=== PATIENT | female | born 1930 | race Hispanic/Latino ===

== ENCOUNTER 2017-10-26 10:12 | Outpatient (CLI) | payer MEDICARE ==
--- NOTE | 2017-10-26 16:27 | Mammography Report ---
BILATERAL DIGITAL SCREENING MAMMOGRAM with CAD: 10/26/17 10:12:00 CLINICAL: Routine screening. COMPARISON:04/19/13 FINDINGS: There are scattered areas of fibroglandular density.Bilateral benign calcifications. No mass, architectural distortion or suspicious calcifications. IMPRESSION: No mammographic evidence of malignancy. BI-RADS CATEGORY: 2 -- Benign RECOMMENDATION: Routine mammographic screening in one year. COMMENT: Patient follow-up letters are generated by our [employer] application.
== END 2017-10-26 10:13 | disposition home or self-care (01) ==
LOC: SPVWC 10:12
PROVIDERS: ATTEND Obstetrics & Gynecology
DX: Z12.31 Encounter for screening mammogram for malignant neoplasm of breast (principal)
CPT/HCPCS: 77067

== ENCOUNTER 2018-08-20 09:40 | Inpatient (IN) | payer MEDICARE ==
[2018-08-20 11:02] LABS: Basophils # (Auto) 0.1 K/mm3 (0.0-0.1); Basophils % (Auto) 0.9 % (0.0-1.8); Eosinophils # (Auto) 0.2 K/mm3 (0.0-0.4); Eosinophils % (Auto) 1.6 % (0.0-4.3); Hematocrit 28.6 % (30.3-42.9); Hemoglobin 9.4 gm/dl (10.1-14.3); Lymphocytes # (Auto) 1.1 K/mm3 (1.2-5.4); Lymphocytes % (Auto) 8.8 % (13.4-35.0); Mean Corpuscular HGB Conc 33 % (30-34); Mean Corpuscular Volume 93 fl (79-97); Monocytes # (Auto) 1.2 K/mm3 (0.0-0.8); Platelet Count 249 K/mm3 (140-440); Red Blood Count 3.07 M/mm3 (3.65-5.03); Red Cell Distribution Width 17.6 % (13.2-15.2)
[2018-08-20 11:13] LABS: INR 0.99 (0.87-1.13); Partial Thromboplastin Time 24.7 Sec. (24.2-36.6)
[2018-08-20 11:25] LABS: Albumin 3.5 g/dL (3.9-5); Calcium 8.1 mg/dL (8.4-10.2)
--- NOTE | 2018-08-20 11:52 | Emergency Department Report ---
ED GI Bleed HPI - General Chief complaint: GI Bleed Stated complaint: GI BLEED Time Seen by Provider: 08/20/18 10:37 Source: patient, family, old records reviewed Mode of arrival: Stretcher Limitations: No Limitations - History of Present Illness Initial comments: 87-year-old female with a past medical history of arthritis, CHF, diabetes, hypertension and previous hysterectomy and bladder surgery presents to the hospital with complaints of rectal bleeding. Patient states she had 2 episodes of bloody stool this a.m. She denies pain, shortness of breath, nausea vomiting, or lightheadedness. Denies history of previous GI bleed. Had a colonoscopy greater than 4 years ago that was normal. 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 Sung with [facility] Severity scale (0 -10): 0 - Related Data Home Medications Medication Instructions Recorded Confirmed Last Taken Aspirin [Aspirin BABY CHEW TAB] 81 mg PO QDAY 08/20/18 08/20/18 Unknown Atorvastatin Calcium [Lipitor] 20 mg PO DAILY 08/20/18 08/20/18 Unknown Calcium Carbonate/Vitamin D3 1 each PO BID 08/20/18 08/20/18 Unknown [Calcium 600-Vit D3 400 Tablet] Carvedilol 12.5 mg PO BID 08/20/18 08/20/18 Unknown Estradiol 0.25 mg PO DAILY 08/20/18 08/20/18 Unknown Folic Acid [Folvite] 2 mg PO QDAY 08/20/18 08/20/18 Unknown Furosemide [Lasix TAB] 40 mg PO QDAY 08/20/18 08/20/18 Unknown Hydralazine HCl 50 mg PO TID 08/20/18 08/20/18 Unknown Losartan Potassium 100 mg PO DAILY 08/20/18 08/20/18 Unknown NIFEdipine [Nifedipine ER] 60 mg PO DAILY 08/20/18 08/20/18 Unknown Potassium Chloride 8 meq PO DAILY 08/20/18 08/20/18 Unknown Sitagliptin Phos/Metformin HCl 1 each PO DAILY 08/20/18 08/20/18 Unknown [Janumet 50-1,000 mg Tablet] metHOTREXate(DOSE WEEKLY ONLY) 2.5 mg PO QWEEK 08/20/18 08/20/18 Unknown [metHOTREXate (DOSE WEEKLY ONLY)] predniSONE [Deltasone] 5 mg PO QAM 08/20/18 08/20/18 Unknown Allergies Allergy/AdvReac Type Severity Reaction Status Date / Time codeine Allergy Vomiting Verified 03/23/18 11:39 ED Review of Systems ROS: Stated complaint: GI BLEED Other details as noted in HPI Comment: Unobtainable due to pts medical conditions ED Past Medical Hx - Past Medical History Previous Medical History?: Yes Hx Hypertension: Yes Hx Congestive Heart Failure: Yes Hx Diabetes: Yes Hx Arthritis: Yes (RA) Additional medical history: Right Shoulder dislocation 50 years ago. - Surgical History Past Surgical History?: Yes Additional Surgical History: Hysterectomy, Bladder Surgery - Social History Smoking Status: Former Smoker Substance Use Type: None - Medications Home Medications: Home Medications Medication Instructions Recorded Confirmed Last Taken Type Aspirin [Aspirin BABY CHEW TAB] 81 mg PO QDAY 08/20/18 08/20/18 Unknown History Atorvastatin Calcium [Lipitor] 20 mg PO DAILY 08/20/18 08/20/18 Unknown History Calcium Carbonate/Vitamin D3 1 each PO BID 08/20/18 08/20/18 Unknown History [Calcium 600-Vit D3 400 Tablet] Carvedilol 12.5 mg PO BID 08/20/18 08/20/18 Unknown History Estradiol 0.25 mg PO DAILY 08/20/18 08/20/18 Unknown History Folic Acid [Folvite] 2 mg PO QDAY 08/20/18 08/20/18 Unknown History Furosemide [Lasix TAB] 40 mg PO QDAY 08/20/18 08/20/18 Unknown History Hydralazine HCl 50 mg PO TID 08/20/18 08/20/18 Unknown History Losartan Potassium 100 mg PO DAILY 08/20/18 08/20/18 Unknown History NIFEdipine [Nifedipine ER] 60 mg PO DAILY 08/20/18 08/20/18 Unknown History Potassium Chloride 8 meq PO DAILY 08/20/18 08/20/18 Unknown History Sitagliptin Phos/Metformin HCl 1 each PO DAILY 08/20/18 08/20/18 Unknown History [Janumet 50-1,000 mg Tablet] metHOTREXate(DOSE WEEKLY ONLY) 2.5 mg PO QWEEK 08/20/18 08/20/18 Unknown History [metHOTREXate (DOSE WEEKLY ONLY)] predniSONE [Deltasone] 5 mg PO QAM 08/20/18 08/20/18 Unknown History ED Physical Exam - General Limitations: No Limitations - Other Other exam information: General: No limitations, patient is alert in no acute distress Head exam: Atraumatic, normocephalic Eyes exam: Normal appearance ENT: Moist mucous membrane Neck exam: Normal inspection, full range of motion, no meningismus nontender Respiratory exam: Clear to auscultation bilateral, no wheezes, rales, crackles Cardiovascular: Normal rate and rhythm, positive heart murmur Abdomen: Soft, nondistended, and nontender, with normal bowel sounds, no rebound, or guarding Rectal: Guaiac positive bright red blood, guaiac-positive, no external hemorrhoids Extremity: Full range of motion normal inspection no deformity Back: Normal Inspection, full range of motion, no tenderness Neurologic: Alert, oriented x3, cranial nerves intact, no motor or sensory deficit Psychiatric: normal affect, normal mood Skin: Warm, dry, intact ED Course Vital Signs 08/20/18 08/20/18 08/20/18 10:05 10:11 10:16 Temperature 97.5 F L Pulse Rate 97 H Respiratory 16 Rate Blood Pressure 182/70 152/69 O2 Sat by Pulse 96 97 99 Oximetry 08/20/18 08/20/18 08/20/18 10:30 10:46 11:01 Temperature Pulse Rate Respiratory Rate Blood Pressure 173/61 192/88 183/66 O2 Sat by Pulse 97 97 97 Oximetry 08/20/18 08/20/18 08/20/18 11:15 11:30 11:46 Temperature Pulse Rate Respiratory Rate Blood Pressure 181/66 181/67 144/66 O2 Sat by Pulse 97 97 97 Oximetry - Consultations Consultation #1: 08/20/18 12:06 case d/w Dr. Andres hilliard, GI, will consult. soft diet then npo after midnight. he will eval pt today ED Medical Decision Making - Lab Data Result diagrams: 08/20/18 10:32 08/20/18 10:32 Lab Results 08/20/18 08/20/18 08/20/18 Range/Units 10:32 10:32 10:32 WBC 12.2 H (4.5-11.0) K/mm3 RBC 3.07 L (3.65-5.03) M/mm3 Hgb 9.4 L (10.1-14.3) gm/dl Hct 28.6 L (30.3-42.9) % MCV 93 (79-97) fl MCH 31 (28-32) pg MCHC 33 (30-34) % RDW 17.6 H (13.2-15.2) % Plt Count 249 (140-440) K/mm3 Lymph % (Auto) 8.8 L (13.4-35.0) % [place] % (Auto) 10.0 H (0.0-7.3) % Eos % (Auto) 1.6 (0.0-4.3) % Baso % (Auto) 0.9 (0.0-1.8) % Lymph # 1.1 L (1.2-5.4) K/mm3 [place] # 1.2 H (0.0-0.8) K/mm3 Eos # 0.2 (0.0-0.4) K/mm3 Baso # 0.1 (0.0-0.1) K/mm3 Seg Neutrophils % 78.7 H (40.0-70.0) % Seg Neutrophils # 9.6 H (1.8-7.7) K/mm3 PT 13.7 (12.2-14.9) Sec. INR 0.99 (0.87-1.13) APTT 24.7 (24.2-36.6) Sec. Sodium (137-145) mmol/L Potassium (3.6-5.0) mmol/L Chloride (98-107) mmol/L Carbon Dioxide (22-30) mmol/L Anion Gap mmol/L BUN (7-17) mg/dL Creatinine (0.7-1.2) mg/dL Estimated GFR ml/min BUN/Creatinine Ratio % Glucose (65-100) mg/dL Calcium (8.4-10.2) mg/dL Total Bilirubin (0.1-1.2) mg/dL AST (5-40) units/L ALT (7-56) units/L Alkaline Phosphatase (35-129) units/L Total Protein (6.3-8.2) g/dL Albumin (3.9-5) g/dL Albumin/Globulin Ratio % Blood Type A POSITIVE Antibody Screen Negative 08/20/18 Range/Units 10:32 WBC (4.5-11.0) K/mm3 RBC (3.65-5.03) M/mm3 Hgb (10.1-14.3) gm/dl Hct (30.3-42.9) % MCV (79-97) fl MCH (28-32) pg MCHC (30-34) % RDW (13.2-15.2) % Plt Count (140-440) K/mm3 Lymph % (Auto) (13.4-35.0) % [place] % (Auto) (0.0-7.3) % Eos % (Auto) (0.0-4.3) % Baso % (Auto) (0.0-1.8) % Lymph # (1.2-5.4) K/mm3 [place] # (0.0-0.8) K/mm3 Eos # (0.0-0.4) K/mm3 Baso # (0.0-0.1) K/mm3 Seg Neutrophils % (40.0-70.0) % Seg Neutrophils # (1.8-7.7) K/mm3 PT (12.2-14.9) Sec. INR (0.87-1.13) APTT (24.2-36.6) Sec. Sodium 142 (137-145) mmol/L Potassium 4.0 (3.6-5.0) mmol/L Chloride 107.2 H (98-107) mmol/L Carbon Dioxide 24 (22-30) mmol/L Anion Gap 15 mmol/L BUN 18 H (7-17) mg/dL Creatinine 1.0 (0.7-1.2) mg/dL Estimated GFR 53 ml/min BUN/Creatinine Ratio 18 % Glucose 99 (65-100) mg/dL Calcium 8.1 L (8.4-10.2) mg/dL Total Bilirubin 0.50 (0.1-1.2) mg/dL AST 13 (5-40) units/L ALT 12 (7-56) units/L Alkaline Phosphatase 40 (35-129) units/L Total Protein 5.7 L (6.3-8.2) g/dL Albumin 3.5 L (3.9-5) g/dL Albumin/Globulin Ratio 1.6 % Blood Type Antibody Screen - EKG Data -: EKG Interpreted by Ct EKG shows normal: sinus rhythm, axis (qrs -25), QRS complexes (qrsd 86), ST-T waves (no stemi/t inv) Rate: normal (61) - EKG Data When compared to previous EKG there are: previous EKG unavailable - Medical Decision Making Patient presents for rectal bleeding with bowel movements. Mild anemia noted. GI consultation. Will admit for further treatment and workup. - Differential Diagnosis cancer, diverticulosis, AVM, hemorrhoids Critical Care Time: No Critical care attestation.: If time is entered above; I have spent that time in minutes in the direct care of this critically ill patient, excluding procedure time. ED Disposition Clinical Impression: Rectal bleeding, Anemia Disposition: DC-09 OP ADMIT IP TO THIS HOSP Is pt being admited?: Yes Condition: Stable Referrals: BRAYDON MEYER MD [Primary Care Provider] - 3-5 Days Forms: Accompanied Note Time of Disposition: 12:06 (Dr Finley/hosp)
[2018-08-20] MEDS ORDERED: DULCOLAX PO ONE ×2 (16:00→19:00)
--- NOTE | 2018-08-20 16:03 | Gastroenterology Consultation ---
History of Present Illness - Reason for Consult Consult date: 08/20/18 GI bleed Requesting physician: NGOC ARGUELLO - History of Present Illness Ms Ram is a 87 yo wf who presents for hematochezia. pt was in her usual state of health until this morning when she had multiple episodes of brbpr with clots. She presented to the ED by ambulance, and has had 2 more episodes of bleeding with clots since admission. She reports abd discomfort prior to onset of bleeding, but otherwise denies abd pain. No prior h/o bleeding. On baby aspirin, but otherwise no plavix or anticoagulation. Vitals stable on admission. Believes she had a colonoscopy ~5 years ago but does not recall details of findings. Past History Past Medical History: arthritis, diabetes, hypertension Past Surgical History: hysterectomy, Other (bladder surgery) Social history: no significant social history Family history: no significant family history Medications and Allergies Allergies Allergy/AdvReac Type Severity Reaction Status Date / Time codeine Allergy Vomiting Verified 03/23/18 11:39 Home Medications Medication Instructions Recorded Confirmed Last Taken Type Aspirin [Aspirin BABY CHEW TAB] 81 mg PO QDAY 08/20/18 08/20/18 Unknown History Atorvastatin Calcium [Lipitor] 20 mg PO DAILY 08/20/18 08/20/18 Unknown History Calcium Carbonate/Vitamin D3 1 each PO BID 08/20/18 08/20/18 Unknown History [Calcium 600-Vit D3 400 Tablet] Carvedilol 12.5 mg PO BID 08/20/18 08/20/18 Unknown History Estradiol 0.25 mg PO DAILY 08/20/18 08/20/18 Unknown History Folic Acid [Folvite] 2 mg PO QDAY 08/20/18 08/20/18 Unknown History Furosemide [Lasix TAB] 40 mg PO QDAY 08/20/18 08/20/18 Unknown History Hydralazine HCl 50 mg PO TID 08/20/18 08/20/18 Unknown History Losartan Potassium 100 mg PO DAILY 08/20/18 08/20/18 Unknown History NIFEdipine [Nifedipine ER] 60 mg PO DAILY 08/20/18 08/20/18 Unknown History Potassium Chloride 8 meq PO DAILY 08/20/18 08/20/18 Unknown History Sitagliptin Phos/Metformin HCl 1 each PO DAILY 08/20/18 08/20/18 Unknown History [Janumet 50-1,000 mg Tablet] metHOTREXate(DOSE WEEKLY ONLY) 2.5 mg PO QWEEK 08/20/18 08/20/18 Unknown History [metHOTREXate (DOSE WEEKLY ONLY)] predniSONE [Deltasone] 5 mg PO QAM 08/20/18 08/20/18 Unknown History Active Meds: Active Medications Bisacodyl (Dulcolax) 15 mg PO ONCE ONE Stop: 08/20/18 15:59 Reviewed/Updated patient's current and home medications. Exam - Constitutional Vital Signs: Temp Pulse Resp BP Pulse Ox 97.9 F 71 17 108/52 97 08/20/18 15:06 08/20/18 15:19 08/20/18 15:06 08/20/18 15:06 08/20/18 15:19 General appearance: no acute distress - EENT Eyes: PERRL, EOM intact - Neck Neck: supple - Respiratory Respiratory effort: normal Respiratory: bilateral: CTA - Cardiovascular Rhythm: regular Heart Sounds: Present: S1 & S2 Extremities: No edema - Gastrointestinal General gastrointestinal: Present: soft, non-tender, non-distended - Integumentary Integumentary: Present: clear, warm - Neurologic Neurological: alert and oriented x3 - Psychiatric Psychiatric: appropriate mood/affect - Labs CBC & Chem 7: 08/20/18 10:32 08/20/18 10:32 Lab Results: Laboratory Results - last 24 hr 08/20/18 08/20/18 08/20/18 10:32 10:32 10:32 WBC 12.2 H RBC 3.07 L Hgb 9.4 L Hct 28.6 L MCV 93 MCH 31 MCHC 33 RDW 17.6 H Plt Count 249 Lymph % (Auto) 8.8 L [place] % (Auto) 10.0 H Eos % (Auto) 1.6 Baso % (Auto) 0.9 Lymph # 1.1 L [place] # 1.2 H Eos # 0.2 Baso # 0.1 Seg Neutrophils % 78.7 H Seg Neutrophils # 9.6 H PT 13.7 INR 0.99 APTT 24.7 Sodium Potassium Chloride Carbon Dioxide Anion Gap BUN Creatinine Estimated GFR BUN/Creatinine Ratio Glucose Calcium Total Bilirubin AST ALT Alkaline Phosphatase Total Protein Albumin Albumin/Globulin Ratio Blood Type A POSITIVE Antibody Screen Negative 08/20/18 10:32 WBC RBC Hgb Hct MCV MCH MCHC RDW Plt Count Lymph % (Auto) [place] % (Auto) Eos % (Auto) Baso % (Auto) Lymph # [place] # Eos # Baso # Seg Neutrophils % Seg Neutrophils # PT INR APTT Sodium 142 Potassium 4.0 Chloride 107.2 H Carbon Dioxide 24 Anion Gap 15 BUN 18 H Creatinine 1.0 Estimated GFR 53 BUN/Creatinine Ratio 18 Glucose 99 Calcium 8.1 L Total Bilirubin 0.50 AST 13 ALT 12 Alkaline Phosphatase 40 Total Protein 5.7 L Albumin 3.5 L Albumin/Globulin Ratio 1.6 Blood Type Antibody Screen Assessment and Plan 1. Hematochezia - anemic on on admission (unknown baseline); no prior h/o gi bleeding. vitals stable. will plan for colonoscopy tomorrow; prep orders placed. trend labs and transfuse as needed to keep hgb > 7.
[2018-08-20] MEDS ORDERED: GOLYTELY PO ONE (17:00)
--- NOTE | 2018-08-20 18:09 | History and Physical Report ---
History of Present Illness Date of examination: 08/20/18 Date of admission: 08/20/18 12:07 Chief complaint: Lower GI bleed since AM History of present illness: 87-year-old female with a past medical history of arthritis, CHF, diabetes, hypertension and previous hysterectomy and bladder surgery presents to the hospital with complaints of rectal bleeding. Patient states she had 2 episodes of bloody stool this a.m. She denies pain, shortness of breath, nausea vom iting, or lightheadedness. Denies history of previous GI bleed. Had a colonoscopy greater than 4 years ago that was normal. Past Medical History Previous Medical History?: Yes Hypertension: Yes Congestive Heart Failure: Yes Diabetes: Yes Arthritis: Yes (RA) Additional medical history: Right Shoulder dislocation 50 years ago. Surgical History Past Surgical History?: Yes Additional Surgical History: Hysterectomy, Bladder Surgery Social History Smoking Status: Former Smoker Substance Use Type: None Medications Home Medications: Home Medications Medication Instructions Recorded Confirmed Last Taken Type Aspirin [Aspirin BABY CHEW TAB] 81 mg PO QDAY 08/20/18 08/20/18 Unknown History Atorvastatin Calcium [Lipitor] 20 mg PO DAILY 08/20/18 08/20/18 Unknown History Calcium Carbonate/Vitamin D3 1 each PO BID 08/20/18 08/20/18 Unknown History [Calcium 600-Vit D3 400 Tablet] Carvedilol 12.5 mg PO BID 08/20/18 08/20/18 Unknown History Estradiol 0.25 mg PO DAILY 08/20/18 08/20/18 Unknown History Folic Acid [Folvite] 2 mg PO QDAY 08/20/18 08/20/18 Unknown History Furosemide [Lasix TAB] 40 mg PO QDAY 08/20/18 08/20/18 Unknown History Hydralazine HCl 50 mg PO TID 08/20/18 08/20/18 Unknown History Losartan Potassium 100 mg PO DAILY 08/20/18 08/20/18 Unknown History NIFEdipine [Nifedipine ER] 60 mg PO DAILY 08/20/18 08/20/18 Unknown History Potassium Chloride 8 meq PO DAILY 08/20/18 08/20/18 Unknown History Sitagliptin Phos/Metformin HCl 1 each PO DAILY 08/20/18 08/20/18 Unknown History [Janumet 50-1,000 mg Tablet] metHOTREXate(DOSE WEEKLY ONLY) 2.5 mg PO QWEEK 08/20/18 08/20/18 Unknown History [metHOTREXate (DOSE WEEKLY ONLY)] predniSONE [Deltasone] 5 mg PO QAM 08/20/18 08/20/18 Unknown History Review of systems Stated complaint: GI BLEED Other details as noted in HPI Unobtainable due to pts medical conditions Past History Past Medical History: arthritis, diabetes, hypertension Past Surgical History: hysterectomy, Other (bladder surgery) Social history: no significant social history Family history: no significant family history Medications and Allergies Allergies Allergy/AdvReac Type Severity Reaction Status Date / Time codeine Allergy Vomiting Verified 03/23/18 11:39 Home Medications Medication Instructions Recorded Confirmed Last Taken Type Aspirin [Aspirin BABY CHEW TAB] 81 mg PO QDAY 08/20/18 08/20/18 Unknown History Atorvastatin Calcium [Lipitor] 20 mg PO DAILY 08/20/18 08/20/18 Unknown History Calcium Carbonate/Vitamin D3 1 each PO BID 08/20/18 08/20/18 Unknown History [Calcium 600-Vit D3 400 Tablet] Carvedilol 12.5 mg PO BID 08/20/18 08/20/18 Unknown History Estradiol 0.25 mg PO DAILY 08/20/18 08/20/18 Unknown History Folic Acid [Folvite] 2 mg PO QDAY 08/20/18 08/20/18 Unknown History Furosemide [Lasix TAB] 40 mg PO QDAY 08/20/18 08/20/18 Unknown History Hydralazine HCl 50 mg PO TID 08/20/18 08/20/18 Unknown History Losartan Potassium 100 mg PO DAILY 08/20/18 08/20/18 Unknown History NIFEdipine [Nifedipine ER] 60 mg PO DAILY 08/20/18 08/20/18 Unknown History Potassium Chloride 8 meq PO DAILY 08/20/18 08/20/18 Unknown History Sitagliptin Phos/Metformin HCl 1 each PO DAILY 08/20/18 08/20/18 Unknown History [Janumet 50-1,000 mg Tablet] metHOTREXate(DOSE WEEKLY ONLY) 2.5 mg PO QWEEK 08/20/18 08/20/18 Unknown History [metHOTREXate (DOSE WEEKLY ONLY)] predniSONE [Deltasone] 5 mg PO QAM 08/20/18 08/20/18 Unknown History Exam - Constitutional Vitals: Temp Pulse Resp BP Pulse Ox 97.9 F 71 17 108/52 97 08/20/18 15:06 04/13/19 15:19 08/20/18 15:06 08/20/18 15:06 08/20/18 15:19 General appearance: Present: no acute distress, well-nourished - EENT Eyes: Present: PERRL ENT: hearing intact, clear oral mucosa - Neck Neck: Present: supple, normal ROM - Respiratory Respiratory effort: normal Respiratory: bilateral: CTA - Cardiovascular Heart rate: 88 Rhythm: regular Heart Sounds: Present: S1 & S2. Absent: rub, click - Extremities Extremities: no ischemia, pulses intact, pulses symmetrical, No edema Peripheral Pulses: within normal limits - Abdominal General gastrointestinal: Present: soft, non-tender, non-distended, normal bowel sounds Female genitourinary: Present: normal - Rectal Rectal Exam: stool bloody - Integumentary Integumentary: Present: clear, warm, dry - Musculoskeletal Musculoskeletal: gait normal, strength equal bilaterally - Psychiatric Psychiatric: appropriate mood/affect, intact judgment & insight - Neurologic Neurologic: CNII-XII intact, moves all extremities - Allied Health Allied health notes reviewed: nursing, case management Results - Labs CBC & Chem 7: 08/20/18 19:24 08/20/18 10:32 Labs: Laboratory Last Values WBC 12.2 K/mm3 (4.5-11.0) H 08/20/18 10:32 RBC 3.07 M/mm3 (3.65-5.03) L 08/20/18 10:32 Hgb 9.4 gm/dl (10.1-14.3) L 08/20/18 10:32 Hct 28.6 % (30.3-42.9) L 08/20/18 10:32 MCV 93 fl (79-97) 08/20/18 10:32 MCH 31 pg (28-32) 08/20/18 10:32 MCHC 33 % (30-34) 08/20/18 10:32 RDW 17.6 % (13.2-15.2) H 08/20/18 10:32 Plt Count 249 K/mm3 (140-440) 08/20/18 10:32 Lymph % (Auto) 8.8 % (13.4-35.0) L 08/20/18 10:32 [place] % (Auto) 10.0 % (0.0-7.3) H 08/20/18 10:32 Eos % (Auto) 1.6 % (0.0-4.3) 08/20/18 10:32 Baso % (Auto) 0.9 % (0.0-1.8) 08/20/18 10:32 Lymph # 1.1 K/mm3 (1.2-5.4) L 08/20/18 10:32 [place] # 1.2 K/mm3 (0.0-0.8) H 08/20/18 10:32 Eos # 0.2 K/mm3 (0.0-0.4) 08/20/18 10:32 Baso # 0.1 K/mm3 (0.0-0.1) 08/20/18 10:32 Seg Neutrophils % 78.7 % (40.0-70.0) H 08/20/18 10:32 Seg Neutrophils # 9.6 K/mm3 (1.8-7.7) H 08/20/18 10:32 PT 13.7 Sec. (12.2-14.9) 08/20/18 10:32 INR 0.99 (0.87-1.13) 08/20/18 10:32 APTT 24.7 Sec. (24.2-36.6) 08/20/18 10:32 Sodium 142 mmol/L (137-145) 08/20/18 10:32 Potassium 4.0 mmol/L (3.6-5.0) 08/20/18 10:32 Chloride 107.2 mmol/L (98-107) H 08/20/18 10:32 Carbon Dioxide 24 mmol/L (22-30) 08/20/18 10:32 Anion Gap 15 mmol/L 08/20/18 10:32 BUN 18 mg/dL (7-17) H 08/20/18 10:32 Creatinine 1.0 mg/dL (0.7-1.2) 08/20/18 10:32 Estimated GFR 53 ml/min 08/20/18 10:32 BUN/Creatinine Ratio 18 % 08/20/18 10:32 Glucose 99 mg/dL (65-100) 08/20/18 10:32 Calcium 8.1 mg/dL (8.4-10.2) L 08/20/18 10:32 Total Bilirubin 0.50 mg/dL (0.1-1.2) 08/20/18 10:32 AST 13 units/L (5-40) 08/20/18 10:32 ALT 12 units/L (7-56) 08/20/18 10:32 Alkaline Phosphatase 40 units/L (35-129) 08/20/18 10:32 Total Protein 5.7 g/dL (6.3-8.2) L 08/20/18 10:32 Albumin 3.5 g/dL (3.9-5) L 08/20/18 10:32 Albumin/Globulin Ratio 1.6 % 08/20/18 10:32 Blood Type A POSITIVE 08/20/18 10:32 Antibody Screen Negative 08/20/18 10:32 - Imaging and Cardiology EKG: report reviewed (60/min) Assessment and Plan Advance Directives: Yes (Full code) VTE prophylaxis?: Chemical Plan of care discussed with patient/family: Yes - Patient Problems (1) Lower GI bleed Current Visit: Yes Status: Acute Plan to address problem: Check H/h q8 Transfuse if necessary GI consult for colonoscopy Possible Diverticular bleed (2) HTN (hypertension) Current Visit: Yes Status: Chronic Qualifiers: Hypertension type: essential hypertension Qualified Code(s): I10 - Essential (primary) hypertension Plan to address problem: Catapress patch Resume oral antihypertensives after colonoscopy (3) T2DM (type 2 diabetes mellitus) Current Visit: Yes Status: Chronic Qualifiers: Diabetes mellitus residential insulin use: without residential use Plan to address problem: Hold oral hypoglycemics for now till colonoscopy Coverage for now Check A1c (4) HLD (hyperlipidemia) Current Visit: Yes Status: Chronic Qualifiers: Hyperlipidemia type: mixed hyperlipidemia Qualified Code(s): E78.2 - Mixed hyperlipidemia Plan to address problem: Hold statins for now (5) DVT prophylaxis Current Visit: Yes Status: Acute Plan to address problem: On SCD's and GI prophylaxis
[2018-08-20 19:40] LABS: Hematocrit 23.6 % (30.3-42.9); Hemoglobin 7.7 gm/dl (10.1-14.3)
[2018-08-20] MEDS: PROTONIX IV SCH (21:38)
[2018-08-20] MEDS ORDERED: ZOFRAN IV PRN (23:32)
[2018-08-21 07:01] LABS: Hematocrit 20.4 % (30.3-42.9); Hemoglobin 6.6 gm/dl (10.1-14.3)
[2018-08-21] MEDS: HumaLOG SUB-Q SCH ×3 (10:26→17:07)
[2018-08-21] MEDS: PROTONIX IV SCH ×2 (10:27→21:49)
--- NOTE | 2018-08-21 10:31 | Progress Note ---
Assessment and Plan Assessment and plan: --Lower GI bleeding; Nothing by mouth, Protonix, GI evaluated the patient Possible endoscopy today --Type 2 diabetes mellitus; Accu-Chek sliding scale coverage and ADA diet Insulin/as needed --Dyslipidemia; stable on statin, low-cholesterol diet --DVT prophylaxis; SCDs The pharmacologic anticoagulation in view of GI bleeding --Full CODE STATUS Consultation and recommendations noted and appreciated Following endoscopy, possible discharge today tomorrow if stable Musculoskeletal the patient and the daughter at the bedside He also discussed with patient's nurse History Interval history: At 7-year-old female patient admitted with GI bleeding Evaluated by GI scheduled for endoscopy this morning Patient is nothing by mouth status, no new episodes of bleeding No new complaints Alert awake oriented 3 not in acute distress A vital signs reviewed Hospitalist Physical - Constitutional Vitals: Temp Pulse Resp BP Pulse Ox 99.0 F 71 18 144/48 96 08/21/18 08:00 08/21/18 10:00 08/21/18 09:20 08/21/18 08:00 08/21/18 09:20 General appearance: Present: no acute distress, well-nourished - EENT Eyes: Present: PERRL, EOM intact - Neck Neck: Present: supple - Respiratory Respiratory effort: normal Respiratory: bilateral: diminished, negative: rales, rhonchi, wheezing - Cardiovascular Rhythm: regular Heart Sounds: Present: S1 & S2 - Extremities Extremities: no ischemia, No edema - Abdominal General gastrointestinal: soft, non-tender, non-distended, normal bowel sounds - Integumentary Integumentary: Present: clear, warm - Psychiatric Psychiatric: appropriate mood/affect, cooperative - Neurologic Neurologic: CNII-XII intact, moves all extremities Results - Labs CBC & Chem 7: 08/21/18 05:00 08/20/18 10:32 Labs: Laboratory Last Values WBC 12.2 K/mm3 (4.5-11.0) H 08/20/18 10:32 RBC 3.07 M/mm3 (3.65-5.03) L 08/20/18 10:32 Hgb 6.6 gm/dl (10.1-14.3) L 08/21/18 05:00 Hct 20.4 % (30.3-42.9) L 08/21/18 05:00 MCV 93 fl (79-97) 08/20/18 10:32 MCH 31 pg (28-32) 08/20/18 10:32 MCHC 33 % (30-34) 08/20/18 10:32 RDW 17.6 % (13.2-15.2) H 08/20/18 10:32 Plt Count 249 K/mm3 (140-440) 08/20/18 10:32 Lymph % (Auto) 8.8 % (13.4-35.0) L 08/20/18 10:32 [place] % (Auto) 10.0 % (0.0-7.3) H 08/20/18 10:32 Eos % (Auto) 1.6 % (0.0-4.3) 08/20/18 10:32 Baso % (Auto) 0.9 % (0.0-1.8) 08/20/18 10:32 Lymph # 1.1 K/mm3 (1.2-5.4) L 08/20/18 10:32 [place] # 1.2 K/mm3 (0.0-0.8) H 08/20/18 10:32 Eos # 0.2 K/mm3 (0.0-0.4) 08/20/18 10:32 Baso # 0.1 K/mm3 (0.0-0.1) 08/20/18 10:32 Seg Neutrophils % 78.7 % (40.0-70.0) H 08/20/18 10:32 Seg Neutrophils # 9.6 K/mm3 (1.8-7.7) H 08/20/18 10:32 PT 13.7 Sec. (12.2-14.9) 08/20/18 10:32 INR 0.99 (0.87-1.13) 08/20/18 10:32 APTT 24.7 Sec. (24.2-36.6) 08/20/18 10:32 Sodium 142 mmol/L (137-145) 08/20/18 10:32 Potassium 4.0 mmol/L (3.6-5.0) 08/20/18 10:32 Chloride 107.2 mmol/L (98-107) H 08/20/18 10:32 Carbon Dioxide 24 mmol/L (22-30) 08/20/18 10:32 Anion Gap 15 mmol/L 08/20/18 10:32 BUN 18 mg/dL (7-17) H 08/20/18 10:32 Creatinine 1.0 mg/dL (0.7-1.2) 08/20/18 10:32 Estimated GFR 53 ml/min 08/20/18 10:32 BUN/Creatinine Ratio 18 % 08/20/18 10:32 Glucose 99 mg/dL (65-100) 08/20/18 10:32 Calcium 8.1 mg/dL (8.4-10.2) L 08/20/18 10:32 Total Bilirubin 0.50 mg/dL (0.1-1.2) 08/20/18 10:32 AST 13 units/L (5-40) 08/20/18 10:32 ALT 12 units/L (7-56) 08/20/18 10:32 Alkaline Phosphatase 40 units/L (35-129) 08/20/18 10:32 Total Protein 5.7 g/dL (6.3-8.2) L 08/20/18 10:32 Albumin 3.5 g/dL (3.9-5) L 08/20/18 10:32 Albumin/Globulin Ratio 1.6 % 08/20/18 10:32 Blood Type A POSITIVE 08/20/18 10:32 Antibody Screen Negative 08/20/18 10:32 Active Medications - Current Medications Current Medications: Generic Name Dose Route Start Last Admin Trade Name Freq PRN Reason Stop Dose Admin Insulin Human Lispro 0 unit 08/21/18 07:00 08/21/18 10:26 Humalog SUB-Q Not Given Q6HR [facility] Protocol Ondansetron HCl 4 mg 08/20/18 23:32 Zofran IV Q6H PRN N/V unrelieved by Marilu Pantoprazole Sodium 40 mg 08/20/18 22:00 08/21/18 10:27 Protonix IV 40 mg BID HAKAN Administration
[2018-08-21] MEDS ORDERED: NACL 0.9% 500 ML 500 ML IV ONE ×2 (11:00→11:41)
[2018-08-21 11:09] LABS: Hemoglobin 6.6 gm/dl (10.1-14.3)
[2018-08-21] MEDS ORDERED: NACL 0.9% 1000 ML 1,000 ML ONE (11:35)
[2018-08-21] MEDS ORDERED: WATER FOR IRRIG STERILE ONE (11:49)
[2018-08-21] MEDS ORDERED: WATER FOR IRRIG STERILE IR ONE ×2 (11:49→12:11)
[2018-08-21] MEDS ORDERED: NACL 0.9% 1000 ML 1,000 ML IV SCH (12:00)
[2018-08-21] MEDS ORDERED: NEO SYNEPHRINE/NS Syringe(OR USE) IV ONE (12:02)
--- NOTE | 2018-08-21 12:02 | Anesthesia Day of Surgery ---
Anesthesia Day of Surgery - Day of Surgery Patient Examined: Yes Patient H&P Reviewed: Yes Patient is NPO: Yes Beta Blockers: No Brennen's Test: N/A
--- NOTE | 2018-08-21 12:03 | Anesthesia Consultation ---
Anesthesia Consult and Med Hx Date of service: 08/21/18 - Airway Anesthetic Teeth Evaluation: Poor, Chipped ROM Head & Neck: Adequate Mental/Hyoid Distance: Adequate Mallampati Class: Class II Intubation Access Assessment: Good - Pulmonary Exam CTA: Yes - Cardiac Exam Cardiac Exam: RRR - Pre-Operative Health Status ASA Pre-Surgery Classification: ASA3 Proposed Anesthetic Plan: Sedation, Conscious, MAC - Pulmonary Hx Smoking: No Hx Asthma: No Hx Respiratory Symptoms: No SOB: No COPD: No Hx Sleep Apnea: No - Cardiovascular System Hx Hypertension: Yes Hx Coronary Artery Disease: No Hx Heart Attack/AMI: No - Central Nervous System Hx Psychiatric Problems: No - Gastrointestinal Hx Ulcer: No Hx Gastroesophageal Reflux Disease: No - Hematic Hx Anemia: No
[2018-08-21] MEDS ORDERED: DIPRIVAN 10 MG/ML IV ONE (12:05)
[2018-08-21] MEDS ORDERED: XYLOCAINE 2% INFILTRATI ONE (12:05)
[2018-08-21] MEDS ORDERED: AMIDATE IV ONE (12:13)
--- NOTE | 2018-08-21 12:33 | Operative Report ---
Operative Report Operative Report: Colonoscopy Procedure Note Date of procedure: 08/21/2018 Endoscopist: Tushar Mcgrath Pre-op diagnosis: Hematochezia, GI bleed Post-op diagnosis: Diverticulosis, internal hemorrhoids Anesthesia: MAC Complications: No immediate complications Estimated blood loss: None Procedure: After consent was obtained, the patient was placed in the left lateral decubitus position. The fujinon colonoscope was inserted into the patient's rectum under direct vision, and advanced to the cecum without difficulty. The patient tolerated the procedure well. The views of the mucosa were good. The quality of prep was good. The patient's vital signs were monitored continuously throughout the procedure. Findings: There were a few small and medium sized diverticula scattered in the left and right side of the colon. Internal hemorrhoids were visualized on retro-flexion view. Otherwise, the colon appeared normal without any blood seen during the procedure. Impression: 1. Diverticulosis - likely source of GI bleeding. No blood seen during the procedure and no other obvious source of patient's bleeding identified during colonoscopy. 2. Internal hemorrhoids Recommendations: -transfuse 1 unit of RBC and monitor labs -if patient re-bleeds, obtain CTA/bleeding scan -if no further bleeding and labs stable tomorrow, can likely be discharged. will follow-up tomorrow -will start patient on full liquid diet
[2018-08-21 23:40] LABS: Hematocrit 22.1 % (30.3-42.9); Hemoglobin 7.4 gm/dl (10.1-14.3)
[2018-08-22] MEDS: HumaLOG SUB-Q SCH ×4 (00:10→12:28)
[2018-08-22 06:06] LABS: Basophils # (Auto) 0.1 K/mm3 (0.0-0.1); Basophils % (Auto) 1.1 % (0.0-1.8); Eosinophils # (Auto) 0.2 K/mm3 (0.0-0.4); Eosinophils % (Auto) 2.1 % (0.0-4.3); Hematocrit 22.4 % (30.3-42.9); Hemoglobin 7.4 gm/dl (10.1-14.3); Lymphocytes # (Auto) 1.8 K/mm3 (1.2-5.4); Lymphocytes % (Auto) 21.3 % (13.4-35.0); Mean Corpuscular HGB Conc 33 % (30-34); Mean Corpuscular Volume 89 fl (79-97); Monocytes # (Auto) 1.1 K/mm3 (0.0-0.8); Platelet Count 148 K/mm3 (140-440); Red Blood Count 2.52 M/mm3 (3.65-5.03); Red Cell Distribution Width 17.8 % (13.2-15.2)
[2018-08-22 06:23] LABS: Calcium 7.9 mg/dL (8.4-10.2)
[2018-08-22] MEDS ORDERED: APRESOLINE IV ONE (09:00)
[2018-08-22] MEDS ORDERED: APRESOLINE IV PRN (09:00)
[2018-08-22] MEDS: PROTONIX IV SCH (09:01)
[2018-08-22] MEDS ORDERED: LASIX PO SCH (10:00)
[2018-08-22] MEDS ORDERED: COREG PO SCH (10:00)
--- NOTE | 2018-08-22 10:42 | Gastroenterology Progress Note ---
<DELIA GORMAN - Last Filed: 08/22/18 10:42> Assessment and Plan 1.Hematochezia -H/H 7.4/22.4-stable -continue to monitor H/H and transfuse as needed -s/p colonoscopy that showed internal hemorrhoids and diverticulosis (likely dean rce of bleeding) -clinically, patient is stable with no active signs of bleeding overnight or this am. Denies abd pain or N/V. Tolerating diet. -continue PPI and supportive care -okay to be d/c per GI standpoint with f/u in clinic ~2 weeks -if re-bleeds, recommend stat CTA/bleeding scan -no further recommendations at this time -will sign off, please call back if needed Subjective Date of service: 08/22/18 Principal diagnosis: rectal bleeding Interval history: No acute signs of bleeding overnight or this am. Denies abd pain or N/V. Tolerating diet. Objective - Constitutional Vitals: Temp Pulse Resp BP Pulse Ox 97.9 F 65 20 188/55 96 08/22/18 07:37 08/22/18 09:01 08/22/18 09:00 08/22/18 09:01 08/22/18 09:00 General appearance: no acute distress - Respiratory Respiratory: bilateral: CTA - Cardiovascular Rhythm: regular - Gastrointestinal General gastrointestinal: Present: soft, non-tender, non-distended, normal bowel sounds - Neurologic Neurological: alert and oriented x3 - Labs CBC & Chem 7: 08/22/18 04:54 08/22/18 04:54 Labs: Laboratory Results - last 24 hr 08/20/18 08/21/18 08/21/18 10:32 10:29 10:50 WBC RBC Hgb 6.6 L Hct 20.0 L MCV MCH MCHC RDW Plt Count Lymph % (Auto) [place] % (Auto) Eos % (Auto) Baso % (Auto) Lymph # [place] # Eos # Baso # Seg Neutrophils % Seg Neutrophils # Sodium Potassium Chloride Carbon Dioxide Anion Gap BUN Creatinine Estimated GFR BUN/Creatinine Ratio Glucose POC Glucose 128 H Calcium Blood Type A POSITIVE Antibody Screen Negative Crossmatch See Detail 08/21/18 08/21/18 08/21/18 10:58 11:20 16:22 WBC RBC Hgb Hct MCV MCH MCHC RDW Plt Count Lymph % (Auto) [place] % (Auto) Eos % (Auto) Baso % (Auto) Lymph # [place] # Eos # Baso # Seg Neutrophils % Seg Neutrophils # Sodium Potassium Chloride Carbon Dioxide Anion Gap BUN Creatinine Estimated GFR BUN/Creatinine Ratio Glucose POC Glucose 106 H 199 H Calcium Blood Type A POSITIVE Antibody Screen Negative Crossmatch See Detail 08/21/18 08/21/18 08/22/18 21:45 22:32 00:08 WBC RBC Hgb 7.4 L Hct 22.1 L MCV MCH MCHC RDW Plt Count Lymph % (Auto) [place] % (Auto) Eos % (Auto) Baso % (Auto) Lymph # [place] # Eos # Baso # Seg Neutrophils % Seg Neutrophils # Sodium Potassium Chloride Carbon Dioxide Anion Gap BUN Creatinine Estimated GFR BUN/Creatinine Ratio Glucose POC Glucose 124 H 156 H Calcium Blood Type Antibody Screen Crossmatch 08/22/18 08/22/18 08/22/18 04:54 04:54 07:37 WBC 8.3 RBC 2.52 L Hgb 7.4 L Hct 22.4 L MCV 89 MCH 29 MCHC 33 RDW 17.8 H Plt Count 148 Lymph % (Auto) 21.3 [place] % (Auto) 13.0 H Eos % (Auto) 2.1 Baso % (Auto) 1.1 Lymph # 1.8 [place] # 1.1 H Eos # 0.2 Baso # 0.1 Seg Neutrophils % 62.5 Seg Neutrophils # 5.2 Sodium 142 Potassium 3.6 Chloride 108.9 H Carbon Dioxide 22 Anion Gap 15 BUN 25 H Creatinine 1.4 H Estimated GFR 36 BUN/Creatinine Ratio 18 Glucose 109 H POC Glucose 127 H Calcium 7.9 L Blood Type Antibody Screen Crossmatch <HELADIO CONCEPCION - Last Filed: 08/22/18 16:37> Assessment and Plan Pt see and examined. Agree with note as outlined above. Objective - Constitutional Vitals: Temp Pulse Resp BP Pulse Ox 99.0 F 68 18 136/48 96 08/22/18 13:21 08/22/18 14:16 08/22/18 13:21 08/22/18 14:16 08/22/18 13:21 - Labs CBC & Chem 7: 08/22/18 04:54 08/22/18 04:54 Labs: Laboratory Results - last 24 hr 08/21/18 08/21/18 08/21/18 10:29 10:58 21:45 WBC RBC Hgb Hct MCV MCH MCHC RDW Plt Count Lymph % (Auto) [place] % (Auto) Eos % (Auto) Baso % (Auto) Lymph # [place] # Eos # Baso # Seg Neutrophils % Seg Neutrophils # Sodium Potassium Chloride Carbon Dioxide Anion Gap BUN Creatinine Estimated GFR BUN/Creatinine Ratio Glucose POC Glucose 128 H 124 H Calcium Blood Type A POSITIVE Antibody Screen Negative Crossmatch See Detail 08/21/18 08/22/18 08/22/18 22:32 00:08 04:54 WBC 8.3 RBC 2.52 L Hgb 7.4 L 7.4 L Hct 22.1 L 22.4 L MCV 89 MCH 29 MCHC 33 RDW 17.8 H Plt Count 148 Lymph % (Auto) 21.3 [place] % (Auto) 13.0 H Eos % (Auto) 2.1 Baso % (Auto) 1.1 Lymph # 1.8 [place] # 1.1 H Eos # 0.2 Baso # 0.1 Seg Neutrophils % 62.5 Seg Neutrophils # 5.2 Sodium Potassium Chloride Carbon Dioxide Anion Gap BUN Creatinine Estimated GFR BUN/Creatinine Ratio Glucose POC Glucose 156 H Calcium Blood Type Antibody Screen Crossmatch 08/22/18 08/22/18 08/22/18 04:54 07:37 11:14 WBC RBC Hgb Hct MCV MCH MCHC RDW Plt Count Lymph % (Auto) [place] % (Auto) Eos % (Auto) Baso % (Auto) Lymph # [place] # Eos # Baso # Seg Neutrophils % Seg Neutrophils # Sodium 142 Potassium 3.6 Chloride 108.9 H Carbon Dioxide 22 Anion Gap 15 BUN 25 H Creatinine 1.4 H Estimated GFR 36 BUN/Creatinine Ratio 18 Glucose 109 H POC Glucose 127 H 183 H Calcium 7.9 L Blood Type Antibody Screen Crossmatch
--- NOTE | 2018-08-22 13:47 | Discharge Summary ---
Providers - Providers Date of Admission: 08/20/18 12:07 Date of discharge: 08/22/18 Attending physician: DARA RICHARD 08/20/18 12:05 Consult to Physician [CONS] Urgent Comment: Consulting Provider: HELADIO CONCEPCION Physician Instructions: Reason For Exam: rectal bleeding Primary care physician: BRAYDON MEYER Hospitalization Reason for admission: Rectal bleeding Condition: Stable Pertinent studies: Colonoscopy: Diverticulosis - likely source of GI bleeding. No blood seen during the procedure and no other obvious source of patient's bleeding identified during colonoscopy. Internal hemorrhoids Recommendations: -transfuse 1 unit of RBC and monitor labs Hospital course: 87-year-old female with a past medical history of arthritis, CHF, diabetes, hypertension and previous hysterectomy and bladder surgery presents to the hospital with complaints of rectal bleeding. Patient states she had 2 episodes of bloody stool this a.m. She denies pain, shortness of breath, nausea vomiting, or lightheadedness. Denies history of previous GI bleed. Had a colonoscopy greater than 4 years ago that was normal.Patient symptomatically managed,received 1 unit PRBC,evaluated by GI,had colonoscopy. Today pt is comfortable,no new complaints,vital signs stable No new complaints,vital signs stable, Stable at discharge. Discharge Diagnosis: --Acute kidney injury; secondary to vasomotor nephropathy. Gentle hydration, parenteral fluids, monitor renal function, avoid nephrotoxins --Lower GI bleeding; Nothing by mouth, Protonix, GI evaluated the patient Possible endoscopy today --Type 2 diabetes mellitus; Accu-Chek sliding scale coverage and ADA diet Insulin/as needed --Dyslipidemia; stable on statin, low-cholesterol diet --DVT prophylaxis; SCDs The pharmacologic anticoagulation in view of GI bleeding Disposition: DC-01 TO HOME OR SELFCARE Time spent for discharge: 32 min Core Measure Documentation - Palliative Care Palliative Care/ Comfort Measures: Not Applicable - Core Measures Any of the following diagnoses?: none Exam - Constitutional Vitals: Temp Pulse Resp BP Pulse Ox 99.0 F 68 18 136/48 96 08/22/18 13:21 08/22/18 13:21 08/22/18 13:21 08/22/18 13:21 08/22/18 13:21 General appearance: Present: no acute distress, well-nourished - EENT Eyes: Present: PERRL, EOM intact - Neck Neck: Present: supple, normal ROM - Respiratory Respiratory effort: normal Respiratory: bilateral: diminished, negative: rales, rhonchi, wheezing - Cardiovascular Rhythm: regular Heart Sounds: Present: S1 & S2 - Extremities Extremities: no ischemia, No edema - Abdominal General gastrointestinal: Present: soft, non-tender, non-distended, normal bowel sounds - Integumentary Integumentary: Present: clear, warm - Musculoskeletal Musculoskeletal: strength equal bilaterally - Psychiatric Psychiatric: appropriate mood/affect, cooperative - Neurologic Neurologic: CNII-XII intact, moves all extremities Plan Activity: advance as tolerated, fall precautions Diet: other Special Instructions: physical therapy Additional Instructions: Fall precautions. If you have any new episodes of bleeding, contact M.D. or go to emergency room Follow up with: BRAYDON MEYER MD [Primary Care Provider] - 3-5 Days HELADIO CONCEPCION MD [Staff Physician] - 7 Days Forms: Accompanied Note
[2018-08-22] MEDS ORDERED: APRESOLINE PO SCH (14:00)
[2018-08-22] MEDS ORDERED: NON-FORMULARY (Hydralazine Hcl [Hydralazine Hcl] 50 MG) PO SCH (14:00)
[2018-08-23 17:51] VITALS: BP 136/48
[2018-08-27] MEDS ORDERED: CATAPRES-TTS PATCH TD SCH (10:00)
== END 2018-08-22 15:30 | disposition home or self-care (01) | DRG 377 ==
LOC: ED 09:40 → 2B-ACE 12:07
PROVIDERS: ADMIT Internal Medicine; ATTEND Internal Medicine
PROC: 0DJD8ZZ Inspection of Lower Intestinal Tract, Via Natural or Artificial Opening Endoscopic (ICD-10-PCS; principal; 2018-08-21)
PROC: 30233N1 Transfusion of Nonautologous Red Blood Cells into Peripheral Vein, Percutaneous Approach (ICD-10-PCS; 2018-08-21)
DX: K57.31 Diverticulosis of large intestine without perforation or abscess with bleeding (principal); N17.0 Acute kidney failure with tubular necrosis; D64.9 Anemia, unspecified; K64.8 Other hemorrhoids; M19.90 Unspecified osteoarthritis, unspecified site; I11.0 Hypertensive heart disease with heart failure; I50.9 Heart failure, unspecified; E11.9 Type 2 diabetes mellitus without complications; E78.2 Mixed hyperlipidemia; Z90.710 Acquired absence of both cervix and uterus; Z79.82 Long term (current) use of aspirin; Z79.899 Other long term (current) drug therapy; Z88.5 Allergy status to narcotic agent
CPT/HCPCS: 36415; 36430; 80048; 80053; 82271; 82962; 85014; 85018; 85025; 85610; 85730; 86850; 86900; 86901; 86920; 93005; 93010; G0378; C9113; J0360; J1815; J2370; J2704; J7030; P9016

== ENCOUNTER 2018-08-26 09:34 | Inpatient (IN) | payer MEDICARE ==
[2018-08-26 10:24] LABS: Basophils # (Auto) 0.1 K/mm3 (0.0-0.1); Basophils % (Auto) 0.9 % (0.0-1.8); Eosinophils # (Auto) 0.2 K/mm3 (0.0-0.4); Eosinophils % (Auto) 2.2 % (0.0-4.3); Hemoglobin 6.4 gm/dl (10.1-14.3); Lymphocytes # (Auto) 0.9 K/mm3 (1.2-5.4); Lymphocytes % (Auto) 9.3 % (13.4-35.0); Mean Corpuscular HGB Conc 33 % (30-34); Mean Corpuscular Volume 90 fl (79-97); Monocytes % (Auto) 9.8 % (0.0-7.3); Platelet Count 231 K/mm3 (140-440); Red Blood Count 2.16 M/mm3 (3.65-5.03); Red Cell Distribution Width 17.4 % (13.2-15.2)
[2018-08-26 10:34] LABS: Hematocrit 19.5 % (30.3-42.9)
[2018-08-26] MEDS ORDERED: NACL 0.9% 500 ML 500 ML IV ONE ×2 (10:37→12:06)
--- NOTE | 2018-08-26 10:37 | Emergency Department Report ---
HPI - General Chief Complaint: GI Bleed Time Seen by Provider: 08/26/18 10:25 - HPI HPI: Room 7 The patient is an 87-year-old female presenting with a chief complaint of rectal bleeding and weakness. Patient was recently admitted for rectal bleeding pre sumably from diverticulosis. Patient had a negative colonoscopy performed earlier this week. Patient states she's felt continuously weak since her discharge and this morning she had 4 episodes of bright red blood per rectum. Patient denies rectal pain or abdominal pain. Patient is to not but denies vomiting. Admits to shortness of breath for one week. Patient denies rectal pain. Location: GI system Duration: [See above] Quality: Weakness Severity: Moderate Modifying factors: [see above] Context: [see above] Mode of transportation: [not driving] ED Past Medical Hx - Past Medical History Hx Hypertension: Yes Hx Congestive Heart Failure: Yes Hx Diabetes: Yes Hx Arthritis: Yes (RA) Additional medical history: Right Shoulder dislocation 50 years ago. - Surgical History Additional Surgical History: Hysterectomy, Bladder Surgery - Family History Family history: no significant - Social History Smoking Status: Never Smoker Substance Use Type: None - Medications Home Medications: Home Medications Medication Instructions Recorded Confirmed Last Taken Type Aspirin [Aspirin BABY CHEW TAB] 81 mg PO QDAY 08/20/18 08/20/18 Unknown History Atorvastatin Calcium [Lipitor] 20 mg PO DAILY 08/20/18 08/20/18 Unknown History Calcium Carbonate/Vitamin D3 1 each PO BID 08/20/18 08/20/18 Unknown History [Calcium 600-Vit D3 400 Tablet] Carvedilol 12.5 mg PO BID 08/20/18 08/20/18 Unknown History Estradiol 0.25 mg PO DAILY 08/20/18 08/20/18 Unknown History Folic Acid [Folvite] 2 mg PO QDAY 08/20/18 08/20/18 Unknown History Furosemide [Lasix TAB] 40 mg PO QDAY 08/20/18 08/20/18 Unknown History Hydralazine HCl 50 mg PO TID 08/20/18 08/20/18 Unknown History Losartan Potassium 100 mg PO DAILY 08/20/18 08/20/18 Unknown History NIFEdipine [Nifedipine ER] 60 mg PO DAILY 08/20/18 08/20/18 Unknown History Potassium Chloride 8 meq PO DAILY 08/20/18 08/20/18 Unknown History Sitagliptin Phos/Metformin HCl 1 each PO DAILY 08/20/18 08/20/18 Unknown History [Janumet 50-1,000 mg] metHOTREXate(DOSE WEEKLY ONLY) 2.5 mg PO QWEEK 08/20/18 08/20/18 Unknown History [metHOTREXate (DOSE WEEKLY ONLY)] predniSONE [Deltasone] 5 mg PO QAM 08/20/18 08/20/18 Unknown History Pantoprazole [Protonix] 40 mg PO QDAY #30 tablet 08/22/18 Unknown Rx ED Review of Systems ROS: Stated complaint: RECTAL BLEED Other details as noted in HPI Constitutional: weakness Eyes: denies: eye pain ENT: denies: throat pain Respiratory: shortness of breath Cardiovascular: denies: chest pain Endocrine: no symptoms reported Gastrointestinal: nausea, hematochezia. denies: abdominal pain, vomiting Genitourinary: denies: dysuria Musculoskeletal: denies: back pain Neurological: denies: headache Physical Exam - Physical Exam Vital Signs: Vital Signs 08/26/18 08/26/18 08/26/18 09:44 10:28 10:29 Temperature 97.8 F Pulse Rate 66 68 Respiratory 18 18 18 Rate Blood Pressure 145/46 120/47 [Left] O2 Sat by Pulse 91 100 100 Oximetry Physical Exam: GENERAL: The patient is well-developed well-nourished female lying on a stretcher appearing pale but in no acute distress. [] HEENT: Normocephalic. Atraumatic. Extraocular motions are intact. Patient has moist mucous membranes. NECK: Supple. Trachea midline CHEST/LUNGS: Clear to auscultation. There is no respiratory distress noted. HEART/CARDIOVASCULAR: Regular. There is no tachycardia. There is a 2/6 systolic murmur. ABDOMEN: Abdomen is soft, nontender. Patient has normal bowel sounds. There is no abdominal distention. SKIN: There is no rash. There is no edema. There is no diaphoresis. NEURO: The patient is awake, alert, and oriented. The patient is cooperative. The patient has normal speech MUSCULOSKELETAL: There is no evidence of acute injury. RECTAL: Diaper clean. Paucity stool. Guaiac positive ED Course Vital Signs 08/26/18 08/26/18 08/26/18 09:44 10:28 10:29 Temperature 97.8 F Pulse Rate 66 68 Respiratory 18 18 18 Rate Blood Pressure 145/46 120/47 [Left] O2 Sat by Pulse 91 100 100 Oximetry - Consultations Consultation #1: 08/26/18 10:56 GI paged 08/26/18 11:[address] Mcgrath-requests CT angiogram abdomen be performed ED Medical Decision Making - Lab Data Result diagrams: 08/26/18 10:14 08/26/18 10:14 Laboratory Tests 08/26/18 08/26/18 08/26/18 10:14 10:14 10:30 WBC 9.8 RBC 2.16 L Hgb 6.4 L Hct 19.5 L* MCV 90 MCH 29 MCHC 33 RDW 17.4 H Plt Count 231 Lymph % (Auto) 9.3 L [place] % (Auto) 9.8 H Eos % (Auto) 2.2 Baso % (Auto) 0.9 Lymph # 0.9 L [place] # 1.0 H Eos # 0.2 Baso # 0.1 Seg Neutrophils % 77.8 H Seg Neutrophils # 7.6 PT 13.4 INR 0.96 APTT 22.4 L Sodium 141 Potassium 4.4 D Chloride 108.5 H Carbon Dioxide 22 Anion Gap 15 BUN 23 H Creatinine 1.3 H Estimated GFR 39 BUN/Creatinine Ratio 18 Glucose 147 H Calcium 8.3 L - Differential Diagnosis diverticulosis Critical care attestation.: If time is entered above; I have spent that time in minutes in the direct care of this critically ill patient, excluding procedure time. ED Disposition Clinical Impression: Diverticulosis, Lower GI bleed, Symptomatic anemia Disposition: OP ADMIT IP TO THIS HOSP Is pt being admited?: Yes Does the pt Need Aspirin: No Condition: Fair Referrals: BRAYDON MEYER MD [Primary Care Provider] - 3-5 Days Forms: Accompanied Note Time of Disposition: 11:04 (hospitalist paged (Dr Moyer))
[2018-08-26 10:40] LABS: Calcium 8.3 mg/dL (8.4-10.2)
[2018-08-26 10:46] LABS: INR 0.96 (0.87-1.13)
[2018-08-26 10:47] LABS: Partial Thromboplastin Time 22.4 Sec. (24.2-36.6)
[2018-08-26] MEDS ORDERED: NACL 0.9% 1000 ML 1,000 ML ONE (11:11)
[2018-08-26] MEDS ORDERED: NACL 0.9% 1000 ML 1,000 ML IV ONE (11:13)
--- NOTE | 2018-08-26 11:18 | Gastroenterology Consultation ---
History of Present Illness - Reason for Consult Consult date: 08/26/18 GI bleed Requesting physician: NIKKI EDMOND - History of Present Illness Ms Ram is a 87 yo wf who was recently in the hospital for suspected lower gi bleeding who presents with recurrent hematochezia. Pt reports bleeding episodes started again this morning. She has had 4 episodes of maroon blood per rectum with clots which last episode occurring upon arrival to the ED. She denies abdominal pain. She had a similar presentation 1 week ago for which she was admitted and had colonoscopy done 5 days ago which showed a few scattered tics but otherwise no blood in the colon or other possible source of bleeding. Pt's hct lower on admission compared to recent discharge level. Hypotensive at the time of exam, hr normal. Past History Past Medical History: arthritis, diabetes, hypertension Past Surgical History: hysterectomy, Other (bladder surgery) Social history: no significant social history Family history: no significant family history Medications and Allergies Allergies Allergy/AdvReac Type Severity Reaction Status Date / Time codeine Allergy Vomiting Verified 03/23/18 11:39 Home Medications Medication Instructions Recorded Confirmed Last Taken Type Aspirin [Aspirin BABY CHEW TAB] 81 mg PO QDAY 08/20/18 08/26/18 Unknown History Atorvastatin Calcium [Lipitor] 20 mg PO DAILY 08/20/18 08/26/18 Unknown History Calcium Carbonate/Vitamin D3 1 each PO BID 08/20/18 08/26/18 Unknown History [Calcium 600-Vit D3 400 Tablet] Carvedilol 12.5 mg PO BID 08/20/18 08/26/18 Unknown History Estradiol 0.25 mg PO DAILY 08/20/18 08/26/18 Unknown History Folic Acid [Folvite] 2 mg PO QDAY 08/20/18 08/26/18 Unknown History Furosemide [Lasix TAB] 40 mg PO QDAY 08/20/18 08/26/18 Unknown History Hydralazine HCl 50 mg PO TID 08/20/18 08/26/18 Unknown History Losartan Potassium 100 mg PO DAILY 08/20/18 08/26/18 Unknown History NIFEdipine [Nifedipine ER] 60 mg PO DAILY 08/20/18 08/26/18 Unknown History Potassium Chloride 8 meq PO DAILY 08/20/18 08/26/18 Unknown History Sitagliptin Phos/Metformin HCl 1 each PO DAILY 08/20/18 08/26/18 Unknown History [Janumet 50-1,000 mg] metHOTREXate(DOSE WEEKLY ONLY) 2.5 mg PO QWEEK 08/20/18 08/26/18 Unknown History [metHOTREXate (DOSE WEEKLY ONLY)] predniSONE [Deltasone] 5 mg PO QAM 08/20/18 08/26/18 Unknown History Pantoprazole [Protonix] 40 mg PO QDAY #30 tablet 08/22/18 08/26/18 Unknown Rx Active Meds: Active Medications Sodium Chloride (Nacl 0.9% 1000 Ml) 1,000 mls @ 999 mls/hr IV ONCE ONE Stop: 08/26/18 12:13 Review of Systems - Review of Systems All systems: negative (per HPI) Exam - Constitutional Vital Signs: Temp Pulse Resp BP Pulse Ox 97.8 F 68 18 120/47 100 08/26/18 10:29 08/26/18 10:29 08/26/18 10:29 08/26/18 10:29 08/26/18 10:29 General appearance: no acute distress - EENT Eyes: PERRL, EOM intact, other (pale conjunctiva) - Neck Neck: supple, normal ROM - Respiratory Respiratory effort: normal Respiratory: bilateral: CTA - Cardiovascular Rhythm: regular Heart Sounds: Present: S1 & S2 Extremities: No edema, Full ROM - Gastrointestinal General gastrointestinal: Present: soft, non-tender, non-distended - Neurologic Neurological: alert and oriented x3 - Labs CBC & Chem 7: 08/26/18 10:14 08/26/18 10:14 Lab Results: Laboratory Results - last 24 hr 08/26/18 08/26/18 08/26/18 10:14 10:14 10:30 WBC 9.8 RBC 2.16 L Hgb 6.4 L Hct 19.5 L* MCV 90 MCH 29 MCHC 33 RDW 17.4 H Plt Count 231 Lymph % (Auto) 9.3 L [place] % (Auto) 9.8 H Eos % (Auto) 2.2 Baso % (Auto) 0.9 Lymph # 0.9 L [place] # 1.0 H Eos # 0.2 Baso # 0.1 Seg Neutrophils % 77.8 H Seg Neutrophils # 7.6 PT 13.4 INR 0.96 APTT 22.4 L Sodium 141 Potassium 4.4 D Chloride 108.5 H Carbon Dioxide 22 Anion Gap 15 BUN 23 H Creatinine 1.3 H Estimated GFR 39 BUN/Creatinine Ratio 18 Glucose 147 H Calcium 8.3 L Blood Type Crossmatch 08/26/18 10:32 WBC RBC Hgb Hct MCV MCH MCHC RDW Plt Count Lymph % (Auto) [place] % (Auto) Eos % (Auto) Baso % (Auto) Lymph # [place] # Eos # Baso # Seg Neutrophils % Seg Neutrophils # PT INR APTT Sodium Potassium Chloride Carbon Dioxide Anion Gap BUN Creatinine Estimated GFR BUN/Creatinine Ratio Glucose Calcium Blood Type A POSITIVE Crossmatch See Detail Assessment and Plan 1. GI bleed 2. Diverticulosis 3. Anemia -pt with recurrent bleeding, recent colonoscopy with a few tics but otherwise no obvious source of bleeding. suspect diverticular bleeding; will obtain CTA of abdomen and recommend IR consult if CTA positive for active bleeding -transfuse RBC's to keep hgb > 7
--- NOTE | 2018-08-26 11:59 | History and Physical Report ---
History of Present Illness Chief complaint: Im bleeding History of present illness: 87 YO Female with HTN, CHF, DM, RA presents to ED for evaluation. Pt reports that she has experienced bleeding from her rectum today. Pt acknowledges 2 episodes of painless bleeding as well as generalized weakness. EMS notified and upon arrival the patient was found to be in distress and transported to [facility] ED. Pt seen and evaluated in ED and found to have lower GI bleeding, ARF, as well as Symptomatic Anemia. Pt denies fever, chills, CP, Palpitations, NVD, Syncope, Dizziness, Trauma, Skin rash, hematemesis. GI consulted in ED. Pt admitted to [facility]. No prior admissions for review. All listed medication reconciled at time of admission. Past History Past Medical History: arthritis, diabetes, hypertension Past Surgical History: hysterectomy, Other (bladder surgery) Social history: no significant social history Family history: no significant family history Medications and Allergies Allergies Allergy/AdvReac Type Severity Reaction Status Date / Time codeine Allergy Vomiting Verified 03/23/18 11:39 Home Medications Medication Instructions Recorded Confirmed Last Taken Type Aspirin [Aspirin BABY CHEW TAB] 81 mg PO QDAY 08/20/18 08/26/18 Unknown History Atorvastatin Calcium [Lipitor] 20 mg PO DAILY 08/20/18 08/26/18 Unknown History Calcium Carbonate/Vitamin D3 1 each PO BID 08/20/18 08/26/18 Unknown History [Calcium 600-Vit D3 400 Tablet] Carvedilol 12.5 mg PO BID 08/20/18 08/26/18 Unknown History Estradiol 0.25 mg PO DAILY 08/20/18 08/26/18 Unknown History Folic Acid [Folvite] 2 mg PO QDAY 08/20/18 08/26/18 Unknown History Furosemide [Lasix TAB] 40 mg PO QDAY 08/20/18 08/26/18 Unknown History Hydralazine HCl 50 mg PO TID 08/20/18 08/26/18 Unknown History Losartan Potassium 100 mg PO DAILY 08/20/18 08/26/18 Unknown History NIFEdipine [Nifedipine ER] 60 mg PO DAILY 08/20/18 08/26/18 Unknown History Potassium Chloride 8 meq PO DAILY 08/20/18 08/26/18 Unknown History Sitagliptin Phos/Metformin HCl 1 each PO DAILY 08/20/18 08/26/18 Unknown History [Janumet 50-1,000 mg] predniSONE [Deltasone] 5 mg PO QAM 08/20/18 08/26/18 Unknown History Pantoprazole [Protonix] 40 mg PO QDAY #30 tablet 08/22/18 08/26/18 Unknown Rx Methotrexate Sodium [Trexall] 5 mg PO QWEEK 08/26/18 08/26/18 Unknown History Active Meds: Active Medications Sodium Chloride (Nacl 0.9% 1000 Ml) 1,000 mls @ 999 mls/hr IV ONCE ONE Stop: 08/26/18 12:13 Last Admin: 08/26/18 11:21 Dose: 999 mls/hr Documented by: Review of Systems Constitutional: weakness, no weight loss, no weight gain, no fever, no chills Ears, nose, mouth and throat: no ear pain, no ear discharge, no tinnitis, no decreased hearing Breasts: no change in shape, no swelling, no mass Cardiovascular: no chest pain, no orthopnea, no palpitations, no rapid/irregular heart beat, no edema Respiratory: no cough, no cough with sputum, no excessive sputum, no hemoptysis Gastrointestinal: no nausea, no vomiting, no diarrhea, no constipation Genitourinary Female: no pelvic pain, no flank pain, no menorrhagia, no dysuria, no urinary frequency Rectal: no pain, no incontinence, no bleeding Musculoskeletal: no neck stiffness, no neck pain, no shooting arm pain, no arm numbness/tingling, no shooting leg pain Integumentary: no rash, no pruritis, no redness, no sores, no wounds Neurological: no head injury, no transient paralysis, no paralysis, no weakness, no parathesias, no numbness, no tingling Psychiatric: no anxiety, no memory loss, no change in sleep habits, no insomnia, no hypersomnia, no change in appetite Endocrine: no cold intolerance, no heat intolerance, no polyphagia, no excessive thirst Hematologic/Lymphatic: no easy bruising, no easy bleeding, no lymphadenopathy, no lymphedema Allergic/Immunologic: no urticaria, no allergic rhinitis, no wheezing Exam - Constitutional Vitals: Temp Pulse Resp BP Pulse Ox 97.8 F 70 18 98/39 100 08/26/18 10:29 08/26/18 11:43 08/26/18 11:43 08/26/18 11:43 08/26/18 11:43 General appearance: Present: mild distress - EENT Eyes: Present: PERRL, EOM intact (conjunctival pallor) ENT: hearing intact, clear oral mucosa - Neck Neck: Present: supple, normal ROM - Respiratory Respiratory effort: normal Respiratory: bilateral: CTA - Cardiovascular Heart Sounds: Present: S1 & S2. Absent: rub, click - Extremities Extremities: pulses symmetrical, No edema Peripheral Pulses: within normal limits - Abdominal General gastrointestinal: Present: soft, non-tender, non-distended, normal bowel sounds Female genitourinary: Present: normal - Integumentary Integumentary: Present: clear, warm, dry - Musculoskeletal Musculoskeletal: gait normal, strength equal bilaterally - Psychiatric Psychiatric: appropriate mood/affect, intact judgment & insight - Neurologic Neurologic: CNII-XII intact, moves all extremities Results - Labs CBC & Chem 7: 08/26/18 10:14 08/26/18 10:14 Labs: Abnormal lab results 08/26/18 08/26/18 08/26/18 Range/Units 10:14 10:14 10:30 RBC 2.16 L (3.65-5.03) M/mm3 Hgb 6.4 L (10.1-14.3) gm/dl Hct 19.5 L* (30.3-42.9) % RDW 17.4 H (13.2-15.2) % Lymph % (Auto) 9.3 L (13.4-35.0) % [place] % (Auto) 9.8 H (0.0-7.3) % Lymph # 0.9 L (1.2-5.4) K/mm3 [place] # 1.0 H (0.0-0.8) K/mm3 Seg Neutrophils % 77.8 H (40.0-70.0) % APTT 22.4 L (24.2-36.6) Sec. Chloride 108.5 H (98-107) mmol/L BUN 23 H (7-17) mg/dL Creatinine 1.3 H (0.7-1.2) mg/dL Glucose 147 H (65-100) mg/dL Calcium 8.3 L (8.4-10.2) mg/dL Crossmatch 08/26/18 Range/Units 10:32 RBC (3.65-5.03) M/mm3 Hgb (10.1-14.3) gm/dl Hct (30.3-42.9) % RDW (13.2-15.2) % Lymph % (Auto) (13.4-35.0) % [place] % (Auto) (0.0-7.3) % Lymph # (1.2-5.4) K/mm3 [place] # (0.0-0.8) K/mm3 Seg Neutrophils % (40.0-70.0) % APTT (24.2-36.6) Sec. Chloride (98-107) mmol/L BUN (7-17) mg/dL Creatinine (0.7-1.2) mg/dL Glucose (65-100) mg/dL Calcium (8.4-10.2) mg/dL Crossmatch See Detail Assessment and Plan - Patient Problems (1) Lower GI bleed Current Visit: Yes Status: Acute Plan to address problem: Gi consulted in ED, IV ppi therapy, bowel rest, supportive care. (2) Diabetes Current Visit: Yes Status: Acute Plan to address problem: ADA diet, insulin, accu check (3) Symptomatic anemia Current Visit: Yes Status: Acute Plan to address problem: PRBC transfusion, serial CBC, (4) HLD (hyperlipidemia) Current Visit: No Status: Chronic Qualifiers: Hyperlipidemia type: mixed hyperlipidemia Qualified Code(s): E78.2 - Mixed hyperlipidemia Plan to address problem: statin therapy, supportive care. (5) HTN (hypertension) Current Visit: No Status: Chronic Qualifiers: Hypertension type: essential hypertension Qualified Code(s): I10 - Essential (primary) hypertension Plan to address problem: monitor bp q shift, continue medical management. (6) ARF (acute renal failure) with tubular necrosis Current Visit: Yes Status: Acute Plan to address problem: IVF resuscitation therapy, monitor uop q shift, (7) DVT prophylaxis Current Visit: No Status: Acute Plan to address problem: SCD to BLE while in bed.
[2018-08-26] MEDS ORDERED: SODIUM CHLORIDE FLUSH SYRINGE 10 ML IV PRN (12:01)
[2018-08-26] MEDS ORDERED: PROVENTIL IH PRN (12:01)
[2018-08-26] MEDS ORDERED: D50W (25GM) Syringe IV PRN (12:07)
[2018-08-26] MEDS ORDERED: LASIX IV NR (12:08)
[2018-08-26] MEDS ORDERED: NACL 0.9% 500 ML 500 ML ONE (12:34)
[2018-08-26] MEDS: APRESOLINE PO SCH ×2 (13:31→20:11)
[2018-08-26] MEDS ORDERED: NON-FORMULARY (Hydralazine Hcl [Hydralazine Hcl] 50 MG) PO SCH (14:00)
--- NOTE | 2018-08-26 14:58 | Cat Scan Report ---
PROCEDURE: CT ANGIO ABDOMEN PELVIS TECHNIQUE: CT angiography of the abdomen and pelvis performed. IV contrast was administered. Axial i mages and coronal and sagittal reformatted images were obtained. HISTORY: GI bleed COMPARISON: None FINDINGS: The visualized lung bases are clear. There is a large mass in region of pancreatic body/tail. This is a complex multiloculated partially c ystic mass measuring 8.7 x 8.2 x 8.1 cm. This is partially enhancing and worrisome for malignancy. There is an additional multiloculated complex mass in the pancreatic head measuring 3.3 x 3.1 x 3.7 c m.. There is fluid throughout nondilated colon. There is some mild wall thickening involving the right co maria de jesus. There is scattered diverticulosis but no acute diverticulitis seen. The appendix is normal. There is no free intraperitoneal air. Device in the lower pelvis could be a pessary. Correlate with history. Bladder is unremarkable. IMPRESSION: There are two complex multiloculated appearing masses in the pancreas which demonstrates enhancement and are worrisome for neoplasm/malignancy. The larger involves the body/tail measuring 8.7 x 8.2 x 8. 1 cm. Smaller lesion in the pancreatic head measures 3.3 x 3.1 x 3.7 cm. Fluid containing nondilated colon with mild wall thickening involving the right colon. This could rep resent mild colitis. Diverticulosis. No acute diverticulitis seen. This document is electronically signed by Saadia Hopper MD., August 26 2018 02:55:51 PM ET
[2018-08-26] MEDS ORDERED: ZOFRAN IV PRN (15:10)
[2018-08-26] MEDS ORDERED: ZOFRAN ONE (15:11)
[2018-08-26] MEDS ORDERED: METHOTREXATE PO SCH ×3 (16:00→22:00)
[2018-08-26] MEDS: HumaLOG SUB-Q SCH ×2 (16:24→22:07)
[2018-08-26] MEDS: COREG PO SCH (21:50)
[2018-08-26] MEDS: PROTONIX IV SCH (21:51)
[2018-08-26] MEDS: SODIUM CHLORIDE FLUSH SYRINGE 10 ML IV SCH (21:52)
[2018-08-26] MEDS ORDERED: NON-FORMULARY (Calcium Carbonate/Vitamin D3 [Calcium 600-Vit D3 400 Tablet] 1 EACH) PO SCH (22:00)
[2018-08-26] MEDS ORDERED: METHOTREXATE PO NR (23:59)
[2018-08-27 04:44] LABS: Basophils # (Auto) 0.1 K/mm3 (0.0-0.1); Basophils % (Auto) 0.7 % (0.0-1.8); Eosinophils % (Auto) 0.5 % (0.0-4.3); Hematocrit 30.7 % (30.3-42.9); Hemoglobin 10.1 gm/dl (10.1-14.3); Lymphocytes # (Auto) 1.5 K/mm3 (1.2-5.4); Lymphocytes % (Auto) 15.6 % (13.4-35.0); Mean Corpuscular HGB Conc 33 % (30-34); Mean Corpuscular Volume 88 fl (79-97); Monocytes % (Auto) 10.1 % (0.0-7.3); Platelet Count 142 K/mm3 (140-440); Red Blood Count 3.49 M/mm3 (3.65-5.03); Red Cell Distribution Width 17.5 % (13.2-15.2)
[2018-08-27 05:02] LABS: Calcium 7.6 mg/dL (8.4-10.2)
[2018-08-27] MEDS: HumaLOG SUB-Q SCH ×2 (09:22→21:01)
[2018-08-27] MEDS ORDERED: NON-FORMULARY (Losartan Potassium [Losartan Potassium] 100 MG) PO SCH (10:00)
[2018-08-27] MEDS ORDERED: LASIX IV SCH (10:00)
[2018-08-27] MEDS ORDERED: COZAAR PO SCH (10:00)
--- NOTE | 2018-08-27 10:19 | Gastroenterology Progress Note ---
Assessment and Plan GI bleed: pt probable diverticular bleeding - h/h stable w/o further signs bleeding overnight - follow h/h, transfuse as needed - no plans to scope at this time - start po after MRI Pancreas: noted pancreatic lesion x 2 on CTA - MRI today - [id number] - based on results above may need EUS as outpt - will follow Subjective Date of service: 08/27/18 Interval history: - pt denies signs bleeding overnight. Denies weight loss or abdominal pain. Denies GI complaints Objective - Constitutional Vitals: Temp Pulse Resp BP Pulse Ox 98.8 F 65 19 150/55 97 08/27/18 03:49 08/27/18 08:20 08/27/18 08:20 08/26/18 21:50 08/27/18 08:20 General appearance: no acute distress - EENT Eyes: PERRL - Respiratory Respiratory: bilateral: CTA - Cardiovascular Rhythm: regular Heart Sounds: Present: S1 & S2 - Gastrointestinal General gastrointestinal: Present: soft, non-tender, non-distended - Labs CBC & Chem 7: 08/27/18 04:21 08/27/18 04:21 Labs: Laboratory Results - last 24 hr 08/26/18 08/26/18 08/26/18 10:14 10:14 10:30 WBC 9.8 RBC 2.16 L Hgb 6.4 L Hct 19.5 L* MCV 90 MCH 29 MCHC 33 RDW 17.4 H Plt Count 231 Lymph % (Auto) 9.3 L [place] % (Auto) 9.8 H Eos % (Auto) 2.2 Baso % (Auto) 0.9 Lymph # 0.9 L [place] # 1.0 H Eos # 0.2 Baso # 0.1 Seg Neutrophils % 77.8 H Seg Neutrophils # 7.6 PT 13.4 INR 0.96 APTT 22.4 L Sodium 141 Potassium 4.4 D Chloride 108.5 H Carbon Dioxide 22 Anion Gap 15 BUN 23 H Creatinine 1.3 H Estimated GFR 39 BUN/Creatinine Ratio 18 Glucose 147 H POC Glucose Calcium 8.3 L Blood Type Antibody Screen Crossmatch 08/26/18 08/26/18 08/27/18 10:32 22:04 04:21 WBC 9.7 RBC 3.49 L Hgb 10.1 D Hct 30.7 D MCV 88 MCH 29 MCHC 33 RDW 17.5 H Plt Count 142 Lymph % (Auto) 15.6 [place] % (Auto) 10.1 H Eos % (Auto) 0.5 Baso % (Auto) 0.7 Lymph # 1.5 [place] # 1.0 H Eos # 0.0 Baso # 0.1 Seg Neutrophils % 73.1 H Seg Neutrophils # 7.1 PT INR APTT Sodium Potassium Chloride Carbon Dioxide Anion Gap BUN Creatinine Estimated GFR BUN/Creatinine Ratio Glucose POC Glucose 108 H Calcium Blood Type A POSITIVE Antibody Screen Negative Crossmatch See Detail 08/27/18 08/27/18 04:21 09:14 WBC RBC Hgb Hct MCV MCH MCHC RDW Plt Count Lymph % (Auto) [place] % (Auto) Eos % (Auto) Baso % (Auto) Lymph # [place] # Eos # Baso # Seg Neutrophils % Seg Neutrophils # PT INR APTT Sodium 141 Potassium 4.6 Chloride 110.4 H Carbon Dioxide 19 L Anion Gap 16 BUN 31 H Creatinine 1.5 H Estimated GFR 33 BUN/Creatinine Ratio 21 Glucose 101 H POC Glucose 94 Calcium 7.6 L Blood Type Antibody Screen Crossmatch
[2018-08-27] MEDS: ANCEF/NS 1 GM/50 ML 1 GM/50 ML BAG IV SCH ×2 (10:24→21:00)
[2018-08-27] MEDS: APRESOLINE PO SCH ×2 (10:25→20:57)
[2018-08-27] MEDS: PROCARDIA XL PO SCH (10:25)
[2018-08-27] MEDS: PROTONIX IV SCH ×2 (10:25→21:00)
[2018-08-27] MEDS: DELTASONE PO SCH (10:25)
[2018-08-27] MEDS: COREG PO SCH ×2 (10:25→21:00)
[2018-08-27] MEDS: FOLVITE PO SCH (10:26)
[2018-08-27] MEDS: D5NS 1,000 ML IV SCH (10:27)
[2018-08-27] MEDS: SODIUM CHLORIDE FLUSH SYRINGE 10 ML IV SCH ×2 (10:28→21:00)
[2018-08-27] MEDS: OYSCO D 500 MG-200 UNIT PO SCH (10:29)
[2018-08-27] MEDS: KLOR-CON 8 PO SCH (10:29)
--- NOTE | 2018-08-27 14:03 | Progress Note ---
Subjective Date of service: 08/27/18 Interval history: Assessment and plan: Lower GI bleed: Rule out diverticular bleed History of colonoscopy 1 week ago GI note by Dr. Mcgrath reviewed No plans for repeat colonoscopy Acute blood loss anemia requiring transfusion Posttransfusion hemoglobin is 10.1 CTA of the abdomen/pelvis results reviewed Pancreatic mass: GI note reviewed and appreciated MRI of the abdomen and CA199 ordered Type 2 diabetes: Continue insulin sliding scale coverage Hypertension: Fair History of rheumatoid arthritis; continue home medication Acute kidney injury: Gentle IV hydration Stop losartan and Lasix Avoid nephrotoxins Monitor renal function Cellulitis left thigh: Patient has moderate erythema and tenderness Empirically start the patient on IV antibiotics as the patient is nothing by mouth Patient is a awake and alert He offers no specific complaints except weakness She denies any nausea vomiting or abdominal pain but states that he had 6 episodes of rectal bleeding yesterday He denies any fever or chills chest pain or shortness of breath Physical examination Alert and oriented 3 HEENT: Normocephalic pupils round reacting to light throat is clear Neck: Supple Lungs: Clear to auscultation Heart: S1-S2 regular rate and rhythm Abdomen: Benign Extremities: No leg edema, there is a bump surrounded with the erythema and tender to palpation on the medial aspect of the left knee [employer]: Alert and oriented , there is no focal deficit Objective - Constitutional Vitals: Vital Signs - 12hr 08/27/18 08/27/18 08/27/18 02:30 02:40 02:50 Temperature Pulse Rate 65 65 66 Respiratory 18 18 17 Rate Blood Pressure O2 Sat by Pulse 95 95 96 Oximetry 08/27/18 08/27/18 08/27/18 03:00 03:10 03:20 Temperature Pulse Rate 63 61 63 Respiratory 17 17 18 Rate Blood Pressure O2 Sat by Pulse 95 93 95 Oximetry 08/27/18 08/27/18 08/27/18 03:30 03:40 03:49 Temperature 98.8 F Pulse Rate 63 65 Respiratory 15 20 Rate Blood Pressure O2 Sat by Pulse 95 95 Oximetry 08/27/18 08/27/18 08/27/18 03:50 04:00 04:10 Temperature Pulse Rate 63 63 64 Respiratory 18 18 18 Rate Blood Pressure O2 Sat by Pulse 95 95 95 Oximetry 08/27/18 08/27/18 08/27/18 04:20 04:30 04:40 Temperature Pulse Rate 75 64 63 Respiratory 18 17 17 Rate Blood Pressure O2 Sat by Pulse 94 97 95 Oximetry 08/27/18 08/27/18 08/27/18 04:50 05:00 05:10 Temperature Pulse Rate 66 63 67 Respiratory 18 17 19 Rate Blood Pressure O2 Sat by Pulse 94 93 97 Oximetry 08/27/18 08/27/18 08/27/18 05:20 05:30 05:40 Temperature Pulse Rate 61 67 71 Respiratory 16 15 16 Rate Blood Pressure O2 Sat by Pulse 97 94 96 Oximetry 08/27/18 08/27/18 08/27/18 05:50 06:00 06:10 Temperature Pulse Rate 62 62 61 Respiratory 16 19 16 Rate Blood Pressure O2 Sat by Pulse 96 95 94 Oximetry 08/27/18 08/27/18 08/27/18 06:20 06:30 06:40 Temperature Pulse Rate 61 62 62 Respiratory 17 18 17 Rate Blood Pressure O2 Sat by Pulse 96 94 96 Oximetry 08/27/18 08/27/18 08/27/18 06:50 07:00 07:10 Temperature Pulse Rate 63 65 65 Respiratory 18 21 16 Rate Blood Pressure O2 Sat by Pulse 94 95 96 Oximetry 08/27/18 08/27/18 08/27/18 07:20 07:30 07:40 Temperature Pulse Rate 62 65 65 Respiratory 17 19 16 Rate Blood Pressure O2 Sat by Pulse 96 96 95 Oximetry 08/27/18 08/27/18 08/27/18 07:50 08:00 08:10 Temperature Pulse Rate 72 63 75 Respiratory 16 16 16 Rate Blood Pressure O2 Sat by Pulse 95 95 96 Oximetry 08/27/18 08/27/18 08/27/18 08:20 10:25 10:52 Temperature Pulse Rate 65 67 Respiratory 19 Rate Blood Pressure 163/56 O2 Sat by Pulse 97 97 Oximetry - Labs CBC & Chem 7: 08/27/18 04:21 08/27/18 04:21 Labs: Abnormal lab results 08/26/18 08/26/18 08/27/18 Range/Units 10:32 22:04 04:21 RBC 3.49 L (3.65-5.03) M/mm3 RDW 17.5 H (13.2-15.2) % [place] % (Auto) 10.1 H (0.0-7.3) % [place] # 1.0 H (0.0-0.8) K/mm3 Seg Neutrophils % 73.1 H (40.0-70.0) % Chloride (98-107) mmol/L Carbon Dioxide (22-30) mmol/L BUN (7-17) mg/dL Creatinine (0.7-1.2) mg/dL Glucose (65-100) mg/dL POC Glucose 108 H (70-105) Calcium (8.4-10.2) mg/dL Crossmatch See Detail 08/27/18 Range/Units 04:21 RBC (3.65-5.03) M/mm3 RDW (13.2-15.2) % [place] % (Auto) (0.0-7.3) % [place] # (0.0-0.8) K/mm3 Seg Neutrophils % (40.0-70.0) % Chloride 110.4 H (98-107) mmol/L Carbon Dioxide 19 L (22-30) mmol/L BUN 31 H (7-17) mg/dL Creatinine 1.5 H (0.7-1.2) mg/dL Glucose 101 H (65-100) mg/dL POC Glucose (70-105) Calcium 7.6 L (8.4-10.2) mg/dL Crossmatch
--- NOTE | 2018-08-28 09:05 | Progress Note ---
Assessment and Plan Assessment and plan: 87 YO Female with HTN, CHF, DM, RA presents to ED for evaluation. Pt reports that she has experienced bleeding from her rectum today. Pt acknowledges 2 episodes of painless bleeding as well as generalized weakness. EMS notified and upon arrival the patient was found to be in distress and transported to [facility] ED. Pt seen and evaluated in ED and found to have lower GI bleeding, ARF, as well as Symptomatic Anemia. Pt denies fever, chills, CP, Palpitations, NVD, Syncope, Dizziness, Trauma, Skin rash, hematemesis. GI consulted in ED. Pt admitted to [facility]. All listed medication reconciled at time of admission. Patient recently discharged following management for GI bleed and felt likely diverticular bleed, Colonoscopy showed internal hemorrhoids and diverticulosis with follow up arranged with GI but unfortunately continued re-bleeding prompting this admission. CT AP: Complex lesions on the pancrease, thickened right colon GI bleed suspected Diverticular Bleed: Monitor H/H, Transfused as needed. Surgery consult. Possible Repeat Colonoscopy per GI, Acute Blood Loss Anemia with Symptoms: As noted above CASSANDRA secondary vasomotor nephritis: Resolved. continue gentle hydration DM with Hyperglycemia: Continue insulin sliding scale coverage. Continue to hold Losartan and Lasix Pancreatic Mass: MRI, Ca 19-9. EUS as outpt Hypertension: Stable Rheumatoid Arthritis Cellulitis left thigh: Patient has moderate erythema and tenderness. Restart diet today and NPO DVT/GI: SCD due to anemia. History Interval history: Patient seen and examined upset about news of possible surgery for recurrent colon bleeding. Hospitalist Physical - Physical exam Narrative exam: General appearance: Present: resting comfortable - EENT Eyes: Present: PERRL, EOM intact (conjunctival pallor) ENT: hearing intact, clear oral mucosa - Neck Neck: Present: supple, normal ROM - Respiratory Respiratory effort: normal Respiratory: bilateral: CTA - Cardiovascular Heart Sounds: Present: S1 & S2. Absent: rub, click - Extremities Extremities: pulses symmetrical, No edema Peripheral Pulses: within normal limits - Abdominal General gastrointestinal: Present: soft, non-tender, non-distended, normal bowel sounds Female genitourinary: Present: normal - Integumentary Integumentary: Present: clear, warm, dry - Musculoskeletal Musculoskeletal: gait normal, strength equal bilaterally - Psychiatric Psychiatric: appropriate mood/affect, intact judgment & insight - Neurologic Neurologic: CNII-XII intact, moves all extremities - Constitutional Vitals: Temp Pulse Resp BP Pulse Ox 98.2 F 72 20 118/56 98 08/28/18 08:00 08/28/18 08:11 08/28/18 08:11 08/28/18 08:11 08/28/18 08:11 General appearance: Present: mild distress Results - Labs CBC & Chem 7: 08/27/18 04:21 08/28/18 13:42 Labs: Laboratory Last Values WBC 9.7 K/mm3 (4.5-11.0) 08/27/18 04:21 RBC 3.49 M/mm3 (3.65-5.03) L 08/27/18 04:21 Hgb 10.1 gm/dl (10.1-14.3) D 08/27/18 04:21 Hct 30.7 % (30.3-42.9) D 08/27/18 04:21 MCV 88 fl (79-97) 08/27/18 04:21 MCH 29 pg (28-32) 08/27/18 04:21 MCHC 33 % (30-34) 08/27/18 04:21 RDW 17.5 % (13.2-15.2) H 08/27/18 04:21 Plt Count 142 K/mm3 (140-440) 08/27/18 04:21 Lymph % (Auto) 15.6 % (13.4-35.0) 08/27/18 04:21 [place] % (Auto) 10.1 % (0.0-7.3) H 08/27/18 04:21 Eos % (Auto) 0.5 % (0.0-4.3) 08/27/18 04:21 Baso % (Auto) 0.7 % (0.0-1.8) 08/27/18 04:21 Lymph # 1.5 K/mm3 (1.2-5.4) 08/27/18 04:21 [place] # 1.0 K/mm3 (0.0-0.8) H 08/27/18 04:21 Eos # 0.0 K/mm3 (0.0-0.4) 08/27/18 04:21 Baso # 0.1 K/mm3 (0.0-0.1) 08/27/18 04:21 Seg Neutrophils % 73.1 % (40.0-70.0) H 08/27/18 04:21 Seg Neutrophils # 7.1 K/mm3 (1.8-7.7) 08/27/18 04:21 PT 13.4 Sec. (12.2-14.9) 08/26/18 10:30 INR 0.96 (0.87-1.13) 08/26/18 10:30 APTT 22.4 Sec. (24.2-36.6) L 08/26/18 10:30 Sodium 141 mmol/L (137-145) 08/27/18 04:21 Potassium 4.6 mmol/L (3.6-5.0) 08/27/18 04:21 Chloride 110.4 mmol/L (98-107) H 08/27/18 04:21 Carbon Dioxide 19 mmol/L (22-30) L 08/27/18 04:21 Anion Gap 16 mmol/L 08/27/18 04:21 BUN 31 mg/dL (7-17) H 08/27/18 04:21 Creatinine 1.5 mg/dL (0.7-1.2) H 08/27/18 04:21 Estimated GFR 33 ml/min 08/27/18 04:21 BUN/Creatinine Ratio 21 % 08/27/18 04:21 Glucose 101 mg/dL (65-100) H 08/27/18 04:21 POC Glucose 228 (70-105) H 08/27/18 20:40 Calcium 7.6 mg/dL (8.4-10.2) L 08/27/18 04:21 Blood Type A POSITIVE 08/26/18 10:32 Antibody Screen Negative 08/26/18 10:32 Crossmatch See Detail 08/26/18 10:32 Active Medications - Current Medications Current Medications: Generic Name Dose Route Start Last Admin Trade Name Freq PRN Reason Stop Dose Admin Albuterol 2.5 mg 08/26/18 12:01 Proventil IH Q3HRT PRN Shortness Of Breath Atorvastatin Calcium 20 mg 08/27/18 10:00 08/27/18 10:25 Lipitor PO 20 mg DAILY HAKAN Administration Calcium/Vitamin D 1 each 08/27/18 10:00 08/27/18 10:29 Oysco D 500 Mg-200 Unit PO Not Given DAILY HAKAN Carvedilol 12.5 mg 08/26/18 22:00 08/27/18 21:00 Coreg PO 12.5 mg BID HAKAN Administration Dextrose 50 ml 08/26/18 12:07 D50w (25gm) Syringe IV PRN PRN Hypoglycemia Folic Acid 2 mg 08/27/18 10:00 08/27/18 10:26 Folvite PO 2 mg QDAY HAKAN Administration Hydralazine HCl 50 mg 08/26/18 14:00 08/27/18 20:57 Apresoline PO 50 mg TID HAKAN Administration Dextrose/Sodium Chloride 1,000 mls @ 75 mls/hr 08/27/18 10:00 08/27/18 10:27 D5ns IV 75 mls/hr DIRECT HAKAN Administration Cefazolin Sodium 1 gm in 50 mls @ 100 mls/hr 08/27/18 10:00 08/27/18 21:00 Ancef/Ns 1 Gm/50 Ml IV 100 mls/hr Q12HR HAKAN Administration Protocol Insulin Human Lispro 0 unit 08/26/18 16:30 08/27/18 21:01 Humalog SUB-Q 2 unit ACHS [facility] Administration Protocol Methotrexate 5 mg 09/02/18 10:00 Methotrexate (Dose Weekly Only) PO Fr@1000 HAKAN Methotrexate 5 mg 09/02/18 22:00 Methotrexate (Dose Weekly Only) PO Fr@2200 [facility] Miscellaneous Medication 0.25 mg 08/27/18 10:00 Estradiol [Estradiol] PO DAILY [facility] Nifedipine 60 mg 08/27/18 10:00 08/27/18 10:25 Procardia Xl PO 60 mg DAILY HAKAN Administration Ondansetron HCl 4 mg 08/26/18 15:10 08/26/18 15:12 Zofran IV 4 mg Q3H PRN Administration Nausea Pantoprazole Sodium 40 mg 08/26/18 22:00 08/27/18 21:00 Protonix IV 08/28/18 20:00 40 mg BID HAKAN Administration Pantoprazole Sodium 40 mg 08/28/18 22:00 Protonix PO BID [facility] Potassium Chloride 8 meq 08/27/18 10:00 08/27/18 10:29 Klor-Con 8 PO 8 meq DAILY HAKAN Administration Prednisone 5 mg 08/27/18 10:00 08/27/18 10:25 Deltasone PO 5 mg QAM HAKAN Administration Sodium Chloride 10 ml 08/26/18 22:00 08/27/18 21:00 Sodium Chloride Flush Syringe 10 Ml IV 10 ml BID HAKAN Administration Sodium Chloride 10 ml 08/26/18 12:01 Sodium Chloride Flush Syringe 10 Ml IV PRN PRN LINE FLUSH
[2018-08-28] MEDS: ANCEF/NS 1 GM/50 ML 1 GM/50 ML BAG IV SCH ×2 (10:23→22:00)
[2018-08-28] MEDS: OYSCO D 500 MG-200 UNIT PO SCH (10:25)
[2018-08-28] MEDS: PROCARDIA XL PO SCH (10:25)
[2018-08-28] MEDS: FOLVITE PO SCH (10:25)
[2018-08-28] MEDS: DELTASONE PO SCH (10:26)
[2018-08-28] MEDS: COREG PO SCH ×2 (10:26→22:00)
[2018-08-28] MEDS: KLOR-CON 8 PO SCH (10:26)
[2018-08-28] MEDS: PROTONIX IV SCH (10:27)
[2018-08-28] MEDS: HumaLOG SUB-Q SCH ×5 (10:27→22:02)
[2018-08-28] MEDS: APRESOLINE PO SCH ×4 (10:31→22:00)
[2018-08-28] MEDS: SODIUM CHLORIDE FLUSH SYRINGE 10 ML IV SCH ×2 (10:34→22:01)
--- NOTE | 2018-08-28 11:09 | Consultation ---
History of Present Illness Consult date: 08/28/18 Requesting physician: JH BURT Consult reason: other (cardiac clearance) History of present illness: The patient is an 87-year-old was currently admitted for rectal bleed. This is her second admission for similar complaints. Work up is that of diverticular bleed and surgery is being contemplated. Patient reports no chest pain or shortness of breath. Fairly active for her age. Follows up routinely in the inic. Currently stable with no active anginal symptoms or shortness of breath. Past History Past Medical History: arthritis, diabetes, hypertension Past Surgical History: hysterectomy, Other (bladder surgery) Social history: no significant social history Family history: no significant family history Medications and Allergies Allergies Allergy/AdvReac Type Severity Reaction Status Date / Time codeine Allergy Vomiting Verified 03/23/18 11:39 Home Medications Medication Instructions Recorded Confirmed Last Taken Type Aspirin [Aspirin BABY CHEW TAB] 81 mg PO QDAY 08/20/18 08/26/18 Unknown History Atorvastatin Calcium [Lipitor] 20 mg PO DAILY 08/20/18 08/26/18 Unknown History Calcium Carbonate/Vitamin D3 1 each PO BID 08/20/18 08/26/18 Unknown History [Calcium 600-Vit D3 400 Tablet] Carvedilol 12.5 mg PO BID 08/20/18 08/26/18 Unknown History Estradiol 0.25 mg PO DAILY 08/20/18 08/26/18 Unknown History Folic Acid [Folvite] 2 mg PO QDAY 08/20/18 08/26/18 Unknown History Furosemide [Lasix TAB] 40 mg PO QDAY 08/20/18 08/26/18 Unknown History Hydralazine HCl 50 mg PO TID 08/20/18 08/26/18 Unknown History Losartan Potassium 100 mg PO DAILY 08/20/18 08/26/18 Unknown History NIFEdipine [Nifedipine ER] 60 mg PO DAILY 08/20/18 08/26/18 Unknown History Potassium Chloride 8 meq PO DAILY 08/20/18 08/26/18 Unknown History Sitagliptin Phos/Metformin HCl 1 each PO DAILY 08/20/18 08/26/18 Unknown History [Janumet 50-1,000 mg] predniSONE [Deltasone] 5 mg PO QAM 08/20/18 08/26/18 Unknown History Pantoprazole [Protonix] 40 mg PO QDAY #30 tablet 08/22/18 08/26/18 Unknown Rx Methotrexate Sodium [Trexall] 5 mg PO QWEEK 08/26/18 08/26/18 Unknown History Active Meds: Active Medications Albuterol (Proventil) 2.5 mg IH Q3HRT PRN PRN Reason: Shortness Of Breath Atorvastatin Calcium (Lipitor) 20 mg PO DAILY [facility] Last Admin: 08/27/18 10:25 Dose: 20 mg Documented by: Calcium/Vitamin D (Oysco D 500 Mg-200 Unit) 1 each PO DAILY [facility] Last Admin: 08/28/18 10:25 Dose: 1 each Documented by: Carvedilol (Coreg) 12.5 mg PO BID [facility] Last Admin: 08/28/18 10:26 Dose: 12.5 mg Documented by: Dextrose (D50w (25gm) Syringe) 50 ml IV PRN PRN PRN Reason: Hypoglycemia Folic Acid (Folvite) 2 mg PO QDAY [facility] Last Admin: 08/28/18 10:25 Dose: 2 mg Documented by: Hydralazine HCl (Apresoline) 50 mg PO TID [facility] Last Admin: 08/28/18 10:35 Dose: 50 mg Documented by: Dextrose/Sodium Chloride (D5ns) 1,000 mls @ 75 mls/hr IV DIRECT [facility] Last Admin: 08/27/18 10:27 Dose: 75 mls/hr Documented by: Cefazolin Sodium (Ancef/Ns 1 Gm/50 Ml) 1 gm in 50 mls @ 100 mls/hr IV Q12HR [facility]; Protocol Last Admin: 08/28/18 10:23 Dose: 100 mls/hr Documented by: Insulin Human Lispro (Humalog) 0 unit SUB-Q ACHS [facility]; Protocol Last Admin: 08/28/18 10:27 Dose: Not Given Documented by: Methotrexate (Methotrexate (Dose Weekly Only)) 5 mg PO Fr@1000 [facility] Methotrexate (Methotrexate (Dose Weekly Only)) 5 mg PO Fr@2200 [facility] Miscellaneous Medication (Estradiol [Estradiol]) 0.25 mg PO DAILY [facility] Nifedipine (Procardia Xl) 60 mg PO DAILY [facility] Last Admin: 08/28/18 10:25 Dose: 60 mg Documented by: Ondansetron HCl (Zofran) 4 mg IV Q3H PRN PRN Reason: Nausea Last Admin: 08/26/18 15:12 Dose: 4 mg Documented by: Pantoprazole Sodium (Protonix) 40 mg IV BID [facility] Stop: 08/28/18 20:00 Last Admin: 08/28/18 10:27 Dose: 40 mg Documented by: Pantoprazole Sodium (Protonix) 40 mg PO BID [facility] Potassium Chloride (Klor-Con 8) 8 meq PO DAILY [facility] Last Admin: 08/28/18 10:26 Dose: 8 meq Documented by: Prednisone (Deltasone) 5 mg PO QAM [facility] Last Admin: 08/28/18 10:26 Dose: 5 mg Documented by: Sodium Chloride (Sodium Chloride Flush Syringe 10 Ml) 10 ml IV BID [facility] Last Admin: 08/28/18 10:34 Dose: 10 ml Documented by: Sodium Chloride (Sodium Chloride Flush Syringe 10 Ml) 10 ml IV PRN PRN PRN Reason: LINE FLUSH Review of Systems All systems: negative (as mentioned in the H&P) Physical Examination Vital Signs Pulse Resp BP Pulse Ox 66 18 145/46 91 08/26/18 09:44 08/26/18 09:44 08/26/18 09:44 08/26/18 09:44 Narrative exam: Vitals reviewed GEN: No acute distress noted HEENT: Carotids 2+ NECK: Supple CVS: S1 and S2 heard no significant murmur or gallop noted LUNGS/CHEST: Normal auscultation ABD: Soft nontender Extremities: No edema noted normal color NEURO: Alert moves all all 4 extremities PSY: Stable Results 08/27/18 04:21 08/27/18 04:21 Assessment and Plan Impression * Lower GI bleed * Possible surgery for diverticular bleed * Hypertension * Diabetes mellitus * Thigh cellulitis Plan * Will review recent office workup. * Patient should be stable for surgery. * If no echocardiogram has been done recently will repeat echo to assess aortic valve and renal function.
[2018-08-28 14:28] LABS: Calcium 7.5 mg/dL (8.4-10.2)
--- NOTE | 2018-08-28 14:32 | Gastroenterology Progress Note ---
Assessment and Plan 1. GI: presented w/ lower GI bleeding most likely diverticular - follow h/h, transfuse as needed - consider scope based on progress - will follow 2. Pancreas: pancreatic lesions noted - for MRI, Ca 19-9 pending - may needed EUS as outpt - will follow Subjective Date of service: 08/28/18 Interval history: - reports 1 bout some blood in single stool overnight. Denies other GI complaints Objective - Constitutional Vitals: Temp Pulse Resp BP Pulse Ox 98 F 73 24 138/48 97 08/28/18 12:00 08/28/18 12:41 08/28/18 12:41 08/28/18 12:41 08/28/18 12:41 General appearance: no acute distress - EENT Eyes: PERRL - Respiratory Respiratory: bilateral: CTA - Cardiovascular Rhythm: regular Heart Sounds: Present: S1 & S2 - Gastrointestinal General gastrointestinal: Present: soft, non-tender, non-distended - Labs CBC & Chem 7: 08/27/18 04:21 08/27/18 04:21 Labs: Laboratory Results - last 24 hr 08/27/18 08/27/18 13:00 20:40 POC Glucose 145 H 228 H
[2018-08-28] MEDS: PROTONIX PO SCH (21:59)
[2018-08-28] MEDS: D5NS 1,000 ML IV SCH (22:01)
[2018-08-29 07:31] LABS: Hemoglobin 6.6 gm/dl (10.1-14.3); Mean Corpuscular HGB Conc 33 % (30-34); Mean Corpuscular Volume 87 fl (79-97); Platelet Count 126 K/mm3 (140-440); Red Blood Count 2.29 M/mm3 (3.65-5.03); Red Cell Distribution Width 16.6 % (13.2-15.2)
[2018-08-29 08:02] LABS: Calcium 7.6 mg/dL (8.4-10.2)
[2018-08-29 09:54] LABS: Hematocrit 20.7 % (30.3-42.9); Hemoglobin 6.9 gm/dl (10.1-14.3)
[2018-08-29] MEDS ORDERED: NACL 0.9% 500 ML 500 ML IV NR ×2 (10:00→10:53)
[2018-08-29] MEDS: HumaLOG SUB-Q SCH ×4 (10:08→21:40)
[2018-08-29] MEDS: PROCARDIA XL PO SCH (10:09)
[2018-08-29] MEDS: DELTASONE PO SCH (10:09)
[2018-08-29] MEDS: OYSCO D 500 MG-200 UNIT PO SCH (10:09)
[2018-08-29] MEDS: APRESOLINE PO SCH ×3 (10:09→21:38)
[2018-08-29] MEDS: KLOR-CON 8 PO SCH (10:09)
[2018-08-29] MEDS: FOLVITE PO SCH (10:09)
[2018-08-29] MEDS: COREG PO SCH ×2 (10:09→21:38)
[2018-08-29] MEDS: PROTONIX PO SCH ×2 (10:09→21:37)
--- NOTE | 2018-08-29 10:38 | Gastroenterology Progress Note ---
Assessment and Plan 1.recurrent GI bleeding -H/H 6.9/20.7-trended down (transfusion PRBCs pending) -continue to monitor H/H and transfuse as needed -last episode of bleeding with yesterday morning. No acute signs of bleeding overnight or this am. -currently HD stable -s/p colonoscopy 08/21 that showed internal hemorrhoids and few small and medium sized diverticula scattered in the left and right side of the colon (likely source of bleeding) -CTA 08/26 negative for bleeding (showed pancreatic lesions and diverticulosis) -etiology-likely diverticular -surgery consult pending -no plan for repeat scope at this time (will consider based on clinical course) -continue PPI and supportive care -if patient re-bleeds, obtain stat repeat CTA 2.pancreastic lesions -MRI pending for today for further evaluation -CA 19-9 pending -further recommendations to follow MR results (may need EUS as outpatient) Subjective Date of service: 08/29/18 Principal diagnosis: GI bleed Interval history: Patient resting in bed this am w/o acute distress and family at bedside. Reports a bloody BM yesterday morning but no active signs of bleeding overnight or this am. Denies abd pain or N/V. Objective - Constitutional Vitals: Temp Pulse Resp BP Pulse Ox 98.1 F 58 L 20 157/54 97 08/29/18 07:25 08/29/18 07:25 08/29/18 07:25 08/29/18 07:25 08/29/18 07:25 General appearance: no acute distress - Respiratory Respiratory: bilateral: CTA - Cardiovascular Rhythm: regular - Gastrointestinal General gastrointestinal: Present: soft, non-tender, non-distended, normal bowel sounds - Neurologic Neurological: alert and oriented x3 - Labs CBC & Chem 7: 08/29/18 09:36 08/29/18 07:03 Labs: Laboratory Results - last 24 hr 08/26/18 08/28/18 08/28/18 10:32 08:22 11:16 WBC RBC Hgb Hct MCV MCH MCHC RDW Plt Count Sodium Potassium Chloride Carbon Dioxide Anion Gap BUN Creatinine Estimated GFR BUN/Creatinine Ratio Glucose POC Glucose 166 H 202 H Calcium Crossmatch See Detail 08/28/18 08/28/18 08/28/18 13:42 16:11 21:50 WBC RBC Hgb Hct MCV MCH MCHC RDW Plt Count Sodium 137 Potassium 4.7 Chloride 105.1 Carbon Dioxide 22 Anion Gap 15 BUN 29 H Creatinine 1.1 Estimated GFR 47 BUN/Creatinine Ratio 26 Glucose 160 H POC Glucose 184 H 179 H Calcium 7.5 L Crossmatch 08/29/18 08/29/18 08/29/18 07:03 07:03 07:54 WBC 7.6 RBC 2.29 L Hgb 6.6 L D Hct 20.0 L D MCV 87 MCH 29 MCHC 33 RDW 16.6 H Plt Count 126 L Sodium 142 Potassium 4.7 Chloride 112.0 H Carbon Dioxide 24 Anion Gap 11 BUN 19 H Creatinine 0.9 Estimated GFR 60 BUN/Creatinine Ratio 21 Glucose 118 H POC Glucose 131 H Calcium 7.6 L Crossmatch 08/29/18 09:36 WBC RBC Hgb 6.9 L Hct 20.7 L MCV MCH MCHC RDW Plt Count Sodium Potassium Chloride Carbon Dioxide Anion Gap BUN Creatinine Estimated GFR BUN/Creatinine Ratio Glucose POC Glucose Calcium Crossmatch
--- NOTE | 2018-08-29 11:07 | Progress Note ---
Assessment and Plan Full consult dictated: imp: 87 y/o female - active lower GI bleed. secondary to diverticulosis? colitis? also suspicious pancreatic lesions. MRI ordered Abd soft, non tender. low h/h rec transfuse 2 units prbc's now. bleeding scan now IR eval for possible embolization. will follow Ms Ram is a 87 yo wf who was recently in the hospital for suspected lower gi bleeding who presents with recurrent hematochezia. Pt reports bleeding episodes started again this morning. She has had 4 episodes of maroon blood per rectum w ith clots which last episode occurring upon arrival to the ED. She denies abdominal pain. She had a similar presentation 1 week ago for which she was admitted and had colonoscopy done 5 days ago which showed a few scattered tics but otherwise no blood in the colon or other possible source of bleeding. Pt's hct lower on admission compared to recent discharge level. Hypotensive at the time of exam, hr normal. Past History Past Medical History: arthritis, diabetes, hypertension Past Surgical History: hysterectomy, Other (bladder surgery) Social history: no significant social history Family history: no significant family history Selected Entries 08/29/18 07:25 Temperature 98.1 F Pulse Rate 58 L Respiratory 20 Rate Blood Pressure 157/54 [Left] Laboratory Tests 08/27/18 08/29/18 08/29/18 04:21 07:03 09:36 WBC 7.6 Hgb 10.1 D 6.9 L Hct 30.7 D 20.7 L Objective Vital Signs - 12hr 08/28/18 08/29/18 08/29/18 23:27 04:05 07:25 Temperature 98.2 F 98.2 F 98.1 F Pulse Rate 74 68 58 L Respiratory 18 18 20 Rate Blood Pressure 124/42 140/50 Blood Pressure 157/54 [Left] O2 Sat by Pulse 96 97 97 Oximetry - Labs 08/29/18 09:36 08/29/18 07:03 Diabetes panel 08/28/18 08/29/18 Range/Units 13:42 07:03 Sodium 137 142 (137-145) mmol/L Potassium 4.7 4.7 (3.6-5.0) mmol/L Chloride 105.1 112.0 H (98-107) mmol/L Carbon Dioxide 22 24 (22-30) mmol/L BUN 29 H 19 H (7-17) mg/dL Creatinine 1.1 0.9 (0.7-1.2) mg/dL Glucose 160 H 118 H (65-100) mg/dL Calcium 7.5 L 7.6 L (8.4-10.2) mg/dL Calcium panel 08/28/18 08/29/18 Range/Units 13:42 07:03 Calcium 7.5 L 7.6 L (8.4-10.2) mg/dL Pituitary panel 08/28/18 08/29/18 Range/Units 13:42 07:03 Sodium 137 142 (137-145) mmol/L Potassium 4.7 4.7 (3.6-5.0) mmol/L Chloride 105.1 112.0 H (98-107) mmol/L Carbon Dioxide 22 24 (22-30) mmol/L BUN 29 H 19 H (7-17) mg/dL Creatinine 1.1 0.9 (0.7-1.2) mg/dL Glucose 160 H 118 H (65-100) mg/dL Calcium 7.5 L 7.6 L (8.4-10.2) mg/dL Adrenal panel 08/28/18 08/29/18 Range/Units 13:42 07:03 Sodium 137 142 (137-145) mmol/L Potassium 4.7 4.7 (3.6-5.0) mmol/L Chloride 105.1 112.0 H (98-107) mmol/L Carbon Dioxide 22 24 (22-30) mmol/L BUN 29 H 19 H (7-17) mg/dL Creatinine 1.1 0.9 (0.7-1.2) mg/dL Glucose 160 H 118 H (65-100) mg/dL Calcium 7.5 L 7.6 L (8.4-10.2) mg/dL
[2018-08-29] MEDS ORDERED: FLUSH HEPARIN IV ONE (11:26)
[2018-08-29] MEDS: SODIUM CHLORIDE FLUSH SYRINGE 10 ML IV SCH ×2 (11:37→21:39)
--- NOTE | 2018-08-29 11:50 | Event Note ---
Date: 08/29/18 87 year old female with GI bleeding with prior CTA demonstrating hepatic flexure bleeding 08/27/18. No tachycardia or hypotension currently. No obvious bleeding actively per nurse. Getting GI bleeding study. Contacted 08/29/18 at 11:30 am. If positive, will likely bring down for embolization.
[2018-08-29] MEDS: ANCEF/NS 1 GM/50 ML 1 GM/50 ML BAG IV SCH ×2 (12:45→23:45)
[2018-08-29] MEDS ORDERED: NACL 0.9% 500 ML 500 ML IV SCH (12:49)
--- NOTE | 2018-08-29 15:03 | Consultation ---
REASON FOR CONSULTATION: Rule out lower gastrointestinal bleeding. HISTORY OF PRESENT ILLNESS: The patient is a pleasant 87-year-old female, who was originally seen back on 08/20/2018 secondary to lower gastrointestinal bleeding. At that time, she had a colonoscopy, which revealed some diverticula and some internal hemorrhoids, but no active source of bleeding. The patient was transfused, H and H stabilized and the patient was subsequently discharged. It is presumed that the bleeding was most likely from diverticulosis source. The patient was doing fine until this last Wednesday when she again began experiencing episodes of hematochezia. She thus arrived to the ER where she was transfused 3 units and admitted. PAST MEDICAL HISTORY: Pertinent for diabetes, hypertension, rheumatoid arthritis and heart murmur. ALLERGIES: Allergic to CODEINE, which causes her nausea. MEDICATIONS: On chart. FAMILY HISTORY: " SOCIAL HISTORY: Denies any smoking or drinking. PHYSICAL EXAMINATION: GENERAL: At this time reveals the patient to be awake, alert, cooperative, in no acute distress. Denies any abdominal pain. VITAL SIGNS: Show her to be afebrile with a temperature of 98.1, blood pressure is 157/54, pulse of 58, respirations of 20. ABDOMEN: Examination of the abdomen reveals it to be obese and soft. Nontender throughout. Bowel sounds are present. LABORATORY DATA: Lab work at present includes CBC, which shows a white count of 7.6, H and H is 6.9 and 20.7, down from 10.1 and 30.7; post three unit transfusion. H and H on admission on 08/26/2018 is noted to be 6.4 and 19.5. Electrolytes were all within normal limits. The patient had a CT scan done on 08/26/2018, which reveals suspicious multiloculated pancreatic masses. There is some fluid containing nondilated colon with mild wall thickening involving the right colon, which could represent a mild colitis. Diverticulosis is also noted, but no acute diverticulitis. IMPRESSION: At this time is that of a pleasant 87-year-old female with recurrent bout of lower GI bleeding. Rule out source from diverticulosis. Also, rule out source and possible right colitis. RECOMMENDATIONS: At this time, we will go ahead and transfuse the patient 2 additional units of packed RBCs as soon as possible. Also, we will order stat bleeding scan. We will obtain IR evaluation for possible embolization of bleeding source able to be localized on bleeding scan. I will repeat CBC one hour post-transfusion and follow closely with you. Thank you very much for consultation. JOB# [id number] CHRIS/BAM
--- NOTE | 2018-08-29 15:24 | Nuclear Medicine Report ---
NUCLEAR MEDICINE GASTROINTESTINAL BLEEDING SCAN: 08/29/18 CLINICAL: GI bleed. TECHNIQUE: 20.0 mCi technetium 99 UltraTag was injected intravenously. Serial images were obtained up to one hour. FINDINGS: Normal blood pool activity.Normal background activity and normal activity in the spleen. No abnormal activity identified. IMPRESSION: Normal study.No evidence of active GI bleed.
--- NOTE | 2018-08-29 16:10 | Magnetic Resonance Report ---
MRI ABDOMEN WITH MRCP: 08/29/18 07:17:00 CLINICAL: Abnormal liver function tests and pancreatic masses by CT. COMPARISON:08/26/18 CT abdomen and pelvis with contrast TECHNIQUE: Axial T1 in phase and opposed phase, coronal and axial T2 and axial T2 fat sat sequences without contrast plus thin and thick slab MRCP sequences on a 1.5 Kaela magnet. FINDINGS: The liver is borderline small with normal overall signal. No liver mass or nodularity. The right lobe measures 15.0 cm in length. Normal hepatic veins and portal veins. Normal gallbladder and bile ducts. No evidence of cholelithiasis. Normal stomach. The spleen is small and measures 8 cm in length. A multicystic pancreatic head mass measures 3.0 x 2.5 x 3.2 cm and a multicystic mass in the pancreatic body and tail measures 9.7 x 6.0 x 7.7 cm. Both masses have similar morphology with too numerous to count thin-walled cysts of varying sizes. The largest cyst in the pancreatic tail mass measures 2.0 cm and the largest in the pancreatic head mass measures 1.9 cm. The rest of the pancreas is atrophic with normal signal. The pancreatic duct is normal size. The distal splenic vein and the splenic vein confluence are patent. The adrenal glands are normal. The kidneys are small with nondilated renal collecting systems and ureters. A few tiny renal cysts. The largest is in the lower pole of the left kidney and measures less than 1 cm. No renal mass identified. The aorta and inferior vena cava are normal. No ascites. The imaged portions of small bowel and colon are normal. IMPRESSION: 1. A borderline small but otherwise normal liver. 2. Normal biliary tract. 3. 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 The larger mass in the pancreatic body and tail may be amenable to percutaneous CT-guided biopsy. 4. 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
--- NOTE | 2018-08-29 17:05 | XRay Report ---
PROCEDURE: XR CHEST 1V AP TECHNIQUE: Chest radiograph single view. HISTORY: PICC LINE PLACEMENT COMPARISONS: None . FINDINGS: Heart: Normal. Mediastinum/Vessels: Normal. Lungs/Pleural space: Normal. Bony thorax: No acute osseous abnormality. Life support devices: Right PICC line tip is in the superior vena cava.. IMPRESSION: Right PICC line tip is in the superior vena cava. This document is electronically signed by Priyanka Frazier MD., August 29 2018 05:03:14 PM ET
--- NOTE | 2018-08-29 17:25 | Progress Note ---
Assessment and Plan Assessment and plan: 87 YO Female with HTN, CHF, DM, RA presents to ED for evaluation. Pt reports that she has experienced bleeding from her rectum today. Pt acknowledges 2 episodes of painless bleeding as well as generalized weakness. EMS notified and upon arrival the patient was found to be in distress and transported to [facility] ED. Pt seen and evaluated in ED and found to have lower GI bleeding, ARF, as well as Symptomatic Anemia. Pt denies fever, chills, CP, Palpitations, NVD, Syncope, Dizziness, Trauma, Skin rash, hematemesis. GI consulted in ED. Pt admitted to [facility]. All listed medication reconciled at time of admission. Patient recently discharged following management for GI bleed and felt likely diverticular bleed, Colonoscopy showed internal hemorrhoids and diverticulosis with follow up arranged with GI but unfortunately continued re-bleeding prompting this admission. CT AP: Complex lesions on the pancrease, thickened right colon GI bleed suspected Diverticular Bleed: Monitor H/H, Transfused as needed. Surgery consultED. Possible Repeat Colonoscopy per GI, IR consulted for possible embolization Acute Blood Loss Anemia with Symptoms: As noted above CASSANDRA secondary vasomotor nephritis: Resolved. continue gentle hydration DM with Hyperglycemia: Continue insulin sliding scale coverage. Continue to hold Losartan and Lasix Pancreatic Mass: MRI, Ca 19-9 PENDING. EUS as outpt Hypertension: Stable Rheumatoid Arthritis Cellulitis left thigh: Patient has moderate erythema and tenderness. Restart diet after procedure DVT/GI: SCD due to anemia. The high probability of a clinically significant, sudden or life threatening deterioration of the [GI] system(s) required my full and direct attention, intervention and personal management. The aggregate critical care time was [35] minutes. This time is in addition to time spent performing reported procedures but includes the following: [x] Data Review and interpretation [x] Patient assessment and monitoring of vital signs [x] Documentation [x] Medication orders and management History Interval history: Patient seen and examined no new complaints today Hospitalist Physical - Physical exam Narrative exam: General appearance: Present: resting comfortable - EENT Eyes: Present: PERRL, EOM intact ) ENT: hearing intact, clear oral mucosa - Neck Neck: Present: supple, normal ROM - Respiratory Respiratory effort: normal Respiratory: bilateral: CTA - Cardiovascular Heart Sounds: Present: S1 & S2. Absent: rub, click - Extremities Extremities: pulses symmetrical, No edema Peripheral Pulses: within normal limits - Abdominal General gastrointestinal: Present: soft, non-tender, non-distended, normal bowel sounds Female genitourinary: Present: normal - Integumentary Integumentary: Present: clear, warm, dry - Musculoskeletal Musculoskeletal: gait normal, strength equal bilaterally - Psychiatric Psychiatric: appropriate mood/affect, intact judgment & insight - Neurologic Neurologic: CNII-XII intact, moves all extremities - Constitutional Vitals: Temp Pulse Resp BP Pulse Ox 99.1 F 76 19 169/57 97 08/29/18 16:45 08/29/18 16:45 08/29/18 16:45 08/29/18 16:45 08/29/18 16:45 General appearance: Present: mild distress Results - Labs CBC & Chem 7: 08/29/18 09:36 08/29/18 07:03 Labs: Laboratory Last Values WBC 7.6 K/mm3 (4.5-11.0) 08/29/18 07:03 RBC 2.29 M/mm3 (3.65-5.03) L 08/29/18 07:03 Hgb 6.9 gm/dl (10.1-14.3) L 08/29/18 09:36 Hct 20.7 % (30.3-42.9) L 08/29/18 09:36 MCV 87 fl (79-97) 08/29/18 07:03 MCH 29 pg (28-32) 08/29/18 07:03 MCHC 33 % (30-34) 08/29/18 07:03 RDW 16.6 % (13.2-15.2) H 08/29/18 07:03 Plt Count 126 K/mm3 (140-440) L 08/29/18 07:03 Lymph % (Auto) 15.6 % (13.4-35.0) 08/27/18 04:21 [place] % (Auto) 10.1 % (0.0-7.3) H 08/27/18 04:21 Eos % (Auto) 0.5 % (0.0-4.3) 08/27/18 04:21 Baso % (Auto) 0.7 % (0.0-1.8) 08/27/18 04:21 Lymph # 1.5 K/mm3 (1.2-5.4) 08/27/18 04:21 [place] # 1.0 K/mm3 (0.0-0.8) H 08/27/18 04:21 Eos # 0.0 K/mm3 (0.0-0.4) 08/27/18 04:21 Baso # 0.1 K/mm3 (0.0-0.1) 08/27/18 04:21 Seg Neutrophils % 73.1 % (40.0-70.0) H 08/27/18 04:21 Seg Neutrophils # 7.1 K/mm3 (1.8-7.7) 08/27/18 04:21 PT 13.4 Sec. (12.2-14.9) 08/26/18 10:30 INR 0.96 (0.87-1.13) 08/26/18 10:30 APTT 22.4 Sec. (24.2-36.6) L 08/26/18 10:30 Sodium 142 mmol/L (137-145) 08/29/18 07:03 Potassium 4.7 mmol/L (3.6-5.0) 08/29/18 07:03 Chloride 112.0 mmol/L (98-107) H 08/29/18 07:03 Carbon Dioxide 24 mmol/L (22-30) 08/29/18 07:03 Anion Gap 11 mmol/L 08/29/18 07:03 BUN 19 mg/dL (7-17) H 08/29/18 07:03 Creatinine 0.9 mg/dL (0.7-1.2) 08/29/18 07:03 Estimated GFR 60 ml/min 08/29/18 07:03 BUN/Creatinine Ratio 21 % 08/29/18 07:03 Glucose 118 mg/dL (65-100) H 08/29/18 07:03 POC Glucose 116 (70-105) H 08/29/18 16:52 Calcium 7.6 mg/dL (8.4-10.2) L 08/29/18 07:03 Blood Type A POSITIVE 08/29/18 11:25 Antibody Screen Negative 08/29/18 11:25 Crossmatch See Detail 08/29/18 11:25 Active Medications - Current Medications Current Medications: Generic Name Dose Route Start Last Admin Trade Name Freq PRN Reason Stop Dose Admin Albuterol 2.5 mg 08/26/18 12:01 Proventil IH Q3HRT PRN Shortness Of Breath Atorvastatin Calcium 20 mg 08/28/18 22:00 08/28/18 21:59 Lipitor PO 20 mg QHS HAKAN Administration Calcium/Vitamin D 1 each 08/27/18 10:00 08/29/18 10:09 Oysco D 500 Mg-200 Unit PO Not Given DAILY HAKAN Carvedilol 12.5 mg 08/26/18 22:00 08/29/18 10:09 Coreg PO Not Given BID HAKAN Dextrose 50 ml 08/26/18 12:07 D50w (25gm) Syringe IV PRN PRN Hypoglycemia Folic Acid 2 mg 08/27/18 10:00 08/29/18 10:09 Folvite PO Not Given QDAY [facility] Hydralazine HCl 50 mg 08/26/18 14:00 08/29/18 10:09 Apresoline PO Not Given TID HAKAN Dextrose/Sodium Chloride 1,000 mls @ 75 mls/hr 08/27/18 10:00 08/28/18 22:01 D5ns IV 75 mls/hr DIRECT HAKAN Administration Sodium Chloride 500 mls @ 0 mls/hr 08/29/18 10:53 Nacl 0.9% 500 Ml IV 08/29/18 22:00 ONCE NR As Directed Cefazolin Sodium 1 gm in 50 mls @ 100 mls/hr 08/29/18 22:00 Ancef/Ns 1 Gm/50 Ml IV Q8HR [facility] Protocol Sodium Chloride 500 mls @ 0 mls/hr 08/29/18 12:49 Nacl 0.9% 500 Ml IV 08/29/18 23:00 ONCE HAKAN As Directed Insulin Human Lispro 0 unit 08/26/18 16:30 08/29/18 12:45 Humalog SUB-Q Not Given ACHS [facility] Protocol Methotrexate 5 mg 09/02/18 10:00 Methotrexate (Dose Weekly Only) PO Fr@1000 [facility] Methotrexate 5 mg 09/02/18 22:00 Methotrexate (Dose Weekly Only) PO Fr@2200 [facility] Miscellaneous Medication 0.25 mg 08/27/18 10:00 Estradiol [Estradiol] PO DAILY [facility] Nifedipine 60 mg 08/27/18 10:00 08/29/18 10:09 Procardia Xl PO Not Given DAILY [facility] Ondansetron HCl 4 mg 08/26/18 15:10 08/26/18 15:12 Zofran IV 4 mg Q3H PRN Administration Nausea Pantoprazole Sodium 40 mg 08/28/18 22:00 08/29/18 10:09 Protonix PO Not Given BID HAKAN Potassium Chloride 8 meq 08/27/18 10:00 08/29/18 10:09 Klor-Con 8 PO Not Given DAILY HAKAN Prednisone 5 mg 08/27/18 10:00 08/29/18 10:09 Deltasone PO Not Given QAM HAKAN Sodium Chloride 10 ml 08/26/18 22:00 08/29/18 11:37 Sodium Chloride Flush Syringe 10 Ml IV Not Given BID HAKAN Sodium Chloride 10 ml 08/26/18 12:01 Sodium Chloride Flush Syringe 10 Ml IV PRN PRN LINE FLUSH
--- NOTE | 2018-08-29 18:56 | Event Note ---
Date: 08/29/18 87-year-old woman with a history of hypertension, hyperlipidemia and diabetes, who presented with rectal bleeding and profound anemia, hematocrit of 19. Cardiovascular consultation was requested for preoperative assessment, but at this point there are no plans for either GI endoscopy or GI surgery. No active cardiac issues, we will follow conservatively on when necessary basis.
[2018-08-29] MEDS: D5NS 1,000 ML IV SCH (23:40)
[2018-08-30 04:22] LABS: Hematocrit 26.7 % (30.3-42.9); Hemoglobin 9.1 gm/dl (10.1-14.3); Mean Corpuscular HGB Conc 34 % (30-34); Mean Corpuscular Volume 87 fl (79-97); Platelet Count 128 K/mm3 (140-440); Red Blood Count 3.05 M/mm3 (3.65-5.03); Red Cell Distribution Width 15.6 % (13.2-15.2)
[2018-08-30 04:47] LABS: BUN/Creatinine Ratio 15; Blood Urea Nitrogen 12 mg/dL (7-17); Calcium 7.6 mg/dL (8.4-10.2); Hemolysis Index 5
[2018-08-30] MEDS: ANCEF/NS 1 GM/50 ML 1 GM/50 ML BAG IV SCH ×3 (07:29→22:02)
--- NOTE | 2018-08-30 09:10 | Progress Note ---
Assessment and Plan Pt feeling well this am. No further signs of active bleeding Abd soft IR eval appreciated. prepared to proceed with embolization if signs of re- bleeding noted h/h as below. 10 am cbc ordered pt will also need w/u for pancreatic cystic masses. If surg warranted, would need to be transferred to [place]. keep npo monitor h/h closely continue present care Selected Entries 08/30/18 08/30/18 04:10 08:05 Temperature 98.5 F Respiratory 18 Rate O2 Sat by Pulse 95 Oximetry Blood Pressure 154/55 Laboratory Tests 08/29/18 08/30/18 09:36 04:00 Hgb 6.9 L 9.1 L Hct 20.7 L 26.7 L D Objective Vital Signs - 12hr 08/29/18 08/29/18 08/29/18 21:30 21:38 22:01 Temperature 98.6 F 98.5 F Pulse Rate 72 72 70 Respiratory 17 17 Rate Blood Pressure 146/62 146/72 175/68 O2 Sat by Pulse 96 97 Oximetry 08/30/18 08/30/18 08/30/18 03:36 04:10 08:05 Temperature 98.5 F Pulse Rate 65 Respiratory 18 Rate Blood Pressure 154/55 O2 Sat by Pulse 96 95 95 Oximetry - Labs 08/30/18 04:00 08/30/18 04:00 Diabetes panel 08/30/18 Range/Units 04:00 Sodium 139 (137-145) mmol/L Potassium 4.0 (3.6-5.0) mmol/L Chloride 107.3 H (98-107) mmol/L Carbon Dioxide 23 (22-30) mmol/L BUN 12 (7-17) mg/dL Creatinine 0.8 (0.7-1.2) mg/dL Glucose 120 H (65-100) mg/dL Calcium 7.6 L (8.4-10.2) mg/dL Calcium panel 08/30/18 Range/Units 04:00 Calcium 7.6 L (8.4-10.2) mg/dL Pituitary panel 08/30/18 Range/Units 04:00 Sodium 139 (137-145) mmol/L Potassium 4.0 (3.6-5.0) mmol/L Chloride 107.3 H (98-107) mmol/L Carbon Dioxide 23 (22-30) mmol/L BUN 12 (7-17) mg/dL Creatinine 0.8 (0.7-1.2) mg/dL Glucose 120 H (65-100) mg/dL Calcium 7.6 L (8.4-10.2) mg/dL Adrenal panel 08/30/18 Range/Units 04:00 Sodium 139 (137-145) mmol/L Potassium 4.0 (3.6-5.0) mmol/L Chloride 107.3 H (98-107) mmol/L Carbon Dioxide 23 (22-30) mmol/L BUN 12 (7-17) mg/dL Creatinine 0.8 (0.7-1.2) mg/dL Glucose 120 H (65-100) mg/dL Calcium 7.6 L (8.4-10.2) mg/dL
[2018-08-30] MEDS: FOLVITE PO SCH (10:08)
[2018-08-30] MEDS: PROCARDIA XL PO SCH (10:08)
[2018-08-30] MEDS: DELTASONE PO SCH (10:09)
[2018-08-30] MEDS: COREG PO SCH ×2 (10:09→22:05)
[2018-08-30] MEDS: PROTONIX PO SCH ×2 (10:09→22:08)
[2018-08-30] MEDS: OYSCO D 500 MG-200 UNIT PO SCH (10:09)
[2018-08-30] MEDS: KLOR-CON 8 PO SCH (10:09)
[2018-08-30] MEDS: APRESOLINE PO SCH ×3 (10:09→22:08)
[2018-08-30] MEDS: HumaLOG SUB-Q SCH ×3 (10:10→17:14)
[2018-08-30] MEDS: SODIUM CHLORIDE FLUSH SYRINGE 10 ML IV SCH ×2 (10:11→22:13)
[2018-08-30 10:17] LABS: Basophils # (Auto) 0.1 K/mm3 (0.0-0.1); Basophils % (Auto) 1.4 % (0.0-1.8); Eosinophils # (Auto) 0.5 K/mm3 (0.0-0.4); Eosinophils % (Auto) 5.8 % (0.0-4.3); Hematocrit 26.7 % (30.3-42.9); Hemoglobin 9.1 gm/dl (10.1-14.3); Lymphocytes # (Auto) 1.2 K/mm3 (1.2-5.4); Lymphocytes % (Auto) 14.1 % (13.4-35.0); Mean Corpuscular HGB Conc 34 % (30-34); Mean Corpuscular Volume 87 fl (79-97); Monocytes # (Auto) 0.2 K/mm3 (0.0-0.8); Platelet Count 124 K/mm3 (140-440); Red Blood Count 3.06 M/mm3 (3.65-5.03); Red Cell Distribution Width 15.5 % (13.2-15.2)
--- NOTE | 2018-08-30 10:21 | Gastroenterology Progress Note ---
Assessment and Plan 1.recurrent GI bleeding -H/H 9.1/26.7-appropriate rise s/p blood transfusion -continue to monitor H/H and transfuse as needed -s/p colonoscopy 08/21 that showed internal hemorrhoids and few small and medium sized diverticula scattered in the left and right side of the colon (likely source of bleeding) -CTA 08/26-results reviewed by surgery/IR with findings demonstrating hepatic flexure bleeding (also showed pancreatic lesions and diverticulosis) -bleeding scan yesterday negative for active bleeding -etiology-most likely diverticular -clinically, patient is stable with no active signs of bleeding overnight or this am. Denies abd pain or N/V. -surgery and IR following -no plan for repeat scope at this time -okay to resume diet, if okay with surgery -continue PPI and supportive care -if re-bleeding occurs, recommend stat CTA vs IR embolization 2.pancreastic lesions -CA 19-9 pending -MRI yesterday showed multicystic pancreatic head and pancreatic tail masses with morphology most suggestive of serous cystadenoma (von Hippel-Lindau syndrome?, but no other findings to suggest on this exam) -recommend outpatient EUS for further evaluation of MR results (plan of care discussed with patient/family; office card given) -if labs remain stable in am and no further signs of bleeding, patient okay to be d/c per GI standpoint with f/u in clinic in 1-2 weeks for further management and to schedule outpt EUS as above Subjective Date of service: 08/30/18 Principal diagnosis: GI bleed Interval history: Patient w/o acute distress. No active signs of bleeding overnight or this am. Denies abd pain or N/v. Objective - Constitutional Vitals: Temp Pulse Resp BP Pulse Ox 98.5 F 66 18 154/55 95 08/30/18 04:10 08/30/18 10:09 08/30/18 04:10 08/30/18 10:09 08/30/18 08:05 General appearance: no acute distress - EENT Eyes: PERRL, EOM intact ENT: hearing intact - Respiratory Respiratory: bilateral: CTA - Cardiovascular Rhythm: regular - Gastrointestinal General gastrointestinal: Present: soft, non-tender, non-distended, normal bowel sounds - Neurologic Neurological: alert and oriented x3 - Labs CBC & Chem 7: 08/30/18 10:02 08/30/18 04:00 Labs: Laboratory Results - last 24 hr 08/26/18 08/29/18 08/29/18 10:32 11:25 16:52 WBC RBC Hgb Hct MCV MCH MCHC RDW Plt Count Lymph % (Auto) [place] % (Auto) Eos % (Auto) Baso % (Auto) Lymph # [place] # Eos # Baso # Seg Neutrophils % Seg Neutrophils # Sodium Potassium Chloride Carbon Dioxide Anion Gap BUN Creatinine Estimated GFR BUN/Creatinine Ratio Glucose POC Glucose 116 H Calcium Blood Type A POSITIVE Antibody Screen Negative Crossmatch See Detail See Detail 08/29/18 08/30/18 08/30/18 21:34 04:00 04:00 WBC 8.4 RBC 3.05 L Hgb 9.1 L Hct 26.7 L D MCV 87 MCH 30 MCHC 34 RDW 15.6 H Plt Count 128 L Lymph % (Auto) [place] % (Auto) Eos % (Auto) Baso % (Auto) Lymph # [place] # Eos # Baso # Seg Neutrophils % Seg Neutrophils # Sodium 139 Potassium 4.0 Chloride 107.3 H Carbon Dioxide 23 Anion Gap 13 BUN 12 Creatinine 0.8 Estimated GFR > 60 BUN/Creatinine Ratio 15 Glucose 120 H POC Glucose 160 H Calcium 7.6 L Blood Type Antibody Screen Crossmatch 08/30/18 08/30/18 08:05 10:02 WBC 8.3 RBC 3.06 L Hgb 9.1 L Hct 26.7 L MCV 87 MCH 30 MCHC 34 RDW 15.5 H Plt Count 124 L Lymph % (Auto) 14.1 [place] % (Auto) 3.0 Eos % (Auto) 5.8 H Baso % (Auto) 1.4 Lymph # 1.2 [place] # 0.2 Eos # 0.5 H Baso # 0.1 Seg Neutrophils % 75.7 H Seg Neutrophils # 6.3 Sodium Potassium Chloride Carbon Dioxide Anion Gap BUN Creatinine Estimated GFR BUN/Creatinine Ratio Glucose POC Glucose 133 H Calcium Blood Type Antibody Screen Crossmatch
[2018-08-30] MEDS: D5NS 1,000 ML IV SCH (15:05)
--- NOTE | 2018-08-30 15:55 | Progress Note ---
Assessment and Plan Assessment and plan: Patient is a 87 yo woman with a history of HTN, CHF, DM, RA presents to ED for evaluation. Pt reports that she has experienced bleeding from her rectum today. Pt acknowledges 2 episodes of painless bleeding as well as generalized weakness. EMS notified and upon arrival the patient was found to be in distress and transported to [facility] ED. Pt seen and evaluated in ED and found to have lower GI bleeding, ARF, as well as Symptomatic Anemia. Pt denies fever, chills, CP, Palpitations, NVD, Syncope, Dizziness, Trauma, Skin rash, hematemesis. GI consulted in ED. Pt admitted to [facility]. All listed medication reconciled at time of admission. Patient recently discharged following management for GI bleed and felt likely diverticular bleed, Colonoscopy showed internal hemorrhoids and diverticulosis with follow up arranged with GI but unfortunately continued re-bleeding prompting this admission. CT AP: Complex lesions on the pancreas, thickened right colon GI bleed suspected Diverticular Bleed: Monitor H/H, Transfused as needed. Surgery consult ED. IR consulted for possible embolization Acute Blood Loss Anemia with Symptoms: As noted above CASSANDRA secondary vasomotor nephritis: Resolved. continue gentle hydration DM with Hyperglycemia: Continue insulin sliding scale coverage. Continue to hold Losartan and Lasix Pancreatic Mass: MRI, Ca 19-9 PENDING. EUS as outpt Hypertension: Stable Rheumatoid Arthritis Cellulitis left thigh: Patient has moderate erythema and tenderness. Restart diet after procedure DVT/GI: SCD due to anemia. D/W Dr. Luna and reviewed CT abd/pelvis without contrast on 08/26-demonstrating hepatic flexure bleeding which was never mentioned in the report (also showed pancreatic lesions and diverticulosis); he consulted IR to evaluate History Interval history: Patient was seen and examined. Follow-up on current diagnosis. Overnight un eventful. Patient denies any chest pain, shortness breath, nausea/vomiting or severe headaches. Imaging, nursing note, chart, labs and old chart reviewed. Discussed with patient. Daughter at bedside. Hospitalist Physical - Physical exam Narrative exam: Gen: WDWN, NAD, Awake, Alert, Orientated HEENT: NCAT, EOMI, PERRL, OP Clear Neck: supple, no adenopathy, no thyromegaly, no JVD CVS/Heart: RRR, normal S1S2, pulses present bilaterally Chest/Lungs: CTA B, Symmetrical chest expansion, good air entry bilaterally GI/Abdomen: soft, diffuse tenderness, good bowel sounds, no guarding or rebound /Bladder: no suprapubic tenderness, no CVA or paraspinal tenderness Extermity/Skin: no c/c/e, no obvious rash MSK: FROM x 4 Neuro: CN 2-12 grossly intact, no new focal deficits Psych: calm - Constitutional Vitals: Temp Pulse Resp BP Pulse Ox 98.2 F 70 18 171/53 95 08/30/18 12:35 08/30/18 15:06 08/30/18 12:35 08/30/18 15:06 08/30/18 12:35 General appearance: Absent: mild distress Results - Labs CBC & Chem 7: 08/30/18 10:02 08/30/18 04:00 Labs: Laboratory Last Values WBC 8.3 K/mm3 (4.5-11.0) 08/30/18 10:02 RBC 3.06 M/mm3 (3.65-5.03) L 08/30/18 10:02 Hgb 9.1 gm/dl (10.1-14.3) L 08/30/18 10:02 Hct 26.7 % (30.3-42.9) L 08/30/18 10:02 MCV 87 fl (79-97) 08/30/18 10:02 MCH 30 pg (28-32) 08/30/18 10:02 MCHC 34 % (30-34) 08/30/18 10:02 RDW 15.5 % (13.2-15.2) H 08/30/18 10:02 Plt Count 124 K/mm3 (140-440) L 08/30/18 10:02 Lymph % (Auto) 14.1 % (13.4-35.0) 08/30/18 10:02 [place] % (Auto) 3.0 % (0.0-7.3) 08/30/18 10:02 Eos % (Auto) 5.8 % (0.0-4.3) H 08/30/18 10:02 Baso % (Auto) 1.4 % (0.0-1.8) 08/30/18 10:02 Lymph # 1.2 K/mm3 (1.2-5.4) 08/30/18 10:02 [place] # 0.2 K/mm3 (0.0-0.8) 08/30/18 10:02 Eos # 0.5 K/mm3 (0.0-0.4) H 08/30/18 10:02 Baso # 0.1 K/mm3 (0.0-0.1) 08/30/18 10:02 Seg Neutrophils % 75.7 % (40.0-70.0) H 08/30/18 10:02 Seg Neutrophils # 6.3 K/mm3 (1.8-7.7) 08/30/18 10:02 PT 13.4 Sec. (12.2-14.9) 08/26/18 10:30 INR 0.96 (0.87-1.13) 08/26/18 10:30 APTT 22.4 Sec. (24.2-36.6) L 08/26/18 10:30 Sodium 139 mmol/L (137-145) 08/30/18 04:00 Potassium 4.0 mmol/L (3.6-5.0) 08/30/18 04:00 Chloride 107.3 mmol/L (98-107) H 08/30/18 04:00 Carbon Dioxide 23 mmol/L (22-30) 08/30/18 04:00 Anion Gap 13 mmol/L 08/30/18 04:00 BUN 12 mg/dL (7-17) 08/30/18 04:00 Creatinine 0.8 mg/dL (0.7-1.2) 08/30/18 04:00 Estimated GFR > 60 ml/min 08/30/18 04:00 BUN/Creatinine Ratio 15 % 08/30/18 04:00 Glucose 120 mg/dL (65-100) H 08/30/18 04:00 POC Glucose 163 (70-105) H 08/30/18 12:40 Calcium 7.6 mg/dL (8.4-10.2) L 08/30/18 04:00 Blood Type A POSITIVE 08/29/18 11:25 Antibody Screen Negative 08/29/18 11:25 Crossmatch See Detail 08/29/18 11:25 Active Medications - Current Medications Current Medications: Generic Name Dose Route Start Last Admin Trade Name Freq PRN Reason Stop Dose Admin Albuterol 2.5 mg 08/26/18 12:01 Proventil IH Q3HRT PRN Shortness Of Breath Atorvastatin Calcium 20 mg 08/28/18 22:00 08/29/18 21:37 Lipitor PO 20 mg QHS HAKAN Administration Calcium/Vitamin D 1 each 08/27/18 10:00 08/30/18 10:09 Oysco D 500 Mg-200 Unit PO 1 each DAILY HAKAN Administration Carvedilol 12.5 mg 08/26/18 22:00 08/30/18 10:09 Coreg PO 12.5 mg BID HKAAN Administration Dextrose 50 ml 08/26/18 12:07 D50w (25gm) Syringe IV PRN PRN Hypoglycemia Folic Acid 2 mg 08/27/18 10:00 08/30/18 10:08 Folvite PO 2 mg QDAY HAKAN Administration Hydralazine HCl 50 mg 08/26/18 14:00 08/30/18 15:06 Apresoline PO 50 mg TID HAKAN Administration Dextrose/Sodium Chloride 1,000 mls @ 75 mls/hr 08/27/18 10:00 08/30/18 15:05 D5ns IV 75 mls/hr DIRECT HAKAN Administration Cefazolin Sodium 1 gm in 50 mls @ 100 mls/hr 08/29/18 22:00 08/30/18 15:05 Ancef/Ns 1 Gm/50 Ml IV 100 mls/hr Q8HR HAKAN Administration Protocol Insulin Human Lispro 0 unit 08/26/18 16:30 08/30/18 12:38 Humalog SUB-Q Not Given ACHS [facility] Protocol Methotrexate 5 mg 09/02/18 10:00 Methotrexate (Dose Weekly Only) PO Fr@1000 [facility] Methotrexate 5 mg 09/02/18 22:00 Methotrexate (Dose Weekly Only) PO Fr@2200 [facility] Miscellaneous Medication 0.25 mg 08/27/18 10:00 Estradiol [Estradiol] PO DAILY [facility] Nifedipine 60 mg 08/27/18 10:00 08/30/18 10:08 Procardia Xl PO 60 mg DAILY HAKAN Administration Ondansetron HCl 4 mg 08/26/18 15:10 08/26/18 15:12 Zofran IV 4 mg Q3H PRN Administration Nausea Pantoprazole Sodium 40 mg 08/28/18 22:00 08/30/18 10:09 Protonix PO 40 mg BID HAKAN Administration Potassium Chloride 8 meq 08/27/18 10:00 08/30/18 10:09 Klor-Con 8 PO 8 meq DAILY HAKAN Administration Prednisone 5 mg 08/27/18 10:00 08/30/18 10:09 Deltasone PO 5 mg QAM HAKAN Administration Sodium Chloride 10 ml 08/26/18 22:00 08/30/18 10:11 Sodium Chloride Flush Syringe 10 Ml IV 10 ml BID HAKAN Administration Sodium Chloride 10 ml 08/26/18 12:01 Sodium Chloride Flush Syringe 10 Ml IV PRN PRN LINE FLUSH
[2018-08-31] MEDS: HumaLOG SUB-Q SCH ×4 (01:53→18:02)
[2018-08-31 04:44] LABS: Basophils # (Auto) 0.1 K/mm3 (0.0-0.1); Basophils % (Auto) 1.1 % (0.0-1.8); Eosinophils # (Auto) 0.4 K/mm3 (0.0-0.4); Eosinophils % (Auto) 5.3 % (0.0-4.3); Hematocrit 27.9 % (30.3-42.9); Hemoglobin 9.5 gm/dl (10.1-14.3); Lymphocytes # (Auto) 1.3 K/mm3 (1.2-5.4); Lymphocytes % (Auto) 15.6 % (13.4-35.0); Mean Corpuscular HGB Conc 34 % (30-34); Mean Corpuscular Volume 87 fl (79-97); Monocytes # (Auto) 0.4 K/mm3 (0.0-0.8); Monocytes % (Auto) 4.6 % (0.0-7.3); Platelet Count 146 K/mm3 (140-440); Red Blood Count 3.19 M/mm3 (3.65-5.03); Red Cell Distribution Width 15.7 % (13.2-15.2)
[2018-08-31] MEDS: ANCEF/NS 1 GM/50 ML 1 GM/50 ML BAG IV SCH ×3 (05:53→22:32)
[2018-08-31] MEDS: D5NS 1,000 ML IV SCH ×2 (06:00→22:39)
[2018-08-31] MEDS: PROTONIX PO SCH ×2 (09:50→22:32)
[2018-08-31] MEDS: OYSCO D 500 MG-200 UNIT PO SCH (09:50)
[2018-08-31] MEDS: DELTASONE PO SCH (09:51)
[2018-08-31] MEDS: PROCARDIA XL PO SCH (09:51)
[2018-08-31] MEDS: COREG PO SCH ×2 (09:51→22:34)
[2018-08-31] MEDS: KLOR-CON 8 PO SCH (09:51)
[2018-08-31] MEDS: FOLVITE PO SCH (09:51)
[2018-08-31] MEDS: APRESOLINE PO SCH ×3 (09:52→22:33)
[2018-08-31] MEDS: SODIUM CHLORIDE FLUSH SYRINGE 10 ML IV SCH ×2 (09:54→22:35)
--- NOTE | 2018-08-31 09:57 | Gastroenterology Progress Note ---
Assessment and Plan 1.recurrent GI bleeding -H/H 9.5/27.9-stable -continue to monitor H/H and transfuse as needed -s/p colonoscopy 08/21 that showed internal hemorrhoids and few small and medium sized diverticula scattered in the left and right side of the colon (likely source of bleeding) -CTA 08/26-results reviewed by surgery/IR with findings demonstrating hepatic flexure bleeding (also showed pancreatic lesions and diverticulosis) -bleeding scan yesterday negative for active bleeding -etiology-most likely diverticular -clinically, patient is currently HD stable but reports 1 episode of rectal bleeding this am with a moderate amount of bright red blood. Denies abd pain or N/V. 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 Reports episode of rectal bleeding this am with a moderate amount of bright red blood in toilet. Denies CP, SOB, abd pain or N/V. Objective - Constitutional Vitals: Temp Pulse Resp BP Pulse Ox 99.7 F H 74 18 136/54 98 08/31/18 07:25 08/31/18 07:25 08/31/18 07:25 08/31/18 07:25 08/31/18 07:25 General appearance: no acute distress - Respiratory Respiratory: bilateral: CTA - Cardiovascular Rhythm: regular - Gastrointestinal General gastrointestinal: Present: soft, non-tender, non-distended, normal bowel sounds - Neurologic Neurological: alert and oriented x3 - Labs CBC & Chem 7: 08/31/18 04:15 08/30/18 04:00 Labs: Laboratory Results - last 24 hr 08/28/18 08/30/18 08/30/18 04:45 10:02 12:40 WBC 8.3 RBC 3.06 L Hgb 9.1 L Hct 26.7 L MCV 87 MCH 30 MCHC 34 RDW 15.5 H Plt Count 124 L Lymph % (Auto) 14.1 [place] % (Auto) 3.0 Eos % (Auto) 5.8 H Baso % (Auto) 1.4 Lymph # 1.2 [place] # 0.2 Eos # 0.5 H Baso # 0.1 Seg Neutrophils % 75.7 H Seg Neutrophils # 6.3 POC Glucose 163 H CA 19-9 Antigen 4 08/30/18 08/30/18 08/31/18 16:44 22:32 04:15 WBC 8.6 RBC 3.19 L Hgb 9.5 L Hct 27.9 L MCV 87 MCH 30 MCHC 34 RDW 15.7 H Plt Count 146 Lymph % (Auto) 15.6 [place] % (Auto) 4.6 Eos % (Auto) 5.3 H Baso % (Auto) 1.1 Lymph # 1.3 [place] # 0.4 Eos # 0.4 Baso # 0.1 Seg Neutrophils % 73.4 H Seg Neutrophils # 6.3 POC Glucose 146 H 143 H CA 19-9 Antigen 08/31/18 07:30 WBC RBC Hgb Hct MCV MCH MCHC RDW Plt Count Lymph % (Auto) [place] % (Auto) Eos % (Auto) Baso % (Auto) Lymph # [place] # Eos # Baso # Seg Neutrophils % Seg Neutrophils # POC Glucose 130 H CA 19-9 Antigen
--- NOTE | 2018-08-31 10:12 | Consultation ---
History of Present Illness - Reason for Consult Consult date: 08/31/18 GI bleeding - History of Present Illness 87 year old white female who was recently in the hospital for lower GI bleeding who presents with recurrent hematochezia. Pt reports bleeding episodes started again this admission. She has had 4 episodes of maroon blood per rectum with clots which last episode occurring upon arrival to the ED. She denied abdominal pain. She had a similar presentation 1 week ago for which she was admitted and had colonoscopy done 5 days ago which showed a few scattered tics but otherwise no blood in the colon or other possible source of bleeding. Pt's hct lower on admission compared to recent discharge level. Since her original presentation, the patient had an episode of bleeding today which the patient reports at 7 to 7:30. I was notified at 950. She has not had any additional bleeding. No colicky abdominal discomfort. No sense of urgency about additional bowel movements. Hemodynamic stable. Past History Past Medical History: arthritis, diabetes, hypertension Past Surgical History: hysterectomy, Other (bladder surgery) Social history: no significant social history Family history: no significant family history Medications and Allergies Allergies Allergy/AdvReac Type Severity Reaction Status Date / Time codeine Allergy Vomiting Verified 03/23/18 11:39 Home Medications Medication Instructions Recorded Confirmed Last Taken Type Aspirin [Aspirin BABY CHEW TAB] 81 mg PO QDAY 08/20/18 08/26/18 Unknown History Atorvastatin Calcium [Lipitor] 20 mg PO DAILY 08/20/18 08/26/18 Unknown History Calcium Carbonate/Vitamin D3 1 each PO BID 08/20/18 08/26/18 Unknown History [Calcium 600-Vit D3 400 Tablet] Carvedilol 12.5 mg PO BID 08/20/18 08/26/18 Unknown History Estradiol 0.25 mg PO DAILY 08/20/18 08/26/18 Unknown History Folic Acid [Folvite] 2 mg PO QDAY 08/20/18 08/26/18 Unknown History Furosemide [Lasix TAB] 40 mg PO QDAY 08/20/18 08/26/18 Unknown History Hydralazine HCl 50 mg PO TID 08/20/18 08/26/18 Unknown History Losartan Potassium 100 mg PO DAILY 08/20/18 08/26/18 Unknown History NIFEdipine [Nifedipine ER] 60 mg PO DAILY 08/20/18 08/26/18 Unknown History Potassium Chloride 8 meq PO DAILY 08/20/18 08/26/18 Unknown History Sitagliptin Phos/Metformin HCl 1 each PO DAILY 08/20/18 08/26/18 Unknown History [Janumet 50-1,000 mg] predniSONE [Deltasone] 5 mg PO QAM 08/20/18 08/26/18 Unknown History Pantoprazole [Protonix] 40 mg PO QDAY #30 tablet 08/22/18 08/26/18 Unknown Rx Methotrexate Sodium [Trexall] 5 mg PO QWEEK 08/26/18 08/26/18 Unknown History Active Meds: Active Medications Albuterol (Proventil) 2.5 mg IH Q3HRT PRN PRN Reason: Shortness Of Breath Atorvastatin Calcium (Lipitor) 20 mg PO QHS [facility] Last Admin: 08/30/18 22:05 Dose: 20 mg Documented by: Calcium/Vitamin D (Oysco D 500 Mg-200 Unit) 1 each PO DAILY [facility] Last Admin: 08/31/18 09:50 Dose: 1 each Documented by: Carvedilol (Coreg) 12.5 mg PO BID [facility] Last Admin: 08/31/18 09:51 Dose: 12.5 mg Documented by: Dextrose (D50w (25gm) Syringe) 50 ml IV PRN PRN PRN Reason: Hypoglycemia Folic Acid (Folvite) 2 mg PO QDAY [facility] Last Admin: 08/31/18 09:51 Dose: 2 mg Documented by: Hydralazine HCl (Apresoline) 50 mg PO TID [facility] Last Admin: 08/31/18 09:52 Dose: 50 mg Documented by: Dextrose/Sodium Chloride (D5ns) 1,000 mls @ 75 mls/hr IV DIRECT [facility] Last Admin: 08/31/18 06:00 Dose: 75 mls/hr Documented by: Cefazolin Sodium (Ancef/Ns 1 Gm/50 Ml) 1 gm in 50 mls @ 100 mls/hr IV Q8HR [facility]; Protocol Last Admin: 08/31/18 05:53 Dose: 100 mls/hr Documented by: Insulin Human Lispro (Humalog) 0 unit SUB-Q ACHS [facility]; Protocol Last Admin: 08/31/18 07:30 Dose: Not Given Documented by: Methotrexate (Methotrexate (Dose Weekly Only)) 5 mg PO Fr@1000 [facility] Methotrexate (Methotrexate (Dose Weekly Only)) 5 mg PO Fr@2200 [facility] Miscellaneous Medication (Estradiol [Estradiol]) 0.25 mg PO DAILY [facility] Nifedipine (Procardia Xl) 60 mg PO DAILY [facility] Last Admin: 08/31/18 09:51 Dose: 60 mg Documented by: Ondansetron HCl (Zofran) 4 mg IV Q3H PRN PRN Reason: Nausea Last Admin: 08/26/18 15:12 Dose: 4 mg Documented by: Pantoprazole Sodium (Protonix) 40 mg PO BID [facility] Last Admin: 08/31/18 09:50 Dose: 40 mg Documented by: Potassium Chloride (Klor-Con 8) 8 meq PO DAILY [facility] Last Admin: 08/31/18 09:51 Dose: 8 meq Documented by: Prednisone (Deltasone) 5 mg PO QAM [facility] Last Admin: 08/31/18 09:51 Dose: 5 mg Documented by: Sodium Chloride (Sodium Chloride Flush Syringe 10 Ml) 10 ml IV BID [facility] Last Admin: 08/31/18 09:54 Dose: 10 ml Documented by: Sodium Chloride (Sodium Chloride Flush Syringe 10 Ml) 10 ml IV PRN PRN PRN Reason: LINE FLUSH Review of Systems All systems: negative (see HPI) Exam - Constitutional Vitals: Temp Pulse Resp BP Pulse Ox 99.7 F H 74 18 136/54 98 08/31/18 07:25 08/31/18 07:25 08/31/18 07:25 08/31/18 07:25 08/31/18 07:25 General appearance: Present: no acute distress - EENT Eyes: Present: EOM intact ENT: hearing intact - Respiratory Respiratory effort: normal - Extremities Extremities: normal temperature, normal color - Abdominal General gastrointestinal: Present: soft, other (obese) - Psychiatric Psychiatric: appropriate mood/affect, cooperative Results - Labs CBC & Chem 7: 08/31/18 04:15 08/30/18 04:00 Labs: Abnormal lab results 08/30/18 08/30/18 08/30/18 Range/Units 10:02 12:40 16:44 RBC 3.06 L (3.65-5.03) M/mm3 Hgb 9.1 L (10.1-14.3) gm/dl Hct 26.7 L (30.3-42.9) % RDW 15.5 H (13.2-15.2) % Plt Count 124 L (140-440) K/mm3 Eos % (Auto) 5.8 H (0.0-4.3) % Eos # 0.5 H (0.0-0.4) K/mm3 Seg Neutrophils % 75.7 H (40.0-70.0) % POC Glucose 163 H 146 H (70-105) 08/30/18 08/31/18 08/31/18 Range/Units 22:32 04:15 07:30 RBC 3.19 L (3.65-5.03) M/mm3 Hgb 9.5 L (10.1-14.3) gm/dl Hct 27.9 L (30.3-42.9) % RDW 15.7 H (13.2-15.2) % Plt Count (140-440) K/mm3 Eos % (Auto) 5.3 H (0.0-4.3) % Eos # (0.0-0.4) K/mm3 Seg Neutrophils % 73.4 H (40.0-70.0) % POC Glucose 143 H 130 H (70-105) - Imaging and Cardiology CT scan - abdomen: report reviewed, image reviewed Assessment and Plan 87-year-old female with recurrent lower GI bleeding with CT angiogram demonstrating extravasation from the hepatic flexure. She had been resuscitated since her original bleed, but this morning had a second bleed. She had one bloody bowel movement 3 hours ago without a recurrent bloody bowel movement. I suspect she is no longer bleeding based on her benign physical exam and vitals. CT angiogram will be performed to assess for bleeding. If positive, embolization will be performed. If negative, then GI bleeding study if further bleeding occurs.
[2018-08-31 10:17] LABS: Hematocrit 28.8 % (30.3-42.9); Hemoglobin 9.7 gm/dl (10.1-14.3); Mean Corpuscular HGB Conc 34 % (30-34); Mean Corpuscular Volume 88 fl (79-97); Platelet Count 146 K/mm3 (140-440); Red Blood Count 3.27 M/mm3 (3.65-5.03)
--- NOTE | 2018-08-31 11:06 | Progress Note ---
Assessment and Plan Pt noted blood in BM today. not clear if old or new bleeding. Asymptomatic. VSS h/h's stable currently downstairs for f/u CTA as per IR IR will emoblize if active bleeding noted monitor h/h Selected Entries 08/31/18 07:25 Temperature 99.7 F H Pulse Rate 74 Respiratory 18 Rate Blood Pressure 136/54 Laboratory Tests 08/30/18 08/30/18 08/31/18 04:00 10:02 04:15 Hgb 9.1 L 9.1 L 9.5 L Hct 26.7 L 27.9 L 08/31/18 Unknown Hgb 9.7 L Hct 28.8 L Objective Vital Signs - 12hr 08/31/18 08/31/18 08/31/18 00:08 04:04 07:25 Temperature 98.6 F 98.1 F 99.7 F H Pulse Rate 64 64 74 Respiratory 16 18 18 Rate Blood Pressure 125/49 142/50 136/54 O2 Sat by Pulse 94 94 98 Oximetry - Labs 08/31/18 Unknown 08/30/18 04:00
--- NOTE | 2018-08-31 14:00 | Cat Scan Report ---
PROCEDURE: CT ABDOMEN PELVIS WO/W CON TECHNIQUE: Computerized axial tomography of the abdomen and pelvis was performed before and after the IV injection of iodinated nonionic contrast. Coronal and sagittal reconstructed imaging provided. CT DOSE LENGTH PRODUCT: 5934.4 mGy-cm. HISTORY: 4 phase - GI Bleed -non contrast, CTA, venous, del COMPARISONS: CT abdomen pelvis August 26, 2018. Nuclear medicine GI bleed August 29, 2016. FINDINGS: Angiography of the abdomen and pelvis: Abdominal aorta: No aneurysm. No dissection. [id number] atherosclerotic disease. Celiac artery: Moderate disease. Patent with contrast. Superior mesenteric artery: Mild to moderate disease. Patent with contrast. SMA aortic angle is withi n normal limits. Left renal artery: Moderate disease at the origin. Patent with contrast. Single. Right renal artery: Moderate disease at the origin. Patent with contrast. Single. Inferior mesenteric artery: Normal . Common iliacs: Moderate disease at the origin. Patent with contrast. External iliacs: Moderate disease at the origin. Patent with contrast. Internal iliacs: Moderate disease at the origin. Patent with contrast. Abdomen: Minimal scarring and/or discoid subsegmental atelectasis in both lung bases. Stable partially imaged cardiomegaly. Some coronary artery disease. Pancreas: Multicystic mass in the body/tail the pancreas measuring 8.7 x 8.2 x 1.1 cm is stable in si ze compared to the prior. Smaller multicystic mass in the head/uncinate process of the pancreas measu ring 3.3 x 3.1 x 3.7 cm is also stable compared to the prior. Remainder the pancreas appears atrophic . The pancreatic duct is not dilated. Post contrast images demonstrates subtle irregular wall enhance ment a distinct enhancing nodule is not evident. No peripancreatic stranding or adenopathy identified . Liver: Decreased heterogeneous attenuation may represent hepatocellular disease, fatty infiltration, or cirrhosis. No suspicious lesion. Kidneys: 4.7 mm stone upper right renal cortex. No hydronephrosis. No nephroureteral stones. Symmetri jesisca renal cortical enhancement. Stomach: Iofib-jd-edpnckdw hiatal hernia. Otherwise unremarkable. Gallbladder, spleen, and adrenals are unremarkable. IVC is unremarkable. There is no periaortic or retroperitoneal adenopathy or mass. No retroperitoneal bleed. Clmt-nu-hndohxkw stool and contrast. Diverticulosis. No wall thickening or inflammatory changes. Cont rast in the colon limits evaluation for bleed. Terminal ileum is unremarkable. Appendix is normal. Small bowel loops are unremarkable. No obstructive pattern. No air-fluid levels. No obvious active extravasation contrast. No free air. No free fluid. Mesentery is unremarkable. Pelvis: Uterus: Limited images are unremarkable. Was Bladder: Unremarkable. [place] catheter. There is no pelvic mass or adenopathy. Inguinal regions are unremarkable. Bones: No suspicious osseous lesions on this limited examination of the skeleton. Metastatic disease better evaluated with bone scan. Degenerative changes are in the spine. IMPRESSION: * Comparison with prior nuclear medicine GI bleed study will be made as an addendum once requested p rior images and report are provided. * Multicystic pancreatic lesions are stable in size compared to the prior. Irregular wall enhancemen t without obvious mural nodularity. Findings are concerning for malignancy. * Jmig-lk-bhuewvnw multifocal atherosclerotic disease. * Fatty liver. * This document is electronically signed by Burke Kapadia MD., August 31 2018 01:58:34 PM ET
[2018-08-31 15:49] LABS: Basophils # (Auto) 0.1 K/mm3 (0.0-0.1); Basophils % (Auto) 0.6 % (0.0-1.8); Eosinophils # (Auto) 0.1 K/mm3 (0.0-0.4); Eosinophils % (Auto) 1.6 % (0.0-4.3); Hematocrit 29.3 % (30.3-42.9); Hemoglobin 9.8 gm/dl (10.1-14.3); Lymphocytes # (Auto) 0.8 K/mm3 (1.2-5.4); Lymphocytes % (Auto) 8.3 % (13.4-35.0); Mean Corpuscular HGB Conc 34 % (30-34); Mean Corpuscular Volume 89 fl (79-97); Monocytes # (Auto) 0.2 K/mm3 (0.0-0.8); Monocytes % (Auto) 2.7 % (0.0-7.3); Platelet Count 172 K/mm3 (140-440); Red Cell Distribution Width 15.4 % (13.2-15.2)
--- NOTE | 2018-08-31 16:04 | Progress Note ---
Assessment and Plan Assessment and plan: Patient is a 87 yo woman with a history of HTN, CHF, DM, RA presents to ED for evaluation. Pt reports that she has experienced bleeding from her rectum today. Pt acknowledges 2 episodes of painless bleeding as well as generalized weakness. EMS notified and upon arrival the patient was found to be in distress and transported to [facility] ED. Pt seen and evaluated in ED and found to have lower GI bleeding, ARF, as well as Symptomatic Anemia. Pt denies fever, chills, CP, Palpitations, NVD, Syncope, Dizziness, Trauma, Skin rash, hematemesis. GI consulted in ED. Pt admitted to [facility]. All listed medication reconciled at time of admission. Patient recently discharged following management for GI bleed and felt likely diverticular bleed, Colonoscopy showed internal hemorrhoids and diverticulosis with follow up arranged with GI but unfortunately continued re-bleeding prompting this admission. CT AP: Complex lesions on the pancreas, thickened right colon GI bleed suspected Diverticular Bleed near the Hepatic flexure: Monitor H/H, Transfused as needed. Surgery consult ED. IR consulted for possible embolization Acute Blood Loss Anemia with Symptoms: As noted above CASSANDRA secondary vasomotor nephritis: Resolved. continue gentle hydration DM with Hyperglycemia: Continue insulin sliding scale coverage. Continue to hold Losartan and Lasix Pancreatic Mass: MRI, Ca 19-9 PENDING. EUS as outpt Hypertension: Stable Rheumatoid Arthritis Cellulitis left thigh: Patient has moderate erythema and tenderness. Restart diet after procedure DVT/GI: SCD due to anemia. D/W Dr. Luna and reviewed CT abd/pelvis without contrast on 08/26-demonstrating hepatic flexure bleeding which was never mentioned in the report (also showed pancreatic lesions and diverticulosis); she went for IR embolization but CTA was negative so no embolization, next is bleeding scan. History Interval history: Patient was seen and examined. Follow-up on current diagnosis. Overnight uneventful. Patient denies any chest pain, shortness breath, nausea/vomiting or severe headaches. Imaging, nursing note, chart, labs and old chart reviewed. Discussed with patient. Hospitalist Physical - Physical exam Narrative exam: Gen: WDWN, NAD, Awake, Alert, Orientated HEENT: NCAT, EOMI, PERRL, OP Clear Neck: supple, no adenopathy, no thyromegaly, no JVD CVS/Heart: RRR, normal S1S2, pulses present bilaterally Chest/Lungs: CTA B, Symmetrical chest expansion, good air entry bilaterally GI/Abdomen: soft, diffuse tenderness, good bowel sounds, no guarding or rebound /Bladder: no suprapubic tenderness, no CVA or paraspinal tenderness Extermity/Skin: no c/c/e, no obvious rash MSK: FROM x 4 Neuro: CN 2-12 grossly intact, no new focal deficits Psych: calm - Constitutional Vitals: Temp Pulse Resp BP Pulse Ox 98.1 F 65 18 149/55 96 08/31/18 11:49 08/31/18 11:49 08/31/18 11:49 08/31/18 11:49 08/31/18 11:49 General appearance: Present: no acute distress Results - Labs CBC & Chem 7: 08/31/18 Unknown 08/30/18 04:00 Labs: Laboratory Last Values WBC 9.5 K/mm3 (4.5-11.0) 08/31/18 Unknown RBC 3.27 M/mm3 (3.65-5.03) L 08/31/18 Unknown Hgb 9.7 gm/dl (10.1-14.3) L 08/31/18 Unknown Hct 28.8 % (30.3-42.9) L 08/31/18 Unknown MCV 88 fl (79-97) 08/31/18 Unknown MCH 30 pg (28-32) 08/31/18 Unknown MCHC 34 % (30-34) 08/31/18 Unknown RDW 16.0 % (13.2-15.2) H 08/31/18 Unknown Plt Count 146 K/mm3 (140-440) 08/31/18 Unknown Lymph % (Auto) 8.3 % (13.4-35.0) L 08/31/18 15:30 [place] % (Auto) 2.7 % (0.0-7.3) 08/31/18 15:30 Eos % (Auto) 1.6 % (0.0-4.3) 08/31/18 15:30 Baso % (Auto) 0.6 % (0.0-1.8) 08/31/18 15:30 Lymph # 0.8 K/mm3 (1.2-5.4) L 08/31/18 15:30 [place] # 0.2 K/mm3 (0.0-0.8) 08/31/18 15:30 Eos # 0.1 K/mm3 (0.0-0.4) 08/31/18 15:30 Baso # 0.1 K/mm3 (0.0-0.1) 08/31/18 15:30 Seg Neutrophils % 86.8 % (40.0-70.0) H 08/31/18 15:30 Seg Neutrophils # 7.9 K/mm3 (1.8-7.7) H 08/31/18 15:30 PT 13.4 Sec. (12.2-14.9) 08/26/18 10:30 INR 0.96 (0.87-1.13) 08/26/18 10:30 APTT 22.4 Sec. (24.2-36.6) L 08/26/18 10:30 Sodium 139 mmol/L (137-145) 08/30/18 04:00 Potassium 4.0 mmol/L (3.6-5.0) 08/30/18 04:00 Chloride 107.3 mmol/L (98-107) H 08/30/18 04:00 Carbon Dioxide 23 mmol/L (22-30) 08/30/18 04:00 Anion Gap 13 mmol/L 08/30/18 04:00 BUN 12 mg/dL (7-17) 08/30/18 04:00 Creatinine 0.8 mg/dL (0.7-1.2) 08/30/18 04:00 Estimated GFR > 60 ml/min 08/30/18 04:00 BUN/Creatinine Ratio 15 % 08/30/18 04:00 Glucose 120 mg/dL (65-100) H 08/30/18 04:00 POC Glucose 126 (70-105) H 08/31/18 11:54 Calcium 7.6 mg/dL (8.4-10.2) L 08/30/18 04:00 CA 19-9 Antigen 4 U/mL (<34) 08/28/18 04:45 Blood Type A POSITIVE 08/29/18 11:25 Antibody Screen Negative 08/29/18 11:25 Crossmatch See Detail 08/29/18 11:25 Active Medications - Current Medications Current Medications: Generic Name Dose Route Start Last Admin Trade Name Freq PRN Reason Stop Dose Admin Albuterol 2.5 mg 08/26/18 12:01 Proventil IH Q3HRT PRN Shortness Of Breath Atorvastatin Calcium 20 mg 08/28/18 22:00 08/30/18 22:05 Lipitor PO 20 mg QHS HAKAN Administration Calcium/Vitamin D 1 each 08/27/18 10:00 08/31/18 09:50 Oysco D 500 Mg-200 Unit PO 1 each DAILY [facility] Administration Carvedilol 12.5 mg 08/26/18 22:00 08/31/18 09:51 Coreg PO 12.5 mg BID HAKAN Administration Dextrose 50 ml 08/26/18 12:07 D50w (25gm) Syringe IV PRN PRN Hypoglycemia Folic Acid 2 mg 08/27/18 10:00 08/31/18 09:51 Folvite PO 2 mg QDAY HAKAN Administration Hydralazine HCl 50 mg 08/26/18 14:00 08/31/18 15:20 Apresoline PO 50 mg TID [facility]AKAN Administration Dextrose/Sodium Chloride 1,000 mls @ 75 mls/hr 08/27/18 10:00 08/31/18 06:00 D5ns IV 75 mls/hr DIRECT [facility]AKAN Administration Cefazolin Sodium 1 gm in 50 mls @ 100 mls/hr 08/29/18 22:00 08/31/18 15:20 Ancef/Ns 1 Gm/50 Ml IV 100 mls/hr Q8HR [facility] Administration Protocol Insulin Human Lispro 0 unit 08/26/18 16:30 08/31/18 12:58 Humalog SUB-Q Not Given ACHS [facility] Protocol Methotrexate 5 mg 09/02/18 10:00 Methotrexate (Dose Weekly Only) PO Fr@1000 [facility] Methotrexate 5 mg 09/02/18 22:00 Methotrexate (Dose Weekly Only) PO Fr@2200 [facility] Miscellaneous Medication 0.25 mg 08/27/18 10:00 Estradiol [Estradiol] PO DAILY [facility] Nifedipine 60 mg 08/27/18 10:00 08/31/18 09:51 Procardia Xl PO 60 mg DAILY [facility] Administration Ondansetron HCl 4 mg 08/26/18 15:10 08/26/18 15:12 Zofran IV 4 mg Q3H PRN Administration Nausea Pantoprazole Sodium 40 mg 08/28/18 22:00 08/31/18 09:50 Protonix PO 40 mg BID [facility]AN Administration Potassium Chloride 8 meq 08/27/18 10:00 08/31/18 09:51 Klor-Con 8 PO 8 meq DAILY [facility] Administration Prednisone 5 mg 08/27/18 10:00 08/31/18 09:51 Deltasone PO 5 mg QAM [facility] Administration Sodium Chloride 10 ml 08/26/18 22:00 08/31/18 09:54 Sodium Chloride Flush Syringe 10 Ml IV 10 ml BID [facility]AN Administration Sodium Chloride 10 ml 08/26/18 12:01 Sodium Chloride Flush Syringe 10 Ml IV PRN PRN LINE FLUSH
[2018-09-01] MEDS: ANCEF/NS 1 GM/50 ML 1 GM/50 ML BAG IV SCH ×3 (06:15→21:26)
--- NOTE | 2018-09-01 08:04 | Progress Note ---
Assessment and Plan Assessment and plan: Patient is a 87 yo woman with a history of HTN, CHF, DM, RA presents to ED for evaluation. Pt reports that she has experienced bleeding from her rectum today. Pt acknowledges 2 episodes of painless bleeding as well as generalized weakness. EMS notified and upon arrival the patient was found to be in distress and transported to [facility] ED. Pt seen and evaluated in ED and found to have lower GI bleeding, ARF, as well as Symptomatic Anemia. Pt denies fever, chills, CP, Palpitations, NVD, Syncope, Dizziness, Trauma, Skin rash, hematemesis. GI consulted in ED. Pt admitted to [facility]. All listed medication reconciled at time of admission. Patient recently discharged following management for GI bleed and felt likely diverticular bleed, Colonoscopy showed internal hemorrhoids and diverticulosis with follow up arranged with GI but unfortunately continued re-bleeding prompting this admission. CT AP: Complex lesions on the pancreas, thickened right colon GI bleed suspected Diverticular Bleed near the Hepatic flexure: Monitor H/H, Transfused as needed. Surgery consult ED. IR consulted for possible embolization Acute Blood Loss Anemia with Symptoms: As noted above CASSANDRA secondary vasomotor nephritis: Resolved. continue gentle hydration DM with Hyperglycemia: Continue insulin sliding scale coverage. Continue to hold Losartan and Lasix Pancreatic Mass: MRI, Ca 19-9 PENDING. EUS as outpt Hypertension: Stable Rheumatoid Arthritis Cellulitis left thigh: Patient has moderate erythema and tenderness. Restart diet after procedure DVT/GI: SCD due to anemia. D/W Dr. Luna and reviewed CT abd/pelvis without contrast on 08/26-demonstrating hepatic flexure bleeding which was never mentioned in the report (also showed pancreatic lesions and diverticulosis); she went for IR embolization but CTA was negative so no embolization, 09/01/18: patient had another bloody BM this morning, and h/h dropped, will transfuse Prbc History Interval history: Patient was seen and examined. Follow-up on current diagnosis. Overnight uneventful. Patient denies any chest pain, shortness breath, nausea/vomiting or severe headaches. Imaging, nursing note, chart, labs and old chart reviewed. Discussed with patient. Hospitalist Physical - Physical exam Narrative exam: Gen: WDWN, NAD, Awake, Alert, Orientated HEENT: NCAT, EOMI, PERRL, OP Clear Neck: supple, no adenopathy, no thyromegaly, no JVD CVS/Heart: RRR, normal S1S2, pulses present bilaterally Chest/Lungs: CTA B, Symmetrical chest expansion, good air entry bilaterally GI/Abdomen: soft, diffuse tenderness, good bowel sounds, no guarding or rebound /Bladder: no suprapubic tenderness, no CVA or paraspinal tenderness Extermity/Skin: no c/c/e, no obvious rash MSK: FROM x 4 Neuro: CN 2-12 grossly intact, no new focal deficits Psych: calm - Constitutional Vitals: Temp Pulse Resp BP Pulse Ox 98.4 F 63 17 153/49 96 09/01/18 04:05 09/01/18 04:05 09/01/18 04:05 09/01/18 04:05 09/01/18 04:05 General appearance: Present: no acute distress Results - Labs CBC & Chem 7: 09/01/18 05:00 08/30/18 04:00 Labs: Laboratory Last Values WBC 9.5 K/mm3 (4.5-11.0) 08/31/18 Unknown RBC 3.27 M/mm3 (3.65-5.03) L 08/31/18 Unknown Hgb 9.7 gm/dl (10.1-14.3) L 08/31/18 Unknown Hct 28.8 % (30.3-42.9) L 08/31/18 Unknown MCV 88 fl (79-97) 08/31/18 Unknown MCH 30 pg (28-32) 08/31/18 Unknown MCHC 34 % (30-34) 08/31/18 Unknown RDW 16.0 % (13.2-15.2) H 08/31/18 Unknown Plt Count 146 K/mm3 (140-440) 08/31/18 Unknown Lymph % (Auto) 8.3 % (13.4-35.0) L 08/31/18 15:30 [place] % (Auto) 2.7 % (0.0-7.3) 08/31/18 15:30 Eos % (Auto) 1.6 % (0.0-4.3) 08/31/18 15:30 Baso % (Auto) 0.6 % (0.0-1.8) 08/31/18 15:30 Lymph # 0.8 K/mm3 (1.2-5.4) L 08/31/18 15:30 [place] # 0.2 K/mm3 (0.0-0.8) 08/31/18 15:30 Eos # 0.1 K/mm3 (0.0-0.4) 08/31/18 15:30 Baso # 0.1 K/mm3 (0.0-0.1) 08/31/18 15:30 Seg Neutrophils % 86.8 % (40.0-70.0) H 08/31/18 15:30 Seg Neutrophils # 7.9 K/mm3 (1.8-7.7) H 08/31/18 15:30 PT 13.4 Sec. (12.2-14.9) 08/26/18 10:30 INR 0.96 (0.87-1.13) 08/26/18 10:30 APTT 22.4 Sec. (24.2-36.6) L 08/26/18 10:30 Sodium 139 mmol/L (137-145) 08/30/18 04:00 Potassium 4.0 mmol/L (3.6-5.0) 08/30/18 04:00 Chloride 107.3 mmol/L (98-107) H 08/30/18 04:00 Carbon Dioxide 23 mmol/L (22-30) 08/30/18 04:00 Anion Gap 13 mmol/L 08/30/18 04:00 BUN 12 mg/dL (7-17) 08/30/18 04:00 Creatinine 0.8 mg/dL (0.7-1.2) 08/30/18 04:00 Estimated GFR > 60 ml/min 08/30/18 04:00 BUN/Creatinine Ratio 15 % 08/30/18 04:00 Glucose 120 mg/dL (65-100) H 08/30/18 04:00 POC Glucose 130 (70-105) H 08/31/18 22:47 Calcium 7.6 mg/dL (8.4-10.2) L 08/30/18 04:00 CA 19-9 Antigen 4 U/mL (<34) 08/28/18 04:45 Blood Type A POSITIVE 08/29/18 11:25 Antibody Screen Negative 08/29/18 11:25 Crossmatch See Detail 08/29/18 11:25 Active Medications - Current Medications Current Medications: Generic Name Dose Route Start Last Admin Trade Name Freq PRN Reason Stop Dose Admin Albuterol 2.5 mg 08/26/18 12:01 Proventil IH Q3HRT PRN Shortness Of Breath Atorvastatin Calcium 20 mg 08/28/18 22:00 08/31/18 22:33 Lipitor PO 20 mg QHS HAKAN Administration Calcium/Vitamin D 1 each 08/27/18 10:00 08/31/18 09:50 Oysco D 500 Mg-200 Unit PO 1 each DAILY HAKAN Administration Carvedilol 12.5 mg 08/26/18 22:00 08/31/18 22:34 Coreg PO 12.5 mg BID HAKAN Administration Dextrose 50 ml 08/26/18 12:07 D50w (25gm) Syringe IV PRN PRN Hypoglycemia Folic Acid 2 mg 08/27/18 10:00 08/31/18 09:51 Folvite PO 2 mg QDAY HAKAN Administration Hydralazine HCl 50 mg 08/26/18 14:00 08/31/18 22:33 Apresoline PO 50 mg TID HAKAN Administration Dextrose/Sodium Chloride 1,000 mls @ 75 mls/hr 08/27/18 10:00 08/31/18 22:39 D5ns IV 75 mls/hr DIRECT HAKAN Administration Cefazolin Sodium 1 gm in 50 mls @ 100 mls/hr 08/29/18 22:00 09/01/18 06:15 Ancef/Ns 1 Gm/50 Ml IV 100 mls/hr Q8HR HAKAN Administration Protocol Insulin Human Lispro 0 unit 08/26/18 16:30 08/31/18 18:02 Humalog SUB-Q Not Given ACHS [facility] Protocol Methotrexate 5 mg 09/02/18 10:00 Methotrexate (Dose Weekly Only) PO Fr@1000 HAKAN Methotrexate 5 mg 09/02/18 22:00 Methotrexate (Dose Weekly Only) PO Fr@2200 [facility] Miscellaneous Medication 0.25 mg 08/27/18 10:00 Estradiol [Estradiol] PO DAILY [facility] Nifedipine 60 mg 08/27/18 10:00 08/31/18 09:51 Procardia Xl PO 60 mg DAILY HAKAN Administration Ondansetron HCl 4 mg 08/26/18 15:10 08/26/18 15:12 Zofran IV 4 mg Q3H PRN Administration Nausea Pantoprazole Sodium 40 mg 08/28/18 22:00 08/31/18 22:32 Protonix PO 40 mg BID HAKAN Administration Potassium Chloride 8 meq 08/27/18 10:00 08/31/18 09:51 Klor-Con 8 PO 8 meq DAILY HAKAN Administration Prednisone 5 mg 08/27/18 10:00 08/31/18 09:51 Deltasone PO 5 mg QAM HAKAN Administration Sodium Chloride 10 ml 08/26/18 22:00 08/31/18 22:35 Sodium Chloride Flush Syringe 10 Ml IV 10 ml BID HAKAN Administration Sodium Chloride 10 ml 08/26/18 12:01 Sodium Chloride Flush Syringe 10 Ml IV PRN PRN LINE FLUSH
[2018-09-01 08:41] LABS: Hematocrit 26.3 % (30.3-42.9); Hemoglobin 8.8 gm/dl (10.1-14.3); Mean Corpuscular HGB Conc 33 % (30-34); Mean Corpuscular Volume 89 fl (79-97); Platelet Count 147 K/mm3 (140-440); Red Blood Count 2.96 M/mm3 (3.65-5.03); Red Cell Distribution Width 15.6 % (13.2-15.2)
[2018-09-01] MEDS ORDERED: NACL 0.9% 500 ML 500 ML IV ONE ×3 (08:56→14:00)
[2018-09-01] MEDS: PROCARDIA XL PO SCH (09:02)
--- NOTE | 2018-09-01 09:07 | Progress Note ---
Assessment and Plan Pt status quo. no compl. just getting off comode Abd soft stools - very slight blood tinged fluid around stools but stools themselves light brown in color. not melanotic. h/h dropped slightly currently stable transfuse I unit prbc & FFP today. cbc, PT,INR & PTT I hr post transfusion. another f/u cbc early am Selected Entries 09/01/18 04:05 Temperature 98.4 F Pulse Rate 63 Respiratory 17 Rate Blood Pressure 153/49 Laboratory Tests 08/31/18 09/01/18 Unknown 05:00 Hgb 9.7 L 8.8 L Hct 28.8 L 26.3 L Objective Vital Signs - 12hr 08/31/18 08/31/18 09/01/18 22:33 22:34 00:55 Temperature 97.9 F Pulse Rate 70 70 61 Respiratory 18 Rate Blood Pressure 146/59 146/59 143/54 O2 Sat by Pulse 95 Oximetry 09/01/18 04:05 Temperature 98.4 F Pulse Rate 63 Respiratory 17 Rate Blood Pressure 153/49 O2 Sat by Pulse 96 Oximetry - Labs 09/01/18 05:00 08/30/18 04:00
[2018-09-01] MEDS: APRESOLINE PO SCH ×3 (09:15→21:25)
[2018-09-01] MEDS: HumaLOG SUB-Q SCH ×4 (09:58→21:19)
--- NOTE | 2018-09-01 10:48 | Gastroenterology Progress Note ---
Assessment and Plan 1.recurrent GI bleeding -H/H 8.8/26.3-trending down -continue to monitor H/H and transfuse as needed -s/p colonoscopy 08/21 that showed internal hemorrhoids and few small and medium sized diverticula scattered in the left and right side of the colon (likely source of bleeding) -CTA 08/26-results reviewed by surgery/IR with findings demonstrating hepatic flexure bleeding (also showed pancreatic lesions and diverticulosis) -bleeding scan 08/29 negative for active bleeding -repeat CTA yesterday (08/31)-negative for bleeding -etiology-most likely diverticular -clinically, patient is stable. Reports BM this am with brown stool and a small amount of bright red blood. Denies abd pain or N/V. 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 Reports BM this am with brown stool and small amount of bright red blood. Denies abd pain or N/V. Objective - Constitutional Vitals: Temp Pulse Resp BP Pulse Ox 98.4 F 63 17 153/49 96 09/01/18 04:05 09/01/18 04:05 09/01/18 04:05 09/01/18 04:05 09/01/18 04:05 General appearance: no acute distress - Respiratory Respiratory: bilateral: CTA - Cardiovascular Rhythm: regular - Gastrointestinal General gastrointestinal: Present: soft, non-tender, non-distended, normal bowel sounds - Neurologic Neurological: alert and oriented x3 - Labs CBC & Chem 7: 09/01/18 05:00 08/30/18 04:00 Labs: Laboratory Results - last 24 hr 08/29/18 08/31/18 08/31/18 11:25 11:54 15:30 WBC 9.1 RBC 3.30 L Hgb 9.8 L Hct 29.3 L MCV 89 MCH 30 MCHC 34 RDW 15.4 H Plt Count 172 Lymph % (Auto) 8.3 L [place] % (Auto) 2.7 Eos % (Auto) 1.6 Baso % (Auto) 0.6 Lymph # 0.8 L [place] # 0.2 Eos # 0.1 Baso # 0.1 Seg Neutrophils % 86.8 H Seg Neutrophils # 7.9 H POC Glucose 126 H Crossmatch See Detail 08/31/18 08/31/18 09/01/18 16:07 22:47 05:00 WBC 8.5 RBC 2.96 L Hgb 8.8 L Hct 26.3 L MCV 89 MCH 30 MCHC 33 RDW 15.6 H Plt Count 147 Lymph % (Auto) [place] % (Auto) Eos % (Auto) Baso % (Auto) Lymph # [place] # Eos # Baso # Seg Neutrophils % Seg Neutrophils # POC Glucose 169 H 130 H Crossmatch
[2018-09-01] MEDS: KLOR-CON 8 PO SCH (10:59)
[2018-09-01] MEDS: COREG PO SCH ×2 (10:59→21:25)
[2018-09-01] MEDS: DELTASONE PO SCH (10:59)
[2018-09-01] MEDS: PROTONIX PO SCH ×2 (10:59→21:25)
[2018-09-01] MEDS: OYSCO D 500 MG-200 UNIT PO SCH (10:59)
[2018-09-01] MEDS: FOLVITE PO SCH (10:59)
[2018-09-01] MEDS: SODIUM CHLORIDE FLUSH SYRINGE 10 ML IV SCH ×2 (11:00→21:30)
[2018-09-01] MEDS ORDERED: NACL 0.9% 500 ML 500 ML IV NR (15:00)
[2018-09-01] MEDS: D5NS 1,000 ML IV SCH (21:30)
[2018-09-02] MEDS: ANCEF/NS 1 GM/50 ML 1 GM/50 ML BAG IV SCH ×2 (05:44→14:23)
[2018-09-02 06:36] LABS: Basophils % (Auto) 0.7 % (0.0-1.8); Eosinophils # (Auto) 0.3 K/mm3 (0.0-0.4); Eosinophils % (Auto) 4.3 % (0.0-4.3); Hematocrit 31.3 % (30.3-42.9); Hemoglobin 10.4 gm/dl (10.1-14.3); Lymphocytes # (Auto) 1.3 K/mm3 (1.2-5.4); Lymphocytes % (Auto) 21.2 % (13.4-35.0); Mean Corpuscular HGB Conc 33 % (30-34); Mean Corpuscular Volume 89 fl (79-97); Monocytes # (Auto) 0.6 K/mm3 (0.0-0.8); Monocytes % (Auto) 9.4 % (0.0-7.3); Platelet Count 148 K/mm3 (140-440); Red Cell Distribution Width 15.5 % (13.2-15.2)
[2018-09-02] MEDS: APRESOLINE PO SCH ×2 (09:00→14:38)
[2018-09-02] MEDS: COREG PO SCH (09:48)
[2018-09-02] MEDS: PROCARDIA XL PO SCH (09:48)
[2018-09-02] MEDS: FOLVITE PO SCH (09:48)
[2018-09-02] MEDS: PROTONIX PO SCH (09:49)
[2018-09-02] MEDS: DELTASONE PO SCH (09:49)
[2018-09-02] MEDS ORDERED: METHOTREXATE PO SCH ×3 (10:00→22:00)
[2018-09-02] MEDS ORDERED: METHOTREXATE SODIUM 5 MG PO SCH (10:00)
[2018-09-02] MEDS: KLOR-CON 8 PO SCH (10:01)
[2018-09-02] MEDS: OYSCO D 500 MG-200 UNIT PO SCH (10:01)
--- NOTE | 2018-09-02 10:18 | Gastroenterology Progress Note ---
Assessment and Plan 1.recurrent GI bleeding -H/H 10.4/31.3-s/p transfusion PRBCs -continue to monitor H/H and transfuse as needed -s/p colonoscopy 08/21 that showed internal hemorrhoids and few small and medium sized diverticula scattered in the left and right side of the colon (likely source of bleeding) -CTA 08/26-results reviewed by surgery/IR with findings demonstrating hepatic flexure bleeding (also showed pancreatic lesions and diverticulosis) -bleeding scan 08/29 negative for active bleeding -repeat CTA 08/31-negative for bleeding -etiology-most likely diverticular -clinically, patient is stable with no current active signs of bleeding. Denies abd pain or N/V. 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 No active signs of bleeding. Denies abd pain or N/V. Requesting to be discharged to rehab today if possible. Objective - Constitutional Vitals: Temp Pulse Resp BP Pulse Ox 97.4 F L 67 17 168/57 94 09/02/18 04:15 09/02/18 04:15 09/02/18 04:15 09/02/18 04:15 09/02/18 04:15 General appearance: no acute distress - EENT Eyes: PERRL, EOM intact ENT: hearing intact - Respiratory Respiratory: bilateral: CTA - Cardiovascular Rhythm: regular - Gastrointestinal General gastrointestinal: Present: soft, non-tender, non-distended, normal bowel sounds - Neurologic Neurological: alert and oriented x3 - Labs CBC & Chem 7: 09/02/18 05:58 08/30/18 04:00 Labs: Laboratory Results - last 24 hr 08/29/18 09/01/1819 11:25 08:31 12:45 WBC RBC Hgb Hct MCV MCH MCHC RDW Plt Count Lymph % (Auto) [place] % (Auto) Eos % (Auto) Baso % (Auto) Lymph # [place] # Eos # Baso # Seg Neutrophils % Seg Neutrophils # POC Glucose 149 H Blood Type A POSITIVE Antibody Screen Negative Crossmatch See Detail See Detail 09/01/18 09/01/18 09/02/18 13:30 21:13 05:58 WBC 6.0 RBC 3.50 L Hgb 10.4 Hct 31.3 MCV 89 MCH 30 MCHC 33 RDW 15.5 H Plt Count 148 Lymph % (Auto) 21.2 [place] % (Auto) 9.4 H Eos % (Auto) 4.3 Baso % (Auto) 0.7 Lymph # 1.3 [place] # 0.6 Eos # 0.3 Baso # 0.0 Seg Neutrophils % 64.4 Seg Neutrophils # 3.9 POC Glucose 187 H 105 Blood Type Antibody Screen Crossmatch 09/02/18 07:32 WBC RBC Hgb Hct MCV MCH MCHC RDW Plt Count Lymph % (Auto) [place] % (Auto) Eos % (Auto) Baso % (Auto) Lymph # [place] # Eos # Baso # Seg Neutrophils % Seg Neutrophils # POC Glucose 122 H Blood Type Antibody Screen Crossmatch
[2018-09-02] MEDS ORDERED: ESTRADIOL PO SCH (12:30)
[2018-09-02 14:45] LABS: Hematocrit 31.3 % (30.3-42.9); Hemoglobin 10.4 gm/dl (10.1-14.3)
--- NOTE | 2018-09-02 14:54 | Discharge Summary ---
Providers - Providers Date of Admission: 08/26/18 12:01 Date of discharge: 09/02/18 Attending physician: VEL BARAJAS 08/26/18 11:02 Consult to Physician [CONS] Urgent Comment: DR MAYITO ABDI W/DR CONCEPCION @1100 Consulting Provider: HELADIO CONCEPCION Physician Instructions: Reason For Exam: GI bleeding 08/28/18 09:51 Consult to Physician [CONS] Routine Comment: Consulting Provider: CHET LUNA Physician Instructions: Reason For Exam: divereticular bleed 08/29/18 11:02 Consult to Physician [CONS] Urgent Comment: Consulting Provider: SHABNAM RUSHING Physician Instructions: Reason For Exam: active lower GI bleeding 08/29/18 15:06 PICC Line Insertion [Consult to PICC Line RN] [CONS] Urgent Reason For Exam: need blood transfusion Type Line:: PICC 08/30/18 10:20 Physical Therapy Evaluation and Treat [CONS] Routine Comment: Reason For Exam: generalized weakness Primary care physician: BRAYDON MEYER Hospitalization Condition: Stable Hospital course: Patient is a 87 yo woman with a history of HTN, CHF, DM, RA presents to ED for evaluation. Pt reports that she has experienced bleeding from her rectum today. Pt acknowledges 2 episodes of painless bleeding as well as generalized weakness. EMS notified and upon arrival the patient was found to be in distress and transported to [facility] ED. Pt seen and evaluated in ED and found to have lower GI bleeding, ARF, as well as Symptomatic Anemia. Pt denies fever, chills, CP, Palpitations, NVD, Syncope, Dizziness, Trauma, Skin rash, hematemesis. GI consulted in ED. Pt admitted to [facility]. All listed medication reconciled at time of admission. Patient recently discharged following management for GI bleed and felt likely diverticular bleed, Colonoscopy showed internal hemorrhoids and diverticulosis with follow up arranged with GI but unfortunately continued re-bleeding prompting this admission. CT AP: Complex lesions on the pancreas, thickened right colon GI bleed suspected Diverticular Bleed near the Hepatic flexure: Monitor H/H, Transfused as needed. Surgery consult ED. IR consulted for possible embolization Suspect Diverticulosis with bleed Acute Blood Loss Anemia with Symptoms: As noted above CASSANDRA secondary vasomotor nephritis: Resolved. continue gentle hydration DM with Hyperglycemia: Continue insulin sliding scale coverage. Continue to hold Losartan and Lasix Pancreatic Mass: MRI, Ca 19-9 PENDING. EUS as outpt Hypertension: Stable Rheumatoid Arthritis Cellulitis left thigh: Patient has moderate erythema and tenderness. Restart diet after procedure DVT/GI: SCD due to anemia. D/W Dr. Luna and reviewed CT abd/pelvis without contrast on 08/26-demonstrating hepatic flexure bleeding which was never mentioned in the report (also showed pancreatic lesions and diverticulosis); she went for IR embolization but CTA was negative so no embolization, 09/01/18: patient had another bloody BM this morning, and h/h dropped, will transfuse Prbc 09/02/18: no more large bloody BM, h/h stable, ok to d/c per Dr. Luna Disposition: d/c to [facility] Disposition: DC/- SNF W [facility] Time spent for discharge: 35 minutes Core Measure Documentation - Palliative Care Palliative Care/ Comfort Measures: Not Applicable - Core Measures Any of the following diagnoses?: none - VTE Discharge Requirements Deep Vein Thrombosis/Pulmonary Embolism Present on Admission: No Has pt received <5 days of overlap therapy or INR<2.0: No Anticoagulant overlap therapy prescribed at discharge: No Contraindication No Overlap Therapy order at DC: Not Indicated Exam - Constitutional Vitals: Temp Pulse Resp BP Pulse Ox 97.8 F 62 18 201/70 97 09/02/18 07:30 09/02/18 11:51 09/02/18 07:30 09/02/18 11:51 09/02/18 11:51 Plan Activity: up only with assistance, fall precautions Diet: advance as tolerated Additional Instructions: EUS (Endoscopic ultrasound) as outpatient Follow up with: RBAYDON MEYER MD [Primary Care Provider] - 3-5 Days CHET LUNA MD [Staff Physician] - 7 Days HELADIO CONCEPCION MD [Staff Physician] - 7 Days Forms: Accompanied Note
[2018-09-02 17:01] VITALS: BP 143/53
== END 2018-09-02 18:00 | DRG 377 ==
LOC: ED 09:34 → IMCU 12:01 → 3B-SURG 08-28 13:19
PROVIDERS: ADMIT Internal Medicine; ATTEND Internal Medicine
PROC: 30233N1 Transfusion of Nonautologous Red Blood Cells into Peripheral Vein, Percutaneous Approach (ICD-10-PCS; 2018-08-26)
PROC: 02HV33Z Insertion of Infusion Device into Superior Vena Cava, Percutaneous Approach (ICD-10-PCS; 2018-08-29)
PROC: 30233K1 Transfusion of Nonautologous Frozen Plasma into Peripheral Vein, Percutaneous Approach (ICD-10-PCS; principal; 2018-09-02)
DX: K57.31 Diverticulosis of large intestine without perforation or abscess with bleeding (principal); N17.0 Acute kidney failure with tubular necrosis; D62 Acute posthemorrhagic anemia; L03.116 Cellulitis of left lower limb; E11.65 Type 2 diabetes mellitus with hyperglycemia; I11.0 Hypertensive heart disease with heart failure; E78.2 Mixed hyperlipidemia; K86.89 Other specified diseases of pancreas; D57.1 Sickle-cell disease without crisis; I50.9 Heart failure, unspecified; M06.9 Rheumatoid arthritis, unspecified; Z90.710 Acquired absence of both cervix and uterus; Z88.5 Allergy status to narcotic agent; Z79.899 Other long term (current) drug therapy; Z79.84 Long term (current) use of oral hypoglycemic drugs; Z79.82 Long term (current) use of aspirin
CPT/HCPCS: 36415; 36430; 71045; 74174; 74178; 74181; 78278; 80048; 82271; 82962; 85014; 85018; 85025; 85027; 85610; 85730; 86301; 86850; 86900; 86901; 86920; G0378; A9270-GY; A9560; C9113; J0690; J1642; J1815; J1940; J2405; J7030; J7040; J7042; J7512; J8610; P9016; P9017; Q9967

== ENCOUNTER 2019-11-08 17:03 | Inpatient (IN) | payer MEDICARE ==
[2019-11-08] MEDS ORDERED: SODIUM CHLORIDE 0.9% 1000 ML IV SOLN IV ONE (17:10)
[2019-11-08] MEDS ORDERED: ACETAMINOPHEN 500 MG TAB PO ONE (17:12)
--- NOTE | 2019-11-08 17:12 | Event Note ---
ED Screening Note ED Screening Note: This initial assessment/diagnostic orders/clinical plan/treatment(s) is/are subject to change based on patients health status, clinical progression and re- assessment by fellow clinical providers in the ED. Further treatment and workup at subsequent clinical providers discretion. Patient/guardian urged not to elope from the ED as their condition may be serious if not clinically assessed and managed. Initial orders include: code sepsis
--- NOTE | 2019-11-08 17:52 | XRay Report ---
CHEST 2 VIEWS INDICATION / CLINICAL INFORMATION: FEVER. COMPARISON: Chest x-ray on 08/29/2018 FINDINGS: SUPPORT DEVICES: None. HEART / MEDIASTINUM: Normal heart size. Atherosclerosis in the thoracic aorta. LUNGS / PLEURA: No significant pulmonary or pleural abnormality. No pneumothorax. ADDITIONAL FINDINGS: No significant additional findings. IMPRESSION: 1. No acute findings. Signer Name: Samuel Goldsmith MD Signed: 11/08/2019 5:47 PM Workstation [id number]
[2019-11-08 18:35] LABS: Hematocrit 37.7 % (30.3-42.9); Hemoglobin 12.2 gm/dl (10.1-14.3); Mean Corpuscular HGB Conc 32 % (30-34); Mean Corpuscular Volume 92 fl (79-97); Platelet Count 210 K/mm3 (140-440); Red Cell Distribution Width 17.3 % (13.2-15.2)
[2019-11-08 18:54] LABS: Basophils % (Auto) 0.6 % (0.0-1.8); Lymphocytes # (Auto) 0.6 K/mm3 (1.2-5.4); Lymphocytes % (Auto) 13.4 % (13.4-35.0); Monocytes # (Auto) 0.5 K/mm3 (0.0-0.8); Monocytes % (Auto) 10.4 % (0.0-7.3)
[2019-11-08 19:05] LABS: Calcium 9.1 mg/dL (8.4-10.2)
[2019-11-08] MEDS ORDERED: ACETAMINOPHEN 500 MG TAB ONE (19:26)
[2019-11-08] MEDS ORDERED: SODIUM CHLORIDE 0.9% 1000 ML 0 ML ONE (20:57)
[2019-11-08] MEDS ORDERED: SODIUM CHLORIDE 0.9% 500 ML 500 ML ONE ×2 (20:59→22:33)
[2019-11-08] MEDS ORDERED: cefTRIAXone/NS 1 GM/50 ML 1 GM/50 ML BAG IV ONE (21:00)
--- NOTE | 2019-11-08 21:02 | Emergency Department Report ---
ED General Adult HPI - General Chief complaint: Fever Stated complaint: DOC ORDERED/POSS STROKE PUI?: Yes Time Seen by Provider: 11/08/19 17:10 Source: family, RN notes reviewed, old records reviewed Mode of arrival: Wheelchair Limitations: No Limitations - History of Present Illness Initial comments: During the entire history and physical examination, I have on complete personal protective equipment. Primary history obtained by speaking to patient's daughter, Ms. Devika Strauss; [phone] The patient is an 88-year-old female. Her primary care doctor is Dr. Kade Puetne. Her past medical history includes diabetes, hypertension high cholesterol, previously she was on methotrexate. She appears to have a history of rheumatoid arthritis as well. She also has a history of pancreatic mass, and diverticular bleed. She is brought to the hospital today for fever and weakness. Contrary to what is documented, there is no concern for altered mental status. As per discussion with the patient's daughter, the patient has been weak, having chills and fevers, malaise and fatigue. There is a dry cough. There is no nausea, vomiting or diarrhea. There is no urinary frequency. There is no exposure to [place] that the patient's daughter is aware of. The patient herself denies physical pain. She states that she feels weak. She denies headache, neck pain, chest pain, abdominal pain, shortness of breath, urinary symptoms. -: days(s) (Symptoms started on Wednesday as per collateral information from daughter. It is now currently Wednesday) Severity scale (0 -10): 10 Consistency: intermittent Improves with: none Worsens with: none - Related Data Home Medications Medication Instructions Recorded Confirmed Last Taken Atorvastatin Calcium [Lipitor] 20 mg PO DAILY 08/20/18 08/26/18 Unknown Calcium Carbonate/Vitamin D3 1 each PO BID 08/20/18 08/26/18 Unknown [Calcium 600-Vit D3 400 Tablet] Folic Acid [Folvite] 2 mg PO QDAY 08/20/18 08/26/18 Unknown Furosemide [Lasix TAB] 40 mg PO QDAY 08/20/18 08/26/18 Unknown Hydralazine HCl 50 mg PO TID 08/20/18 08/26/18 Unknown Potassium Chloride 8 meq PO DAILY 08/20/18 08/26/18 Unknown Sitagliptin Phos/Metformin HCl 1 each PO DAILY 08/20/18 08/26/18 Unknown [Janumet 50-1,000 mg] carvediloL [Carvedilol] 12.5 mg PO BID 08/20/18 08/26/18 Unknown estradioL [Estradiol] 0.25 mg PO DAILY 08/20/18 08/26/18 Unknown Previous Rx's Medication Instructions Recorded Last Taken Type ALBUTEROL NEB's [Proventil 0.083% 2.5 mg IH Q3HRT PRN nebu 09/02/18 Unknown Rx NEBS] Lispro Insulin [HumaLOG] 1 dose SUB-Q ACHS PRN #30 units 09/02/18 Unknown Rx NIFEdipine [Nifedipine ER] 60 mg PO DAILY #30 tab 09/02/18 Unknown Rx Pantoprazole [Protonix TAB] 40 mg PO BID #60 tablet 09/02/18 Unknown Rx metHOTREXate(DOSE WEEKLY ONLY) 5 mg PO Fr@1000 tablet 09/02/18 Unknown Rx [metHOTREXate (DOSE WEEKLY ONLY)] predniSONE [Deltasone] 5 mg PO QAM #30 tab 09/02/18 Unknown Rx Allergies Allergy/AdvReac Type Severity Reaction Status Date / Time codeine Allergy Vomiting Verified 03/23/18 11:39 ED Review of Systems ROS: Stated complaint: DOC ORDERED/POSS STROKE Other details as noted in HPI Constitutional: chills, fever, malaise, weakness Eyes: denies: eye discharge Respiratory: cough Cardiovascular: denies: chest pain Gastrointestinal: denies: abdominal pain Genitourinary: denies: dysuria Musculoskeletal: denies: back pain Skin: denies: lesions Neurological: weakness. denies: confusion ED Past Medical Hx - Past Medical History Previous Medical History?: Yes Hx Hypertension: Yes Hx Heart Attack/AMI: No Hx Congestive Heart Failure: Yes Hx Diabetes: Yes Hx Deep Vein Thrombosis: No Hx Arthritis: Yes (RA) Hx Asthma: No Hx COPD: No Additional medical history: Right Shoulder dislocation 50 years ago. - Surgical History Past Surgical History?: Yes Hx Pacemaker: No Hx Internal Defibrillator: No Additional Surgical History: Hysterectomy, Bladder Surgery - Social History Smoking Status: Never Smoker - Medications Home Medications: Home Medications Medication Instructions Recorded Confirmed Last Taken Type Atorvastatin Calcium [Lipitor] 20 mg PO DAILY 08/20/18 08/26/18 Unknown History Calcium Carbonate/Vitamin D3 1 each PO BID 08/20/18 08/26/18 Unknown History [Calcium 600-Vit D3 400 Tablet] Folic Acid [Folvite] 2 mg PO QDAY 08/20/18 08/26/18 Unknown History Furosemide [Lasix TAB] 40 mg PO QDAY 08/20/18 08/26/18 Unknown History Hydralazine HCl 50 mg PO TID 08/20/18 08/26/18 Unknown History Potassium Chloride 8 meq PO DAILY 08/20/18 08/26/18 Unknown History Sitagliptin Phos/Metformin HCl 1 each PO DAILY 08/20/18 08/26/18 Unknown History [Janumet 50-1,000 mg] carvediloL [Carvedilol] 12.5 mg PO BID 08/20/18 08/26/18 Unknown History estradioL [Estradiol] 0.25 mg PO DAILY 08/20/18 08/26/18 Unknown History ALBUTEROL NEB's [Proventil 0.083% 2.5 mg IH Q3HRT PRN nebu 09/02/18 Unknown Rx NEBS] Lispro Insulin [HumaLOG] 1 dose SUB-Q ACHS PRN #30 units 09/02/18 Unknown Rx NIFEdipine [Nifedipine ER] 60 mg PO DAILY #30 tab 09/02/18 08/26/18 Unknown Rx Pantoprazole [Protonix TAB] 40 mg PO BID #60 tablet 09/02/18 Unknown Rx metHOTREXate(DOSE WEEKLY ONLY) 5 mg PO Fr@1000 tablet 09/02/18 Unknown Rx [metHOTREXate (DOSE WEEKLY ONLY)] predniSONE [Deltasone] 5 mg PO QAM #30 tab 09/02/18 08/26/18 Unknown Rx ED Physical Exam - General Limitations: Physical Limitation General appearance: alert, in no apparent distress - Head Head exam: Present: atraumatic, normocephalic - Eye Eye exam: Present: EOMI. Absent: normal appearance (Left eye shows evidence of cataract surgery. Right eye within normal limits) - ENT ENT exam: Present: normal exam, mucous membranes moist, normal external ear exam - Neck Neck exam: Present: normal inspection, full ROM. Absent: tenderness, meningismus - Respiratory Respiratory exam: Present: rhonchi. Absent: wheezes, rales, stridor - Cardiovascular Cardiovascular Exam: Present: regular rate, normal rhythm, systolic murmur (2 o ut of 6 systolic murmur. [place] best at second intercostal space. No radiation.). Absent: bradycardia, tachycardia, irregular rhythm - GI/Abdominal GI/Abdominal exam: Present: soft, normal bowel sounds. Absent: distended, tenderness, guarding, rebound, rigid, pulsatile mass - Extremities Exam Extremities exam: Present: normal inspection, full ROM, other (2+ pulses noted in the bilateral upper and lower extremities. There is no palpable cord. negative Homans sign. Muscular compartments are soft. The pelvis is stable.). Absent: pedal edema, calf tenderness - Back Exam Back exam: Present: normal inspection, full ROM. Absent: tenderness, CVA tenderness (R), CVA tenderness (L), paraspinal tenderness, vertebral tenderness - Neurological Exam Neurological exam: Present: alert, oriented X3, other (2+ pulses noted in the bilateral upper and lower extremities. There is no palpable cord. negative Homans sign. Muscular compartments are soft. The pelvis is stable.). Absent: motor sensory deficit - Psychiatric Psychiatric exam: Present: flat affect - Skin Skin exam: Present: warm, dry, intact, normal color. Absent: rash ED Course Vital Signs 11/08/19 11/08/19 11/08/19 17:07 19:31 20:42 Temperature 102.9 F H 100.2 F H Pulse Rate 99 H 88 Respiratory 20 18 18 Rate Blood Pressure 176/76 O2 Sat by Pulse 94 96 Oximetry - Reevaluation(s) Reevaluation #1: 11/08/19 22:11 Differential diagnosis, including but not limited to: Pneumonia, urinary tract infection, intra-abdominal infection, bacteremia, viremia, suspected coronavirus Assessment and plan: 88-year-old female with fever, weakness, rhonchi, hypoxia, saturating at 93% on room air, suspicious for pneumonia versus COVID. Contrary to triage nursing documentation, the patient is not altered or acutely encephalopathic. I called up her daughter, who corroborated that the patient is not altered or encephalopathic. History includes weakness, fevers, chills, shaking, rigors Addition, the patient is alert and oriented x3, and clinically sober. She has no meningeal signs. Patient will be given fluids, antibiotics, started on isolation precautions, CT scan of the chest, CT scan of the abdomen pelvis pending. We plan to admit the patient once initial diagnostics have resulted. We will send laboratory studies to risk stratify the patient for cytokine storm. Discussed plan of care with patient and daughter, who verbalized understanding, and who were amenable to this plan of care. ED Medical Decision Making - Lab Data Result diagrams: 11/08/19 18:05 11/08/19 21:10 Vital Signs 11/08/19 11/08/19 11/08/19 17:07 19:31 20:42 Temperature 102.9 F H 100.2 F H Pulse Rate 99 H 88 Respiratory 20 18 18 Rate Blood Pressure 176/76 O2 Sat by Pulse 94 96 Oximetry Lab Results 11/08/19 11/08/19 11/08/19 Range/Units 18:05 18:05 18:05 WBC 4.7 (4.5-11.0) K/mm3 RBC 4.10 (3.65-5.03) M/mm3 Hgb 12.2 (10.1-14.3) gm/dl Hct 37.7 (30.3-42.9) % MCV 92 (79-97) fl MCH 30 (28-32) pg MCHC 32 (30-34) % RDW 17.3 H (13.2-15.2) % Plt Count 210 (140-440) K/mm3 Lymph % (Auto) 13.4 (13.4-35.0) % [place] % (Auto) 10.4 H (0.0-7.3) % Eos % (Auto) 0.0 (0.0-4.3) % Baso % (Auto) 0.6 (0.0-1.8) % Lymph # 0.6 L (1.2-5.4) K/mm3 [place] # 0.5 (0.0-0.8) K/mm3 Eos # 0.0 (0.0-0.4) K/mm3 Baso # 0.0 (0.0-0.1) K/mm3 Seg Neutrophils % 75.6 H (40.0-70.0) % Seg Neutrophils # 3.6 (1.8-7.7) K/mm3 Sodium 132 L (137-145) mmol/L Potassium 4.1 (3.6-5.0) mmol/L Chloride 94.8 L (98-107) mmol/L Carbon Dioxide 21 L (22-30) mmol/L Anion Gap 20 mmol/L BUN 18 H (7-17) mg/dL Creatinine 1.0 (0.7-1.2) mg/dL Estimated GFR 53 ml/min BUN/Creatinine Ratio 18 % Glucose 130 H (65-100) mg/dL Lactic Acid (0.7-2.0) mmol/L Calcium 9.1 (8.4-10.2) mg/dL Total Bilirubin 0.30 (0.1-1.2) mg/dL AST 34 (5-40) units/L ALT 21 (7-56) units/L Alkaline Phosphatase 44 (35-129) units/L Troponin T < 0.010 (0.00-0.029) ng/mL Total Protein 7.7 (6.3-8.2) g/dL Albumin 4.0 (3.9-5) g/dL Albumin/Globulin Ratio 1.1 % 11/08/19 Range/Units 18:05 WBC (4.5-11.0) K/mm3 RBC (3.65-5.03) M/mm3 Hgb (10.1-14.3) gm/dl Hct (30.3-42.9) % MCV (79-97) fl MCH (28-32) pg MCHC (30-34) % RDW (13.2-15.2) % Plt Count (140-440) K/mm3 Lymph % (Auto) (13.4-35.0) % [place] % (Auto) (0.0-7.3) % Eos % (Auto) (0.0-4.3) % Baso % (Auto) (0.0-1.8) % Lymph # (1.2-5.4) K/mm3 [place] # (0.0-0.8) K/mm3 Eos # (0.0-0.4) K/mm3 Baso # (0.0-0.1) K/mm3 Seg Neutrophils % (40.0-70.0) % Seg Neutrophils # (1.8-7.7) K/mm3 Sodium (137-145) mmol/L Potassium (3.6-5.0) mmol/L Chloride (98-107) mmol/L Carbon Dioxide (22-30) mmol/L Anion Gap mmol/L BUN (7-17) mg/dL Creatinine (0.7-1.2) mg/dL Estimated GFR ml/min BUN/Creatinine Ratio % Glucose (65-100) mg/dL Lactic Acid 1.30 (0.7-2.0) mmol/L Calcium (8.4-10.2) mg/dL Total Bilirubin (0.1-1.2) mg/dL AST (5-40) units/L ALT (7-56) units/L Alkaline Phosphatase (35-129) units/L Troponin T (0.00-0.029) ng/mL Total Protein (6.3-8.2) g/dL Albumin (3.9-5) g/dL Albumin/Globulin Ratio % - EKG Data -: EKG Interpreted by [facility] EKG shows normal: sinus rhythm Rate: normal - EKG Data 11/08/19 22:11 Sinus rhythm, 74 bpm, left axis deviation, left anterior fascicular block, poor R wave progression, motion artifact, QTC 442 ms. Abnormal EKG. Not a STEMI. - Radiology Data Radiology results: report reviewed, image reviewed Print Report Referring Physician: TACOS HIGGINS Patient Name: REJI MAHONEY Date of : 1930 Sex: Female Report Date: 2019-11-08 Report Status: [place] [address] XRay Report Signed Patient: REJI MAHONEY MR#: [id number] : 1930 Acct:[id number] Age/Sex: 88 / F ADM Date: 11/08/19 Loc: ED Attending Dr: Ordering Physician: TACOS HIGGINS Date of Service: 11/08/19 Procedure(s): XR chest routine 2V Accession Number(s): [id number] cc: TACOS HIGGINS Fluoro Time In Minutes: CHEST 2 VIEWS INDICATION / CLINICAL INFORMATION: FEVER. COMPARISON: Chest x-ray on 08/29/2018 FINDINGS: SUPPORT DEVICES: None. HEART / MEDIASTINUM: Normal heart size. Atherosclerosis in the thoracic aorta. LUNGS / PLEURA: No significant pulmonary or pleural abnormality. No pneumothorax. ADDITIONAL FINDINGS: No significant additional findings. IMPRESSION: 1. No acute findings. Signer Name: Samuel Goldsmith MD Signed: 11/08/2019 5:47 PM Workstation Name: [id number] Transcribed By: UMBERTO Dictated By: Samuel Goldsmith MD Electronically Authenticated By: Samuel Goldsmith MD Signed Date/Time: 11/08/191746 DD/ 46 Print Report Referring Physician: HEMANT CHOWDARY Patient Name: REJI MAHONEY Date of : 1930 Sex: Female Report Date: 2019-11-09 Report Status: Finalized Findings [facility] [address] [place] [address] Cat Scan Report Signed Patient: REJI MAHONEY MR#: [id number] : 1930 Acct:[id number] Age/Sex: 88 / F ADM Date: 11/08/19 Loc: ED Attending Dr: Ordering Physician: HEMANT CHOWDARY MD Date of Service: 11/08/19 Procedure(s): CT chest wo con Accession Number(s): [id number] cc: HEMANT CHOWDARY MD CT CHEST, ABDOMEN, AND PELVIS WITHOUT IV CONTRAST INDICATION: Sepsis, History of A.M.S., fever, PUI. COMPARISON: CT abdomen/pelvis 08/31/2018. No prior chest CTs. TECHNIQUE: All CT scans at this location are performed using CT dose reduction for ALARA by means of automated exposure control. Axial CT images were obtained through the chest, abdomen, and pelvis. FINDINGS: Skeletal System: No acute abnormality. CHEST: Heart: Normal. Thoracic Aorta: No acute abnormality. Mediastinum Minda: No significant abnormality. Lungs: Patchy, somewhat peripheral groundglass opacities are seen within the left upper lobe, and to a lesser degree, in the right middle lobe and dependent lower lobes. Pleura: No significant pleural effusion. No pneumothorax. Airways: No significant abnormality. Additional Findings: None. ABDOMEN: Liver: No significant abnormality. Gallbladder: No significant abnormality. Bile Ducts: No significant abnormality. Pancreas: Large, multiloculated cystic lesion in the pancreatic body and tail is slightly increased in size. This measures 10.0 x 7.1 cm on series 2 image 54 (previously 8.7 x 8.2 cm). Cystic lesions within the pancreatic head/uncinate are also slightly larger. Spleen: Punctate splenic hypodensities are stable. Adrenals: No significant abnormality. Right Kidney and Proximal Ureter: Nonobstructing stone. Left Kidney and Proximal Ureter: No significant abnormality. Stomach and Bowel: Small hiatal hernia, unchanged. Lymph Nodes: No significant adenopathy. Aorta: No significant abnormality. IVC: No significant abnormality. Additional Findings: None. PELVIS: Urinary Bladder and Distal Ureters: No significant abnormality. Appendix: No significant abnormality. Colon: No significant abnormality. Diverticulosis is again noted. Free Fluid: None. Lymph Nodes: No significant adenopathy. Additional Findings: None. IMPRESSION: 1. Patchy, predominantly peripheral groundglass opacities in both lungs. These are mild, greatest in the left upper lobe. Atypical infectious etiologies such as viral should be considered. 2. No obstruction or acute inflammatory process is seen in the abdomen/pelvis. 3. Multiloculated cystic lesions in the pancreas have slightly increased in size since the exam from 15 months ago. 4. Additional, incidental findings as above. Signer Name: Dario Mosley MD Signed: 11/09/2019 12:30 AM Workstation Name: [id number] Transcribed By: DENISE Dictated By: Dario Mosley MD Electronically Authenticated By: Dario Mosley MD Signed Date/Time: 11/09/1929 DD/ 0021 TD/TT: Critical Care Time: Yes Critical care time in (mins) excluding proc time.: 45 Critical care attestation.: If time is entered above; I have spent that time in minutes in the direct care of this critically ill patient, excluding procedure time. ED Disposition Clinical Impression: Sepsis, Suspected 2019 novel coronavirus infection Disposition: OP ADMIT IP TO THIS HOSP Is pt being admited?: Yes Does the pt Need Aspirin: No Condition: Serious Referrals: PRIMARY CARE, [Primary Care Provider] - 3-5 Days
[2019-11-08 22:07] LABS: C-Reactive Protein 8.3 mg/dL (0.00-1.30)
[2019-11-08 22:14] LABS: Bacteria,Urine 4+ /HPF (Negative); Bilirubin,Urine NEG (Negative); Blood,Urine NEG (Negative); Color,Urine Yellow (Yellow); Mucus,Urine FEW /HPF; Urobilinogen,Urine < 2.0 mg/dL (<2.0)
[2019-11-08 22:16] LABS: Protein,Urine >500 mg/dL (Negative)
[2019-11-08] MEDS ORDERED: SODIUM CHLORIDE 0.9% 1000 ML 1,000 ML ONE (22:32)
--- NOTE | 2019-11-09 00:35 | Cat Scan Report ---
CT CHEST, ABDOMEN, AND PELVIS WITHOUT IV CONTRAST INDICATION: Sepsis, History of A.M.S., fever, PUI. COMPARISON: CT abdomen/pelvis 08/31/2018. No prior chest CTs. TECHNIQUE: All CT scans at this location are performed using CT dose reduction for ALARA by means of automated e xposure control. Axial CT images were obtained through the chest, abdomen, and pelvis. FINDINGS: Skeletal System: No acute abnormality. CHEST: Heart: Normal. Thoracic Aorta: No acute abnormality. Mediastinum & Minda: No significant abnormality. Lungs: Patchy, somewhat peripheral groundglass opacities are seen within the left upper lobe, and to a lesser degree, in the right middle lobe and dependent lower lobes. Pleura: No significant pleural effusion. No pneumothorax. Airways: No significant abnormality. Additional Findings: None. ABDOMEN: Liver: No significant abnormality. Gallbladder: No significant abnormality. Bile Ducts: No significant abnormality. Pancreas: Large, multiloculated cystic lesion in the pancreatic body and tail is slightly increased i n size. This measures 10.0 x 7.1 cm on series 2 image 54 (previously 8.7 x 8.2 cm). Cystic lesions wi thin the pancreatic head/uncinate are also slightly larger. Spleen: Punctate splenic hypodensities are stable. Adrenals: No significant abnormality. Right Kidney and Proximal Ureter: Nonobstructing stone. Left Kidney and Proximal Ureter: No significant abnormality. Stomach and Bowel: Small hiatal hernia, unchanged. Lymph Nodes: No significant adenopathy. Aorta: No significant abnormality. IVC: No significant abnormality. Additional Findings: None. PELVIS: Urinary Bladder and Distal Ureters: No significant abnormality. Appendix: No significant abnormality. Colon: No significant abnormality. Diverticulosis is again noted. Free Fluid: None. Lymph Nodes: No significant adenopathy. Additional Findings: None. IMPRESSION: 1. Patchy, predominantly peripheral groundglass opacities in both lungs. These are mild, greatest in the left upper lobe. Atypical infectious etiologies such as viral should be considered. 2. No obstruction or acute inflammatory process is seen in the abdomen/pelvis. 3. Multiloculated cystic lesions in the pancreas have slightly increased in size since the exam from 15 months ago. 4. Additional, incidental findings as above. Signer Name: Dario Mosley MD Signed: 11/09/2019 12:30 AM Workstation Name: [id number]
[2019-11-09] MEDS ORDERED: AZITHROMYCIN 250 MG TAB PO ONE (00:40)
[2019-11-09] MEDS ORDERED: dexAMETHasone 4 MG/ML VIAL IV ONE (00:40)
[2019-11-09] MEDS ORDERED: AZITHROMYCIN 250 MG TAB ONE ×2 (01:52→01:54)
[2019-11-09] MEDS ORDERED: dexAMETHasone 4 MG/ML VIAL ONE (01:53)
[2019-11-09] MEDS ORDERED: ONDANSETRON 4 MG/2 ML INJ IV PRN (06:34)
--- NOTE | 2019-11-09 06:44 | History and Physical Report ---
History of Present Illness Date of examination: 11/09/19 Date of admission: 11/09/19 00:44 Chief complaint: Chief complaint is fever, other complaint include shortness of breath chills and dry cough History of present illness: History of presenting illness, patient is an 88-year-old female who was noted to be having fever, chills shortness of breath, dry cough and malaise. There is no history of chest pain, no history of nausea and vomiting, there is no history of dizziness or change in mental status Past History Past Medical History: diabetes, heart failure, hypertension, hyperlipidemia, other ("Flu disease getting 1 was 159Start 20 fluidsFlowers is a diabetic) Past Surgical History: Other (HYSTERECTOMY, URINARY BLADDER) Social history: no significant social history Family history: no significant family history Medications and Allergies Allergies Allergy/AdvReac Type Severity Reaction Status Date / Time codeine Allergy Vomiting Verified 03/23/18 11:39 Home Medications Medication Instructions Recorded Confirmed Last Taken Type Atorvastatin Calcium [Lipitor] 20 mg PO DAILY 08/20/18 08/26/18 Unknown History Calcium Carbonate/Vitamin D3 1 each PO BID 08/20/18 08/26/18 Unknown History [Calcium 600-Vit D3 400 Tablet] Folic Acid [Folvite] 2 mg PO QDAY 08/20/18 08/26/18 Unknown History Furosemide [Lasix TAB] 40 mg PO QDAY 08/20/18 08/26/18 Unknown History Hydralazine HCl 50 mg PO TID 08/20/18 08/26/18 Unknown History Potassium Chloride 8 meq PO DAILY 08/20/18 08/26/18 Unknown History Sitagliptin Phos/Metformin HCl 1 each PO DAILY 08/20/18 08/26/18 Unknown History [Janumet 50-1,000 mg] carvediloL [Carvedilol] 12.5 mg PO BID 08/20/18 08/26/18 Unknown History estradioL [Estradiol] 0.25 mg PO DAILY 08/20/18 08/26/18 Unknown History ALBUTEROL NEB's [Proventil 0.083% 2.5 mg IH Q3HRT PRN nebu 09/02/18 Unknown Rx NEBS] Lispro Insulin [HumaLOG] 1 dose SUB-Q ACHS PRN #30 units 09/02/18 Unknown Rx NIFEdipine [Nifedipine ER] 60 mg PO DAILY #30 tab 09/02/18 08/26/18 Unknown Rx Pantoprazole [Protonix TAB] 40 mg PO BID #60 tablet 09/02/18 Unknown Rx metHOTREXate(DOSE WEEKLY ONLY) 5 mg PO Fr@1000 tablet 09/02/18 Unknown Rx [metHOTREXate (DOSE WEEKLY ONLY)] predniSONE [Deltasone] 5 mg PO QAM #30 tab 09/02/18 08/26/18 Unknown Rx Active Meds: Active Medications Acetaminophen (Tylenol) 650 mg PO Q4H PRN PRN Reason: Fever >101 Dexamethasone (Decadron) 8 mg IV Q6HR HAKAN Heparin Sodium (Porcine) (Heparin) 5,000 unit SUB-Q Q12HR HAKAN Azithromycin 500 mg/ Sodium (Chloride) 250 mls @ 250 mls/hr IV Q24HR HAKAN; Protocol Ceftriaxone Sodium (Rocephin/Ns 2 Gm/100 Ml) 2 gm in 100 mls @ 200 mls/hr IV Q24HR HAKAN; Protocol Sodium Chloride (Nacl 0.9% 1000 Ml) 1,000 mls @ 75 mls/hr IV DIRECT HAKAN Ondansetron HCl (Zofran) 4 mg IV Q4H PRN PRN Reason: Nausea And Vomiting Review of Systems Constitutional: fever, chills, weakness, malaise, no weight loss, no weight gain Eyes: bilateral: other (NO BILATERAL EYE SYMPTOM) Ears, nose, mouth and throat: no ear pain, no ear discharge, no nose pain, no nasal discharge, no sinus pressure, no mouth pain, no dysphagia, no hoarseness, no sore throat, no swelling in mouth, no swelling in throat, no headache, no vertigo Breasts: deferred Cardiovascular: shortness of breath, no chest pain, no orthopnea, no palpitations, no rapid/irregular heart beat, no syncope, no lightheadedness, no claudication, no high blood pressure Respiratory: cough, shortness of breath, no wheezing, no pleurisy, no pain on inspiration Gastrointestinal: no abdominal pain, no nausea, no vomiting, no diarrhea, no constipation, no change in bowel habits, no hematemesis, no melena, no hematochezia, no loss of appetite, no early satiety, no heartburn, no indigestion, no jaundice Genitourinary Female: no Menstruation: postmenopausal Rectal: no pain, no itching Musculoskeletal: no neck stiffness, no neck pain, no shooting arm pain, no arm numbness/tingling, no low back pain, no shooting leg pain, no leg numbness/tingling, no muscle weakness, no muscle cramps, no myalgias, no atrophy, no fractures Integumentary: no rash, no pruritis, no redness, no sores, no wounds, no jaundice, no boils, no lesions, no darkening of skin, no depigmentation, no acne, no dryness, no color changes, no brittle nails, no hirsutism Neurological: no head injury, no transient paralysis, no paralysis, no weakness, no parathesias, no numbness, no tingling, no seizures, no syncope, no tremors, no vertigo, no headaches, no convulsions, no aphasia, no change in speech, no change in mentation, no confusion, no memory loss, no changes in smell/taste Psychiatric: no anxiety, no memory loss, no sleep disturbances, no change in libido, no suicidal ideation, no depression, no hopelessness, no difficulties concentrating, no confusion, no irritability Endocrine: no cold intolerance, no heat intolerance, no polyphagia, no excessive thirst, no polydipsia, no polyuria, no nocturia, no excessive sweating, no proptosis, no thyroid mass, no palpatations, no high blood sugars Hematologic/Lymphatic: no easy bruising, no easy bleeding, no lymphadenopathy, no lymphedema Exam - Constitutional Vitals: Temp Pulse Resp BP Pulse Ox 97.8 F 73 20 158/80 93 11/09/19 03:26 11/09/19 03:26 11/09/19 03:26 11/09/19 03:26 11/09/19 03:26 General appearance: Present: no acute distress - EENT Eyes: Present: PERRL ENT: hearing intact - Neck Neck: Present: supple, normal ROM - Respiratory Respiratory effort: normal - Cardiovascular Heart Sounds: Present: S1 & S2, gallop. Absent: systolic murmur, diastolic murmur - Extremities Extremities: no ischemia, No edema Peripheral Pulses: within normal limits - Abdominal General gastrointestinal: Present: soft, non-tender, non-distended. Absent: tender, distended, rigid Female genitourinary: Present: deferred - Rectal Rectal Exam: deferred - Integumentary Integumentary: Present: clear, warm, dry - Musculoskeletal Musculoskeletal: strength equal bilaterally - Psychiatric Psychiatric: appropriate mood/affect HEART Score - HEART Score Troponin: Troponin T < 0.010 ng/mL (0.00-0.029) 11/08/19 18:05 Results - Labs CBC & Chem 7: 11/08/19 18:05 11/08/19 21:10 Labs: Laboratory Last Values WBC 4.7 K/mm3 (4.5-11.0) 11/08/19 18:05 RBC 4.10 M/mm3 (3.65-5.03) 11/08/19 18:05 Hgb 12.2 gm/dl (10.1-14.3) 11/08/19 18:05 Hct 37.7 % (30.3-42.9) 11/08/19 18:05 MCV 92 fl (79-97) 11/08/19 18:05 MCH 30 pg (28-32) 11/08/19 18:05 MCHC 32 % (30-34) 11/08/19 18:05 RDW 17.3 % (13.2-15.2) H 11/08/19 18:05 Plt Count 210 K/mm3 (140-440) 11/08/19 18:05 Lymph % (Auto) 13.4 % (13.4-35.0) 11/08/19 18:05 [place] % (Auto) 10.4 % (0.0-7.3) H 11/08/19 18:05 Eos % (Auto) 0.0 % (0.0-4.3) 11/08/19 18:05 Baso % (Auto) 0.6 % (0.0-1.8) 11/08/19 18:05 Lymph # 0.6 K/mm3 (1.2-5.4) L 11/08/19 18:05 [place] # 0.5 K/mm3 (0.0-0.8) 11/08/19 18:05 Eos # 0.0 K/mm3 (0.0-0.4) 11/08/19 18:05 Baso # 0.0 K/mm3 (0.0-0.1) 11/08/19 18:05 Seg Neutrophils % 75.6 % (40.0-70.0) H 11/08/19 18:05 Seg Neutrophils # 3.6 K/mm3 (1.8-7.7) 11/08/19 18:05 D-Dimer 885.39 ng/mlDDU (0-234) H 11/08/19 21:10 Sodium 132 mmol/L (137-145) L 11/08/19 18:05 Potassium 4.1 mmol/L (3.6-5.0) 11/08/19 18:05 Chloride 94.8 mmol/L (98-107) L 11/08/19 18:05 Carbon Dioxide 21 mmol/L (22-30) L 11/08/19 18:05 Anion Gap 20 mmol/L 11/08/19 18:05 BUN 18 mg/dL (7-17) H 11/08/19 18:05 Creatinine 1.0 mg/dL (0.7-1.2) 11/08/19 18:05 Estimated GFR 53 ml/min 11/08/19 18:05 BUN/Creatinine Ratio 18 % 11/08/19 18:05 Glucose 123 mg/dL (65-100) H 11/08/19 21:10 POC Glucose 125 (70-105) H 11/09/19 03:52 Lactic Acid 0.60 mmol/L (0.7-2.0) L 11/09/19 00:35 Calcium 9.1 mg/dL (8.4-10.2) 11/08/19 18:05 Magnesium 2.20 mg/dL (1.7-2.3) 11/08/19 21:10 Ferritin 226.1 ng/mL (13.0-400.0) 11/08/19 21:10 Total Bilirubin 0.30 mg/dL (0.1-1.2) 11/08/19 18:05 AST 34 units/L (5-40) 11/08/19 18:05 ALT 21 units/L (7-56) 11/08/19 18:05 Alkaline Phosphatase 44 units/L (35-129) 11/08/19 18:05 Lactate Dehydrogenase 284 units/L (91-180) H 11/08/19 21:10 Total Creatine Kinase 199 units/L (30-135) H 11/08/19 21:10 Troponin T < 0.010 ng/mL (0.00-0.029) 11/08/19 18:05 C-Reactive Protein 8.30 mg/dL (0.00-1.30) H 11/08/19 21:10 Total Protein 7.7 g/dL (6.3-8.2) 11/08/19 18:05 Albumin 4.0 g/dL (3.9-5) 11/08/19 18:05 Albumin/Globulin Ratio 1.1 % 11/08/19 18:05 TSH 0.759 mlU/mL (0.270-4.200) 11/08/19 21:10 Urine Color Yellow (Yellow) 11/08/19 Unknown Urine Turbidity Slightly-cloudy (Clear) 11/08/19 Unknown Urine pH 5.0 (5.0-7.0) 11/08/19 Unknown Ur Specific [place] 1.020 (1.003-1.030) 11/08/19 Unknown Urine Protein >500 mg/dL (Negative) 11/08/19 Unknown Urine Glucose (UA) Neg mg/dL (Negative) 11/08/19 Unknown Urine Ketones Tr mg/dL (Negative) 11/08/19 Unknown Urine Blood Neg (Negative) 11/08/19 Unknown Urine Nitrite Neg (Negative) 11/08/19 Unknown Urine Bilirubin Neg (Negative) 11/08/19 Unknown Urine Urobilinogen < 2.0 mg/dL (<2.0) 11/08/19 Unknown Ur Leukocyte Esterase Neg (Negative) 11/08/19 Unknown Urine WBC (Auto) 6.0 /HPF (0.0-6.0) 11/08/19 Unknown Urine RBC (Auto) 11.0 /HPF (0.0-6.0) 11/08/19 Unknown U Epithel Cells (Auto) 1.0 /HPF (0-13.0) 11/08/19 Unknown Urine Bacteria (Auto) 4+ /HPF (Negative) 11/08/19 Unknown Urine Mucus Few /HPF 11/08/19 Unknown Urine Yeast (Budding) 2+ /HPF 11/08/19 Unknown Salicylates < 0.3 mg/dL (2.8-20.0) L 11/08/19 21:10 Acetaminophen < 5.0 ug/mL (10.0-30.0) L 11/08/19 21:10 Blood Type A POSITIVE 11/09/19 01:30 Antibody Screen Negative 11/09/19 01:30 Microbiology: Microbiology 11/08/19 18:05 Peripheral/Venous Blood Culture - Preliminary Culture in Progress 11/08/19 18:05 Peripheral/Venous Blood Culture - Preliminary Culture in Progress [place]/IV: IV Catheter Type [Left Hand] INT / Saline Lock Assessment and Plan - Patient Problems (1) Pneumonia Current Visit: Yes Status: Acute Plan to address problem: 1. I.V ZITHROMAX ANTIBIOTIC 2. I.V ROCEPHIN 3. TYLENOL PO FOR FEVER 4ROBITUSSIN FOR COUGH (2) Suspected 2019 novel coronavirus infection Current Visit: Yes Status: Acute Plan to address problem: 1. COVID-19 TESTING 2. CONTACT AND DROPLET ISOLATION 3. I.V DEXAMETHASONE 4. INFECTIOUS DISEASE CONSULT
[2019-11-09] MEDS ORDERED: SODIUM CHLORIDE 0.9% 1000 ML 1,000 ML IV SCH (06:45)
[2019-11-09] MEDS ORDERED: dexAMETHasone 4 MG/ML VIAL IV SCH (08:00)
[2019-11-09] MEDS ORDERED: AZITHROMYCIN 500 MG in SODIUM CHLORIDE 0.9% 250ML 250 ML IV SCH (10:00)
[2019-11-09] MEDS ORDERED: HEPARIN 5,000 UNIT/1 ML VIAL SUB-Q SCH (10:00)
--- NOTE | 2019-11-09 15:39 | Event Note ---
Date: 11/09/19 Patient seen and examined result for coronavirus came back positive. She continues to feel very lethargic. She does have a history of spider bite on her left santos area which she states she has had multiple IV therapy over the past 2 years. Urine culture growing gram-negative rods. No severe pulmonary distress is noted at this time although patient has not ambulated. We will continue to monitor continue aggressive treatment.
--- NOTE | 2019-11-09 19:36 | Consultation ---
History of Present Illness - Reason for Consult Consult date: 11/09/19 covid Requesting physician: HEMANT CHOWDARY - History of Present Illness 88-year-old female with history of HTN, CHF, pancreatic cysts, admitted on 11/08/2019 due to a week history of fever, chills shortness of breath, dry cough and malaise. Reports confusion and sleepiness. Patient lives alone, denies contact with COVID patients. On arrival, temp 102.9, HR 99, O2 94%, WBC 4.7. Ddimer 885. Ferritin 226. LDH 284. CRP 8.3. UA neg. Urine cx growing GNR. Blood culture no growth today. CT shows bilateral groundglass opacities and multi- loculated pancreatic cysts. Currently on room air. Review of Systems: positive in bold print General: fever, chills, malaise, generalized weakness Cutaneous: rash, pruritus Head: headaches or injury Eyes: changes in vision, eye pain, double vision Ears: ear pain, ear discharge, ringing or hearing loss Nose: nose bleeding, stuffiness Mouth & throat: bleeding gums, horseness, no dental problems, or swollen glands Neck: no pain, node enlargement/lumps, tyroid enlargement or tenderness Respiratory: SOB, cough, GARZA, wheezing, sputum, hemoptysis, pleuritic chest pain Cardiovascular: chest pain, leg edema, cyanosis, GARZA, orthopnea Musculoskeletal: edema, deformities, pain Gastrointestinal: nausea, vomiting, hematemesis, diarrhea, constipation, melena, bright red blood in stools, fecal incontinence, jaundice Genitourinary/Reproductive: frequent urination, dysuria, hematuria, incontinence Neurogical: seizures, headaches, weakness, paresthesias, loss of speech or vision; memory loss, vertigo, tremors, numbness Psychiatric: stable mood; excessive anxiety, sadness or moodiness Past History Past Medical History: diabetes, heart failure, hypertension, hyperlipidemia, other ("Flu disease getting 1 was 159Start 20 fluidsFlowers is a diabetic) Past Surgical History: Other (HYSTERECTOMY, URINARY BLADDER) Social history: no significant social history Family history: no significant family history Medications and Allergies Allergies Allergy/AdvReac Type Severity Reaction Status Date / Time codeine Allergy Vomiting Verified 03/23/18 11:39 Home Medications Medication Instructions Recorded Confirmed Last Taken Type Atorvastatin Calcium [Lipitor] 20 mg PO DAILY 08/20/18 08/26/18 Unknown History Calcium Carbonate/Vitamin D3 1 each PO BID 08/20/18 08/26/18 Unknown History [Calcium 600-Vit D3 400 Tablet] Folic Acid [Folvite] 2 mg PO QDAY 08/20/18 08/26/18 Unknown History Furosemide [Lasix TAB] 40 mg PO QDAY 08/20/18 08/26/18 Unknown History Hydralazine HCl 50 mg PO TID 08/20/18 08/26/18 Unknown History Potassium Chloride 8 meq PO DAILY 08/20/18 08/26/18 Unknown History Sitagliptin Phos/Metformin HCl 1 each PO DAILY 08/20/18 08/26/18 Unknown History [Janumet 50-1,000 mg] carvediloL [Carvedilol] 12.5 mg PO BID 08/20/18 08/26/18 Unknown History estradioL [Estradiol] 0.25 mg PO DAILY 08/20/18 08/26/18 Unknown History ALBUTEROL NEB's [Proventil 0.083% 2.5 mg IH Q3HRT PRN nebu 09/02/18 Unknown Rx NEBS] Lispro Insulin [HumaLOG] 1 dose SUB-Q ACHS PRN #30 units 09/02/18 Unknown Rx NIFEdipine [Nifedipine ER] 60 mg PO DAILY #30 tab 09/02/18 08/26/18 Unknown Rx Pantoprazole [Protonix TAB] 40 mg PO BID #60 tablet 09/02/18 Unknown Rx metHOTREXate(DOSE WEEKLY ONLY) 5 mg PO Fr@1000 tablet 09/02/18 Unknown Rx [metHOTREXate (DOSE WEEKLY ONLY)] predniSONE [Deltasone] 5 mg PO QAM #30 tab 09/02/18 08/26/18 Unknown Rx Active Meds: Active Medications Acetaminophen (Tylenol) 650 mg PO Q4H PRN PRN Reason: Fever >101 Ascorbic Acid (Vitamin C) 1,000 mg PO BID HAKAN Azithromycin (Zithromax) 500 mg PO QDAY HAKAN Dexamethasone (Decadron) 6 mg PO Q24HR HAKAN Heparin Sodium (Porcine) (Heparin) 5,000 unit SUB-Q Q8HR HAKAN Hydralazine HCl (Apresoline) 10 mg IV Q3H PRN PRN Reason: HTN SYS>160 Ceftriaxone Sodium (Rocephin/Ns 2 Gm/100 Ml) 2 gm in 100 mls @ 200 mls/hr IV Q24H HAKAN; Protocol Ondansetron HCl (Zofran) 4 mg IV Q4H PRN PRN Reason: Nausea And Vomiting Zinc Sulfate (Zinc Sulfate) 220 mg PO BID HAKAN Physical Examination - Physical Exam Narrative exam: Limited given conservation of PPE - Constitutional Vitals: Vital Signs Temp Pulse Resp BP Pulse Ox 98.7 F 66 22 203/78 94 11/09/19 16:42 11/09/19 16:42 11/09/19 16:42 11/09/19 16:42 11/09/19 16:42 Temperature -Last 24 Hours Temperature 98.7 F Temperature 98.5 F Temperature 97.8 F Temperature 97.8 F Temperature 100.2 F Results - Labs CBC & Chem 7: 11/08/19 18:05 11/08/19 21:10 Labs: Abnormal lab results 11/08/19 11/08/19 11/08/19 Range/Units 21:10 21:10 21:10 D-Dimer 885.39 H (0-234) ng/mlDDU Glucose 123 H (65-100) mg/dL POC Glucose (70-105) Lactic Acid (0.7-2.0) mmol/L Lactate Dehydrogenase 284 H (91-180) units/L Total Creatine Kinase 199 H (30-135) units/L C-Reactive Protein 8.30 H (0.00-1.30) mg/dL Salicylates < 0.3 L (2.8-20.0) mg/dL Acetaminophen (10.0-30.0) ug/mL Coronavirus (PCR) (Negative) 11/08/19 11/08/19 11/09/19 Range/Units 21:10 Unknown 00:35 D-Dimer (0-234) ng/mlDDU Glucose (65-100) mg/dL POC Glucose (70-105) Lactic Acid 0.60 L (0.7-2.0) mmol/L Lactate Dehydrogenase (91-180) units/L Total Creatine Kinase (30-135) units/L C-Reactive Protein (0.00-1.30) mg/dL Salicylates (2.8-20.0) mg/dL Acetaminophen < 5.0 L (10.0-30.0) ug/mL Coronavirus (PCR) Positive A (Negative) 11/09/19 11/09/19 11/09/19 Range/Units 03:52 08:07 11:42 D-Dimer (0-234) ng/mlDDU Glucose (65-100) mg/dL POC Glucose 125 H 147 H 198 H (70-105) Lactic Acid (0.7-2.0) mmol/L Lactate Dehydrogenase (91-180) units/L Total Creatine Kinase (30-135) units/L C-Reactive Protein (0.00-1.30) mg/dL Salicylates (2.8-20.0) mg/dL Acetaminophen (10.0-30.0) ug/mL Coronavirus (PCR) (Negative) 11/09/19 Range/Units 16:58 D-Dimer (0-234) ng/mlDDU Glucose (65-100) mg/dL POC Glucose 167 H (70-105) Lactic Acid (0.7-2.0) mmol/L Lactate Dehydrogenase (91-180) units/L Total Creatine Kinase (30-135) units/L C-Reactive Protein (0.00-1.30) mg/dL Salicylates (2.8-20.0) mg/dL Acetaminophen (10.0-30.0) ug/mL Coronavirus (PCR) (Negative) Assessment and Plan Cultures: Urine cx growing GNR. Blood culture no growth today. Assessment: 88-year-old female with history of HTN, CHF, pancreatic cysts, adm itted on 11/08/2019 due to a week history of fever, chills shortness of breath, dry cough and malaise: #Sepsis: present on admission with fever, tachycardia; source COVID-19 infection #COVID-19 pneumonia: Admission sats down to>95%. On room air. Noted elevated biomarkers but normal ferritin. Ddimer 885. Ferritin 226. LDH 284. CRP 8.3. Likely COVID viremic phase. #Bacteriuria: UA neg. No evidence of UTI. #Chronic pancreatic cysts: ? worsening on CT, asymptomatic Recommendations: No indication for Remdesivir for now, patient without sustained hypoxia Continue dexamethasone 6 mg IV/PO qday x 10 days Stop ceftraixone and azithromycin, procal normal GI med eval outpatient for pancreatic cysts Daily markers Exercise oxymeter 6 min walking - in 1-2 days if sats >94% ok to d/c on dexamethasone 6 mg po qday x 10 days Risk for deterioration from COVID Dr Demarco rounding this weekend Will follow. Louann Lindsey MD Infectious Diseases Architectural Project Manager [facility] M [phone]
[2019-11-09] MEDS: hydrALAZINE 20 MG/1 ML INJ IV PRN ×2 (20:05→23:23)
[2019-11-09] MEDS ORDERED: cefTRIAXone/NS 2 GM/100 ML 2 GM/100 ML BAG IV SCH (22:00)
[2019-11-09] MEDS: HEPARIN 5,000 UNIT/1 ML VIAL SUB-Q SCH (22:16)
[2019-11-09] MEDS: ASCORBIC ACID 500 MG TAB PO SCH (22:17)
[2019-11-09] MEDS: ZINC SULFATE 220 MG CAP PO SCH (22:17)
[2019-11-10] MEDS: hydrALAZINE 20 MG/1 ML INJ IV PRN (05:44)
[2019-11-10] MEDS: HEPARIN 5,000 UNIT/1 ML VIAL SUB-Q SCH ×3 (05:44→22:34)
--- NOTE | 2019-11-10 09:14 | Progress Note ---
Assessment and Plan Assessment and plan: 88-year-old female. Her primary care doctor is Dr. Kade Puente. Her past medical history includes diabetes, hypertension high cholesterol, previously she was on methotrexate. She appears to have a history of rheumatoid arthritis as well. She also has a history of pancreatic mass, and diverticular bleed. She is brought to the hospital today for fever and weakness. Contrary to what is documented, there is no concern for altered mental status. As per discussion with the patient's daughter, the patient has been weak, having chills and fevers, malaise and fatigue. There is a dry cough. There is no nausea, vomiting or diarrhea. There is no urinary frequency. There is no exposure to [place] that the patient's daughter is aware of. The patient herself denies physical pain. She states that she feels weak. She denies headache, neck pain, chest pain, abdominal pain, shortness of breath, urinary symptoms. -: days(s) (Symptoms started on Wednesday as per collateral information from daughter. Sepsis secondary to COVID 19 COVID19 Generalized malasie secondary to COVID 19 VIRAL PNEUMONIA Chronic Pancreatic Cysts Bacteriuria Hypertensive urgency Plan Supportive care PT/OT eval pending Adjust BP meds Patient was seen by ID for sepsis started on dexamethasone. Anticipate to complete 10 days ceftriaxone and azithromycin was discontinued. Imaging studies was concerning for pancreatic cyst with an outpatient evaluation is recommended. There is no indication Remdesivir, at this time as patient does not have any sustained hypoxia. DCT/GI prophy Exercise oxymeter 6 min walking - in 1-2 days if sats >94% ok to d/c on dexamethasone 6 mg po qday x 10 days. Discussed with Nursing staff to perform during PT as patient is a high fall risk History Interval history: Patient seen and examined resting comfortably. Hospitalist Physical - Physical exam Narrative exam: VITAL SIGNS: Reviewed. GENERAL: The patient appears normally developed, lethargic. Vital signs as documented. HEAD: No signs of head trauma. EYES: Pupils are equal. Extraocular motions intact. EARS: Hearing grossly intact. MOUTH: Oropharynx is normal. NECK: No adenopathy, no JVD. CHEST: Chest with clear breath sounds bilaterally. No wheezes, rales, or rhonchi. CARDIAC: Regular rate and rhythm. S1 and S2, without murmurs, gallops, or rubs. VASCULAR: No Edema. Peripheral pulses normal and equal in all extremities. ABDOMEN: Soft, non tender and non distended. No rebound or guarding, and no masses palpated. Bowel Sounds normal. MUSCULOSKELETAL: Good range of motion of all major joints. Extremities without clubbing, cyanosis or edema. NEUROLOGIC EXAM: Alert and oriented x 3 No focal sensory or strength deficits. Speech normal. Follows commands. PSYCHIATRIC: Mood normal. SKIN: Mild ecchymotic changes on the right upper extremity detial exam as documented in skin assessment - Constitutional Vitals: Temp Pulse Resp BP Pulse Ox 98.3 F 60 20 170/58 92 11/10/19 05:20 11/10/19 05:44 11/10/19 05:20 11/10/19 05:44 11/10/19 05:20 General appearance: Present: no acute distress HEART Score - HEART Score Troponin: Troponin T < 0.010 ng/mL (0.00-0.029) 11/08/19 18:05 Results - Labs CBC & Chem 7: 11/10/19 09:06 11/10/19 09:06 Labs: Laboratory Last Values WBC 4.7 K/mm3 (4.5-11.0) 11/08/19 18:05 RBC 4.10 M/mm3 (3.65-5.03) 11/08/19 18:05 Hgb 12.2 gm/dl (10.1-14.3) 11/08/19 18:05 Hct 37.7 % (30.3-42.9) 11/08/19 18:05 MCV 92 fl (79-97) 11/08/19 18:05 MCH 30 pg (28-32) 11/08/19 18:05 MCHC 32 % (30-34) 11/08/19 18:05 RDW 17.3 % (13.2-15.2) H 11/08/19 18:05 Plt Count 210 K/mm3 (140-440) 11/08/19 18:05 Lymph % (Auto) 13.4 % (13.4-35.0) 11/08/19 18:05 [place] % (Auto) 10.4 % (0.0-7.3) H 11/08/19 18:05 Eos % (Auto) 0.0 % (0.0-4.3) 11/08/19 18:05 Baso % (Auto) 0.6 % (0.0-1.8) 11/08/19 18:05 Lymph # 0.6 K/mm3 (1.2-5.4) L 11/08/19 18:05 [place] # 0.5 K/mm3 (0.0-0.8) 11/08/19 18:05 Eos # 0.0 K/mm3 (0.0-0.4) 11/08/19 18:05 Baso # 0.0 K/mm3 (0.0-0.1) 11/08/19 18:05 Seg Neutrophils % 75.6 % (40.0-70.0) H 11/08/19 18:05 Seg Neutrophils # 3.6 K/mm3 (1.8-7.7) 11/08/19 18:05 D-Dimer 885.39 ng/mlDDU (0-234) H 11/08/19 21:10 Sodium 132 mmol/L (137-145) L 11/08/19 18:05 Potassium 4.1 mmol/L (3.6-5.0) 11/08/19 18:05 Chloride 94.8 mmol/L (98-107) L 11/08/19 18:05 Carbon Dioxide 21 mmol/L (22-30) L 11/08/19 18:05 Anion Gap 20 mmol/L 11/08/19 18:05 BUN 18 mg/dL (7-17) H 11/08/19 18:05 Creatinine 1.0 mg/dL (0.7-1.2) 11/08/19 18:05 Estimated GFR 53 ml/min 11/08/19 18:05 BUN/Creatinine Ratio 18 % 11/08/19 18:05 Glucose 123 mg/dL (65-100) H 11/08/19 21:10 POC Glucose 123 (70-105) H 11/10/19 08:10 Lactic Acid 0.60 mmol/L (0.7-2.0) L 11/09/19 00:35 Calcium 9.1 mg/dL (8.4-10.2) 11/08/19 18:05 Magnesium 2.20 mg/dL (1.7-2.3) 11/08/19 21:10 Ferritin 226.1 ng/mL (13.0-400.0) 11/08/19 21:10 Total Bilirubin 0.30 mg/dL (0.1-1.2) 11/08/19 18:05 AST 34 units/L (5-40) 11/08/19 18:05 ALT 21 units/L (7-56) 11/08/19 18:05 Alkaline Phosphatase 44 units/L (35-129) 11/08/19 18:05 Lactate Dehydrogenase 284 units/L (91-180) H 11/08/19 21:10 Total Creatine Kinase 199 units/L (30-135) H 11/08/19 21:10 Troponin T < 0.010 ng/mL (0.00-0.029) 11/08/19 18:05 C-Reactive Protein 8.30 mg/dL (0.00-1.30) H 11/08/19 21:10 Total Protein 7.7 g/dL (6.3-8.2) 11/08/19 18:05 Albumin 4.0 g/dL (3.9-5) 11/08/19 18:05 Albumin/Globulin Ratio 1.1 % 11/08/19 18:05 Procalcitonin 0.06 ng/mL (<0.15) 11/09/19 16:39 TSH 0.759 mlU/mL (0.270-4.200) 11/08/19 21:10 Urine Color Yellow (Yellow) 11/08/19 Unknown Urine Turbidity Slightly-cloudy (Clear) 11/08/19 Unknown Urine pH 5.0 (5.0-7.0) 11/08/19 Unknown Ur Specific [place] 1.020 (1.003-1.030) 11/08/19 Unknown Urine Protein >500 mg/dL (Negative) 11/08/19 Unknown Urine Glucose (UA) Neg mg/dL (Negative) 11/08/19 Unknown Urine Ketones Tr mg/dL (Negative) 11/08/19 Unknown Urine Blood Neg (Negative) 11/08/19 Unknown Urine Nitrite Neg (Negative) 11/08/19 Unknown Urine Bilirubin Neg (Negative) 11/08/19 Unknown Urine Urobilinogen < 2.0 mg/dL (<2.0) 11/08/19 Unknown Ur Leukocyte Esterase Neg (Negative) 11/08/19 Unknown Urine WBC (Auto) 6.0 /HPF (0.0-6.0) 11/08/19 Unknown Urine RBC (Auto) 11.0 /HPF (0.0-6.0) 11/08/19 Unknown U Epithel Cells (Auto) 1.0 /HPF (0-13.0) 11/08/19 Unknown Urine Bacteria (Auto) 4+ /HPF (Negative) 11/08/19 Unknown Urine Mucus Few /HPF 11/08/19 Unknown Urine Yeast (Budding) 2+ /HPF 11/08/19 Unknown Salicylates < 0.3 mg/dL (2.8-20.0) L 11/08/19 21:10 Acetaminophen < 5.0 ug/mL (10.0-30.0) L 11/08/19 21:10 Coronavirus (PCR) Positive (Negative) A 11/08/19 Unknown Blood Type A POSITIVE 11/09/19 01:30 Antibody Screen Negative 11/09/19 01:30 Microbiology: Microbiology 11/08/19 18:05 Peripheral/Venous Blood Culture - Preliminary NO GROWTH AFTER 24 HOURS 11/08/19 18:05 Peripheral/Venous Blood Culture - Preliminary NO GROWTH AFTER 24 HOURS 11/08/19 Unknown Urine,Clean Catch Urine Culture - Preliminary Gram Negative [place] Osuna/IV: Voiding Method Diaper IV Catheter Type [Left Hand] INT / Saline Lock Active Medications - Current Medications Current Medications: Generic Name Dose Route Start Last Admin Trade Name Freq PRN Reason Stop Dose Admin Acetaminophen 650 mg 11/09/19 06:32 Tylenol PO Q4H PRN Fever >101 Ascorbic Acid 1,000 mg 11/09/19 22:00 11/09/19 22:17 Vitamin C PO 1,000 mg BID HAKAN Administration Azithromycin 500 mg 11/10/19 10:00 Zithromax PO QDAY HAKAN Dexamethasone 6 mg 11/10/19 10:00 Decadron PO Q24HR HAKAN Heparin Sodium (Porcine) 5,000 unit 11/09/19 22:00 11/10/19 05:44 Heparin SUB-Q 5,000 unit Q8HR HAKAN Administration Hydralazine HCl 10 mg 11/09/19 19:45 11/10/19 05:44 Apresoline IV 10 mg Q3H PRN Administration HTN SYS>160 Ceftriaxone Sodium 2 gm in 100 mls @ 200 mls/hr 11/09/19 22:00 11/09/19 22:17 Rocephin/Ns 2 Gm/100 Ml IV 200 mls/hr Q24H HAKAN Administration Protocol Ondansetron HCl 4 mg 11/09/19 06:34 Zofran IV Q4H PRN Nausea And Vomiting Zinc Sulfate 220 mg 11/09/19 22:00 11/09/19 22:17 Zinc Sulfate PO 220 mg BID HAKAN Administration
[2019-11-10 09:50] LABS: Hematocrit 37.9 % (30.3-42.9); Mean Corpuscular HGB Conc 32 % (30-34); Mean Corpuscular Volume 93 fl (79-97); Platelet Count 216 K/mm3 (140-440); Red Blood Count 4.08 M/mm3 (3.65-5.03); Red Cell Distribution Width 17.8 % (13.2-15.2)
[2019-11-10] MEDS ORDERED: AZITHROMYCIN 250 MG TAB PO SCH (10:00)
[2019-11-10] MEDS: CALCIUM CARB/VIT D3/MINERALS 600 MG/800 UNITS TAB PO SCH ×2 (10:22→22:30)
[2019-11-10] MEDS: FOLIC ACID 1 MG TAB PO SCH (10:22)
[2019-11-10] MEDS: FUROSEMIDE 40 MG TAB PO SCH (10:22)
[2019-11-10] MEDS: NIFEdipine XL 60 MG TAB PO SCH (10:22)
[2019-11-10] MEDS: carvediloL 12.5 MG TAB PO SCH ×2 (10:22→22:31)
[2019-11-10 10:23] LABS: C-Reactive Protein 4.4 mg/dL (0.00-1.30); Calcium 8.1 mg/dL (8.4-10.2)
[2019-11-10] MEDS: metFORMIN 500 MG TAB PO SCH (10:23)
[2019-11-10] MEDS: PANTOPRAZOLE 40 MG TAB PO SCH ×2 (10:23→22:30)
[2019-11-10] MEDS: ASCORBIC ACID 500 MG TAB PO SCH ×2 (10:23→22:31)
[2019-11-10] MEDS: ZINC SULFATE 220 MG CAP PO SCH ×2 (10:24→22:30)
[2019-11-10] MEDS ORDERED: ALBUTEROL 2.5 MG/3 ML NEBU IH PRN (11:00)
[2019-11-10] MEDS ORDERED: metHOTREXate 2.5 MG TAB (DOSE WEEKLY ONLY) PO SCH (12:00)
[2019-11-10] MEDS: POTASSIUM CHLORIDE ER 8 MEQ TAB PO SCH (14:27)
[2019-11-10] MEDS: hydrALAZINE 25 MG TAB PO SCH ×2 (14:28→20:00)
[2019-11-10] MEDS: LINAGLIPTIN 5 MG TAB PO SCH (14:29)
[2019-11-10] MEDS: DEXAMETHASONE 4 MG TAB PO SCH (16:34)
[2019-11-10] MEDS: ACETAMINOPHEN 325 MG TAB PO PRN (17:52)
[2019-11-10] MEDS: CEFEPIME/NS 1 GM/100 ML 1 GM/100 ML BAG IV SCH (22:33)
[2019-11-10] MEDS: INSULIN LISPRO 100 UNIT/ML SUB-Q SCH (23:46)
[2019-11-11] MEDS: CEFEPIME/NS 1 GM/100 ML 1 GM/100 ML BAG IV SCH ×3 (05:19→13:19)
[2019-11-11] MEDS: HEPARIN 5,000 UNIT/1 ML VIAL SUB-Q SCH ×3 (05:27→21:52)
[2019-11-11] MEDS: INSULIN LISPRO 100 UNIT/ML SUB-Q SCH ×4 (08:53→23:20)
[2019-11-11] MEDS ORDERED: SODIUM BICARB 8.4% 50 MEQ/50 ML SYRINGE IV ONE (09:06)
--- NOTE | 2019-11-11 09:10 | Progress Note ---
Assessment and Plan Assessment and plan: 88-year-old female. Her primary care doctor is Dr. Kade Puente. Her past medical history includes diabetes, hypertension high cholesterol, previously she was on methotrexate. She appears to have a history of rheumatoid arthritis as well. She also has a history of pancreatic mass, and diverticular bleed. She is brought to the hospital today for fever and weakness. Contrary to what is documented, there is no concern for altered mental status. As per discussion with the patient's daughter, the patient has been weak, having chills and fevers, malaise and fatigue. There is a dry cough. There is no nausea, vomiting or diarrhea. There is no urinary frequency. There is no exposure to COVID-19 that the patient's daughter is aware of. The patient herself denies physical pain. She states that she feels weak. She denies headache, neck pain, chest pain, abdominal pain, shortness of breath, urinary symptoms. -: days(s) (Symptoms started on Wednesday as per collateral information from daughter. 11/10: Restarted cefepime yesterday due to a fever. Patient is stable this morning. Continue current management. Due to her lethargy requiring physical therapy to continue to ambulate her. We will continue to monitor oxygen level on room air with activity daily. Blood pressure is improved and stable. Continue to await culture from urinalysis. Sepsis secondary to COVID 19 COVID19 Generalized malasie secondary to COVID 19 VIRAL PNEUMONIA Chronic Pancreatic Cysts Bacteriuria Hypertensive urgency-improved Plan Supportive care PT/OT eval pending Adjust BP meds Patient was seen by ID for sepsis started on dexamethasone. Anticipate to com plete 10 days ceftriaxone and azithromycin was discontinued. Imaging studies was concerning for pancreatic cyst with an outpatient evaluation is recommended. There is no indication Remdesivir, at this time as patient does not have any sustained hypoxia. DCT/GI prophy Exercise oxymeter 6 min walking - in 1-2 days if sats >94% ok to d/c on dexamethasone 6 mg po qday x 10 days. Discussed with Nursing staff to perform during PT as patient is a high fall risk History Interval history: Patient seen and examined resting comfortably. No noted shortness of breath Hospitalist Physical - Physical exam Narrative exam: VITAL SIGNS: Reviewed. GENERAL: The patient appears normally developed, upbeat. Vital signs as documented. HEAD: No signs of head trauma. EYES: Pupils are equal. Extraocular motions intact. EARS: Hearing grossly intact. MOUTH: Oropharynx is normal. NECK: No adenopathy, no JVD. CHEST: Chest with clear breath sounds bilaterally. No wheezes, rales, or r honchi. CARDIAC: Regular rate and rhythm. S1 and S2, without murmurs, gallops, or rubs. VASCULAR: No Edema. Peripheral pulses normal and equal in all extremities. ABDOMEN: Soft, non tender and non distended. No rebound or guarding, and no masses palpated. Bowel Sounds normal. MUSCULOSKELETAL: Good range of motion of all major joints. Extremities without clubbing, cyanosis or edema. NEUROLOGIC EXAM: Alert and oriented x 3 No focal sensory or strength deficits. Speech normal. Follows commands. PSYCHIATRIC: Mood normal. SKIN: Mild ecchymotic changes on the right upper extremity detial exam as documented in skin assessment - Constitutional Vitals: Temp Pulse Resp BP Pulse Ox 98.5 F 68 16 125/47 97 11/11/19 05:19 11/11/19 05:19 11/11/19 05:19 11/11/19 05:19 11/11/19 08:36 General appearance: Present: no acute distress HEART Score - HEART Score Troponin: Troponin T < 0.010 ng/mL (0.00-0.029) 11/08/19 18:05 Results - Labs CBC & Chem 7: 11/10/19 09:06 11/10/19 09:06 Labs: Laboratory Last Values WBC 8.7 K/mm3 (4.5-11.0) 11/10/19 09:06 RBC 4.08 M/mm3 (3.65-5.03) 11/10/19 09:06 Hgb 12.0 gm/dl (10.1-14.3) 11/10/19 09:06 Hct 37.9 % (30.3-42.9) 11/10/19 09:06 MCV 93 fl (79-97) 11/10/19 09:06 MCH 29 pg (28-32) 11/10/19 09:06 MCHC 32 % (30-34) 11/10/19 09:06 RDW 17.8 % (13.2-15.2) H 11/10/19 09:06 Plt Count 216 K/mm3 (140-440) 11/10/19 09:06 Lymph % (Auto) 13.4 % (13.4-35.0) 11/08/19 18:05 [place] % (Auto) 10.4 % (0.0-7.3) H 11/08/19 18:05 Eos % (Auto) 0.0 % (0.0-4.3) 11/08/19 18:05 Baso % (Auto) 0.6 % (0.0-1.8) 11/08/19 18:05 Lymph # 0.6 K/mm3 (1.2-5.4) L 11/08/19 18:05 [place] # 0.5 K/mm3 (0.0-0.8) 11/08/19 18:05 Eos # 0.0 K/mm3 (0.0-0.4) 11/08/19 18:05 Baso # 0.0 K/mm3 (0.0-0.1) 11/08/19 18:05 Seg Neutrophils % 75.6 % (40.0-70.0) H 11/08/19 18:05 Seg Neutrophils # 3.6 K/mm3 (1.8-7.7) 11/08/19 18:05 D-Dimer 944.67 ng/mlDDU (0-234) H 11/10/19 09:06 Sodium 133 mmol/L (137-145) L 11/10/19 09:06 Potassium 4.5 mmol/L (3.6-5.0) 11/10/19 09:06 Chloride 101.5 mmol/L (98-107) 11/10/19 09:06 Carbon Dioxide 15 mmol/L (22-30) L 11/10/19 09:06 Anion Gap 21 mmol/L 11/10/19 09:06 BUN 18 mg/dL (7-17) H 11/10/19 09:06 Creatinine 0.9 mg/dL (0.7-1.2) 11/10/19 09:06 Estimated GFR 59 ml/min 11/10/19 09:06 BUN/Creatinine Ratio 20 % 11/10/19 09:06 Glucose 115 mg/dL (65-100) H 11/10/19 09:06 POC Glucose 149 (70-105) H 11/11/19 09:06 Lactic Acid 0.60 mmol/L (0.7-2.0) L 11/09/19 00:35 Calcium 8.1 mg/dL (8.4-10.2) L 11/10/19 09:06 Magnesium 2.20 mg/dL (1.7-2.3) 11/08/19 21:10 Ferritin 339.2 ng/mL (13.0-400.0) 11/10/19 09:06 Total Bilirubin 0.30 mg/dL (0.1-1.2) 11/08/19 18:05 AST 34 units/L (5-40) 11/08/19 18:05 ALT 21 units/L (7-56) 11/08/19 18:05 Alkaline Phosphatase 44 units/L (35-129) 11/08/19 18:05 Lactate Dehydrogenase 486 units/L (91-180) H 11/10/19 09:06 Total Creatine Kinase 199 units/L (30-135) H 11/08/19 21:10 Troponin T < 0.010 ng/mL (0.00-0.029) 11/08/19 18:05 C-Reactive Protein 4.40 mg/dL (0.00-1.30) H 11/10/19 09:06 Total Protein 7.7 g/dL (6.3-8.2) 11/08/19 18:05 Albumin 4.0 g/dL (3.9-5) 11/08/19 18:05 Albumin/Globulin Ratio 1.1 % 11/08/19 18:05 Procalcitonin 0.06 ng/mL (<0.15) 11/09/19 16:39 TSH 0.759 mlU/mL (0.270-4.200) 11/08/19 21:10 Urine Color Yellow (Yellow) 11/08/19 Unknown Urine Turbidity Slightly-cloudy (Clear) 11/08/19 Unknown Urine pH 5.0 (5.0-7.0) 11/08/19 Unknown Ur Specific [place] 1.020 (1.003-1.030) 11/08/19 Unknown Urine Protein >500 mg/dL (Negative) 11/08/19 Unknown Urine Glucose (UA) Neg mg/dL (Negative) 11/08/19 Unknown Urine Ketones Tr mg/dL (Negative) 11/08/19 Unknown Urine Blood Neg (Negative) 11/08/19 Unknown Urine Nitrite Neg (Negative) 11/08/19 Unknown Urine Bilirubin Neg (Negative) 11/08/19 Unknown Urine Urobilinogen < 2.0 mg/dL (<2.0) 11/08/19 Unknown Ur Leukocyte Esterase Neg (Negative) 11/08/19 Unknown Urine WBC (Auto) 6.0 /HPF (0.0-6.0) 11/08/19 Unknown Urine RBC (Auto) 11.0 /HPF (0.0-6.0) 11/08/19 Unknown U Epithel Cells (Auto) 1.0 /HPF (0-13.0) 11/08/19 Unknown Urine Bacteria (Auto) 4+ /HPF (Negative) 11/08/19 Unknown Urine Mucus Few /HPF 11/08/19 Unknown Urine Yeast (Budding) 2+ /HPF 11/08/19 Unknown Salicylates < 0.3 mg/dL (2.8-20.0) L 11/08/19 21:10 Acetaminophen < 5.0 ug/mL (10.0-30.0) L 11/08/19 21:10 Coronavirus (PCR) Positive (Negative) A 11/08/19 Unknown Blood Type A POSITIVE 11/09/19 01:30 Antibody Screen Negative 11/09/19 01:30 Microbiology: Microbiology 11/08/19 18:05 Peripheral/Venous Blood Culture - Preliminary NO GROWTH AFTER 48 HOURS 11/08/19 18:05 Peripheral/Venous Blood Culture - Preliminary NO GROWTH AFTER 48 HOURS Osuna/IV: Voiding Method Incontinent IV Catheter Type [Left Hand] INT / Saline Lock Active Medications - Current Medications Current Medications: Generic Name Dose Route Start Last Admin Trade Name Freq PRN Reason Stop Dose Admin Acetaminophen 650 mg 11/09/19 06:32 11/10/19 17:52 Tylenol PO 650 mg Q4H PRN Administration Fever >101 Albuterol 2.5 mg 11/10/19 11:00 Proventil IH Q3HRT PRN Shortness Of Breath Ascorbic Acid 1,000 mg 11/09/19 22:00 11/10/19 22:31 Vitamin C PO 1,000 mg BID HAKAN Administration Atorvastatin Calcium 20 mg 11/10/19 10:00 11/10/19 10:22 Lipitor PO 20 mg DAILY HAKAN Administration Carvedilol 12.5 mg 11/10/19 10:00 11/10/19 22:31 Coreg PO 12.5 mg BID HAKAN Administration Dexamethasone 6 mg 11/10/19 10:00 11/10/19 16:34 Decadron PO 11/18/19 10:01 6 mg Q24HR HAKAN Administration Folic Acid 2 mg 11/10/19 10:00 11/10/19 10:22 Folvite PO 2 mg QDAY HAKAN Administration Furosemide 40 mg 11/10/19 10:00 11/10/19 10:22 Lasix PO 40 mg QDAY HAKAN Administration Heparin Sodium (Porcine) 5,000 unit 11/09/19 22:00 11/11/19 05:27 Heparin SUB-Q 5,000 unit Q8HR HAKAN Administration Hydralazine HCl 10 mg 11/09/19 19:45 11/10/19 05:44 Apresoline IV 10 mg Q3H PRN Administration HTN SYS>160 Hydralazine HCl 50 mg 11/10/19 14:00 11/10/19 20:00 Apresoline PO 50 mg TID HAKAN Administration Cefepime HCl 1 gm in 100 mls @ 200 mls/hr 11/10/19 18:00 11/11/19 05:19 Cefepime/Ns 1 Gm/100 Ml IV 200 mls/hr Q8HR HAKAN Administration Protocol Insulin Human Lispro 0 unit 11/11/19 07:30 11/11/19 08:53 Humalog SUB-Q Not Given ACHS HAKAN Protocol Linagliptin 5 mg 11/10/19 10:00 11/10/19 14:29 Tradjenta PO 5 mg QDAY HAKAN Administration Metformin HCl 1,000 mg 11/10/19 10:00 11/10/19 10:23 Glucophage PO 1,000 mg 1000 HAKAN Administration Methotrexate 5 mg 11/10/19 12:00 11/10/19 16:35 Methotrexate (Dose Weekly Only) PO 5 mg Fr@1000 HAKAN Administration Multivitamins/Minerals 1 each 11/10/19 10:00 11/10/19 22:30 Caltrate Plus PO 1 each BID HAKAN Administration Nifedipine 60 mg 11/10/19 10:00 11/10/19 10:22 Procardia Xl PO 60 mg DAILY HAKAN Administration Ondansetron HCl 4 mg 07/02/20 06:34 Zofran IV Q4H PRN Nausea And Vomiting Pantoprazole Sodium 40 mg 11/10/19 10:00 11/10/19 22:30 Protonix PO 40 mg BID HAKAN Administration Potassium Chloride 8 meq 11/10/19 10:00 11/10/19 14:27 Klor-Con 8 PO 8 meq DAILY HAKAN Administration Zinc Sulfate 220 mg 11/09/19 22:00 11/10/19 22:30 Zinc Sulfate PO 220 mg BID HAKAN Administration Nutrition/Malnutrition Assess - Dietary Evaluation Nutrition/Malnutrition Findings: Nutrition Notes Start: 11/10/19 09:21 Freq: Status: Active Protocol: Document 11/10/19 09:21 LM (Rec: 11/10/19 09:30 LM [id number]) Nutrition Notes Need for Assessment generated from: MD Order Initial or Follow up Brief Note Current Diagnosis Diabetes,Hypertension,Heart Failure,Hyperlipidemia Other Pertinent Diagnosis COVID-19 (+), pneu Current Diet cardiac Labs/Tests Reviewed Pertinent Medications Reviewed Height 5 ft 2 in Weight 67.3 kg [place] Body Weight (kg) 50.00 BMI 27.1 Weight Status Overweight Subjective/Other Information MD consult for TF. Spoke with pt over the phone. Pt has no problem eating and ate breakfast this AM. Pt denied any wt loss. Pt does not need TF. RN stated consult likely a mistake. Nutrition Intervention Revisit per MD consult or patient Sign Off request:
[2019-11-11] MEDS: metFORMIN 500 MG TAB PO SCH (10:11)
[2019-11-11] MEDS: FOLIC ACID 1 MG TAB PO SCH (10:11)
[2019-11-11] MEDS: PANTOPRAZOLE 40 MG TAB PO SCH ×2 (10:12→21:52)
[2019-11-11] MEDS: carvediloL 12.5 MG TAB PO SCH ×2 (10:12→23:21)
[2019-11-11] MEDS: ZINC SULFATE 220 MG CAP PO SCH ×2 (10:12→21:51)
[2019-11-11] MEDS: DEXAMETHASONE 4 MG TAB PO SCH (10:12)
[2019-11-11] MEDS: NIFEdipine XL 60 MG TAB PO SCH (10:12)
[2019-11-11] MEDS: CALCIUM CARB/VIT D3/MINERALS 600 MG/800 UNITS TAB PO SCH ×2 (10:12→21:52)
[2019-11-11] MEDS: FUROSEMIDE 40 MG TAB PO SCH (10:13)
[2019-11-11] MEDS: LINAGLIPTIN 5 MG TAB PO SCH (10:14)
[2019-11-11] MEDS: hydrALAZINE 25 MG TAB PO SCH ×3 (10:16→21:51)
[2019-11-11] MEDS: ASCORBIC ACID 500 MG TAB PO SCH ×2 (12:53→21:51)
[2019-11-11] MEDS: POTASSIUM CHLORIDE ER 8 MEQ TAB PO SCH (12:53)
--- NOTE | 2019-11-11 18:22 | Progress Note ---
Assessment and Plan Urine cx Enterococcus faecalis Blood culture no growth today. Assessment: 88-year-old female with history of HTN, CHF, pancreatic cysts, admitted on 11/08/2019 due to a week history of fever, chills shortness of breath, dry cough and malaise: #Sepsis: present on admission with fever, tachycardia; source COVID-19 infection #COVID-19 pneumonia: Admission sats down to>95%. On room air. Noted elevated biomarkers but normal ferritin. Ddimer 885. Ferritin 226. LDH 284. CRP 8.3. Likely COVID viremic phase. #Bacteriuria: UA with only mild pyuria, however with recurrent fever will treat enterococcus in urine with amoxicillin. #Chronic pancreatic cysts: ? worsening on CT, asymptomatic Recommendations: No indication for Remdesivir for now, patient without sustained hypoxia Continue dexamethasone 6 mg IV/PO qday x 10 days Stop cefepime Started amoxicillin 500 mg every 8 hours to complete 3 days for UTI Daily markers Exercise oxymeter 6 min walking - in 1-2 days if sats >94% ok to d/c on dexamethasone 6 mg po qday x 10 days Risk for deterioration from COVID Dr. Mg taking over on Wednesday Will follow. Isabella Demarco MD [facility] M: [phone] O: [phone] F: [phone] Subjective Date of service: 11/11/19 Interval history: Febrile last night to 103, cefepime restarted by hospitalist. Currently on room air. Urine cultures with Enterococcus faecalis Objective - Exam Narrative Exam: Physical Exam: Constitutional: Alert, cooperative. No acute distress Head, Ears, Nose: Normocephalic, atraumatic. External ears, nose normal Eyes: Conjunctivae/corneas clear. No icterus. No ptosis. Neck: Supple, no meningeal signs Oral: dentition fair, no thrush Cardiovascular: S1, S2 normal. Respiratory: Good air entry, clear to auscultation bilaterally GI: Soft, non-tender; bowel sounds normal. No peritoneal signs. Musculoskeletal: No pedal edema, no cyanosis. Skin: No rash or abscess Hem/Lymphatic: No palpable cervical or supraclavicular nodes. No lymphangitis Psych: Mood ok. Affect normal Neurological: Awake, alert, oriented. No gross abnormality - Constitutional Vitals: Vital Signs Temp Pulse Resp BP Pulse Ox 98.2 F 78 22 123/54 95 11/11/19 11:19 11/11/19 11:19 11/11/19 11:19 11/11/19 11:19 11/11/19 11:19 Temperature -Last 24 Hours Temperature 98.2 F Temperature 98.5 F Temperature 98.1 F - Labs CBC & Chem 7: 11/10/19 09:06 11/10/19 09:06 Labs: Abnormal lab results 11/10/19 11/10/19 11/11/19 Range/Units 17:43 21:56 09:06 POC Glucose 167 H 260 H 149 H (70-105) 11/11/19 11/11/19 Range/Units 11:35 16:54 POC Glucose 194 H 189 H (70-105)
[2019-11-11] MEDS: AMOXICILLIN 500 MG CAP PO SCH (21:52)
[2019-11-12] MEDS: HEPARIN 5,000 UNIT/1 ML VIAL SUB-Q SCH ×2 (05:47→13:27)
[2019-11-12] MEDS: AMOXICILLIN 500 MG CAP PO SCH ×3 (05:47→22:39)
[2019-11-12] MEDS: hydrALAZINE 20 MG/1 ML INJ IV PRN (05:47)
[2019-11-12] MEDS: ACETAMINOPHEN 325 MG TAB PO PRN ×2 (05:47→13:36)
--- NOTE | 2019-11-12 07:39 | Progress Note ---
Assessment and Plan Assessment and plan: 88-year-old female. Her primary care doctor is Dr. Kade Puente. Her past medical history includes diabetes, hypertension high cholesterol, previously she was on methotrexate. She appears to have a history of rheumatoid arthritis as well. She also has a history of pancreatic mass, and diverticular bleed. She is brought to the hospital today for fever and weakness. Contrary to what is documented, there is no concern for altered mental status. As per discussion with the patient's daughter, the patient has been weak, having chills and fevers, malaise and fatigue. There is a dry cough. There is no nausea, vomiting or diarrhea. There is no urinary frequency. There is no exposure to COVID-19 that the patient's daughter is aware of. The patient herself denies physical pain. She states that she feels weak. She denies headache, neck pain, chest pain, abdominal pain, shortness of breath, urinary symptoms. -: days(s) (Symptoms started on Wednesday as per collateral information from daughter. 11/10: Restarted cefepime yesterday due to a fever. Patient is stable this morning. Continue current management. Due to her lethargy requiring physical therapy to continue to ambulate her. We will continue to monitor oxygen level on room air with activity daily. Blood pressure is improved and stable. Continue to await culture from urinalysis. 11/11: Still with repeated fever, GNR in urine- Efecalis. Awaiting ID, Antibiotics adjusted by ID, I have discussed with nursing staff to ensure patient has excersise oxygen check daily and use PT if there is concern about gait. I am informed that the patient is lethergic. Anticipate discharge if patient is fever free after 24-48hrs Sepsis secondary to COVID 19 COVID19 Generalized malasie secondary to COVID 19 VIRAL PNEUMONIA Chronic Pancreatic Cysts Bacteriuria acute cystitis Hypertensive urgency-improved Hyponatremia Plan Supportive care PT/OT eval pending Adjust BP meds Patient was seen by ID for sepsis started on dexamethasone. Anticipate to complete 10 days ceftriaxone and azithromycin was discontinued. Imaging studies was concerning for pancreatic cyst with an outpatient evaluation is recommended. There is no indication Remdesivir, at this time as patient does not have any sustained hypoxia per ID. DCT/GI prophy Discussed with Nursing staff to perform during PT as patient is a high fall risk History Interval history: Patient seen and examined resting comfortably although reports feeling lethargic. No noted shortness of breath. Had one large bowel movement yesterday. Loose stool but no repeated diarrhea. Still with fever of 103 overnight. Hospitalist Physical - Physical exam Narrative exam: VITAL SIGNS: Reviewed. GENERAL: The patient appears normally developed, lethargic today. Vital signs as documented. HEAD: No signs of head trauma. EYES: Pupils are equal. Extraocular motions intact. EARS: Hearing grossly intact. MOUTH: Oropharynx is normal. NECK: No adenopathy, no JVD. CHEST: Chest with clear breath sounds bilaterally. No wheezes, rales, or rhonchi. CARDIAC: Regular rate and rhythm. S1 and S2, without murmurs, gallops, or rubs. VASCULAR: No Edema. Peripheral pulses normal and equal in all extremities. ABDOMEN: Soft, non tender and non distended. No rebound or guarding, and no masses palpated. Bowel Sounds normal. MUSCULOSKELETAL: Good range of motion of all major joints. Extremities without clubbing, cyanosis or edema. NEUROLOGIC EXAM: Alert and oriented x 3 No focal sensory or strength deficits. Speech normal. Follows commands. PSYCHIATRIC: Mood normal. SKIN: Mild ecchymotic changes on the right upper extremity detial exam as documented in skin assessment - Constitutional Vitals: Temp Pulse Resp BP Pulse Ox 99.0 F 97 H 18 156/64 95 11/12/19 06:48 11/12/19 06:48 11/12/19 06:48 11/12/19 06:48 11/12/19 06:48 General appearance: Present: no acute distress HEART Score - HEART Score Troponin: Troponin T < 0.010 ng/mL (0.00-0.029) 11/08/19 18:05 Results - Labs CBC & Chem 7: 11/12/19 07:31 11/12/19 07:31 Labs: Laboratory Last Values WBC 8.7 K/mm3 (4.5-11.0) 11/10/19 09:06 RBC 4.08 M/mm3 (3.65-5.03) 11/10/19 09:06 Hgb 12.0 gm/dl (10.1-14.3) 11/10/19 09:06 Hct 37.9 % (30.3-42.9) 11/10/19 09:06 MCV 93 fl (79-97) 11/10/19 09:06 MCH 29 pg (28-32) 11/10/19 09:06 MCHC 32 % (30-34) 11/10/19 09:06 RDW 17.8 % (13.2-15.2) H 11/10/19 09:06 Plt Count 216 K/mm3 (140-440) 11/10/19 09:06 Lymph % (Auto) 13.4 % (13.4-35.0) 11/08/19 18:05 Pratt % (Auto) 10.4 % (0.0-7.3) H 11/08/19 18:05 Eos % (Auto) 0.0 % (0.0-4.3) 11/08/19 18:05 Baso % (Auto) 0.6 % (0.0-1.8) 11/08/19 18:05 Lymph # 0.6 K/mm3 (1.2-5.4) L 11/08/19 18:05 Pratt # 0.5 K/mm3 (0.0-0.8) 11/08/19 18:05 Eos # 0.0 K/mm3 (0.0-0.4) 11/08/19 18:05 Baso # 0.0 K/mm3 (0.0-0.1) 11/08/19 18:05 Seg Neutrophils % 75.6 % (40.0-70.0) H 11/08/19 18:05 Seg Neutrophils # 3.6 K/mm3 (1.8-7.7) 11/08/19 18:05 D-Dimer 944.67 ng/mlDDU (0-234) H 11/10/19 09:06 Sodium 133 mmol/L (137-145) L 11/10/19 09:06 Potassium 4.5 mmol/L (3.6-5.0) 11/10/19 09:06 Chloride 101.5 mmol/L (98-107) 11/10/19 09:06 Carbon Dioxide 15 mmol/L (22-30) L 11/10/19 09:06 Anion Gap 21 mmol/L 11/10/19 09:06 BUN 18 mg/dL (7-17) H 11/10/19 09:06 Creatinine 0.9 mg/dL (0.7-1.2) 11/10/19 09:06 Estimated GFR 59 ml/min 11/10/19 09:06 BUN/Creatinine Ratio 20 % 11/10/19 09:06 Glucose 115 mg/dL (65-100) H 11/10/19 09:06 POC Glucose 179 (70-105) H 11/11/19 22:11 Lactic Acid 0.60 mmol/L (0.7-2.0) L 11/09/19 00:35 Calcium 8.1 mg/dL (8.4-10.2) L 11/10/19 09:06 Magnesium 2.20 mg/dL (1.7-2.3) 11/08/19 21:10 Ferritin 339.2 ng/mL (13.0-400.0) 11/10/19 09:06 Total Bilirubin 0.30 mg/dL (0.1-1.2) 11/08/19 18:05 AST 34 units/L (5-40) 11/08/19 18:05 ALT 21 units/L (7-56) 11/08/19 18:05 Alkaline Phosphatase 44 units/L (35-129) 11/08/19 18:05 Lactate Dehydrogenase 486 units/L (91-180) H 11/10/19 09:06 Total Creatine Kinase 199 units/L (30-135) H 11/08/19 21:10 Troponin T < 0.010 ng/mL (0.00-0.029) 11/08/19 18:05 C-Reactive Protein 4.40 mg/dL (0.00-1.30) H 11/10/19 09:06 Total Protein 7.7 g/dL (6.3-8.2) 11/08/19 18:05 Albumin 4.0 g/dL (3.9-5) 11/08/19 18:05 Albumin/Globulin Ratio 1.1 % 11/08/19 18:05 Procalcitonin 0.06 ng/mL (<0.15) 11/09/19 16:39 TSH 0.759 mlU/mL (0.270-4.200) 11/08/19 21:10 Urine Color Yellow (Yellow) 11/08/19 Unknown Urine Turbidity Slightly-cloudy (Clear) 11/08/19 Unknown Urine pH 5.0 (5.0-7.0) 11/08/19 Unknown Ur Specific [place] 1.020 (1.003-1.030) 11/08/19 Unknown Urine Protein >500 mg/dL (Negative) 11/08/19 Unknown Urine Glucose (UA) Neg mg/dL (Negative) 11/08/19 Unknown Urine Ketones Tr mg/dL (Negative) 11/08/19 Unknown Urine Blood Neg (Negative) 11/08/19 Unknown Urine Nitrite Neg (Negative) 11/08/19 Unknown Urine Bilirubin Neg (Negative) 11/08/19 Unknown Urine Urobilinogen < 2.0 mg/dL (<2.0) 11/08/19 Unknown Ur Leukocyte Esterase Neg (Negative) 11/08/19 Unknown Urine WBC (Auto) 6.0 /HPF (0.0-6.0) 11/08/19 Unknown Urine RBC (Auto) 11.0 /HPF (0.0-6.0) 11/08/19 Unknown U Epithel Cells (Auto) 1.0 /HPF (0-13.0) 11/08/19 Unknown Urine Bacteria (Auto) 4+ /HPF (Negative) 11/08/19 Unknown Urine Mucus Few /HPF 11/08/19 Unknown Urine Yeast (Budding) 2+ /HPF 11/08/19 Unknown Nasal Screen MRSA (PCR) Negative (Negative) 11/11/19 Unknown Salicylates < 0.3 mg/dL (2.8-20.0) L 11/08/19 21:10 Acetaminophen < 5.0 ug/mL (10.0-30.0) L 11/08/19 21:10 Coronavirus (PCR) Positive (Negative) A 11/08/19 Unknown Blood Type A POSITIVE 11/09/19 01:30 Antibody Screen Negative 11/09/19 01:30 Microbiology: Microbiology 11/08/19 18:05 Peripheral/Venous Blood Culture - Preliminary NO GROWTH AFTER 72 HOURS 11/08/19 18:05 Peripheral/Venous Blood Culture - Preliminary NO GROWTH AFTER 72 HOURS 11/08/19 Unknown Urine,Clean Catch Urine Culture - Preliminary Enterococcus Faecalis [place]/IV: Voiding Method External Female Catheter IV Catheter Type [Left Hand] INT / Saline Lock Active Medications - Current Medications Current Medications: Generic Name Dose Route Start Last Admin Trade Name Freq PRN Reason Stop Dose Admin Acetaminophen 650 mg 11/09/19 06:32 11/12/19 05:47 Tylenol PO 650 mg Q4H PRN Administration Fever >101 Albuterol 2.5 mg 11/10/19 11:00 Proventil IH Q3HRT PRN Shortness Of Breath Amoxicillin 500 mg 11/11/19 22:00 11/12/19 05:47 Trimox PO 500 mg Q8HR HAKAN Administration Ascorbic Acid 1,000 mg 11/09/19 22:00 11/11/19 21:51 Vitamin C PO 1,000 mg BID HAKAN Administration Atorvastatin Calcium 20 mg 11/10/19 10:00 11/11/19 10:11 Lipitor PO 20 mg DAILY HAKAN Administration Carvedilol 12.5 mg 11/10/19 10:00 11/11/19 23:21 Coreg PO 12.5 mg BID HAKAN Administration Dexamethasone 6 mg 11/10/19 10:00 11/11/19 10:12 Decadron PO 11/18/19 10:01 6 mg Q24HR HAKAN Administration Folic Acid 2 mg 11/10/19 10:00 11/11/19 10:11 Folvite PO 2 mg QDAY HAKAN Administration Furosemide 40 mg 11/10/19 10:00 11/11/19 10:13 Lasix PO 40 mg QDAY HAKAN Administration Heparin Sodium (Porcine) 5,000 unit 11/09/19 22:00 11/12/19 05:47 Heparin SUB-Q 5,000 unit Q8HR HAKAN Administration Hydralazine HCl 10 mg 11/09/19 19:45 11/12/19 05:47 Apresoline IV 10 mg Q3H PRN Administration HTN SYS>160 Hydralazine HCl 50 mg 11/10/19 14:00 11/11/19 21:51 Apresoline PO 50 mg TID HAKAN Administration Insulin Human Lispro 0 unit 11/11/19 07:30 11/11/19 23:20 Humalog SUB-Q 1 unit ACHS HAKAN Administration Protocol Linagliptin 5 mg 11/10/19 10:00 11/11/19 10:14 Tradjenta PO 5 mg QDAY HAKAN Administration Metformin HCl 1,000 mg 11/10/19 10:00 11/11/19 10:11 Glucophage PO 1,000 mg 1000 HAKAN Administration Methotrexate 5 mg 11/10/19 12:00 11/10/19 16:35 Methotrexate (Dose Weekly Only) PO 5 mg Fr@1000 HAKNA Administration Multivitamins/Minerals 1 each 11/10/19 10:00 11/11/19 21:52 Caltrate Plus PO 1 each BID HAKAN Administration Nifedipine 60 mg 11/10/19 10:00 11/11/19 10:12 Procardia Xl PO 60 mg DAILY HAKAN Administration Ondansetron HCl 4 mg 11/09/19 06:34 Zofran IV Q4H PRN Nausea And Vomiting Pantoprazole Sodium 40 mg 11/10/19 10:00 11/11/19 21:52 Protonix PO 40 mg BID HAKAN Administration Potassium Chloride 8 meq 11/10/19 10:00 11/11/19 12:53 Klor-Con 8 PO 8 meq DAILY HAKAN Administration Zinc Sulfate 220 mg 11/09/19 22:00 11/11/19 21:51 Zinc Sulfate PO 220 mg BID HAKAN Administration Nutrition/Malnutrition Assess - Dietary Evaluation Nutrition/Malnutrition Findings: Nutrition Notes Start: 11/10/19 09:21 Freq: Status: Active Protocol: Document 11/10/19 09:21 LM (Rec: 11/10/19 09:30 LM [id number]) Nutrition Notes Need for Assessment generated from: MD Order Initial or Follow up Brief Note Current Diagnosis Diabetes,Hypertension,Heart Failure,Hyperlipidemia Other Pertinent Diagnosis COVID-19 (+), pneu Current Diet cardiac Labs/Tests Reviewed Pertinent Medications Reviewed Height 5 ft 2 in Weight 67.3 kg [place] Body Weight (kg) 50.00 BMI 27.1 Weight Status Overweight Subjective/Other Information MD consult for TF. Spoke with pt over the phone. Pt has no problem eating and ate breakfast this AM. Pt denied any wt loss. Pt does not need TF. RN stated consult likely a mistake. Nutrition Intervention Revisit per MD consult or patient Sign Off request:
[2019-11-12] MEDS: INSULIN LISPRO 100 UNIT/ML SUB-Q SCH ×4 (08:13→23:37)
[2019-11-12 08:15] LABS: Hematocrit 32.5 % (30.3-42.9); Hemoglobin 10.6 gm/dl (10.1-14.3); Mean Corpuscular HGB Conc 33 % (30-34); Mean Corpuscular Volume 89 fl (79-97); Platelet Count 199 K/mm3 (140-440); Red Blood Count 3.66 M/mm3 (3.65-5.03); Red Cell Distribution Width 17.2 % (13.2-15.2)
[2019-11-12 08:34] LABS: C-Reactive Protein 5.6 mg/dL (0.00-1.30); Calcium 7.9 mg/dL (8.4-10.2)
[2019-11-12] MEDS: CALCIUM CARB/VIT D3/MINERALS 600 MG/800 UNITS TAB PO SCH ×2 (10:30→22:40)
[2019-11-12] MEDS: ASCORBIC ACID 500 MG TAB PO SCH ×2 (10:30→22:39)
[2019-11-12] MEDS: ZINC SULFATE 220 MG CAP PO SCH ×2 (10:30→22:40)
[2019-11-12] MEDS: metFORMIN 500 MG TAB PO SCH (10:30)
[2019-11-12] MEDS: FUROSEMIDE 40 MG TAB PO SCH (10:31)
[2019-11-12] MEDS: PANTOPRAZOLE 40 MG TAB PO SCH ×2 (10:31→22:39)
[2019-11-12] MEDS: hydrALAZINE 25 MG TAB PO SCH ×3 (10:33→22:39)
[2019-11-12] MEDS: carvediloL 12.5 MG TAB PO SCH ×2 (10:39→22:39)
[2019-11-12] MEDS: POTASSIUM CHLORIDE ER 8 MEQ TAB PO SCH (10:39)
[2019-11-12] MEDS: NIFEdipine XL 60 MG TAB PO SCH (10:39)
[2019-11-12] MEDS: FOLIC ACID 1 MG TAB PO SCH (10:43)
[2019-11-12] MEDS: DEXAMETHASONE 4 MG TAB PO SCH (10:57)
[2019-11-12] MEDS: LINAGLIPTIN 5 MG TAB PO SCH (10:57)
[2019-11-12 16:20] LABS: ABG Base Excess 1.9 mmol/L (-2.0-3.0); ABG Methemoglobin 0.7 % (0.0-1.5); ABG Oxygen Saturation 87.1 % (95.0-99.0); ABG PCO2 33.6 mm Hg; ABG PH 7.488 pH Units (7.350-7.450); ABG PO2 47.7 mm Hg (80.0-90.0)
[2019-11-12] MEDS: APIXABAN 5 MG TAB PO SCH (22:39)
[2019-11-12] MEDS ORDERED: MELATONIN 5 MG TAB PO ONE (22:45)
[2019-11-13] MEDS: AMOXICILLIN 500 MG CAP PO SCH ×3 (06:31→22:56)
[2019-11-13] MEDS: ACETAMINOPHEN 325 MG TAB PO PRN (06:31)
[2019-11-13] MEDS: INSULIN LISPRO 100 UNIT/ML SUB-Q SCH ×4 (08:37→22:57)
[2019-11-13] MEDS: hydrALAZINE 25 MG TAB PO SCH ×3 (08:43→23:00)
[2019-11-13] MEDS: NIFEdipine XL 60 MG TAB PO SCH (12:16)
[2019-11-13] MEDS: carvediloL 12.5 MG TAB PO SCH ×2 (12:16→22:56)
[2019-11-13] MEDS: APIXABAN 5 MG TAB PO SCH ×2 (12:16→22:56)
[2019-11-13] MEDS: ASCORBIC ACID 500 MG TAB PO SCH ×2 (12:17→22:56)
[2019-11-13] MEDS: metFORMIN 500 MG TAB PO SCH (12:19)
[2019-11-13] MEDS: DEXAMETHASONE 4 MG TAB PO SCH (12:19)
[2019-11-13] MEDS: ZINC SULFATE 220 MG CAP PO SCH ×2 (12:20→22:56)
[2019-11-13] MEDS: CALCIUM CARB/VIT D3/MINERALS 600 MG/800 UNITS TAB PO SCH ×2 (12:21→22:56)
[2019-11-13] MEDS: POTASSIUM CHLORIDE ER 8 MEQ TAB PO SCH (12:21)
[2019-11-13] MEDS: FOLIC ACID 1 MG TAB PO SCH (12:21)
[2019-11-13] MEDS: LINAGLIPTIN 5 MG TAB PO SCH (12:24)
[2019-11-13] MEDS: PANTOPRAZOLE 40 MG TAB PO SCH ×2 (12:24→22:56)
[2019-11-13] MEDS: FUROSEMIDE 40 MG TAB PO SCH (12:25)
--- NOTE | 2019-11-13 13:20 | Progress Note ---
Assessment and Plan Cultures: Urine culture with Enterococcus faecalis 11/08/2019 blood culture: No growth Assessment: 88-year-old female with history of HTN, CHF, pancreatic cysts, admitted on 11/08/2019 due to a week history of fever, chills shortness of breath, dry cough and malaise: #Sepsis: present on admission with fever, tachycardia; source COVID-19 infection #COVID-19 pneumonia with acute hypoxic respiratory failure: on steroids. #Bacteriuria: UA with only mild pyuria, however with recurrent fever will treat enterococcus in urine with amoxicillin. #Chronic pancreatic cysts: ? worsening on CT, asymptomatic Recommendations: weaned off oxygen monitor daily CRP, d-dimer, ferritin on anticoagulation with apixaban Continue dexamethasone 6 mg IV/PO qday x 10 days total Continue amoxicillin 500 mg every 8 hours to complete 3 days for UTI Nathan Swenson MD, FACP [facility] ([facility] C: [phone] O: [phone] F: [phone] Subjective Date of service: 11/13/19 Interval history: D-dimer up to 1152. Patient febrile. Weaned off oxygen, states she completed the walk test. Objective - Exam Narrative Exam: Physical Exam (reviewed in chart due to PPE conservation) Constitutional: limited due to PPE conservation strategy Head, Ears, Nose: limited due to PPE conservation strategy Eyes: limited due to PPE conservation strategy Neck: limited due to PPE conservation strategy Oral: limited due to PPE conservation strategy Cardiovascular: limited due to PPE conservation strategy Respiratory: limited due to PPE conservation strategy GI: limited due to PPE conservation strategy Musculoskeletal: limited due to PPE conservation strategy Skin: limited due to PPE conservation strategy Hem/Lymphatic: limited due to PPE conservation strategy Psych: limited due to PPE conservation strategy Neurological: limited due to PPE conservation strategy - Constitutional Vitals: Vital Signs Temp Pulse Resp BP Pulse Ox 98.2 F 74 19 144/65 90 11/13/19 11:37 11/13/19 12:16 11/13/19 11:37 11/13/19 12:16 11/13/19 12:13 Temperature -Last 24 Hours Temperature 98.2 F Temperature 101.4 F Temperature 102.8 F Temperature 98.4 F Temperature 97.7 F - Labs CBC & Chem 7: 11/12/19 07:31 11/13/19 09:34 Labs: Abnormal lab results 11/12/19 11/12/19 11/12/19 Range/Units 16:09 17:52 21:35 ABG pH 7.488 H (7.350-7.450) pH Units ABG pO2 47.7 L (80.0-90.0) mm Hg ABG O2 Saturation 87.1 L (95.0-99.0) % ABG Hemoglobin 11.1 L (12.0-16.0) gm/dl Oxyhemoglobin 85.3 L (95.0-99.0) % Sodium (137-145) mmol/L Chloride (98-107) mmol/L Carbon Dioxide (22-30) mmol/L BUN (7-17) mg/dL Glucose (65-100) mg/dL POC Glucose 213 H 195 H (70-105) Calcium (8.4-10.2) mg/dL 11/13/19 11/13/19 11/13/19 Range/Units 08:09 09:34 11:51 ABG pH (7.350-7.450) pH Units ABG pO2 (80.0-90.0) mm Hg ABG O2 Saturation (95.0-99.0) % ABG Hemoglobin (12.0-16.0) gm/dl Oxyhemoglobin (95.0-99.0) % Sodium 131 L (137-145) mmol/L Chloride 96.4 L (98-107) mmol/L Carbon Dioxide 21 L (22-30) mmol/L BUN 24 H (7-17) mg/dL Glucose 214 H (65-100) mg/dL POC Glucose 139 H 196 H (70-105) Calcium 8.0 L (8.4-10.2) mg/dL
--- NOTE | 2019-11-13 13:55 | Discharge Summary ---
Providers - Providers Date of Admission: 11/09/19 00:44 Attending physician: NIK PEGUERO MD 11/09/19 00:43 Consult to Physician [CONS] Urgent Comment: Consulting Provider: SOO DE LEON Physician Instructions: Reason For Exam: sirs, covid 11/09/19 11:18 Occupational Therapy Evaluate and Treat [CONS] Routine Comment: Reason For Exam: ataxia Physical Therapy Evaluation and Treat [CONS] Routine Comment: Reason For Exam: ataxia 11/09/19 15:37 Consult to Dietitian/Nutrition [CONS] Routine Physician Instructions: Reason For Exam: Reason for Consult: Write/Manage Tube Feeding Primary care physician: CERAMIC SPRAYER Hospitalization Reason for admission: COVID-19 Condition: Stable Hospital course: 88-year-old female. Her primary care doctor is Dr. Kade Puente. Her past medical history includes diabetes, hypertension high cholesterol, previously she was on methotrexate. She appears to have a history of rheumatoid arthritis as well. She also has a history of pancreatic mass, and diverticular bleed. She is brought to the hospital today for fever and weakness. Contrary to what is documented, there is no concern for altered mental status. As per discussion with the patient's daughter, the patient has been weak, having chills and fevers, malaise and fatigue. There is a dry cough. There is no nausea, vomiting or diarrhea. There is no urinary frequency. There is no exposure to COVID-19 that the patient's daughter is aware of. The patient herself denies physical pain. She states that she feels weak. She denies headache, neck pain, chest pain, abdominal pain, shortness of breath, urinary symptoms. -: days(s) (Symptoms started on Wednesday as per collateral information from daughter. 11/10: Restarted cefepime yesterday due to a fever. Patient is stable this morning. Continue current management. Due to her lethargy requiring physical therapy to continue to ambulate her. We will continue to monitor oxygen level on room air with activity daily. Blood pressure is improved and stable. Continue to await culture from urinalysis. 11/11: Still with repeated fever, GNR in urine- Efecalis. Awaiting ID, Antibiotics adjusted by ID, I have discussed with nursing staff to ensure patient has excersise oxygen check daily and use PT if there is concern about gait. I am informed that the patient is lethergic. Anticipate discharge if patient is fever free after 24-48hrs 11/12: Patient today had a low-grade temperature. She otherwise reports that she would like to go home. Grandchildren had called to state that the patient lost her daughter. She is clinically stable with saturation in the 90% she will need home health and physical therapy outpatient. Patient is unaware of the of her daughter. And will be going home with her granddaughter. Patient was treated with dexamethasone and will complete 10 days therapy and also amoxicillin or UTI. Sepsis secondary to COVID 19 COVID19 Generalized malasie secondary to COVID 19 VIRAL PNEUMONIA Chronic Pancreatic Cysts Bacteriuria acute cystitis Hypertensive urgency-improved Hyponatremia Disposition: DC/TX-06 HOME UNDER HOME [facility] Time spent for discharge: 35 minutes Core Measure Documentation - Palliative Care Palliative Care/ Comfort Measures: Not Applicable - Core Measures Any of the following diagnoses?: none Exam - Physical Exam Narrative exam: VITAL SIGNS: Reviewed. GENERAL: The patient appears normally developed, much more upbeat and awake. Vital signs as documented. HEAD: No signs of head trauma. EYES: Pupils are equal. Extraocular motions intact. EARS: Hearing grossly intact. MOUTH: Oropharynx is normal. NECK: No adenopathy, no JVD. CHEST: Chest with clear breath sounds bilaterally. No wheezes, rales, or rhonchi. CARDIAC: Regular rate and rhythm. S1 and S2, without murmurs, gallops, or rubs. VASCULAR: No Edema. Peripheral pulses normal and equal in all extremities. ABDOMEN: Soft, non tender and non distended. No rebound or guarding, and no masses palpated. Bowel Sounds normal. MUSCULOSKELETAL: Good range of motion of all major joints. Extremities without clubbing, cyanosis or edema. NEUROLOGIC EXAM: Alert and oriented x 3 No focal sensory or strength deficits. Speech normal. Follows commands. PSYCHIATRIC: Mood normal. SKIN: Mild ecchymotic changes on the right upper extremity detail exam as documented in skin assessment - Constitutional Vitals: Temp Pulse Resp BP Pulse Ox 98.2 F 74 19 144/65 90 11/13/19 11:37 11/13/19 12:16 11/13/19 11:37 11/13/19 12:16 11/13/19 12:13 Plan Activity: advance as tolerated, fall precautions Diet: low fat Special Instructions: record daily weights, physical therapy, occupational therapy Additional Instructions: Continue to use the mask while at home and in space occupied with other people continue social distancing as recommended. Follow up with: PRIMARY CARE, [Primary Care Provider] - 3-5 Days TYSON BERKOWITZ MD [Staff Physician] - 14 Days Prescriptions: dexAMETHasone [Decadron] 6 mg PO Q24HR #9 tablet Apixaban [Eliquis] 2.5 mg PO DAILY #30 tablet Amoxicillin [Trimox CAP] 500 mg PO Q8HR #9 capsule Ascorbic Acid [Vitamin C] 1,000 mg PO BID #30 tablet
--- NOTE | 2019-11-13 22:08 | Cat Scan Report ---
CTA CHEST WITH IV CONTRAST INDICATION: Shortness of breath, possible P.E. Omnipaque 350 / 100ml's was used for this exam.. TECHNIQUE: Axial CT images were obtained through the chest after injection of 100 cc Omnipaque 350 IV contrast. 3 plane MIP reconstructions were produced. All CT scans at this location are performed using CT dose reduction for ALARA by means of automated exposure control. COMPARISON: CT chest 11/08/2019 FINDINGS: PULMONARY ARTERIES: No pulmonary emboli. Dilated right pulmonary artery measuring 2.7 cm characterist ic for chronic pulmonary arterial hypertension. Left pulmonary artery is normal in caliber measuring 2 cm THORACIC AORTA: No acute abnormality. HEART: Normal. CORONARY ARTERIES: No significant calcification. PLEURA: No pleural effusion. No pneumothorax. LYMPH NODES: No significant adenopathy. LUNGS: Multifocal groundglass and streaky parenchymal disease is seen within both upper and lower lob es which has progressed characteristic for multifocal pneumonia. ADDITIONAL FINDINGS: None. UPPER ABDOMEN: Large multiloculated cystic pancreatic lesion, unchanged. SKELETAL STRUCTURES: No significant osseous abnormality. IMPRESSION: 1. No CT evidence for pulmonary embolism. 2. Worsening multifocal bilateral bronchopneumonia.Consider atypical etiology and Covid COVID testing 3. Large multiloculated pancreatic cystic mass, unchanged Signer Name: Javi Pedraza MD Signed: 11/13/2019 10:04 PM Workstation Name: [id number]
[2019-11-14 05:55] LABS: C-Reactive Protein 14.7 mg/dL (0.00-1.30)
[2019-11-14] MEDS: AMOXICILLIN 500 MG CAP PO SCH ×2 (06:32→14:54)
[2019-11-14] MEDS: INSULIN LISPRO 100 UNIT/ML SUB-Q SCH ×2 (08:38→13:00)
--- NOTE | 2019-11-14 09:05 | Discharge Summary ---
Providers - Providers Date of Admission: 11/09/19 00:44 Date of discharge: 11/14/19 Attending physician: NICOLE MORAN 11/09/19 00:43 Consult to Physician [CONS] Urgent Comment: Consulting Provider: SOO ED LEON Physician Instructions: Reason For Exam: sirs, covid 11/09/19 11:18 Occupational Therapy Evaluate and Treat [CONS] Routine Comment: Reason For Exam: ataxia Physical Therapy Evaluation and Treat [CONS] Routine Comment: Reason For Exam: ataxia 11/09/19 15:37 Consult to Dietitian/Nutrition [CONS] Routine Physician Instructions: Reason For Exam: Reason for Consult: Write/Manage Tube Feeding Primary care physician: WARDROBE MISTRESS Hospitalization Reason for admission: COVID pna Condition: Stable Disposition: DC/TX-06 HOME UNDER HOME [facility] Core Measure Documentation - Palliative Care Palliative Care/ Comfort Measures: Not Applicable Exam - Constitutional Vitals: Temp Pulse Resp BP Pulse Ox 99.6 F 72 20 155/57 94 11/14/19 06:00 11/14/19 06:00 11/14/19 06:00 11/14/19 06:00 11/14/19 06:00 Plan Follow up with: TYSON BERKOWITZ MD [Staff Physician] - 14 Days PRIMARY CARE, [Primary Care Provider] - 3-5 Days Prescriptions: dexAMETHasone [Decadron] 6 mg PO Q24HR #9 tablet Apixaban [Eliquis] 2.5 mg PO DAILY #30 tablet Amoxicillin [Trimox CAP] 500 mg PO Q8HR #9 capsule Ascorbic Acid [Vitamin C] 1,000 mg PO BID #30 tablet
--- NOTE | 2019-11-14 09:07 | Progress Note ---
Assessment and Plan Assessment and plan: Sepsis secondary to COVID 19 COVID19 Generalized malasie secondary to COVID 19 VIRAL PNEUMONIA Chronic Pancreatic Cysts Bacteriuria acute cystitis Hypertensive urgency-improved Hyponatremia 11/10: Restarted cefepime yesterday due to a fever. Patient is stable this morning. Continue current management. Due to her lethargy requiring physical therapy to continue to ambulate her. We will continue to monitor oxygen level on room air with activity daily. Blood pressure is improved and stable. Continue to await culture from urinalysis. 11/11: Still with repeated fever, GNR in urine- Efecalis. Awaiting ID, Antibiotics adjusted by ID, I have discussed with nursing staff to ensure patient has excersise oxygen check daily and use PT if there is concern about gait. I am informed that the patient is lethergic. Anticipate discharge if patient is fever free after 24-48hrs 11/12: Patient today had a low-grade temperature. She otherwise reports that she would like to go home. Grandchildren had called to state that the patient lost her daughter. She is clinically stable with saturation in the 90% she will need home health and physical therapy outpatient. Patient is unaware of the of her daughter. And will be going home with her granddaughter. Patient was treat ed with dexamethasone and will complete 10 days therapy and also amoxicillin or UTI. 11/14/2019. Patient's last fever was 7 AM on 11/12. Inflammatory marker d-dimer still elevated. Check exercise pulse oximetry today. Continue dexamethasone and amoxicillin. History Interval history: 88-year-old female with past medical history includes diabetes, hypertension high cholesterol, diverticular bleed, rheumatoid arthritis previously on methotrexate and pancreatic mass was admitted to the hospital for fever and weakness. The patient was admitted with diagnosis of sepsis and later found to have COVID-19 viral pneumonia. Hospitalist Physical - Constitutional Vitals: Temp Pulse Resp BP Pulse Ox 99.6 F 72 20 155/57 94 11/14/19 06:00 11/14/19 06:00 11/14/19 06:00 11/14/19 06:00 11/14/19 06:00 General appearance: Present: no acute distress - EENT Eyes: Present: PERRL, EOM intact ENT: hearing intact, clear oral mucosa, dentition normal - Neck Neck: Present: supple, normal ROM - Respiratory Respiratory effort: normal Respiratory: bilateral: CTA - Cardiovascular Rhythm: regular Heart Sounds: Present: S1 & S2. Absent: gallop, rub - Extremities Extremities: no ischemia, No edema, Full ROM - Abdominal General gastrointestinal: soft, non-tender, non-distended, normal bowel sounds - Integumentary Integumentary: Present: clear, warm, dry - Neurologic Neurologic: CNII-XII intact, moves all extremities HEART Score - HEART Score Troponin: Troponin T < 0.010 ng/mL (0.00-0.029) 11/08/19 18:05 Results - Labs CBC & Chem 7: 11/12/19 07:31 11/13/19 09:34 Labs: Laboratory Last Values WBC 9.4 K/mm3 (4.5-11.0) 11/12/19 07:31 RBC 3.66 M/mm3 (3.65-5.03) 11/12/19 07:31 Hgb 10.6 gm/dl (10.1-14.3) 11/12/19 07:31 Hct 32.5 % (30.3-42.9) 11/12/19 07:31 MCV 89 fl (79-97) 11/12/19 07:31 MCH 29 pg (28-32) 11/12/19 07:31 MCHC 33 % (30-34) 11/12/19 07:31 RDW 17.2 % (13.2-15.2) H 11/12/19 07:31 Plt Count 199 K/mm3 (140-440) 11/12/19 07:31 Lymph % (Auto) 13.4 % (13.4-35.0) 11/08/19 18:05 Tama % (Auto) 10.4 % (0.0-7.3) H 11/08/19 18:05 Eos % (Auto) 0.0 % (0.0-4.3) 11/08/19 18:05 Baso % (Auto) 0.6 % (0.0-1.8) 11/08/19 18:05 Lymph # 0.6 K/mm3 (1.2-5.4) L 11/08/19 18:05 Tama # 0.5 K/mm3 (0.0-0.8) 11/08/19 18:05 Eos # 0.0 K/mm3 (0.0-0.4) 11/08/19 18:05 Baso # 0.0 K/mm3 (0.0-0.1) 11/08/19 18:05 Seg Neutrophils % 75.6 % (40.0-70.0) H 11/08/19 18:05 Seg Neutrophils # 3.6 K/mm3 (1.8-7.7) 11/08/19 18:05 D-Dimer 1013.92 ng/mlDDU (0-234) H 11/14/19 04:49 ABG pH 7.488 pH Units (7.350-7.450) H 11/12/19 16:09 ABG pCO2 33.6 mm Hg 11/12/19 16:09 ABG pO2 47.7 mm Hg (80.0-90.0) L 11/12/19 16:09 ABG HCO3 25.0 mmol/L (20.0-26.0) 11/12/19 16:09 ABG O2 Saturation 87.1 % (95.0-99.0) L 11/12/19 16:09 ABG O2 Content 13.3 (0.0-44) 11/12/19 16:09 ABG Base Excess 1.9 mmol/L (-2.0-3.0) 11/12/19 16:09 ABG Hemoglobin 11.1 gm/dl (12.0-16.0) L 11/12/19 16:09 ABG Carboxyhemoglobin 1.3 % (0.0-5.0) 11/12/19 16:09 ABG Methemoglobin 0.7 % (0.0-1.5) 11/12/19 16:09 Oxyhemoglobin 85.3 % (95.0-99.0) L 11/12/19 16:09 FiO2 21 % 11/12/19 16:09 Sodium 131 mmol/L (137-145) L 11/13/19 09:34 Potassium 3.9 mmol/L (3.6-5.0) 11/13/19 09:34 Chloride 96.4 mmol/L (98-107) L 11/13/19 09:34 Carbon Dioxide 21 mmol/L (22-30) L 11/13/19 09:34 Anion Gap 18 mmol/L 11/13/19 09:34 BUN 24 mg/dL (7-17) H 11/13/19 09:34 Creatinine 1.0 mg/dL (0.7-1.2) 11/13/19 09:34 Estimated GFR 53 ml/min 11/13/19 09:34 BUN/Creatinine Ratio 24 % 11/13/19 09:34 Glucose 214 mg/dL (65-100) H 11/13/19 09:34 POC Glucose 132 (70-105) H 11/14/19 08:49 Lactic Acid 0.60 mmol/L (0.7-2.0) L 11/09/19 00:35 Calcium 8.0 mg/dL (8.4-10.2) L 11/13/19 09:34 Magnesium 2.20 mg/dL (1.7-2.3) 11/08/19 21:10 Ferritin 330.1 ng/mL (13.0-400.0) 11/14/19 04:49 Total Bilirubin 0.30 mg/dL (0.1-1.2) 11/08/19 18:05 AST 34 units/L (5-40) 11/08/19 18:05 ALT 21 units/L (7-56) 11/08/19 18:05 Alkaline Phosphatase 44 units/L (35-129) 11/08/19 18:05 Lactate Dehydrogenase 298 units/L (91-180) H 11/14/19 04:49 Total Creatine Kinase 199 units/L (30-135) H 11/08/19 21:10 Troponin T < 0.010 ng/mL (0.00-0.029) 11/08/19 18:05 C-Reactive Protein 14.70 mg/dL (0.00-1.30) H 11/14/19 04:49 Total Protein 7.7 g/dL (6.3-8.2) 11/08/19 18:05 Albumin 4.0 g/dL (3.9-5) 11/08/19 18:05 Albumin/Globulin Ratio 1.1 % 11/08/19 18:05 Procalcitonin 0.06 ng/mL (<0.15) 11/09/19 16:39 TSH 0.759 mlU/mL (0.270-4.200) 11/08/19 21:10 Urine Color Yellow (Yellow) 11/08/19 Unknown Urine Turbidity Slightly-cloudy (Clear) 11/08/19 Unknown Urine pH 5.0 (5.0-7.0) 11/08/19 Unknown Ur Specific [place] 1.020 (1.003-1.030) 11/08/19 Unknown Urine Protein >500 mg/dL (Negative) 11/08/19 Unknown Urine Glucose (UA) Neg mg/dL (Negative) 11/08/19 Unknown Urine Ketones Tr mg/dL (Negative) 11/08/19 Unknown Urine Blood Neg (Negative) 11/08/19 Unknown Urine Nitrite Neg (Negative) 11/08/19 Unknown Urine Bilirubin Neg (Negative) 11/08/19 Unknown Urine Urobilinogen < 2.0 mg/dL (<2.0) 11/08/19 Unknown Ur Leukocyte Esterase Neg (Negative) 11/08/19 Unknown Urine WBC (Auto) 6.0 /HPF (0.0-6.0) 11/08/19 Unknown Urine RBC (Auto) 11.0 /HPF (0.0-6.0) 11/08/19 Unknown U Epithel Cells (Auto) 1.0 /HPF (0-13.0) 11/08/19 Unknown Urine Bacteria (Auto) 4+ /HPF (Negative) 11/08/19 Unknown Urine Mucus Few /HPF 11/08/19 Unknown Urine Yeast (Budding) 2+ /HPF 11/08/19 Unknown Nasal Screen MRSA (PCR) Negative (Negative) 11/11/19 Unknown Salicylates < 0.3 mg/dL (2.8-20.0) L 11/08/19 21:10 Acetaminophen < 5.0 ug/mL (10.0-30.0) L 11/08/19 21:10 Coronavirus (PCR) Positive (Negative) A 11/08/19 Unknown Blood Type A POSITIVE 11/09/19 01:30 Antibody Screen Negative 11/09/19 01:30 Microbiology: Microbiology 11/08/19 18:05 Peripheral/Venous Blood Culture - Final NO GROWTH AFTER 5 DAYS 11/08/19 18:05 Peripheral/Venous Blood Culture - Final NO GROWTH AFTER 5 DAYS Osuna/IV: Voiding Method Incontinent IV Catheter Type [Left INT / Saline Lock Antecubital] IV Catheter Type [Left Hand] INT / Saline Lock Active Medications - Current Medications Current Medications: Generic Name Dose Route Start Last Admin Trade Name Freq PRN Reason Stop Dose Admin Acetaminophen 650 mg 11/09/19 06:32 11/13/19 06:31 Tylenol PO 650 mg Q4H PRN Administration Fever >101 Albuterol 2.5 mg 11/10/19 11:00 Proventil IH Q3HRT PRN Shortness Of Breath Amoxicillin 500 mg 11/11/19 22:00 11/14/19 06:32 Trimox PO 11/14/19 14:01 500 mg Q8HR HAKAN Administration Apixaban 5 mg 11/12/19 22:00 11/13/19 22:56 Eliquis PO 5 mg Q12HR HAKAN Administration Protocol Ascorbic Acid 1,000 mg 11/09/19 22:00 11/13/19 22:56 Vitamin C PO 1,000 mg BID HAKAN Administration Atorvastatin Calcium 20 mg 11/10/19 10:00 11/13/19 12:23 Lipitor PO 20 mg DAILY HAKAN Administration Carvedilol 12.5 mg 11/10/19 10:00 11/13/19 22:56 Coreg PO 12.5 mg BID HAKAN Administration Dexamethasone 6 mg 11/10/19 10:00 11/13/19 12:19 Decadron PO 11/18/19 10:01 6 mg Q24HR HAKAN Administration Folic Acid 2 mg 11/10/19 10:00 11/13/19 12:21 Folvite PO 2 mg QDAY HAKAN Administration Furosemide 40 mg 11/10/19 10:00 11/13/19 12:25 Lasix PO 40 mg QDAY HAKAN Administration Hydralazine HCl 10 mg 11/09/19 19:45 11/12/19 05:47 Apresoline IV 10 mg Q3H PRN Administration HTN SYS>160 Hydralazine HCl 50 mg 11/10/19 14:00 11/13/19 23:00 Apresoline PO 50 mg TID HAKAN Administration Insulin Human Lispro 0 unit 11/11/19 07:30 11/14/19 08:38 Humalog SUB-Q Not Given ACHS HAKAN Protocol Linagliptin 5 mg 11/10/19 10:00 11/13/19 12:24 Tradjenta PO 5 mg QDAY HAKAN Administration Metformin HCl 1,000 mg 11/10/19 10:00 11/13/19 12:19 Glucophage PO 1,000 mg 1000 HAKAN Administration Methotrexate 5 mg 11/10/19 12:00 11/10/19 16:35 Methotrexate (Dose Weekly Only) PO 5 mg Fr@1000 HAKAN Administration Multivitamins/Minerals 1 each 11/10/19 10:00 11/13/19 22:56 Caltrate Plus PO 1 each BID HAKAN Administration Nifedipine 60 mg 11/10/19 10:00 11/13/19 12:16 Procardia Xl PO 60 mg DAILY HAKAN Administration Ondansetron HCl 4 mg 11/09/19 06:34 Zofran IV Q4H PRN Nausea And Vomiting Pantoprazole Sodium 40 mg 11/10/19 10:00 11/13/19 22:56 Protonix PO 40 mg BID HAKAN Administration Potassium Chloride 8 meq 11/10/19 10:00 11/13/19 12:21 Klor-Con 8 PO 8 meq DAILY HAKAN Administration Zinc Sulfate 220 mg 11/09/19 22:00 11/13/19 22:56 Zinc Sulfate PO 220 mg BID HAKAN Administration Nutrition/Malnutrition Assess - Dietary Evaluation Nutrition/Malnutrition Findings: Nutrition Notes Start: 11/10/19 09:21 Freq: Status: Active Protocol: Document 11/10/19 09:21 LM (Rec: 11/10/19 09:30 LM [id number]) Nutrition Notes Need for Assessment generated from: MD Order Initial or Follow up Brief Note Current Diagnosis Diabetes,Hypertension,Heart Failure,Hyperlipidemia Other Pertinent Diagnosis COVID-19 (+), pneu Current Diet cardiac Labs/Tests Reviewed Pertinent Medications Reviewed Height 5 ft 2 in Weight 67.3 kg Luana Body Weight (kg) 50.00 BMI 27.1 Weight Status Overweight Subjective/Other Information MD consult for TF. Spoke with pt over the phone. Pt has no problem eating and ate breakfast this AM. Pt denied any wt loss. Pt does not need TF. RN stated consult likely a mistake. Nutrition Intervention Revisit per MD consult or patient Sign Off request:
[2019-11-14] MEDS: hydrALAZINE 25 MG TAB PO SCH ×2 (10:24→14:54)
[2019-11-14] MEDS: ASCORBIC ACID 500 MG TAB PO SCH (10:25)
[2019-11-14] MEDS: FOLIC ACID 1 MG TAB PO SCH (10:25)
[2019-11-14] MEDS: metFORMIN 500 MG TAB PO SCH (10:26)
[2019-11-14] MEDS: carvediloL 12.5 MG TAB PO SCH (10:26)
[2019-11-14] MEDS: FUROSEMIDE 40 MG TAB PO SCH (10:26)
[2019-11-14] MEDS: POTASSIUM CHLORIDE ER 8 MEQ TAB PO SCH (10:27)
[2019-11-14] MEDS: CALCIUM CARB/VIT D3/MINERALS 600 MG/800 UNITS TAB PO SCH (10:27)
[2019-11-14] MEDS: LINAGLIPTIN 5 MG TAB PO SCH (10:27)
[2019-11-14] MEDS: DEXAMETHASONE 4 MG TAB PO SCH (10:28)
[2019-11-14] MEDS: ZINC SULFATE 220 MG CAP PO SCH (10:33)
[2019-11-14] MEDS: NIFEdipine XL 60 MG TAB PO SCH (10:34)
[2019-11-14] MEDS: APIXABAN 5 MG TAB PO SCH (10:34)
[2019-11-14] MEDS: PANTOPRAZOLE 40 MG TAB PO SCH (11:05)
--- NOTE | 2019-11-14 13:21 | Discharge Summary ---
Providers - Providers Date of Admission: 11/09/19 00:44 Date of discharge: 11/14/19 Attending physician: NICOLE MORAN 11/09/19 00:43 Consult to Physician [CONS] Urgent Comment: Consulting Provider: SOO DE LEON Physician Instructions: Reason For Exam: sirs, covid 11/09/19 11:18 Occupational Therapy Evaluate and Treat [CONS] Routine Comment: Reason For Exam: ataxia Physical Therapy Evaluation and Treat [CONS] Routine Comment: Reason For Exam: ataxia 11/09/19 15:37 Consult to Dietitian/Nutrition [CONS] Routine Physician Instructions: Reason For Exam: Reason for Consult: Write/Manage Tube Feeding Primary care physician: BEAD WRAPPER Hospitalization Reason for admission: covid Condition: Stable Hospital course: 88-year-old female. Her primary care doctor is Dr. Kade Puente. Her past medical history includes diabetes, hypertension high cholesterol, previously she was on methotrexate. She appears to have a history of rheumatoid arthritis as well. She also has a history of pancreatic mass, and diverticular bleed. She is brought to the hospital today for fever and weakness. Contrary to what is documented, there is no concern for altered mental status. As per discussion with the patient's daughter, the patient has been weak, having chills and fevers, malaise and fatigue. There is a dry cough. There is no nausea, vomiting or diarrhea. There is no urinary frequency. There is no exposure to COVID-19 that the patient's daughter is aware of. The patient herself denies physical pain. She states that she feels weak. She denies headache, neck pain, chest pain, abdominal pain, shortness of breath, urinary symptoms. -: days(s) (Symptoms started on Wednesday as per collateral information from daughter. 11/10: Restarted cefepime yesterday due to a fever. Patient is stable this morning. Continue current management. Due to her lethargy requiring physical therapy to continue to ambulate her. We will continue to monitor oxygen level on room air with activity daily. Blood pressure is improved and stable. Continue to await culture from urinalysis. 11/11: Still with repeated fever, GNR in urine- Efecalis. Awaiting ID, Antibiotics adjusted by ID, I have discussed with nursing staff to ensure patient has excersise oxygen check daily and use PT if there is concern about gait. I am informed that the patient is lethergic. Anticipate discharge if patient is fever free after 24-48hrs 11/12: Patient today had a low-grade temperature. She otherwise reports that she would like to go home. Grandchildren had called to state that the patient lost her daughter. She is clinically stable with saturation in the 90% she will need home health and physical therapy outpatient. Patient is unaware of the of her daughter. And will be going home with her granddaughter. Patient was treated with dexamethasone and will complete 10 days therapy and also amoxicillin or UTI. Sepsis secondary to COVID 19 COVID19 Generalized malasie secondary to COVID 19 VIRAL PNEUMONIA Chronic Pancreatic Cysts Bacteriuria acute cystitis Hypertensive urgency-improved Hyponatremia Disposition: [id number]/[place]-06 HOME UNDER HOME [facility] Time spent for discharge: 32 - Discharge Diagnoses (1) COVID-19 Status: Acute (2) Sepsis Status: Acute (3) ARF (acute renal failure) with tubular necrosis Status: Acute (4) HLD (hyperlipidemia) Status: Chronic Qualifiers: Hyperlipidemia type: mixed hyperlipidemia Qualified Code(s): E78.2 - Mixed hyperlipidemia (5) HTN (hypertension) Status: Chronic Qualifiers: Hypertension type: essential hypertension Qualified Code(s): I10 - Essential (primary) hypertension (6) T2DM (type 2 diabetes mellitus) Status: Chronic Qualifiers: Diabetes mellitus rn long term care insulin use: without chcf use Core Measure Documentation - Palliative Care Palliative Care/ Comfort Measures: Not Applicable - Core Measures Any of the following diagnoses?: none Exam - Constitutional Vitals: Temp Pulse Resp BP Pulse Ox 99.6 F 84 20 139/57 94 11/14/19 06:00 11/14/19 10:26 11/14/19 06:00 11/14/19 10:26 11/14/19 10:00 General appearance: Present: no acute distress, well-nourished - EENT Eyes: Present: PERRL ENT: hearing intact, clear oral mucosa - Neck Neck: Present: supple, normal ROM - Respiratory Respiratory effort: normal Respiratory: bilateral: CTA - Cardiovascular Heart Sounds: Present: S1 & S2. Absent: rub, click - Extremities Extremities: pulses symmetrical, No edema Peripheral Pulses: within normal limits - Abdominal General gastrointestinal: Present: soft, non-tender, non-distended, normal bowel sounds Female genitourinary: Present: normal - Integumentary Integumentary: Present: clear, warm, dry - Musculoskeletal Musculoskeletal: gait normal, strength equal bilaterally - Psychiatric Psychiatric: appropriate mood/affect, intact judgment & insight - Neurologic Neurologic: CNII-XII intact, moves all extremities Plan Activity: advance as tolerated Weight Bearing Status: Weight Bear as Tolerated Durable Medical Equipment Needed Upon Discharge: Oxygen Follow up with: TYSON BERKOWITZ MD [Staff Physician] - 14 Days PRIMARY CARE, [Primary Care Provider] - 3-5 Days Prescriptions: dexAMETHasone [Decadron] 6 mg PO Q24HR #9 tablet Apixaban [Eliquis] 2.5 mg PO DAILY #30 tablet Amoxicillin [Trimox CAP] 500 mg PO Q8HR #9 capsule Ascorbic Acid [Vitamin C] 1,000 mg PO BID #30 tablet
--- NOTE | 2019-11-14 14:37 | Progress Note ---
Assessment and Plan Cultures: Urine culture with Enterococcus faecalis 11/08/2019 blood culture: No growth Assessment: 88-year-old female with history of HTN, CHF, pancreatic cysts, admitted on 11/08/2019 due to a week history of fever, chills shortness of breath, dry cough and malaise: #Sepsis: present on admission with fever, tachycardia; source COVID-19 infection #COVID-19 pneumonia with acute hypoxic respiratory failure: on steroids. #Bacteriuria: UA with only mild pyuria, however with recurrent fever will treat enterococcus in urine with amoxicillin x 3 days. #Chronic pancreatic cysts: ? worsening on CT, asymptomatic Recommendations: will need home oxygen upon discharge, otherwise stable Continue dexamethasone 6 mg IV/PO qday x 10 days total on anticoagulation with apixaban, probably continue for at least 1 month post discharge if no bleeding history Nathan Swenson MD, FACP [facility] C: [phone] O: [phone] F: [phone] Subjective Date of service: 11/14/19 Interval history: No fever since yesterday afternoon. Remains on oxygen, 2 L nasal cannula. Objective - Exam Narrative Exam: Physical Exam (reviewed in chart due to PPE conservation) Constitutional: limited due to PPE conservation strategy Head, Ears, Nose: limited due to PPE conservation strategy Eyes: limited due to PPE conservation strategy Neck: limited due to PPE conservation strategy Oral: limited due to PPE conservation strategy Cardiovascular: limited due to PPE conservation strategy Respiratory: limited due to PPE conservation strategy GI: limited due to PPE conservation strategy Musculoskeletal: limited due to PPE conservation strategy Skin: limited due to PPE conservation strategy Hem/Lymphatic: limited due to PPE conservation strategy Psych: limited due to PPE conservation strategy Neurological: limited due to PPE conservation strategy - Constitutional Vitals: Vital Signs Temp Pulse Resp BP Pulse Ox 99.6 F 84 20 139/57 94 11/14/19 06:00 11/14/19 10:26 11/14/19 06:00 11/14/19 10:26 11/14/19 10:00 Temperature -Last 24 Hours Temperature 99.6 F Temperature 98.3 F Temperature 98.2 F - Labs CBC & Chem 7: 11/12/19 07:31 11/13/19 09:34 Labs: Abnormal lab results 07/10/2711/13/19 11/14/19 Range/Units 17:10 22:12 04:49 D-Dimer 1013.92 H (0-234) ng/mlDDU POC Glucose 201 H 203 H (70-105) Lactate Dehydrogenase (91-180) units/L C-Reactive Protein (0.00-1.30) mg/dL 11/14/19 11/14/19 11/14/19 Range/Units 04:49 08:49 11:42 D-Dimer (0-234) ng/mlDDU POC Glucose 132 H 290 H (70-105) Lactate Dehydrogenase 298 H (91-180) units/L C-Reactive Protein 14.70 H (0.00-1.30) mg/dL
[2019-11-14 14:54] VITALS: BP 128/60
== END 2019-11-14 17:14 | disposition home health service (06) | DRG 871 ==
LOC: ED 17:03 → 3A 11-09 00:44
PROVIDERS: ADMIT Internal Medicine; ATTEND Hospitalist
PROC: 4A033R1 Measurement of Arterial Saturation, Peripheral, Percutaneous Approach (ICD-10-PCS; principal; 2019-11-12)
DX: A41.89 Other specified sepsis (principal); U07.1 COVID-19; J12.89 Other viral pneumonia; N17.0 Acute kidney failure with tubular necrosis; K86.2 Cyst of pancreas; E87.1 Hypo-osmolality and hyponatremia; N30.00 Acute cystitis without hematuria; M06.9 Rheumatoid arthritis, unspecified; E11.9 Type 2 diabetes mellitus without complications; E78.00 Pure hypercholesterolemia, unspecified; I11.0 Hypertensive heart disease with heart failure; I50.9 Heart failure, unspecified; R82.71 Bacteriuria; I16.0 Hypertensive urgency; E78.2 Mixed hyperlipidemia; Z88.6 Allergy status to analgesic agent; Z90.710 Acquired absence of both cervix and uterus
CPT/HCPCS: 36415; 36600; 71046; 71250; 71275; 74176; 80048; 80053; 80320; 81001; 82140; 82550; 82728; 82803; 82947; 82962; 83615; 83735; 84145; 84443; 84484; 85025; 85027; 85379; 86140; 86850; 86900; 86901; 87040; 87076; 87086; 87186; 87641; 93005; 94640; 94760; G0378; A9270-GY; G0480; J0360; J0456; J0692; J0696; J1100; J1644; J1815; J7030; J7040; J7050; J8540; J8610; Q9967; U0003-CS

== ENCOUNTER 2021-02-03 15:15 | Outpatient (CLI) | payer MEDICARE ==
--- NOTE | 2021-02-03 16:59 | XRay Report ---
Right shoulder 3 views INDICATION: Right shoulder pain IMPRESSION: There is some relative lucency identified within the lateral aspect of the shoulder soft tissues adjacent to the deltoid muscle. It is unclear if this represents an increase in fat or possib le subcutaneous gas. Recommend CT of the right shoulder for further evaluation. Moderate degenerative changes of the glenohumeral and AC joints on the right. Mild osteopenia Signer Name: Deondre Hicks MD Signed: 02/03/2021 4:54 PM Workstation Name: [id number]
== END 2021-02-03 15:16 | disposition home or self-care (01) ==
LOC: XRAY 15:15
PROVIDERS: ATTEND Orthopaedic Surgery
DX: M19.011 Primary osteoarthritis, right shoulder (principal); M85.811 Other specified disorders of bone density and structure, right shoulder

== ENCOUNTER 2021-03-01 08:14 | Emergency (ER) | payer MEDICARE ==
--- NOTE | 2021-03-01 09:48 | XRay Report ---
EXAMINATION: Left elbow radiograph, 3 views, 03/01/2021 CLINICAL INFORMATION: Left elbow pain and trauma COMPARISON: No relevant prior studies available for comparison FINDINGS: There is no evidence of acute fracture or subluxation. Mild to moderate bony degenerative c hanges are noted. Bony structures also appear subjectively demineralized. No focal soft tissue swelling is identified. IMPRESSION: 1. 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 Signer Name: Toya Barnett MD Signed: 03/01/2021 9:44 AM Workstation Name: [id number]
--- NOTE | 2021-03-01 10:29 | Emergency Department Report ---
Upper Extremity - [facility] Chief Complaint: Extremity Injury, Upper Stated Complaint: LEFT ARM SWOLLEN Upper Extremity: Right Elbow Occurred When: 2 Days Mechanism: Hyperextension Severity: severe Symptoms: Yes Swelling, No Pain with Movement, No Deformity, No Limited Range of Movement, No Numbness, No Weakness, No Bruising/Ecchymosis, No Laceration or Abrasion Other History: 89-year-old female presents to the emergency room complaining of left arm elbow pain. Patient states that she went to reach and hyperextended her arm and felt a pop. Patient states that there is a lump on her forearm. She states her pain is 8 out of 10. She reports that she has an allergy to codeine. She has a past medical history of Wild's palsy diabetes hypertension diverticulitis rheumatoid arthritis depression and congestive heart failure. Patient states that she is up-to-date fully on her vaccination for Covid as well as flu. She is seen by Dr. Kade Puente. ED Review of Systems ROS: Stated complaint: LEFT ARM SWOLLEN Other details as noted in HPI ED Past Medical Hx - Past Medical History Previous Medical History?: Yes Hx Hypertension: Yes Hx Heart Attack/AMI: No Hx Congestive Heart Failure: Yes Hx Diabetes: Yes Hx Deep Vein Thrombosis: No Hx Arthritis: Yes (RA) Hx Asthma: No Hx COPD: No Additional medical history: Right Shoulder dislocation 50 years ago. - Surgical History Past Surgical History?: Yes Hx Pacemaker: Yes Hx Internal Defibrillator: No Additional Surgical History: Hysterectomy, Bladder Surgery - Social History Smoking Status: Never Smoker - Medications Home Medications: Home Medications Medication Instructions Recorded Confirmed Last Taken Type Atorvastatin Calcium [Lipitor] 20 mg PO DAILY 08/20/18 08/26/18 Unknown History Calcium Carbonate/Vitamin D3 1 each PO BID 08/20/18 08/26/18 Unknown History [Calcium 600-Vit D3 400 Tablet] Folic Acid [Folvite] 2 mg PO QDAY 08/20/18 08/26/18 Unknown History Furosemide [Lasix TAB] 40 mg PO QDAY 08/20/18 08/26/18 Unknown History Hydralazine HCl 50 mg PO TID 08/20/18 08/26/18 Unknown History Potassium Chloride 8 meq PO DAILY 08/20/18 08/26/18 Unknown History Sitagliptin Phos/Metformin HCl 1 each PO DAILY 08/20/18 08/26/18 Unknown History [Janumet 50-1,000 mg] carvediloL [Carvedilol] 12.5 mg PO BID 08/20/18 08/26/18 Unknown History estradioL [Estradiol] 0.25 mg PO DAILY 08/20/18 08/26/18 Unknown History ALBUTEROL NEB's [Proventil 0.083% 2.5 mg IH Q3HRT PRN nebu 09/02/18 Unknown Rx NEBS] Lispro Insulin [HumaLOG] 1 dose SUB-Q ACHS PRN #30 units 09/02/18 Unknown Rx NIFEdipine [Nifedipine ER] 60 mg PO DAILY #30 tab 09/02/18 08/26/18 Unknown Rx Pantoprazole [Protonix TAB] 40 mg PO BID #60 tablet 09/02/18 Unknown Rx metHOTREXate(DOSE WEEKLY ONLY) 5 mg PO Fr@1000 tablet 09/02/18 Unknown Rx [metHOTREXate (DOSE WEEKLY ONLY)] Amoxicillin [Trimox CAP] 500 mg PO Q8HR #9 capsule 11/13/19 Unknown Rx Apixaban [Eliquis] 2.5 mg PO DAILY #30 tablet 11/13/19 Unknown Rx Ascorbic Acid [Vitamin C] 1,000 mg PO BID #30 tablet 11/13/19 Unknown Rx dexAMETHasone [Decadron] 6 mg PO Q24HR #9 tablet 11/13/19 Unknown Rx Upper Extremity Exam - Exam General: Vital signs noted. No distress. Alert and acting appropriately. ED Course Vital Signs 03/01/21 08:52 Temperature 97.8 F Pulse Rate 79 Respiratory 18 Rate Blood Pressure 151/65 O2 Sat by Pulse 97 Oximetry ED Medical Decision Making - Radiology Data Radiology results: report reviewed Study Comments [facility] [address] [place] [address] XRay Report Signed Patient: REJI MAHONEY MR#: [id number] : 1930 Acct:[id number] Age/Sex: 89 / F ADM Date: 03/01/21 Loc: ED Attending Dr: Ordering Physician: VIET SPAIN Date of Service: 03/01/21 Procedure(s): XR elbow 3+V LT Accession Number(s): [id number] cc: VIET SPAIN Fluoro Time In Minutes: EXAMINATION: Left elbow radiograph, 3 views, 03/01/2021 CLINICAL INFORMATION: Left elbow pain and trauma COMPARISON: No relevant prior studies available for comparison FINDINGS: There is no evidence of acute fracture or subluxation. Mild to moder ate bony degenerative changes are noted. Bony structures also appear subjectively demineralized. No focal soft tissue swelling is identified. IMPRESSION: 1. 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 Signer Name: Toya Barnett MD Signed: 03/01/2021 9:44 AM Workstation Name: [id number] Transcribed By: EB Dictated By: Toya Barnett MD Electronically Authenticated By: Toya Barnett MD Signed Date/Time: 03/01/21943 DD/ 1 TD/TT: - Medical Decision Making 89-year-old female presents to the emergency room complaining of left arm elbow pain. Patient states that she went to reach and hyperextended her arm and felt a pop. Patient states that there is a lump on her forearm. She states her pain is 8 out of 10. She reports that she has an allergy to codeine. She has a past medical history of Wild's palsy diabetes hypertension diverticulitis rheumatoid arthritis depression and congestive heart failure. Patient states that she is up-to-date fully on her vaccination for Covid as well as flu. She is seen by Dr. Kade Puente. X-ray ordered and shows moderate amount of degenerative changes. No dislocation or fractures. Patient is to continue to wear her splint and to follow-up with orthopedist. Patient will be referred. Critical care attestation.: If time is entered above; I have spent that time in minutes in the direct care of this critically ill patient, excluding procedure time. ED Disposition Clinical Impression: Pain and swelling of left elbow, Pain in left forearm Disposition: 01 HOME / SELF CARE / HOMELESS Is pt being admited?: No Does the pt Need Aspirin: No Condition: Stable Additional Instructions: X-ray of elbow shows no fracture or dislocation. It does show moderate amount of degenerative changes. I would like for you to follow-up with orthopedist as she may need further studies and evaluation by specialist. Tylenol for pain management. Referrals: [facility] [Provider Group] - 3-5 Days Time of Disposition: 10:30
[2021-03-01 11:37] VITALS: BP 148/68
== END 2021-03-01 11:34 | disposition home or self-care (01) ==
LOC: ED 08:14
DX: M25.522 Pain in left elbow (principal); M25.422 Effusion, left elbow; M79.632 Pain in left forearm; I11.0 Hypertensive heart disease with heart failure; I50.9 Heart failure, unspecified; E11.8 Type 2 diabetes mellitus with unspecified complications; M19.011 Primary osteoarthritis, right shoulder; Z90.710 Acquired absence of both cervix and uterus; Z98.890 Other specified postprocedural states; Z88.5 Allergy status to narcotic agent
CPT/HCPCS: 99283

== ENCOUNTER 2021-03-21 18:27 | Inpatient (IN) | payer MEDICARE ==
[2021-03-21] MEDS ORDERED: MORPHINE 4 MG/1 ML INJ IV ONE (20:08)
[2021-03-21] MEDS ORDERED: ONDANSETRON 4 MG/2 ML INJ IV ONE (20:08)
[2021-03-21 20:28] LABS: Basophils % (Auto) 0.6 % (0.0-1.8); Eosinophils # (Auto) 0.1 K/mm3 (0.0-0.4); Eosinophils % (Auto) 1.2 % (0.0-4.3); Hemoglobin 11.3 gm/dl (10.1-14.3); Lymphocytes # (Auto) 0.9 K/mm3 (1.2-5.4); Lymphocytes % (Auto) 12.5 % (13.4-35.0); Mean Corpuscular HGB Conc 31 % (30-34); Mean Corpuscular Volume 94 fl (79-97); Monocytes # (Auto) 0.6 K/mm3 (0.0-0.8); Monocytes % (Auto) 7.8 % (0.0-7.3); Platelet Count 233 K/mm3 (140-440); Red Blood Count 3.82 M/mm3 (3.65-5.03); Red Cell Distribution Width 16.4 % (13.2-15.2)
[2021-03-21 20:43] LABS: Calcium 9.1 mg/dL (8.4-10.2)
[2021-03-21 21:14] LABS: INR 0.93 (0.87-1.13); Partial Thromboplastin Time 27.7 Sec. (24.2-36.6)
[2021-03-21] MEDS ORDERED: DEXTROSE 50% IN WATER (25GM) 50 ML SYRINGE IV ONE ×2 (22:11→22:13)
--- NOTE | 2021-03-21 22:19 | Cat Scan Report ---
CT ABDOMEN AND PELVIS WITHOUT CONTRAST INDICATION / CLINICAL INFORMATION: abd pain, hx of diverticulitis. TECHNIQUE: Axial CT images were obtained through the abdomen and pelvis without IV contrast. All CT scans at this location are performed using CT dose reduction for ALARA by means of automated exposure control. COMPARISON: 11/08/2019 FINDINGS: LOWER CHEST: No significant abnormality LIVER: No significant abnormality GALLBLADDER/BILIARY TREE: No significant abnormality PANCREAS: No significant abnormality SPLEEN: Large multiloculated cystic lesion within the pancreatic body and tail is minimally increased in size, measuring 10.8 x 7.8 cm; previously measured 10 x 7 cm. Additional cystic lesion within the pancreatic head/uncinate process is also slightly larger, measuring 4.5 cm; Previously measured 4.3 cm. ADRENALS: No significant abnormality KIDNEYS / URETER: Nonobstructive right nephrolithiasis. No ureteral calculus or hydronephrosis. URINARY BLADDER: No significant abnormality REPRODUCTIVE ORGANS: Uterus is absent. No significant adnexal abnormality. STOMACH / BOWEL: There is mild mural thickening of the rectum and perirectal inflammatory stranding. Colonic diverticulosis without evidence of diverticulitis. Small hiatal hernia. Small bowel is normal in caliber. The appendix is normal in caliber. LYMPH NODES: No significant adenopathy. VASCULATURE: No significant abnormality. OTHER: No free air, free fluid, or focal fluid collection is identified. SKELETAL SYSTEM: Degenerative changes of the spine. No acute osseous findings. IMPRESSION: 1. Mild rectal mural thickening and perirectal inflammatory stranding, suspicious for mild proctitis. 2. Colonic diverticulosis without evidence of diverticulitis. 3. Slight increase in size of multiloculated cystic lesion of the pancreas from CT from 11/08/2019. 4. Other stable chronic and incidental findings as above. Signer Name: Janes Garrison MD Signed: 03/21/2021 10:15 PM Workstation Name: [id number]
[2021-03-21] MEDS ORDERED: PIPERACILLIN/TAZOBACTAM 3.375 3.375 GM/50 ML BAG IV ONE (23:03)
--- NOTE | 2021-03-21 23:16 | Emergency Department Report ---
ED General Adult HPI - General Chief complaint: Nausea/Vomiting/Diarrhea Stated complaint: DIRECT Time Seen by Provider: 03/21/21 20:17 Source: patient Mode of arrival: Ambulatory Limitations: No Limitations - History of Present Illness Initial comments: The patient presents to the emergency department with a chief complaint of nausea, vomiting, diarrhea that is been present for a month. The patient was sent by her physician who is Dr. Meyer for evaluation and treatment of diverticulitis. Patient states she was just completing treatment via antib iotics with Levaquin and Flagyl. Patient complains of lower abdominal pain specifically on the left side as well as the above mentioned symptoms. She denies chest pain, shortness breath, or headache. -: Gradual Location: abdomen Radiation: non-radiation Severity scale (0 -10): 7 Quality: aching, dull Consistency: constant Improves with: none Worsens with: none Associated Symptoms: denies other symptoms Treatments Prior to Arrival: none - Related Data Home Medications Medication Instructions Recorded Confirmed Last Taken Atorvastatin Calcium [Lipitor] 20 mg PO DAILY 08/20/18 08/26/18 Unknown Calcium Carbonate/Vitamin D3 1 each PO BID 08/20/18 08/26/18 Unknown [Calcium 600-Vit D3 400 Tablet] Folic Acid [Folvite] 2 mg PO QDAY 08/20/18 08/26/18 Unknown Furosemide [Lasix TAB] 40 mg PO QDAY 08/20/18 08/26/18 Unknown Hydralazine HCl 50 mg PO TID 08/20/18 08/26/18 Unknown Potassium Chloride 8 meq PO DAILY 08/20/18 08/26/18 Unknown Sitagliptin Phos/Metformin HCl 1 each PO DAILY 08/20/18 08/26/18 Unknown [Janumet 50-1,000 mg] carvediloL [Carvedilol] 12.5 mg PO BID 08/20/18 08/26/18 Unknown estradioL [Estradiol] 0.25 mg PO DAILY 08/20/18 08/26/18 Unknown Previous Rx's Medication Instructions Recorded Last Taken Type ALBUTEROL NEB's [Proventil 0.083% 2.5 mg IH Q3HRT PRN nebu 09/02/18 Unknown Rx NEBS] Lispro Insulin [HumaLOG] 1 dose SUB-Q ACHS PRN #30 units 09/02/18 Unknown Rx NIFEdipine [Nifedipine ER] 60 mg PO DAILY #30 tab 09/02/18 Unknown Rx Pantoprazole [Protonix TAB] 40 mg PO BID #60 tablet 09/02/18 Unknown Rx metHOTREXate(DOSE WEEKLY ONLY) 5 mg PO Fr@1000 tablet 09/02/18 Unknown Rx [metHOTREXate (DOSE WEEKLY ONLY)] Amoxicillin [Trimox CAP] 500 mg PO Q8HR #9 capsule 11/13/19 Unknown Rx Apixaban [Eliquis] 2.5 mg PO DAILY #30 tablet 11/13/19 Unknown Rx Ascorbic Acid [Vitamin C] 1,000 mg PO BID #30 tablet 11/13/19 Unknown Rx dexAMETHasone [Decadron] 6 mg PO Q24HR #9 tablet 11/13/19 Unknown Rx Allergies Allergy/AdvReac Type Severity Reaction Status Date / Time codeine Allergy Vomiting Verified 03/23/18 11:39 ED Review of Systems ROS: Stated complaint: DIRECT Other details as noted in HPI Constitutional: denies: chills, fever Eyes: denies: eye pain, eye discharge, vision change ENT: denies: ear pain, throat pain Respiratory: denies: cough, shortness of breath, wheezing Cardiovascular: denies: chest pain, palpitations Endocrine: no symptoms reported Gastrointestinal: abdominal pain. denies: nausea, diarrhea Genitourinary: denies: urgency, dysuria, discharge Musculoskeletal: denies: back pain, joint swelling, arthralgia Skin: denies: rash, lesions Neurological: denies: headache, weakness, paresthesias Psychiatric: denies: anxiety, depression Hematological/Lymphatic: denies: easy bleeding, easy bruising ED Past Medical Hx - Past Medical History Previous Medical History?: Yes Hx Hypertension: Yes Hx Heart Attack/AMI: No Hx Congestive Heart Failure: Yes Hx Diabetes: Yes Hx Deep Vein Thrombosis: No Hx Arthritis: Yes (RA) Hx Asthma: No Hx COPD: No Additional medical history: Right Shoulder dislocation 50 years ago. - Surgical History Past Surgical History?: Yes Hx Pacemaker: Yes Hx Internal Defibrillator: No Additional Surgical History: Hysterectomy, Bladder Surgery - Social History Smoking Status: Never Smoker - Medications Home Medications: Home Medications Medication Instructions Recorded Confirmed Last Taken Type Atorvastatin Calcium [Lipitor] 20 mg PO DAILY 08/20/18 08/26/18 Unknown History Calcium Carbonate/Vitamin D3 1 each PO BID 08/20/18 08/26/18 Unknown History [Calcium 600-Vit D3 400 Tablet] Folic Acid [Folvite] 2 mg PO QDAY 08/20/18 08/26/18 Unknown History Furosemide [Lasix TAB] 40 mg PO QDAY 08/20/18 08/26/18 Unknown History Hydralazine HCl 50 mg PO TID 08/20/18 08/26/18 Unknown History Potassium Chloride 8 meq PO DAILY 08/20/18 08/26/18 Unknown History Sitagliptin Phos/Metformin HCl 1 each PO DAILY 08/20/18 08/26/18 Unknown History [Janumet 50-1,000 mg] carvediloL [Carvedilol] 12.5 mg PO BID 08/20/18 08/26/18 Unknown History estradioL [Estradiol] 0.25 mg PO DAILY 08/20/18 08/26/18 Unknown History ALBUTEROL NEB's [Proventil 0.083% 2.5 mg IH Q3HRT PRN nebu 09/02/18 Unknown Rx NEBS] Lispro Insulin [HumaLOG] 1 dose SUB-Q ACHS PRN #30 units 09/02/18 Unknown Rx NIFEdipine [Nifedipine ER] 60 mg PO DAILY #30 tab 09/02/18 08/26/18 Unknown Rx Pantoprazole [Protonix TAB] 40 mg PO BID #60 tablet 09/02/18 Unknown Rx metHOTREXate(DOSE WEEKLY ONLY) 5 mg PO Fr@1000 tablet 09/02/18 Unknown Rx [metHOTREXate (DOSE WEEKLY ONLY)] Amoxicillin [Trimox CAP] 500 mg PO Q8HR #9 capsule 11/13/19 Unknown Rx Apixaban [Eliquis] 2.5 mg PO DAILY #30 tablet 11/13/19 Unknown Rx Ascorbic Acid [Vitamin C] 1,000 mg PO BID #30 tablet 11/13/19 Unknown Rx dexAMETHasone [Decadron] 6 mg PO Q24HR #9 tablet 11/13/19 Unknown Rx ED Physical Exam - General Limitations: No Limitations General appearance: alert, in no apparent distress - Head Head exam: Present: atraumatic, normocephalic - Eye Eye exam: Present: normal appearance, PERRL, EOMI - ENT ENT exam: Present: mucous membranes moist - Neck Neck exam: Present: normal inspection - Respiratory Respiratory exam: Present: normal lung sounds bilaterally. Absent: respiratory distress - Cardiovascular Cardiovascular Exam: Present: regular rate, normal rhythm. Absent: systolic murmur, diastolic murmur, rubs, gallop - GI/Abdominal GI/Abdominal exam: Present: soft, tenderness (Tender to palpation left lower quadrant), normal bowel sounds. Absent: distended - Extremities Exam Extremities exam: Present: normal inspection - Back Exam Back exam: Present: normal inspection - Neurological Exam Neurological exam: Present: alert, oriented X3 - Psychiatric Psychiatric exam: Present: normal affect, normal mood - Skin Skin exam: Present: warm, dry, intact, normal color. Absent: rash ED Course Vital Signs 03/21/21 03/21/21 19:23 20:24 Temperature 98.2 F Pulse Rate 81 Respiratory 18 18 Rate Blood Pressure 145/63 O2 Sat by Pulse 96 Oximetry ED Medical Decision Making - Lab Data Result diagrams: 03/21/21 19:57 03/21/21 19:57 Lab Results 03/21/21 03/21/21 03/21/21 Range/Units 19:57 19:57 20:43 WBC 7.1 (4.5-11.0) K/mm3 RBC 3.82 (3.65-5.03) M/mm3 Hgb 11.3 (10.1-14.3) gm/dl Hct 36.0 (30.3-42.9) % MCV 94 (79-97) fl MCH 30 (28-32) pg MCHC 31 (30-34) % RDW 16.4 H (13.2-15.2) % Plt Count 233 (140-440) K/mm3 Lymph % (Auto) 12.5 L (13.4-35.0) % [place] % (Auto) 7.8 H (0.0-7.3) % Eos % (Auto) 1.2 (0.0-4.3) % Baso % (Auto) 0.6 (0.0-1.8) % Lymph # (Auto) 0.9 L (1.2-5.4) K/mm3 [place] # (Auto) 0.6 (0.0-0.8) K/mm3 Eos # (Auto) 0.1 (0.0-0.4) K/mm3 Baso # (Auto) 0.0 (0.0-0.1) K/mm3 Seg Neutrophils % 77.9 H (40.0-70.0) % Seg Neutrophils # 5.5 (1.8-7.7) K/mm3 PT 13.5 (12.2-14.9) Sec. INR 0.93 (0.87-1.13) APTT 27.7 (24.2-36.6) Sec. Sodium 139 (137-145) mmol/L Potassium 4.1 (3.6-5.0) mmol/L Chloride 103.2 (98-107) mmol/L Carbon Dioxide 21 L (22-30) mmol/L Anion Gap 19 mmol/L BUN 24 H (7-17) mg/dL Creatinine 1.1 (0.6-1.2) mg/dL Estimated GFR 47 ml/min BUN/Creatinine Ratio 22 % Glucose 115 H (65-100) mg/dL POC Glucose (70-105) mg/dL Calcium 9.1 (8.4-10.2) mg/dL Total Bilirubin 0.30 (0.1-1.2) mg/dL AST 20 (5-40) units/L ALT 18 (7-56) units/L Alkaline Phosphatase 48 (35-129) units/L Total Protein 6.9 (6.3-8.2) g/dL Albumin 4.0 (3.9-5) g/dL Albumin/Globulin Ratio 1.4 % Lipase 13 (13-60) units/L Urine Color (Yellow) Urine Turbidity (Clear) Urine pH (5.0-7.0) Ur Specific [place] (1.003-1.030) Urine Protein (Negative) mg/dL Urine Glucose (UA) (Negative) mg/dL Urine Ketones (Negative) mg/dL Urine Blood (Negative) Urine Nitrite (Negative) Urine Bilirubin (Negative) Urine Urobilinogen (<2.0) mg/dL Ur Leukocyte Esterase (Negative) Urine WBC (Auto) (0.0-6.0) /HPF Urine RBC (Auto) (0.0-6.0) /HPF U Epithel Cells (Auto) (0-13.0) /HPF Urine Mucus /HPF 03/21/21 03/21/21 Range/Units 22:06 Unknown WBC (4.5-11.0) K/mm3 RBC (3.65-5.03) M/mm3 Hgb (10.1-14.3) gm/dl Hct (30.3-42.9) % MCV (79-97) fl MCH (28-32) pg MCHC (30-34) % RDW (13.2-15.2) % Plt Count (140-440) K/mm3 Lymph % (Auto) (13.4-35.0) % [place] % (Auto) (0.0-7.3) % Eos % (Auto) (0.0-4.3) % Baso % (Auto) (0.0-1.8) % Lymph # (Auto) (1.2-5.4) K/mm3 [place] # (Auto) (0.0-0.8) K/mm3 Eos # (Auto) (0.0-0.4) K/mm3 Baso # (Auto) (0.0-0.1) K/mm3 Seg Neutrophils % (40.0-70.0) % Seg Neutrophils # (1.8-7.7) K/mm3 PT (12.2-14.9) Sec. INR (0.87-1.13) APTT (24.2-36.6) Sec. Sodium (137-145) mmol/L Potassium (3.6-5.0) mmol/L Chloride (98-107) mmol/L Carbon Dioxide (22-30) mmol/L Anion Gap mmol/L BUN (7-17) mg/dL Creatinine (0.6-1.2) mg/dL Estimated GFR ml/min BUN/Creatinine Ratio % Glucose (65-100) mg/dL POC Glucose 66 L (70-105) mg/dL Calcium (8.4-10.2) mg/dL Total Bilirubin (0.1-1.2) mg/dL AST (5-40) units/L ALT (7-56) units/L Alkaline Phosphatase (35-129) units/L Total Protein (6.3-8.2) g/dL Albumin (3.9-5) g/dL Albumin/Globulin Ratio % Lipase (13-60) units/L Urine Color Yellow (Yellow) Urine Turbidity Cloudy (Clear) Urine pH 6.0 (5.0-7.0) Ur Specific [place] 1.013 (1.003-1.030) Urine Protein 100 mg/dl (Negative) mg/dL Urine Glucose (UA) Neg (Negative) mg/dL Urine Ketones Neg (Negative) mg/dL Urine Blood Neg (Negative) Urine Nitrite Neg (Negative) Urine Bilirubin Neg (Negative) Urine Urobilinogen < 2.0 (<2.0) mg/dL Ur Leukocyte Esterase Mod (Negative) Urine WBC (Auto) 107.0 H (0.0-6.0) /HPF Urine RBC (Auto) 2.0 (0.0-6.0) /HPF U Epithel Cells (Auto) 12.0 (0-13.0) /HPF Urine Mucus Few /HPF - Radiology Data Radiology results: report reviewed - Medical Decision Making IV fluids given and IV antibiotics were initiated after educational consultation with antibiotic guide Discussed results with patient Critical care attestation.: If time is entered above; I have spent that time in minutes in the direct care of this critically ill patient, excluding procedure time. ED Disposition Clinical Impression: Proctitis, Nausea & vomiting, Diarrhea Disposition: 09 ADMITTED INPATIENT Is pt being admited?: Yes Does the pt Need Aspirin: No Condition: Fair Referrals: BRAYDON MEYER MD [Primary Care Provider] - 3-5 Days
[2021-03-21] MEDS ORDERED: SODIUM CHLORIDE 0.9% 1000 ML 1,000 ML IV ONE (23:22)
[2021-03-21 23:34] LABS: Bilirubin,Urine NEG (Negative); Blood,Urine NEG (Negative); Color,Urine Yellow (Yellow); Mucus,Urine FEW /HPF; Urobilinogen,Urine < 2.0 mg/dL (<2.0)
[2021-03-22] MEDS ORDERED: MAGNESIUM HYDROXIDE (MOM) ORAL LIQD UDC PO PRN (00:03)
[2021-03-22] MEDS ORDERED: ONDANSETRON 4 MG/2 ML INJ IV PRN (00:03)
[2021-03-22] MEDS ORDERED: MORPHINE 4 MG/1 ML INJ IV PRN ×2 (00:03→00:13)
[2021-03-22] MEDS ORDERED: ACETAMINOPHEN 325 MG TAB PO PRN ×2 (00:03→00:13)
[2021-03-22] MEDS ORDERED: DEXTROSE 50% IN WATER (25GM) 50 ML SYRINGE IV PRN (00:03)
--- NOTE | 2021-03-22 00:20 | History and Physical Report ---
History of Present Illness Date of examination: 03/22/21 Date of admission: 03/22/2021 Chief complaint: Abdominal pain Nausea and vomiting Diarrhea History of present illness: 89-year-old female with known history of hypertension, congestive heart failure, diabetes mellitus, rheumatoid arthritis, presenting to the emergency room today complaining of nausea, vomiting and diarrhea which has been ongoing for the past 3 to 4 weeks. Patient has been following up with her primary care physician Dr. Puente. She has been on treatment for possible diverticulitis and has been compliant with antibioticsLevaquin and Flagyl. She indicates that she still continues to have abdominal pain. Abdominal pain is more in the left lower abdomen. No no relieving or exacerbating factor. She denies any fever or chills, no chest pain or shortness of breath, no headache or dizziness and no diaphoresis. Patient denies any sick contacts and no recent travel. Denies any contact with anyone with COVID-19. Work-up in the emergency room today, CT of the abdomen and pelvis: 1. Mild rectal mural thickening and perirectal inflammatory stranding, suspicious for mild proctitis. 2. Colonic diverticulosis without evidence of diverticulitis. 3. Slight increase in size of multiloculated cystic lesion of the pancreas from CT from 11/08/2019. 4. Other stable chronic and incidental findings as above. Labs were unremarkable. Urinalysis however reveals moderate leukocyte esterase and elevated WBCs Past History Past Medical History: arthritis (Rheumatoid arthritis), diabetes, heart failure, hypertension, hyperlipidemia, other (Right shoulder dislocation 50 years ago) Past Surgical History: hysterectomy, Other (Pacemaker placement, bladder surgery) Social history: no significant social history Family history: no significant family history Medications and Allergies Allergies Allergy/AdvReac Type Severity Reaction Status Date / Time codeine Allergy Vomiting Verified 03/23/18 11:39 Home Medications Medication Instructions Recorded Confirmed Last Taken Type Atorvastatin Calcium [Lipitor] 20 mg PO DAILY 08/20/18 03/22/21 Unknown History Calcium Carbonate/Vitamin D3 1 each PO BID 08/20/18 03/22/21 Unknown History [Calcium 600-Vit D3 400 Tablet] Folic Acid [Folvite] 2 mg PO QDAY 08/20/18 03/22/21 Unknown History Furosemide [Lasix TAB] 40 mg PO QDAY 08/20/18 03/22/21 Unknown History Hydralazine HCl 50 mg PO TID 08/20/18 03/22/21 Unknown History Potassium Chloride 8 meq PO DAILY 08/20/18 03/22/21 Unknown History Sitagliptin Phos/Metformin HCl 1 each PO DAILY 08/20/18 03/22/21 Unknown History [Janumet 50-1,000 mg] carvediloL [Carvedilol] 12.5 mg PO BID 08/20/18 03/22/21 Unknown History estradioL [Estradiol] 0.25 mg PO DAILY 08/20/18 03/22/21 Unknown History ALBUTEROL NEB's [Proventil 0.083% 2.5 mg IH Q3HRT PRN nebu 09/02/18 03/22/21 Unknown Rx NEBS] Lispro Insulin [HumaLOG] 1 dose SUB-Q ACHS PRN #30 units 09/02/18 03/22/21 Unknown Rx NIFEdipine [Nifedipine ER] 60 mg PO DAILY #30 tab 09/02/18 03/22/21 Unknown Rx Pantoprazole [Protonix TAB] 40 mg PO BID #60 tablet 09/02/18 03/22/21 Unknown Rx metHOTREXate(DOSE WEEKLY ONLY) 5 mg PO Fr@1000 tablet 09/02/18 03/22/21 Unknown Rx [metHOTREXate (DOSE WEEKLY ONLY)] Apixaban [Eliquis] 2.5 mg PO DAILY #30 tablet 11/13/19 03/22/21 Unknown Rx Ascorbic Acid [Vitamin C] 1,000 mg PO BID #30 tablet 11/13/19 03/22/21 Unknown Rx dexAMETHasone [Decadron] 6 mg PO Q24HR #9 tablet 11/13/19 03/22/21 Unknown Rx Active Meds: Active Medications Acetaminophen (Acetaminophen 325 Mg Tab) 650 mg PO Q4H PRN PRN Reason: Pain MILD(1-3)/Fever >100.5/FRITZ Acetaminophen (Acetaminophen 325 Mg Tab) 650 mg PO Q4H PRN PRN Reason: Pain MILD(1-3)/Fever >100.5/FRITZ Dextrose (Dextrose 50% In Water (25gm) 50 Ml Syringe) 0 ml IV Q30MIN PRN; Pr otocol PRN Reason: Hypoglycemia Sodium Chloride (Nacl 0.9% 1000 Ml) 1,000 mls @ 999 mls/hr IV BOLUS ONE Stop: 03/22/21 00:22 Last Admin: 03/21/21 23:55 Dose: 999 mls/hr Documented by: Sodium Chloride (Nacl 0.9% 1000 Ml) 1,000 mls @ 75 mls/hr IV DIRECT HAKAN Insulin Human Lispro (Insulin Lispro 100 Unit/Ml) 0 unit SUB-Q ACHS HAKAN; Protocol Magnesium Hydroxide (Magnesium Hydroxide (Mom) Oral Liqd Udc) 30 ml PO Q4H PRN PRN Reason: Constipation Morphine Sulfate (Morphine 4 Mg/1 Ml Inj) 4 mg IV Q4H PRN PRN Reason: Pain , Severe (7-10) Morphine Sulfate (Morphine 2 Mg/1 Ml Inj) 2 mg IV Q4H PRN PRN Reason: Pain, Moderate (4-6) Morphine Sulfate (Morphine 4 Mg/1 Ml Inj) 4 mg IV Q4H PRN PRN Reason: Pain , Severe (7-10) Ondansetron HCl (Ondansetron 4 Mg/2 Ml Inj) 4 mg IV Q8H PRN PRN Reason: Nausea And Vomiting Sodium Chloride (Sodium Chloride 0.9% 10 Ml Flush Syringe) 10 ml IV BID HAKAN Sodium Chloride (Sodium Chloride 0.9% 10 Ml Flush Syringe) 10 ml IV PRN PRN PRN Reason: LINE FLUSH Review of Systems Constitutional: no fever, no chills Ears, nose, mouth and throat: no nasal congestion, no sore throat Cardiovascular: no chest pain, no palpitations Respiratory: no cough, no shortness of breath Gastrointestinal: abdominal pain, nausea, vomiting, diarrhea, no melena, no hematochezia Genitourinary Female: no pelvic pain, no flank pain, no dysuria, no hematuria Musculoskeletal: no neck pain, no low back pain Integumentary: no rash, no pruritis Neurological: no headaches, no confusion Psychiatric: no anxiety, no depression Endocrine: no polyphagia, no polydipsia, no polyuria, no nocturia Exam - Constitutional Vitals: Temp Pulse Resp BP Pulse Ox 98.2 F 81 18 145/63 96 03/21/21 19:23 03/21/21 19:23 03/21/21 20:24 03/21/21 19:23 03/21/21 19:23 General appearance: Present: no acute distress, well-nourished - EENT Eyes: Present: PERRL, EOM intact. Absent: scleral icterus ENT: hearing intact, clear oral mucosa, dentition normal - Neck Neck: Present: supple, normal ROM - Respiratory Respiratory effort: normal Respiratory: bilateral: CTA - Cardiovascular Rhythm: regular Heart Sounds: Present: S1 & S2, systolic murmur (Grade 2/6 systolic murmur). Absent: gallop, diastolic murmur, rub, click - Extremities Extremities: no ischemia, pulses intact, pulses symmetrical, normal temperature, normal color, Full ROM Extremity abnormal: edema (Bilateral trace ankle edema) Peripheral Pulses: within normal limits - Abdominal General gastrointestinal: Present: soft, non-tender, distended (Mildly distende d), normal bowel sounds. Absent: mass - Integumentary Integumentary: Present: clear, warm, dry. Absent: rash - Musculoskeletal Musculoskeletal: strength equal bilaterally - Psychiatric Psychiatric: appropriate mood/affect, intact judgment & insight, memory intact, cooperative - Neurologic Neurologic: CNII-XII intact, no focal deficits, moves all extremities Results - Labs CBC & Chem 7: 03/21/21 19:57 03/21/21 19:57 Labs: Abnormal lab results 03/21/21 03/21/21 03/21/21 Range/Units 19:57 19:57 22:06 RDW 16.4 H (13.2-15.2) % Lymph % (Auto) 12.5 L (13.4-35.0) % [place] % (Auto) 7.8 H (0.0-7.3) % Lymph # (Auto) 0.9 L (1.2-5.4) K/mm3 Seg Neutrophils % 77.9 H (40.0-70.0) % Carbon Dioxide 21 L (22-30) mmol/L BUN 24 H (7-17) mg/dL Glucose 115 H (65-100) mg/dL POC Glucose 66 L (70-105) mg/dL Urine WBC (Auto) (0.0-6.0) /HPF 03/21/21 Range/Units Unknown RDW (13.2-15.2) % Lymph % (Auto) (13.4-35.0) % [place] % (Auto) (0.0-7.3) % Lymph # (Auto) (1.2-5.4) K/mm3 Seg Neutrophils % (40.0-70.0) % Carbon Dioxide (22-30) mmol/L BUN (7-17) mg/dL Glucose (65-100) mg/dL POC Glucose (70-105) mg/dL Urine WBC (Auto) 107.0 H (0.0-6.0) /HPF Assessment and Plan - Patient Problems (1) Abdominal pain Current Visit: Yes Status: Acute Plan to address problem: Possibly secondary to underlying proctitis. Patient has been placed on analgesic medication as needed. (2) Proctitis Current Visit: Yes Status: Acute Plan to address problem: Patient placed on empiric IV antibiotics. (3) Diabetes Current Visit: No Status: Acute Plan to address problem: Patient placed on sliding scale insulin. We will monitor Accu-Cheks. (4) HTN (hypertension) Current Visit: No Status: Chronic Qualifiers: Hypertension type: essential hypertension Plan to address problem: We will resume routine home medications and monitor vital signs closely. (5) UTI (urinary tract infection) Current Visit: Yes Status: Acute Plan to address problem: We will place patient on empiric IV antibiotics. (6) DVT prophylaxis Current Visit: No Status: Acute Plan to address problem: Patient placed on subcutaneous heparin. (7) Full code status Current Visit: Yes Status: Acute Plan to address problem: Patient is full code.
--- NOTE | 2021-03-22 09:26 | Event Note ---
Date: 03/22/21 This is a follow-up from an admission earlier this morning. Patient seen and examined. We will continue to plan as outlined in the H&P. CT of the abdomen and pelvis revealed Mild rectal mural thickening and perirectal inflammatory stranding, suspicious for mild proctitis. Colonic diverticulosis without evidence of diverticulitis. GI consultation is pending. Start antibiotics of Levaquin and Flagyl. Check stool studies for WBC, culture and C. difficile. Total visit time equals 35 minutes with greater than 50% spent on coordination of care and counseling.
[2021-03-22] MEDS: INSULIN LISPRO 100 UNIT/ML SUB-Q SCH ×4 (09:37→22:32)
[2021-03-22] MEDS ORDERED: metroNIDAZOLE/NS 500 MG/100 ML 500 MG/100 ML BAG IV SCH (10:00)
[2021-03-22] MEDS: metroNIDAZOLE 500 MG TAB PO SCH ×3 (11:03→21:30)
--- NOTE | 2021-03-22 14:27 | Gastroenterology Consultation ---
History of Present Illness - Reason for Consult Consult date: 03/22/21 diarrhea, abdominal pain Requesting physician: BAILEY YAÑEZ - History of Present Illness The patient is a 89 yo female who presents with diarrhea x 1 month. Pt reports new onset diarrhea with frequent loose bm's over the past few weeks. this was associated with mild lower abd pain which has since improved. she has been treated with abx on outpatient setting due to sx's without improvement. non- bloody diarrhea. no bm's since this admission however. tolerating po without n/v. ct scan showed signs of mild rectal thickening suggestive of proctitis. pt had colonoscopy in 2019 with gi bleed which showed diverticulosis. Past History Past Medical History: arthritis (Rheumatoid arthritis), diabetes, heart failure, hypertension, hyperlipidemia, other (Right shoulder dislocation 50 years ago) Past Surgical History: hysterectomy, Other (Pacemaker placement, bladder surgery) Social history: no significant social history Family history: no significant family history Medications and Allergies Allergies Allergy/AdvReac Type Severity Reaction Status Date / Time codeine Allergy Vomiting Verified 03/23/18 11:39 Home Medications Medication Instructions Recorded Confirmed Last Taken Type Atorvastatin Calcium [Lipitor] 20 mg PO DAILY 08/20/18 03/22/21 Unknown History Calcium Carbonate/Vitamin D3 1 each PO BID 08/20/18 03/22/21 Unknown History [Calcium 600-Vit D3 400 Tablet] Folic Acid [Folvite] 2 mg PO QDAY 08/20/18 03/22/21 Unknown History Furosemide [Lasix TAB] 40 mg PO QDAY 08/20/18 03/22/21 Unknown History Hydralazine HCl 50 mg PO TID 08/20/18 03/22/21 Unknown History Potassium Chloride 8 meq PO DAILY 08/20/18 03/22/21 Unknown History Sitagliptin Phos/Metformin HCl 1 each PO DAILY 08/20/18 03/22/21 Unknown History [Janumet 50-1,000 mg] carvediloL [Carvedilol] 12.5 mg PO BID 08/20/18 03/22/21 Unknown History estradioL [Estradiol] 0.25 mg PO DAILY 08/20/18 03/22/21 Unknown History ALBUTEROL NEB's [Proventil 0.083% 2.5 mg IH Q3HRT PRN nebu 09/02/18 03/22/21 Unknown Rx NEBS] Lispro Insulin [HumaLOG] 1 dose SUB-Q ACHS PRN #30 units 09/02/18 03/22/21 Unknown Rx NIFEdipine [Nifedipine ER] 60 mg PO DAILY #30 tab 09/02/18 03/22/21 Unknown Rx Pantoprazole [Protonix TAB] 40 mg PO BID #60 tablet 09/02/18 03/22/21 Unknown Rx metHOTREXate(DOSE WEEKLY ONLY) 5 mg PO Fr@1000 tablet 09/02/18 03/22/21 Unknown Rx [metHOTREXate (DOSE WEEKLY ONLY)] Apixaban [Eliquis] 2.5 mg PO DAILY #30 tablet 11/13/19 03/22/21 Unknown Rx Ascorbic Acid [Vitamin C] 1,000 mg PO BID #30 tablet 11/13/19 03/22/21 Unknown Rx dexAMETHasone [Decadron] 6 mg PO Q24HR #9 tablet 11/13/19 03/22/21 Unknown Rx Ascorbic Acid/Ascorbate Sodium 500 mg PO DAILY 03/22/21 03/22/21 Unknown History [Vitamin C 500 mg Tablet Chew] Aspirin [Vazalore] 81 mg PO DAILY 03/22/21 03/22/21 Unknown History Cider Vinegar [Apple Cider Vinegar] 300 mg PO DAILY 03/22/21 03/22/21 Unknown History DULoxetine [Cymbalta] 60 mg PO QDAY 03/22/21 03/22/21 Unknown History Losartan [Cozaar] 100 mg PO QDAY 03/22/21 03/22/21 Unknown History Sitagliptin Phos/Metformin HCl 1 each PO DAILY 03/22/21 03/22/21 Unknown History [Janumet 50-1,000 mg Tablet] Tumeric/Ging/Apison/Oreg/Capryl 1 mg PO DAILY 03/22/21 03/22/21 Unknown History [Candicidal Capsule] predniSONE [Deltasone] 5 mg PO QDAY 03/22/21 03/22/21 Unknown History Active Meds: Active Medications Acetaminophen (Acetaminophen 325 Mg Tab) 650 mg PO Q4H PRN PRN Reason: Pain MILD(1-3)/Fever >100.5/FRITZ Dextrose (Dextrose 50% In Water (25gm) 50 Ml Syringe) 0 ml IV Q30MIN PRN; Protocol PRN Reason: Hypoglycemia Sodium Chloride (Nacl 0.9% 1000 Ml) 1,000 mls @ 75 mls/hr IV DIRECT HAKAN Levofloxacin/Dextrose (Levaquin 250mg/50ml) 250 mg in 50 mls @ 50 mls/hr IV Q24H [facility]; Protocol Insulin Human Lispro (Insulin Lispro 100 Unit/Ml) 0 unit SUB-Q ACHS HAKAN; Protocol Last Admin: 03/22/21 12:52 Dose: Not Given Documented by: Magnesium Hydroxide (Magnesium Hydroxide (Mom) Oral Liqd Udc) 30 ml PO Q4H PRN PRN Reason: Constipation Metronidazole (Metronidazole 500 Mg Tab) 500 mg PO Q8HR [facility] Last Admin: 03/22/21 11:03 Dose: 500 mg Documented by: Morphine Sulfate (Morphine 4 Mg/1 Ml Inj) 4 mg IV Q4H PRN PRN Reason: Pain , Severe (7-10) Morphine Sulfate (Morphine 2 Mg/1 Ml Inj) 2 mg IV Q4H PRN PRN Reason: Pain, Moderate (4-6) Ondansetron HCl (Ondansetron 4 Mg/2 Ml Inj) 4 mg IV Q8H PRN PRN Reason: Nausea And Vomiting Sodium Chloride (Sodium Chloride 0.9% 10 Ml Flush Syringe) 10 ml IV BID [facility] Last Admin: 03/22/21 11:04 Dose: 10 ml Documented by: Sodium Chloride (Sodium Chloride 0.9% 10 Ml Flush Syringe) 10 ml IV PRN PRN PRN Reason: LINE FLUSH Reviewed/updated patient's home and current medications Review of Systems - Review of Systems All systems: negative (per HPI) Exam - Constitutional Vital Signs: Temp Pulse Resp BP Pulse Ox 98.1 F 71 18 145/58 99 03/22/21 03:44 03/22/21 03:44 03/22/21 03:44 03/22/21 03:44 03/22/21 04:05 General appearance: no acute distress - EENT Eyes: PERRL, EOM intact - Respiratory Respiratory effort: normal Respiratory: bilateral: CTA - Cardiovascular Rhythm: regular Heart Sounds: Present: S1 & S2 - Gastrointestinal General gastrointestinal: Present: soft, non-tender, non-distended - Neurologic Neurological: alert and oriented x3 - Psychiatric Psychiatric: appropriate mood/affect - Labs CBC & Chem 7: 03/21/21 19:57 03/21/21 19:57 Lab Results: Laboratory Results - last 24 hr 03/21/21 03/21/21 03/21/21 19:57 19:57 20:43 WBC 7.1 RBC 3.82 Hgb 11.3 Hct 36.0 MCV 94 MCH 30 MCHC 31 RDW 16.4 H Plt Count 233 Lymph % (Auto) 12.5 L [place] % (Auto) 7.8 H Eos % (Auto) 1.2 Baso % (Auto) 0.6 Lymph # (Auto) 0.9 L [place] # (Auto) 0.6 Eos # (Auto) 0.1 Baso # (Auto) 0.0 Seg Neutrophils % 77.9 H Seg Neutrophils # 5.5 PT 13.5 INR 0.93 APTT 27.7 Sodium 139 Potassium 4.1 Chloride 103.2 Carbon Dioxide 21 L Anion Gap 19 BUN 24 H Creatinine 1.1 Estimated GFR 47 BUN/Creatinine Ratio 22 Glucose 115 H POC Glucose Lactic Acid Calcium 9.1 Total Bilirubin 0.30 AST 20 ALT 18 Alkaline Phosphatase 48 Total Protein 6.9 Albumin 4.0 Albumin/Globulin Ratio 1.4 Lipase 13 Urine Color Urine Turbidity Urine pH Ur Specific [place] Urine Protein Urine Glucose (UA) Urine Ketones Urine Blood Urine Nitrite Urine Bilirubin Urine Urobilinogen Ur Leukocyte Esterase Urine WBC (Auto) Urine RBC (Auto) U Epithel Cells (Auto) Urine Mucus 03/21/21 03/21/21 03/21/21 22:06 23:07 Unknown WBC RBC Hgb Hct MCV MCH MCHC RDW Plt Count Lymph % (Auto) [place] % (Auto) Eos % (Auto) Baso % (Auto) Lymph # (Auto) [place] # (Auto) Eos # (Auto) Baso # (Auto) Seg Neutrophils % Seg Neutrophils # PT INR APTT Sodium Potassium Chloride Carbon Dioxide Anion Gap BUN Creatinine Estimated GFR BUN/Creatinine Ratio Glucose POC Glucose 66 L Lactic Acid 1.70 Calcium Total Bilirubin AST ALT Alkaline Phosphatase Total Protein Albumin Albumin/Globulin Ratio Lipase Urine Color Yellow Urine Turbidity Cloudy Urine pH 6.0 Ur Specific [place] 1.013 Urine Protein 100 mg/dl Urine Glucose (UA) Neg Urine Ketones Neg Urine Blood Neg Urine Nitrite Neg Urine Bilirubin Neg Urine Urobilinogen < 2.0 Ur Leukocyte Esterase Mod Urine WBC (Auto) 107.0 H Urine RBC (Auto) 2.0 U Epithel Cells (Auto) 12.0 Urine Mucus Few 03/22/21 03/22/21 03/22/21 02:00 03:44 08:34 WBC RBC Hgb Hct MCV MCH MCHC RDW Plt Count Lymph % (Auto) [place] % (Auto) Eos % (Auto) Baso % (Auto) Lymph # (Auto) [place] # (Auto) Eos # (Auto) Baso # (Auto) Seg Neutrophils % Seg Neutrophils # PT INR APTT Sodium Potassium Chloride Carbon Dioxide Anion Gap BUN Creatinine Estimated GFR BUN/Creatinine Ratio Glucose POC Glucose 129 H 100 94 Lactic Acid Calcium Total Bilirubin AST ALT Alkaline Phosphatase Total Protein Albumin Albumin/Globulin Ratio Lipase Urine Color Urine Turbidity Urine pH Ur Specific [place] Urine Protein Urine Glucose (UA) Urine Ketones Urine Blood Urine Nitrite Urine Bilirubin Urine Urobilinogen Ur Leukocyte Esterase Urine WBC (Auto) Urine RBC (Auto) U Epithel Cells (Auto) Urine Mucus 03/22/21 11:50 WBC RBC Hgb Hct MCV MCH MCHC RDW Plt Count Lymph % (Auto) [place] % (Auto) Eos % (Auto) Baso % (Auto) Lymph # (Auto) [place] # (Auto) Eos # (Auto) Baso # (Auto) Seg Neutrophils % Seg Neutrophils # PT INR APTT Sodium Potassium Chloride Carbon Dioxide Anion Gap BUN Creatinine Estimated GFR BUN/Creatinine Ratio Glucose POC Glucose 90 Lactic Acid Calcium Total Bilirubin AST ALT Alkaline Phosphatase Total Protein Albumin Albumin/Globulin Ratio Lipase Urine Color Urine Turbidity Urine pH Ur Specific [place] Urine Protein Urine Glucose (UA) Urine Ketones Urine Blood Urine Nitrite Urine Bilirubin Urine Urobilinogen Ur Leukocyte Esterase Urine WBC (Auto) Urine RBC (Auto) U Epithel Cells (Auto) Urine Mucus - Imaging CT Scan: report reviewed Assessment and Plan 1. Diarrhea (subacute, ~4 weeks) - sx's most suggestive of infectious etiology. no diarrhea/bm's since admission, but if returns, need to check stool studies/rule out c diff. on empiric abx and tolerating po otherwise. unclear significance of possible proctitis seen on ct scan, possible related to infectious etiology. 2. Pancreatic cysts - slight increase in size from prior ct scan. cont surveillance imaging for monitoring, can consider EUS as outpatient however given age, conservative management/monitoring may be warranted.
[2021-03-22] MEDS: SODIUM CHLORIDE 0.9% 1000 ML 1,000 ML IV SCH (17:00)
[2021-03-22] MEDS: hydrALAZINE 25 MG TAB PO SCH (22:30)
[2021-03-22] MEDS: carvediloL 12.5 MG TAB PO SCH (22:30)
[2021-03-23] MEDS ORDERED: hydrALAZINE 20 MG/1 ML INJ IV ONE (01:50)
[2021-03-23 05:46] LABS: Calcium 8.4 mg/dL (8.4-10.2)
[2021-03-23 05:47] LABS: Basophils % (Auto) 0.5 % (0.0-1.8); Eosinophils # (Auto) 0.1 K/mm3 (0.0-0.4); Eosinophils % (Auto) 1.8 % (0.0-4.3); Hematocrit 33.3 % (30.3-42.9); Hemoglobin 10.8 gm/dl (10.1-14.3); Lymphocytes # (Auto) 0.9 K/mm3 (1.2-5.4); Lymphocytes % (Auto) 13.5 % (13.4-35.0); Mean Corpuscular HGB Conc 32 % (30-34); Mean Corpuscular Volume 94 fl (79-97); Monocytes # (Auto) 0.5 K/mm3 (0.0-0.8); Monocytes % (Auto) 7.3 % (0.0-7.3); Platelet Count 206 K/mm3 (140-440); Red Blood Count 3.56 M/mm3 (3.65-5.03); Red Cell Distribution Width 16.8 % (13.2-15.2)
[2021-03-23 06:16] LABS: INR 0.98 (0.87-1.13)
[2021-03-23] MEDS: metroNIDAZOLE 500 MG TAB PO SCH ×3 (06:23→23:30)
[2021-03-23] MEDS: hydrALAZINE 25 MG TAB PO SCH ×3 (07:03→23:30)
[2021-03-23] MEDS: SODIUM CHLORIDE 0.9% 1000 ML 1,000 ML IV SCH ×2 (07:05→23:36)
--- NOTE | 2021-03-23 08:32 | Progress Note ---
Assessment and Plan Assessment and plan: The patient is a 89 yo female with past medical history of rheumatoid arthritis, diabetes mellitus type 2, chronic systolic heart failure, hypertension, hyperlipidemia and pacemaker who presents with diarrhea x 1 month. Pt reports new onset diarrhea with frequent loose bm's over the past few weeks. this was associated with mild lower abd pain which has since improved. she has been treated with abx on outpatient setting due to sx's without improvement. non- bloody diarrhea. no bm's since this admission however. tolerating po without n/v. ct scan showed signs of mild rectal thickening suggestive of proctitis. pt had colonoscopy in 2019 with gi bleed which showed diverticulosis. Diarrhea Pancreatic cyst Proctitis. Diabetes mellitus type 2 Hypertension UTI Thrush. 03/23/2021. Follow-up stool studies and C. difficile toxin. Continue antibiotics for UTI and empirically for infectious diarrhea. GI following. Continue IV fluids. We will start nystatin swish and swallow 3 times daily for thrush. History Interval history: No new issues overnight Hospitalist Physical - Constitutional Vitals: Temp Pulse Resp BP Pulse Ox 99.1 F 77 18 174/67 96 03/23/21 05:47 03/23/21 05:47 03/23/21 05:47 03/23/21 05:47 03/23/21 05:47 General appearance: Present: no acute distress, well-nourished - EENT Eyes: Present: PERRL, EOM intact ENT: hearing intact, clear oral mucosa, dentition normal - Neck Neck: Present: supple, normal ROM - Respiratory Respiratory effort: normal Respiratory: bilateral: CTA - Cardiovascular Rhythm: regular Heart Sounds: Present: S1 & S2. Absent: gallop, rub - Extremities Extremities: no ischemia, No edema, Full ROM - Abdominal General gastrointestinal: soft, non-tender, non-distended, normal bowel sounds - Integumentary Integumentary: Present: clear, warm, dry - Neurologic Neurologic: CNII-XII intact, moves all extremities Results - Labs CBC & Chem 7: 03/23/21 05:02 03/23/21 05:02 Labs: Laboratory Last Values WBC 7.0 K/mm3 (4.5-11.0) 03/23/21 05:02 RBC 3.56 M/mm3 (3.65-5.03) L 03/23/21 05:02 Hgb 10.8 gm/dl (10.1-14.3) 03/23/21 05:02 Hct 33.3 % (30.3-42.9) 03/23/21 05:02 MCV 94 fl (79-97) 03/23/21 05:02 MCH 30 pg (28-32) 03/23/21 05:02 MCHC 32 % (30-34) 03/23/21 05:02 RDW 16.8 % (13.2-15.2) H 03/23/21 05:02 Plt Count 206 K/mm3 (140-440) 03/23/21 05:02 Lymph % (Auto) 13.5 % (13.4-35.0) 03/23/21 05:02 [place] % (Auto) 7.3 % (0.0-7.3) 03/23/21 05:02 Eos % (Auto) 1.8 % (0.0-4.3) 03/23/21 05:02 Baso % (Auto) 0.5 % (0.0-1.8) 03/23/21 05:02 Lymph # (Auto) 0.9 K/mm3 (1.2-5.4) L 03/23/21 05:02 [place] # (Auto) 0.5 K/mm3 (0.0-0.8) 03/23/21 05:02 Eos # (Auto) 0.1 K/mm3 (0.0-0.4) 03/23/21 05:02 Baso # (Auto) 0.0 K/mm3 (0.0-0.1) 03/23/21 05:02 Seg Neutrophils % 76.9 % (40.0-70.0) H 03/23/21 05:02 Seg Neutrophils # 5.4 K/mm3 (1.8-7.7) 03/23/21 05:02 PT 14.1 Sec. (12.2-14.9) 03/23/21 05:02 INR 0.98 (0.87-1.13) 03/23/21 05:02 APTT 27.7 Sec. (24.2-36.6) 03/21/21 20:43 Sodium 141 mmol/L (137-145) 03/23/21 05:02 Potassium 3.7 mmol/L (3.6-5.0) 03/23/21 05:02 Chloride 107.4 mmol/L (98-107) H 03/23/21 05:02 Carbon Dioxide 22 mmol/L (22-30) 03/23/21 05:02 Anion Gap 15 mmol/L 03/23/21 05:02 BUN 16 mg/dL (7-17) 03/23/21 05:02 Creatinine 0.9 mg/dL (0.6-1.2) 03/23/21 05:02 Estimated GFR 59 ml/min 03/23/21 05:02 BUN/Creatinine Ratio 18 % 03/23/21 05:02 Glucose 100 mg/dL (65-100) 03/23/21 05:02 POC Glucose 104 mg/dL (70-105) 03/23/21 07:59 Lactic Acid 1.70 mmol/L (0.7-2.0) 03/21/21 23:07 Calcium 8.4 mg/dL (8.4-10.2) 03/23/21 05:02 Total Bilirubin 0.30 mg/dL (0.1-1.2) 03/21/21 19:57 AST 20 units/L (5-40) 03/21/21 19:57 ALT 18 units/L (7-56) 03/21/21 19:57 Alkaline Phosphatase 48 units/L (35-129) 03/21/21 19:57 Total Protein 6.9 g/dL (6.3-8.2) 03/21/21 19:57 Albumin 4.0 g/dL (3.9-5) 03/21/21 19:57 Albumin/Globulin Ratio 1.4 % 03/21/21 19:57 Lipase 13 units/L (13-60) 03/21/21 19:57 Urine Color Yellow (Yellow) 03/21/21 Unknown Urine Turbidity Cloudy (Clear) 03/21/21 Unknown Urine pH 6.0 (5.0-7.0) 03/21/21 Unknown Ur Specific [place] 1.013 (1.003-1.030) 03/21/21 Unknown Urine Protein 100 mg/dl mg/dL (Negative) 03/21/21 Unknown Urine Glucose (UA) Neg mg/dL (Negative) 03/21/21 Unknown Urine Ketones Neg mg/dL (Negative) 03/21/21 Unknown Urine Blood Neg (Negative) 03/21/21 Unknown Urine Nitrite Neg (Negative) 03/21/21 Unknown Urine Bilirubin Neg (Negative) 03/21/21 Unknown Urine Urobilinogen < 2.0 mg/dL (<2.0) 03/21/21 Unknown Ur Leukocyte Esterase Mod (Negative) 03/21/21 Unknown Urine WBC (Auto) 107.0 /HPF (0.0-6.0) H 03/21/21 Unknown Urine RBC (Auto) 2.0 /HPF (0.0-6.0) 03/21/21 Unknown U Epithel Cells (Auto) 12.0 /HPF (0-13.0) 03/21/21 Unknown Urine Mucus Few /HPF 03/21/21 Unknown Microbiology: Microbiology 03/21/21 23:07 Peripheral/Venous Blood Culture - Preliminary NO GROWTH AFTER 24 HOURS 03/21/21 23:12 Peripheral/Venous Blood Culture - Preliminary NO GROWTH AFTER 24 HOURS Osuna/IV: Voiding Method External Female Catheter Active Medications - Current Medications Current Medications: Generic Name Dose Route Start Last Admin Trade Name Freq PRN Reason Stop Dose Admin Acetaminophen 650 mg 03/22/21 00:03 03/23/21 07:14 Acetaminophen 325 Mg Tab PO 650 mg Q4H PRN Administration Pain MILD(1-3)/Fever >100.5/FRITZ Atorvastatin Calcium 20 mg 03/23/21 10:00 Atorvastatin 20 Mg Tab PO DAILY HAKAN Carvedilol 12.5 mg 03/22/21 23:00 03/22/21 22:30 Carvedilol 12.5 Mg Tab PO 12.5 mg BID@0800,1700 HAKAN Administration Dextrose 0 ml 03/22/21 00:03 Dextrose 50% In Water (25gm) 50 Ml Syringe IV Q30MIN PRN Hypoglycemia Protocol Hydralazine HCl 50 mg 03/22/21 23:00 03/23/21 07:03 Hydralazine 25 Mg Tab PO 50 mg TID HAKAN Administration Sodium Chloride 1,000 mls @ 75 mls/hr 03/22/21 00:15 03/23/21 07:05 Nacl 0.9% 1000 Ml IV 75 mls/hr DIRECT HAKAN Administration Levofloxacin/Dextrose 250 mg in 50 mls @ 50 mls/hr 03/23/21 10:00 Levaquin 250mg/50ml IV Q24H HAKAN Protocol Insulin Human Lispro 0 unit 03/22/21 07:30 03/22/21 22:32 Insulin Lispro 100 Unit/Ml SUB-Q 2 unit ACHS HAKAN Administration Protocol Losartan Potassium 100 mg 03/23/21 10:00 Losartan 50 Mg Tab PO QDAY HAKAN Magnesium Hydroxide 30 ml 03/22/21 00:03 Magnesium Hydroxide (Mom) Oral Liqd Udc PO Q4H PRN Constipation Metronidazole 500 mg 03/22/21 10:00 03/23/21 06:23 Metronidazole 500 Mg Tab PO 500 mg Q8HR HAKAN Administration Morphine Sulfate 4 mg 03/22/21 00:03 Morphine 4 Mg/1 Ml Inj IV Q4H PRN Pain , Severe (7-10) Morphine Sulfate 2 mg 03/22/21 00:13 Morphine 2 Mg/1 Ml Inj IV Q4H PRN Pain, Moderate (4-6) Ondansetron HCl 4 mg 03/22/21 00:03 Ondansetron 4 Mg/2 Ml Inj IV Q8H PRN Nausea And Vomiting Prednisone 10 mg 03/23/21 10:00 Prednisone 10 Mg Tab PO QDAY HAKAN Sodium Chloride 10 ml 03/22/21 10:00 03/22/21 21:32 Sodium Chloride 0.9% 10 Ml Flush Syringe IV 10 ml BID HAKAN Administration Sodium Chloride 10 ml 03/22/21 00:03 Sodium Chloride 0.9% 10 Ml Flush Syringe IV PRN PRN LINE FLUSH Nutrition/Malnutrition Assess - Dietary Evaluation Nutrition/Malnutrition Findings: Nutrition Notes Start: 03/22/21 11:11 Freq: Status: Active Protocol: Document 03/22/21 11:11 ADRIANA (Rec: 03/22/21 11:18 [facility] [id number]) Nutrition Notes Need for Assessment generated from: MD Order,Education Initial or Follow up Brief Note Current Diagnosis Diabetes,Hypertension,Heart Failure Other Pertinent Diagnosis Proctitis, UTI Current Diet Cardiac/Consistent CHO Labs/Tests Reviewed Pertinent Medications Reviewed Height 5 ft 2 in Weight 70.307 kg [place] Body Weight (kg) 50.00 BMI 28.3 Intake Prior to Admission Poor Weight Status Overweight Subjective/Other Information RD consulted for diet education. Pt admitted with c /o N/V/D and abdominal pain. CT of abdomen/pelvis revealed mild rectal mural thickening and perirectal inflammatory stranding. GI consulted. Spoke to pt via phone at 11:08 . She reports po tolerance and that she consumed 75% of breakfast this am. She has no c/o N/V/D at this time. No diet education needed at this time. Burn Absent Trauma Absent Minimum of two criteria No Is patient on ventilator? No Is Patient Ambulatory and/or Out of Bed Yes REE-([facility]-ambulatory/OOB) [ 1412.216 NUTR.[id number]] Calculation Used for Recommendations [facility] Additional Notes Pro needs 1-1.2g/k-84g/ day Fluid needs 1ml/kcal Nutrition Intervention Anticipated Discharge Needs: Continue CHO-controlled, heart -healthy diet Follow-Up By: 03/28/21 Additional Comments F/U: stable intakes, wt
--- NOTE | 2021-03-23 09:05 | Gastroenterology Progress Note ---
Assessment and Plan 1. Subacute diarrhea - resolved since hospitalization. suspect infectious etiology. clinically doing better, tolerating po without n/v and denies abd pain. 2. Pancreatic cysts - slight increase in size from prior ct scan. cont surveil [facility] for monitoring, can consider EUS as outpatient however given age, conservative management/monitoring may be warranted. okay to be discharged from gi stand point. f/u in gi clinic in 2 weeks. will sign off, please call as needed. Subjective Date of service: 03/23/21 Principal diagnosis: diarrhea Interval history: diarrhea remains resolved since hospitalization. denies abd pain. tolerating po w/o n/v. Objective - Constitutional Vitals: Temp Pulse Resp BP Pulse Ox 99.1 F 77 18 174/67 96 03/23/21 05:47 03/23/21 05:47 03/23/21 05:47 03/23/21 05:47 03/23/21 05:47 General appearance: no acute distress - Respiratory Respiratory effort: normal Respiratory: bilateral: CTA - Cardiovascular Rhythm: regular Heart Sounds: Present: S1 & S2 - Gastrointestinal General gastrointestinal: Present: soft, non-tender, non-distended - Labs CBC & Chem 7: 03/23/21 05:02 03/23/21 05:02 Labs: Laboratory Results - last 24 hr 03/22/21 03/22/21 03/22/21 11:50 16:54 21:43 WBC RBC Hgb Hct MCV MCH MCHC RDW Plt Count Lymph % (Auto) [place] % (Auto) Eos % (Auto) Baso % (Auto) Lymph # (Auto) [place] # (Auto) Eos # (Auto) Baso # (Auto) Seg Neutrophils % Seg Neutrophils # PT INR Sodium Potassium Chloride Carbon Dioxide Anion Gap BUN Creatinine Estimated GFR BUN/Creatinine Ratio Glucose POC Glucose 90 99 164 H Calcium 03/23/21 03/23/21 03/23/21 05:02 05:02 05:02 WBC 7.0 RBC 3.56 L Hgb 10.8 Hct 33.3 MCV 94 MCH 30 MCHC 32 RDW 16.8 H Plt Count 206 Lymph % (Auto) 13.5 [place] % (Auto) 7.3 Eos % (Auto) 1.8 Baso % (Auto) 0.5 Lymph # (Auto) 0.9 L [place] # (Auto) 0.5 Eos # (Auto) 0.1 Baso # (Auto) 0.0 Seg Neutrophils % 76.9 H Seg Neutrophils # 5.4 PT 14.1 INR 0.98 Sodium 141 Potassium 3.7 Chloride 107.4 H Carbon Dioxide 22 Anion Gap 15 BUN 16 Creatinine 0.9 Estimated GFR 59 BUN/Creatinine Ratio 18 Glucose 100 POC Glucose Calcium 8.4 03/23/21 07:59 WBC RBC Hgb Hct MCV MCH MCHC RDW Plt Count Lymph % (Auto) [place] % (Auto) Eos % (Auto) Baso % (Auto) Lymph # (Auto) [place] # (Auto) Eos # (Auto) Baso # (Auto) Seg Neutrophils % Seg Neutrophils # PT INR Sodium Potassium Chloride Carbon Dioxide Anion Gap BUN Creatinine Estimated GFR BUN/Creatinine Ratio Glucose POC Glucose 104 Calcium
[2021-03-23] MEDS: INSULIN LISPRO 100 UNIT/ML SUB-Q SCH ×4 (09:11→23:53)
[2021-03-23] MEDS: carvediloL 12.5 MG TAB PO SCH ×2 (09:31→17:27)
[2021-03-23] MEDS: predniSONE 10 MG TAB PO SCH (09:32)
[2021-03-23] MEDS: LOSARTAN 50 MG TAB PO SCH (09:32)
[2021-03-23] MEDS: MORPHINE 2 MG/1 ML INJ IV PRN ×2 (17:11→23:33)
[2021-03-23] MEDS: NYSTATIN 500,000 UNIT/5 ML ORAL LIQD PO SCH ×2 (17:11→23:31)
[2021-03-24] MEDS ORDERED: hydrALAZINE 20 MG/1 ML INJ IV ONE (05:44)
[2021-03-24] MEDS: metroNIDAZOLE 500 MG TAB PO SCH ×3 (05:58→22:25)
[2021-03-24] MEDS: MORPHINE 2 MG/1 ML INJ IV PRN ×2 (06:05→22:26)
[2021-03-24 07:58] LABS: Basophils # (Auto) 0.1 K/mm3 (0.0-0.1); Basophils % (Auto) 0.7 % (0.0-1.8); Eosinophils # (Auto) 0.1 K/mm3 (0.0-0.4); Eosinophils % (Auto) 0.6 % (0.0-4.3); Hematocrit 33.1 % (30.3-42.9); Hemoglobin 10.7 gm/dl (10.1-14.3); Lymphocytes # (Auto) 1.1 K/mm3 (1.2-5.4); Mean Corpuscular HGB Conc 32 % (30-34); Mean Corpuscular Volume 94 fl (79-97); Monocytes # (Auto) 0.6 K/mm3 (0.0-0.8); Monocytes % (Auto) 6.7 % (0.0-7.3); Platelet Count 184 K/mm3 (140-440); Red Blood Count 3.53 M/mm3 (3.65-5.03)
--- NOTE | 2021-03-24 08:00 | Progress Note ---
Assessment and Plan Assessment and plan: The patient is a 89 yo female with past medical history of rheumatoid arthritis, diabetes mellitus type 2, chronic systolic heart failure, hypertension, hyperlipidemia and pacemaker who presents with diarrhea x 1 month. Pt reports new onset diarrhea with frequent loose bm's over the past few weeks. this was associated with mild lower abd pain which has since improved. she has been treated with abx on outpatient setting due to sx's without improvement. non- bloody diarrhea. no bm's since this admission however. tolerating po without n/v. ct scan showed signs of mild rectal thickening suggestive of proctitis. pt had colonoscopy in 2019 with gi bleed which showed diverticulosis. Diarrhea Pancreatic cyst Proctitis. Rheumatoid arthritis flare. Diabetes mellitus type 2 Hypertension UTI Thrush. 03/23/2021. Follow-up stool studies and C. difficile toxin. Continue antibiotics for UTI and empirically for infectious diarrhea. GI following. Continue IV fluids. We will start nystatin swish and swallow 3 times daily for thrush. 03/24/2021. The patient's diarrhea has resolved since hospitalization. Etiology may be infectious. Continue IV antibiotics for now. Patient has not had a bowel movement for stool sample. Continue prednisone for rheumatoid arthritis flare. Patient has shown some improvement. Physical therapy evaluation. Anticipate discharge later today or in a.m. History Interval history: No new issues overnight Hospitalist Physical - Constitutional Vitals: Temp Pulse Resp BP Pulse Ox 98.4 F 72 16 181/64 94 03/24/21 04:10 03/24/21 04:10 03/24/21 04:10 03/24/21 04:10 03/24/21 04:10 General appearance: Present: no acute distress, well-nourished - EENT Eyes: Present: PERRL, EOM intact ENT: hearing intact, clear oral mucosa, dentition normal - Neck Neck: Present: supple, normal ROM - Respiratory Respiratory effort: normal Respiratory: bilateral: CTA - Cardiovascular Rhythm: regular Heart Sounds: Present: S1 & S2. Absent: gallop, rub - Extremities Extremities: no ischemia, No edema, Full ROM - Abdominal General gastrointestinal: soft, non-tender, non-distended, normal bowel sounds - Integumentary Integumentary: Present: clear, warm, dry - Neurologic Neurologic: CNII-XII intact, moves all extremities Results - Labs CBC & Chem 7: 03/23/21 05:02 03/23/21 05:02 Labs: Laboratory Last Values WBC 7.0 K/mm3 (4.5-11.0) 03/23/21 05:02 RBC 3.56 M/mm3 (3.65-5.03) L 03/23/21 05:02 Hgb 10.8 gm/dl (10.1-14.3) 03/23/21 05:02 Hct 33.3 % (30.3-42.9) 03/23/21 05:02 MCV 94 fl (79-97) 03/23/21 05:02 MCH 30 pg (28-32) 03/23/21 05:02 MCHC 32 % (30-34) 03/23/21 05:02 RDW 16.8 % (13.2-15.2) H 03/23/21 05:02 Plt Count 206 K/mm3 (140-440) 03/23/21 05:02 Lymph % (Auto) 13.5 % (13.4-35.0) 03/23/21 05:02 [place] % (Auto) 7.3 % (0.0-7.3) 03/23/21 05:02 Eos % (Auto) 1.8 % (0.0-4.3) 03/23/21 05:02 Baso % (Auto) 0.5 % (0.0-1.8) 03/23/21 05:02 Lymph # (Auto) 0.9 K/mm3 (1.2-5.4) L 03/23/21 05:02 [place] # (Auto) 0.5 K/mm3 (0.0-0.8) 03/23/21 05:02 Eos # (Auto) 0.1 K/mm3 (0.0-0.4) 03/23/21 05:02 Baso # (Auto) 0.0 K/mm3 (0.0-0.1) 03/23/21 05:02 Seg Neutrophils % 76.9 % (40.0-70.0) H 03/23/21 05:02 Seg Neutrophils # 5.4 K/mm3 (1.8-7.7) 03/23/21 05:02 PT 14.1 Sec. (12.2-14.9) 03/23/21 05:02 INR 0.98 (0.87-1.13) 03/23/21 05:02 APTT 27.7 Sec. (24.2-36.6) 03/21/21 20:43 Sodium 141 mmol/L (137-145) 03/23/21 05:02 Potassium 3.7 mmol/L (3.6-5.0) 03/23/21 05:02 Chloride 107.4 mmol/L (98-107) H 03/23/21 05:02 Carbon Dioxide 22 mmol/L (22-30) 03/23/21 05:02 Anion Gap 15 mmol/L 03/23/21 05:02 BUN 16 mg/dL (7-17) 03/23/21 05:02 Creatinine 0.9 mg/dL (0.6-1.2) 03/23/21 05:02 Estimated GFR 59 ml/min 03/23/21 05:02 BUN/Creatinine Ratio 18 % 03/23/21 05:02 Glucose 100 mg/dL (65-100) 03/23/21 05:02 POC Glucose 129 mg/dL (70-105) H 03/24/21 07:48 Lactic Acid 1.70 mmol/L (0.7-2.0) 03/21/21 23:07 Calcium 8.4 mg/dL (8.4-10.2) 03/23/21 05:02 Total Bilirubin 0.30 mg/dL (0.1-1.2) 03/21/21 19:57 AST 20 units/L (5-40) 03/21/21 19:57 ALT 18 units/L (7-56) 03/21/21 19:57 Alkaline Phosphatase 48 units/L (35-129) 03/21/21 19:57 Total Protein 6.9 g/dL (6.3-8.2) 03/21/21 19:57 Albumin 4.0 g/dL (3.9-5) 03/21/21 19:57 Albumin/Globulin Ratio 1.4 % 03/21/21 19:57 Lipase 13 units/L (13-60) 03/21/21 19:57 Urine Color Yellow (Yellow) 03/21/21 Unknown Urine Turbidity Cloudy (Clear) 03/21/21 Unknown Urine pH 6.0 (5.0-7.0) 03/21/21 Unknown Ur Specific [place] 1.013 (1.003-1.030) 03/21/21 Unknown Urine Protein 100 mg/dl mg/dL (Negative) 03/21/21 Unknown Urine Glucose (UA) Neg mg/dL (Negative) 03/21/21 Unknown Urine Ketones Neg mg/dL (Negative) 03/21/21 Unknown Urine Blood Neg (Negative) 03/21/21 Unknown Urine Nitrite Neg (Negative) 03/21/21 Unknown Urine Bilirubin Neg (Negative) 03/21/21 Unknown Urine Urobilinogen < 2.0 mg/dL (<2.0) 03/21/21 Unknown Ur Leukocyte Esterase Mod (Negative) 03/21/21 Unknown Urine WBC (Auto) 107.0 /HPF (0.0-6.0) H 03/21/21 Unknown Urine RBC (Auto) 2.0 /HPF (0.0-6.0) 03/21/21 Unknown U Epithel Cells (Auto) 12.0 /HPF (0-13.0) 03/21/21 Unknown Urine Mucus Few /HPF 03/21/21 Unknown Microbiology: Microbiology 03/21/21 23:07 Peripheral/Venous Blood Culture - Preliminary NO GROWTH AFTER 48 HOURS 03/21/21 23:12 Peripheral/Venous Blood Culture - Preliminary NO GROWTH AFTER 48 HOURS Osuna/IV: Voiding Method External Female Catheter Active Medications - Current Medications Current Medications: Generic Name Dose Route Start Last Admin Trade Name Freq PRN Reason Stop Dose Admin Acetaminophen 650 mg 03/22/21 00:03 03/23/21 07:14 Acetaminophen 325 Mg Tab PO 650 mg Q4H PRN Administration Pain MILD(1-3)/Fever >100.5/FRITZ Atorvastatin Calcium 20 mg 03/23/21 10:00 03/23/21 09:33 Atorvastatin 20 Mg Tab PO 20 mg DAILY HAKAN Administration Carvedilol 12.5 mg 03/22/21 23:00 03/23/21 17:27 Carvedilol 12.5 Mg Tab PO 12.5 mg BID@0800,1700 HAKAN Administration Dextrose 0 ml 03/22/21 00:03 Dextrose 50% In Water (25gm) 50 Ml Syringe IV Q30MIN PRN Hypoglycemia Protocol Hydralazine HCl 50 mg 03/22/21 23:00 03/23/21 23:30 Hydralazine 25 Mg Tab PO 50 mg TID HAKAN Administration Sodium Chloride 1,000 mls @ 75 mls/hr 03/22/21 00:15 03/23/21 23:36 Nacl 0.9% 1000 Ml IV 75 mls/hr DIRECT HAKAN Administration Levofloxacin/Dextrose 250 mg in 50 mls @ 50 mls/hr 03/23/21 10:00 03/23/21 09:31 Levaquin 250mg/50ml IV 50 mls/hr Q24H HAKAN Administration Protocol Insulin Human Lispro 0 unit 03/22/21 07:30 03/23/21 23:53 Insulin Lispro 100 Unit/Ml SUB-Q Not Given ACHS HAKAN Protocol Losartan Potassium 100 mg 03/23/21 10:00 03/23/21 09:32 Losartan 50 Mg Tab PO 100 mg QDAY HAKAN Administration Magnesium Hydroxide 30 ml 03/22/21 00:03 Magnesium Hydroxide (Mom) Oral Liqd Udc PO Q4H PRN Constipation Metronidazole 500 mg 03/22/21 10:00 03/24/21 05:58 Metronidazole 500 Mg Tab PO 500 mg Q8HR HAKAN Administration Morphine Sulfate 4 mg 03/22/21 00:03 Morphine 4 Mg/1 Ml Inj IV Q4H PRN Pain , Severe (7-10) Morphine Sulfate 2 mg 03/22/21 00:13 03/24/21 06:05 Morphine 2 Mg/1 Ml Inj IV 2 mg Q4H PRN Administration Pain, Moderate (4-6) Nystatin 100,000 unit 03/23/21 14:00 03/23/21 23:31 Nystatin 500,000 Unit/5 Ml Oral Liqd PO 100,000 unit TID HAKAN Administration Ondansetron HCl 4 mg 03/22/21 00:03 Ondansetron 4 Mg/2 Ml Inj IV Q8H PRN Nausea And Vomiting Prednisone 10 mg 03/23/21 10:00 03/23/21 09:32 Prednisone 10 Mg Tab PO 10 mg QDAY HAKAN Administration Sodium Chloride 10 ml 03/22/21 10:00 03/23/21 23:35 Sodium Chloride 0.9% 10 Ml Flush Syringe IV 10 ml BID HAKAN Administration Sodium Chloride 10 ml 03/22/21 00:03 Sodium Chloride 0.9% 10 Ml Flush Syringe IV PRN PRN LINE FLUSH Nutrition/Malnutrition Assess - Dietary Evaluation Nutrition/Malnutrition Findings: Nutrition Notes Start: 03/22/21 11:11 Freq: Status: Active Protocol: Document 03/22/21 11:11 ADRIANA (Rec: 03/22/21 11:18 ADRIANA [id number]) Nutrition Notes Need for Assessment generated from: MD Order,Education Initial or Follow up Brief Note Current Diagnosis Diabetes,Hypertension,Heart Failure Other Pertinent Diagnosis Proctitis, UTI Current Diet Cardiac/Consistent CHO Labs/Tests Reviewed Pertinent Medications Reviewed Height 5 ft 2 in Weight 70.307 kg [place] Body Weight (kg) 50.00 BMI 28.3 Intake Prior to Admission Poor Weight Status Overweight Subjective/Other Information RD consulted for diet education. Pt admitted with c /o N/V/D and abdominal pain. CT of abdomen/pelvis revealed mild rectal mural thickening and perirectal inflammatory stranding. GI consulted. Spoke to pt via phone at 11:08 . She reports po tolerance and that she consumed 75% of breakfast this am. She has no c/o N/V/D at this time. No diet education needed at this time. Burn Absent Trauma Absent Minimum of two criteria No Is patient on ventilator? No Is Patient Ambulatory and/or Out of Bed Yes REE-([place]-St. Jeor-ambulatory/OOB) [ 1412.216 NUTR.[id number]] Calculation Used for Recommendations [place]-[facility] Jeor Additional Notes Pro needs 1-1.2g/k-84g/ day Fluid needs 1ml/kcal Nutrition Intervention Anticipated Discharge Needs: Continue CHO-controlled, heart -healthy diet Follow-Up By: 03/28/21 Additional Comments F/U: stable intakes, wt
[2021-03-24 08:17] LABS: BUN/Creatinine Ratio 16; Blood Urea Nitrogen 13 mg/dL (7-17); Hemolysis Index 48
[2021-03-24] MEDS: INSULIN LISPRO 100 UNIT/ML SUB-Q SCH ×4 (08:46→22:25)
[2021-03-24] MEDS: NYSTATIN 500,000 UNIT/5 ML ORAL LIQD PO SCH ×3 (09:38→20:35)
[2021-03-24] MEDS: predniSONE 10 MG TAB PO SCH (09:39)
[2021-03-24] MEDS: carvediloL 12.5 MG TAB PO SCH ×2 (09:39→19:55)
[2021-03-24] MEDS: hydrALAZINE 25 MG TAB PO SCH ×3 (09:39→20:35)
[2021-03-24] MEDS: LOSARTAN 50 MG TAB PO SCH (09:40)
[2021-03-24] MEDS: SODIUM CHLORIDE 0.9% 1000 ML 1,000 ML IV SCH (13:42)
[2021-03-25 05:30] LABS: Basophils % (Auto) 0.4 % (0.0-1.8); Eosinophils % (Auto) 0.5 % (0.0-4.3); Hematocrit 30.1 % (30.3-42.9); Hemoglobin 9.6 gm/dl (10.1-14.3); Lymphocytes % (Auto) 14.1 % (13.4-35.0); Mean Corpuscular HGB Conc 32 % (30-34); Mean Corpuscular Volume 95 fl (79-97); Monocytes # (Auto) 0.7 K/mm3 (0.0-0.8); Monocytes % (Auto) 9.7 % (0.0-7.3); Platelet Count 167 K/mm3 (140-440); Red Blood Count 3.16 M/mm3 (3.65-5.03); Red Cell Distribution Width 16.4 % (13.2-15.2)
[2021-03-25 05:47] LABS: BUN/Creatinine Ratio 16; Blood Urea Nitrogen 13 mg/dL (7-17); Calcium 7.5 mg/dL (8.4-10.2); Hemolysis Index 40
[2021-03-25] MEDS: carvediloL 12.5 MG TAB PO SCH ×2 (08:00→17:36)
[2021-03-25] MEDS: NYSTATIN 500,000 UNIT/5 ML ORAL LIQD PO SCH ×3 (08:00→20:56)
[2021-03-25] MEDS: hydrALAZINE 25 MG TAB PO SCH ×3 (08:00→20:56)
[2021-03-25] MEDS: metroNIDAZOLE 500 MG TAB PO SCH ×3 (08:24→22:39)
[2021-03-25] MEDS: LOSARTAN 50 MG TAB PO SCH (09:32)
[2021-03-25] MEDS: predniSONE 10 MG TAB PO SCH (09:32)
[2021-03-25] MEDS: MORPHINE 2 MG/1 ML INJ IV PRN (09:33)
[2021-03-25] MEDS ORDERED: predniSONE 20 MG TAB PO ONE ×2 (11:00→15:00)
[2021-03-25] MEDS: INSULIN LISPRO 100 UNIT/ML SUB-Q SCH ×3 (13:14→22:39)
--- NOTE | 2021-03-25 13:28 | Discharge Summary ---
Providers - Providers Date of Admission: 03/22/21 02:22 Date of discharge: 03/25/21 Attending physician: DARIN AVILA MD 03/22/21 00:04 Consult to Dietitian/Nutrition [CONS] Routine Physician Instructions: Reason For Exam: Reason for Consult: Diet education 03/22/21 04:05 Consult to Physician [CONS] Routine Comment: Consulting Provider: SABIHA CABRERA Physician Instructions: Reason For Exam: Proctitis, H/O Diverticular disease 03/23/21 09:04 Physical Therapy Evaluation and Treat [CONS] Routine Comment: Reason For Exam: Weakness Primary care physician: BRAYDON MEYER Hospitalization Reason for admission: Subacute diarrhea; proctitis Condition: Fair Pertinent studies: Reviewed. Procedures: None. Hospital course: Patient is a 89-year-old female with past medical history of hypertension, congestive heart failure, diabetes, and rheumatoid arthritis who presented with nausea, vomiting, and diarrhea for the past 3-4 weeks. The patient was recently diagnosed for possible diverticulitis and treated with outpatient Levaquin and Flagyl; however, she continued to complain of abdominal pain that was worse in her left lower abdomen. Patient was admitted for further management. CT abdomen/pelvis with contrast revealed "mild rectal mural thickening and perirectal inflammatory stranding, suspicious for mild proctitis; colonic diverticulosis without evidence of diverticulitis; slight increase in size of multiloculated cystic lesion of the pancreas; other stable chronic and incidental findings as above". Patient was evaluated by gastroenterology who suspected the subacute diarrhea was secondary to infectious etiology. The pancreatic cyst can continue to be monitored with imaging in outpatient setting. The patient was started on Levaquin and Flagyl, and she will need to complete a total 5-day course. The patient also described symptoms consistent with a possible RA flare, and she will undergo a 5-day course of oral steroids (not required taper). The patient was evaluated by physical therapy who recommended subacute rehab; however, the patient vehemently refuses rehab. The patient will be discharged home with home health and home PT for further management. The patient expressed understanding. Patient safe for discharge home with family. Disposition: 06 HOME [facility]ALTH CARE SERVICE Final Discharge Diagnosis (Prints w/discharge instructions): Infectious subacute diarrhea, pancreatic cyst, proctitis, diabetes mellitus type 2, hypertension, UTI, thrush, rheumatoid arthritis Time spent for discharge: 45 min Core Measure Documentation - Palliative Care Palliative Care/ Comfort Measures: Not Applicable - Core Measures Any of the following diagnoses?: history only - VTE Discharge Requirements Deep Vein Thrombosis/Pulmonary Embolism Present on Admission: No Has pt received <5 days of overlap therapy or INR<2.0: No (Not indicated) Anticoagulant overlap therapy prescribed at discharge: No Contraindication No Overlap Therapy order at DC: Not Indicated - Acute PR Discharge Requirements Aspirin at discharge: No Reason for no aspirin on DC: Medical contraindication (Not indicated) SHANON/ARB for LVSD if EF <40%: Yes Beta kim at discharge: Yes Statin for LDL = or >100 mg/dl on DC: Yes - Heart Failure Discharge Requirements SHANON/ARB for LVSD if EF <40%: Yes Beta kim at discharge: Yes - Stroke Discharge Requirements Statin for LDL = or >70 mg/dl on DC: Yes Anticoag for atrial fib/atrial flutter: Not Applicable (Not indicated) Reason for no anticoag for AF/F on DC: Not Indicated Antithrombotic for ischemic stroke: No Reason for no antithrombotic on DC: Not Indicated Exam - Constitutional Vitals: Temp Pulse Resp BP Pulse Ox 99.5 F 73 18 144/53 95 03/25/21 12:01 03/25/21 12:01 03/25/21 12:01 03/25/21 12:01 03/25/21 12:01 General appearance: Present: no acute distress, well-nourished - EENT Eyes: Present: PERRL, EOM intact ENT: hearing intact, clear oral mucosa, dentition normal - Neck Neck: Present: supple, normal ROM - Respiratory Respiratory effort: normal Respiratory: bilateral: CTA - Cardiovascular Rhythm: regular Heart Sounds: Present: S1 & S2 - Extremities Extremities: no ischemia, pulses intact, pulses symmetrical, normal temperature, normal color Extremity abnormal: edema (Trace edema bilateral shins) Peripheral Pulses: within normal limits - Abdominal General gastrointestinal: Present: soft, non-tender, non-distended, normal bowel sounds Female genitourinary: Present: deferred - Rectal Rectal Exam: deferred - Integumentary Integumentary: Present: clear, warm, dry - Musculoskeletal Musculoskeletal: strength equal bilaterally - Psychiatric Psychiatric: appropriate mood/affect, intact judgment & insight, memory intact, cooperative - Neurologic Neurologic: CNII-XII intact, moves all extremities - Allied Health Allied health notes reviewed: nursing Plan Activity: no restrictions Diet: low salt, diabetic Care Plan Goals: Patient discharging home with home health and home PT. Assessment: Patient was admitted due to subacute diarrhea that was found to be likely infectious in etiology. Patient was evaluated by gastroenterology. CT abdomen/pelvis revealed proctitis and was negative for signs of diverticulitis. Patient will complete a 5-day course of Levaquin and Flagyl. Patient was started on oral prednisone 30 mg daily x5 days for possible RA flare. Follow up with: BRAYDON MEYER MD [Primary Care Provider] - 7 Days Prescriptions: metroNIDAZOLE [Flagyl TAB] 500 mg PO Q8HR #8 tablet predniSONE 30 mg PO QDAY 4 Days #12 tablet
[2021-03-26] MEDS: metroNIDAZOLE 500 MG TAB PO SCH (06:08)
[2021-03-26 08:37] LABS: Calcium 8.1 mg/dL (8.4-10.2)
[2021-03-26] MEDS: INSULIN LISPRO 100 UNIT/ML SUB-Q SCH (08:45)
[2021-03-26] MEDS: carvediloL 12.5 MG TAB PO SCH (08:46)
[2021-03-26] MEDS: NYSTATIN 500,000 UNIT/5 ML ORAL LIQD PO SCH (08:47)
[2021-03-26] MEDS: hydrALAZINE 25 MG TAB PO SCH (08:47)
[2021-03-26] MEDS: LOSARTAN 50 MG TAB PO SCH (09:48)
[2021-03-26] MEDS ORDERED: predniSONE 10 MG TAB PO SCH (10:00)
--- NOTE | 2021-03-26 12:49 | Discharge Summary ---
Providers - Providers Date of Admission: 03/22/21 02:22 Date of discharge: 03/26/21 Attending physician: DARIN AVILA MD 03/22/21 00:04 Consult to Dietitian/Nutrition [CONS] Routine Physician Instructions: Reason For Exam: Reason for Consult: Diet education 03/22/21 04:05 Consult to Physician [CONS] Routine Comment: Consulting Provider: SABIHA CABRERA Physician Instructions: Reason For Exam: Proctitis, H/O Diverticular disease 03/23/21 09:04 Physical Therapy Evaluation and Treat [CONS] Routine Comment: Reason For Exam: Weakness Primary care physician: BRAYDON MEYER Hospitalization Reason for admission: Subacute diarrhea Condition: Fair Pertinent studies: Reviewed. Procedures: None. Hospital course: Patient is a 89-year-old female with past medical history of hypertension, congestive heart failure, diabetes, and rheumatoid arthritis who presented with nausea, vomiting, and diarrhea for the past 3-4 weeks. The patient was recently diagnosed for possible diverticulitis and treated with outpatient Levaquin and Flagyl; however, she continued to complain of abdominal pain that was worse in her left lower abdomen. Patient was admitted for further management. CT abdomen/pelvis with contrast revealed "mild rectal mural thickening and perirectal inflammatory stranding, suspicious for mild proctitis; colonic diverticulosis without evidence of diverticulitis; slight increase in size of multiloculated cystic lesion of the pancreas; other stable chronic and incidental findings as above". Patient was evaluated by gastroenterology who suspected the subacute diarrhea was secondary to infectious etiology. The pancreatic cyst can continue to be monitored with imaging in outpatient setting. The patient was started on Levaquin and Flagyl, and she will need to complete a total 5-day course. The patient also described symptoms consistent with a possible RA flare, and she will undergo a 5-day course of oral steroids (not required taper). The patient was evaluated by physical therapy who recommended subacute rehab; however, the patient vehemently refuses rehab. With further discussion involving the patient's granddaughter/MPOA (Tiffanie), the patient agreed to acute rehab for further management. The patient expressed understanding. Patient safe for discharge to acute rehab. Disposition: 03 [facility] Final Discharge Diagnosis (Prints w/discharge instructions): Infectious subacute diarrhea, pancreatic cyst, proctitis, diabetes mellitus type 2, hypertension, UTI, thrush, rheumatoid arthritis Time spent for discharge: 45 min Core Measure Documentation - Palliative Care Palliative Care/ Comfort Measures: Not Applicable - Core Measures Any of the following diagnoses?: history only - VTE Discharge Requirements Deep Vein Thrombosis/Pulmonary Embolism Present on Admission: No Has pt received <5 days of overlap therapy or INR<2.0: No (Not indicated) Anticoagulant overlap therapy prescribed at discharge: No Contraindication No Overlap Therapy order at DC: Not Indicated - Acute PR Discharge Requirements Aspirin at discharge: No Reason for no aspirin on DC: Medical contraindication (Not indicated) SHANON/ARB for LVSD if EF <40%: Yes Beta kim at discharge: Yes Statin for LDL = or >100 mg/dl on DC: Yes - Heart Failure Discharge Requirements SHANON/ARB for LVSD if EF <40%: Yes Beta kim at discharge: Yes - Stroke Discharge Requirements Statin for LDL = or >70 mg/dl on DC: Yes Anticoag for atrial fib/atrial flutter: Not Applicable Reason for no anticoag for AF/F on DC: Not Indicated Antithrombotic for ischemic stroke: No Reason for no antithrombotic on DC: Not Indicated Exam - Constitutional Vitals: Temp Pulse Resp BP Pulse Ox 97.3 F L 66 20 185/67 96 03/26/21 05:07 03/26/21 09:48 03/26/21 05:07 03/26/21 09:48 03/26/21 05:07 General appearance: Present: no acute distress, well-nourished - EENT Eyes: Present: PERRL, EOM intact ENT: hearing intact, clear oral mucosa, dentition normal - Neck Neck: Present: supple, normal ROM - Respiratory Respiratory effort: normal Respiratory: bilateral: CTA - Cardiovascular Rhythm: regular Heart Sounds: Present: S1 & S2 - Extremities Extremities: no ischemia, pulses intact, pulses symmetrical, No edema, normal temperature, normal color, abnormal (Torn rotator cuff and right shoulder; limited range of motion in right shoulder) Peripheral Pulses: within normal limits - Abdominal General gastrointestinal: Present: soft, non-tender, non-distended, normal bowel sounds Female genitourinary: Present: deferred - Rectal Rectal Exam: deferred - Integumentary Integumentary: Present: clear, warm, dry - Musculoskeletal Musculoskeletal: strength equal bilaterally - Psychiatric Psychiatric: appropriate mood/affect, intact judgment & insight, memory intact, cooperative - Neurologic Neurologic: CNII-XII intact, moves all extremities - Allied Health Allied health notes reviewed: nursing Plan Activity: no restrictions Diet: low salt Care Plan Goals: Patient discharging to subacute rehab. Assessment: Patient was admitted due to subacute diarrhea that was found to be likely infectious in etiology. Patient was evaluated by gastroenterology. CT abdomen/pelvis revealed proctitis and was negative for signs of diverticulitis. Patient will complete a 5-day course of Levaquin and Flagyl. Patient was started on oral prednisone 30 mg daily x5 days for possible RA flare. Follow up with: BRAYDON MEYER MD [Primary Care Provider] - 7 Days Prescriptions: metroNIDAZOLE [Flagyl] 500 mg PO Q8HR 1 Days #1 tablet predniSONE 30 mg PO QDAY 4 Days #12 tablet
[2021-03-26 12:51] VITALS: BP 178/60
== END 2021-03-26 14:56 | DRG 690 ==
LOC: ED 18:27 → 3A 03-22 02:22
PROVIDERS: ADMIT Internal Medicine Geriatric Medicine; ATTEND Student in an Organized Health Care Education/Training Program
DX: N39.0 Urinary tract infection, site not specified (principal); A09 Infectious gastroenteritis and colitis, unspecified; K86.2 Cyst of pancreas; I50.22 Chronic systolic (congestive) heart failure; K62.89 Other specified diseases of anus and rectum; B37.9 Candidiasis, unspecified; E11.9 Type 2 diabetes mellitus without complications; K57.90 Diverticulosis of intestine, part unspecified, without perforation or abscess without bleeding; Z20.822 Contact with and (suspected) exposure to COVID-19; Z88.6 Allergy status to analgesic agent; I11.0 Hypertensive heart disease with heart failure; M06.9 Rheumatoid arthritis, unspecified; Z95.0 Presence of cardiac pacemaker; Z90.710 Acquired absence of both cervix and uterus; Z79.82 Long term (current) use of aspirin; Z79.4 Long term (current) use of insulin
CPT/HCPCS: 36415; 74176; 80048; 80053; 81001; 82140; 82962; 83690; 85025; 85610; 85730; 87040; G0378; J3490; Q0162; Q9967; J0360; J1815; J1956; J2270; J2405; J2543; J7030; J7512; U0003

== ENCOUNTER 2021-08-10 10:24 | Emergency (ER) | payer MEDICARE ==
[2021-08-10] MEDS ORDERED: MORPHINE 4 MG/1 ML INJ IV ONE ×2 (10:46→12:49)
[2021-08-10] MEDS ORDERED: ONDANSETRON 4 MG/2 ML INJ IV ONE ×2 (10:46→12:50)
--- NOTE | 2021-08-10 11:42 | Cat Scan Report ---
CT ABDOMEN AND PELVIS WITHOUT CONTRAST INDICATION: right flank pain WO CONTRAST. TECHNIQUE: Axial CT images were obtained through the abdomen and pelvis without IV contrast. All CT scans at [facility] location are performed using CT dose reduction for ALARA by means of automated exposure control. COMPARISON: CT abdomen pelvis 03/21/2021 FINDINGS: LOWER CHEST: No significant abnormality. LIVER: No significant abnormality. GALLBLADDER: No significant abnormality. BILE DUCTS: No significant abnormality. PANCREAS: 4.5 x 4.1 cm cystic pancreatic head mass image 56, previously measured 4.0 x 4.3 cm image 7 7. Large multi lobulated pancreatic cystic mass arising from the body/tail of pancreas currently jose l ures 11.3 x 8.0 cm image 55, previously measuring 10.6 x 8.5 cm image 78. SPLEEN: No significant abnormality. ADRENALS: No significant abnormality. RIGHT KIDNEY and URETER: Single nonobstructing 3 mm right intrarenal stone. No ureteral stone or LEFT KIDNEY and URETER: No significant abnormality. STOMACH and SMALL BOWEL: No significant abnormality. COLON: Moderate sigmoid diverticulosis without diverticulitis APPENDIX: No significant abnormality. PERITONEUM: No free fluid. No free air. No fluid collection. LYMPH NODES: No significant adenopathy. AORTA and ARTERIES: Extensive vascular calcifications nonaneurysmal aorta IVC and VEINS: No significant abnormality. URINARY BLADDER: No significant abnormality. REPRODUCTIVE ORGANS: Previous hysterectomy. Vaginal pessary device, new since previous studies ADDITIONAL FINDINGS: None. SKELETAL SYSTEM: Acute L2 vertebral body burst fracture, new since prior study with 70% loss of verte bral body height. No significant osseous retropulsion. Mildly displaced fractures involving tips of l eft 2 and L3 transverse processes, new since prior IMPRESSION: 1. 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 2. Right nephrolithiasis. No ureteral stone or hydronephrosis 3. New L2 burst fracture and fractures involving the tips of left L2 and L3 transverse processes Signer Name: Javi Pedraza MD Signed: 08/10/2021 11:38 AM Workstation Name: [id number]
[2021-08-10 11:55] LABS: Hematocrit 34.3 % (30.3-42.9); Hemoglobin 11.2 gm/dl (10.1-14.3); Mean Corpuscular HGB Conc 33 % (30-34); Mean Corpuscular Volume 91 fl (79-97); Platelet Count 309 K/mm3 (140-440); Red Blood Count 3.75 M/mm3 (3.65-5.03); Red Cell Distribution Width 16.4 % (13.2-15.2)
[2021-08-10 12:12] LABS: Alanine Aminotransferase 22 units/L (7-56); Albumin 3.8 g/dL (3.9-5); BUN/Creatinine Ratio 19; Blood Urea Nitrogen 15 mg/dL (7-17); Calcium 9.1 mg/dL (8.4-10.2); Hemolysis Index 4
[2021-08-10] MEDS ORDERED: SODIUM CHLORIDE 0.9% 500 ML 500 ML IV ONE (12:39)
--- NOTE | 2021-08-10 12:49 | Emergency Department Report ---
ED Back Pain/Injury HPI - General Chief Complaint: Back Pain/Injury Stated Complaint: LOWER BACK PAIN Time Seen by Provider: 08/10/21 10:33 Source: EMS Limitations: No Limitations - History of Present Illness Initial Comments: 89-year-old female the past medical history of diabetes, hypertension, and rheumatoid arthritis (currently on prednisone 5 mg daily and methotrexate) pre sents to the hospital complaining of right sided lower back pain for the past 10 days. Patient was seen at PMD office approximately 9 days ago and was prescribed Levaquin 500 mg daily x7 days for UTI after office evaluation. Patient states at symptom onset that she had mild dysuria and nausea as symptom onset which have resolved but she continues to have 10 out of 10 pain that is constant and worse with movement. She denies urinary continence, numbness, or weakness. She is having difficulty ambulating secondary to pain which is not improved with tramadol prescribed by PMD. PMD: Dr. Puente - Related Data Home Medications Medication Instructions Recorded Confirmed Last Taken Atorvastatin Calcium [Lipitor] 20 mg PO QHS 08/20/18 03/25/21 08/09/21 20:00 Folic Acid [Folvite] 2 mg PO QDAY 08/20/18 03/25/21 08/10/21 08:30 Hydralazine HCl 50 mg PO TID 08/20/18 03/22/21 08/10/21 08:30 carvediloL [Carvedilol] 12.5 mg PO BID 08/20/18 03/22/21 08/10/21 08:30 estradioL [Estradiol] 0.5 mg PO DAILY 08/20/18 03/25/21 08/10/21 08:30 Aspirin [Vazalore] 81 mg PO DAILY 03/22/21 03/25/21 08/10/21 08:30 Losartan [Cozaar] 100 mg PO QDAY 03/22/21 03/22/21 08/10/21 08:30 Sitagliptin Phos/Metformin HCl 1 each PO QPM 03/22/21 08/10/21 08/09/21 20:30 [Janumet 50-1,000 mg Tablet] predniSONE [Deltasone] 5 mg PO QDAY 03/22/21 03/23/21 08/10/21 08:30 NIFEdipine [Nifedipine ER] 60 mg PO QDAY 03/25/21 08/10/21 08/10/21 08:00 metHOTREXate sodium [Trexall] 10 mg PO QWEEK 03/25/21 03/25/21 08/08/21 08:30 traMADoL [Ultram] 50 mg PO Q6HR PRN 08/10/21 08/10/21 08/09/21 20:00 Previous Rx's Medication Instructions Recorded Last Taken Type Cyclobenzaprine HCl [Flexeril 5 MG 5 mg PO TID PRN #20 tab 08/10/21 Unknown Rx TAB] Docusate Sodium [Colace] 100 mg PO BID PRN #20 capsule 08/10/21 Unknown Rx Ondansetron [Zofran Odt] 4 mg PO Q8HR PRN #15 tab.rapdis 08/10/21 Unknown Rx oxyCODONE /ACETAMINOPHEN [Percocet 1 tab PO Q6HR PRN #15 tablet 08/10/21 Unknown Rx 5/325] Allergies Allergy/AdvReac Type Severity Reaction Status Date / Time codeine AdvReac Vomiting Verified 08/10/21 10:46 ED Review of Systems ROS: Stated complaint: LOWER BACK PAIN Other details as noted in HPI Comment: All other systems reviewed and negative ED Past Medical Hx - Past Medical History Previous Medical History?: Yes Hx Hypertension: Yes Hx Heart Attack/AMI: No Hx Congestive Heart Failure: Yes Hx Diabetes: Yes Hx Deep Vein Thrombosis: No Hx Arthritis: Yes (RA) Hx Asthma: No Hx COPD: No Additional medical history: Right Shoulder dislocation 50 years ago. - Surgical History Past Surgical History?: Yes Hx Pacemaker: No Hx Internal Defibrillator: No Additional Surgical History: Hysterectomy, Bladder Surgery - Social History Smoking Status: Never Smoker Substance Use Type: None - Medications Home Medications: Home Medications Medication Instructions Recorded Confirmed Last Taken Type Atorvastatin Calcium [Lipitor] 20 mg PO QHS 08/20/18 03/25/21 08/09/21 20:00 History Folic Acid [Folvite] 2 mg PO QDAY 08/20/18 03/25/21 08/10/21 08:30 History Hydralazine HCl 50 mg PO TID 08/20/18 03/22/21 08/10/21 08:30 History carvediloL [Carvedilol] 12.5 mg PO BID 08/20/18 03/22/21 08/10/21 08:30 History estradioL [Estradiol] 0.5 mg PO DAILY 08/20/18 03/25/21 08/10/21 08:30 History Aspirin [Vazalore] 81 mg PO DAILY 03/22/21 03/25/21 08/10/21 08:30 History Losartan [Cozaar] 100 mg PO QDAY 03/22/21 03/22/21 08/10/21 08:30 History Sitagliptin Phos/Metformin HCl 1 each PO QPM 03/22/21 08/10/21 08/09/21 20:30 History [Janumet 50-1,000 mg Tablet] predniSONE [Deltasone] 5 mg PO QDAY 03/22/21 03/23/21 08/10/21 08:30 History NIFEdipine [Nifedipine ER] 60 mg PO QDAY 03/25/21 08/10/21 08/10/21 08:00 History metHOTREXate sodium [Trexall] 10 mg PO QWEEK 03/25/21 03/25/21 08/08/21 08:30 History Cyclobenzaprine HCl [Flexeril 5 MG 5 mg PO TID PRN #20 tab 08/10/21 Unknown Rx TAB] Docusate Sodium [Colace] 100 mg PO BID PRN #20 capsule 08/10/21 Unknown Rx Ondansetron [Zofran Odt] 4 mg PO Q8HR PRN #15 tab.rapdis 08/10/21 Unknown Rx oxyCODONE /ACETAMINOPHEN [Percocet 1 tab PO Q6HR PRN #15 tablet 08/10/21 Unknown Rx 5/325] traMADoL [Ultram] 50 mg PO Q6HR PRN 08/10/21 08/10/21 08/09/21 20:00 History ED Physical Exam - General Limitations: No Limitations - Other Other exam information: General: No acute distress Head: Atraumatic Eyes: normal appearance ENT: Moist mucous membranes Neck: Normal appearance, no midline tenderness Chest: Clear to auscultation bilaterally CV: Regular rate and rhythm Abdomen: Soft, normal bowel sounds, nontender, nondistended, no rebound or guarding Back: Normal inspection, no midline tenderness, no right flank tenderness, tenderness to left lower back Extremity: Normal inspection, full range of motion Neuro: Alert O x 3, no facial asymmetry, speech clear, no gross motor sensory deficit Psych: Appropriate behavior Skin: No rash ED Course Vital Signs 08/10/21 08/10/21 08/10/21 10:25 10:37 10:45 Pulse Rate 84 69 70 Respiratory 16 19 Rate Blood Pressure 164/60 Blood Pressure 180/77 [Left] O2 Sat by Pulse 94 98 Oximetry - Consultations Consultation #1: 08/10/21 13:37 During ED stay Case was discussed several times with Dr. Lalit Puente neurosurgeon. Facesheet was faxed to [facility] for LSO brace fitting to be done tonight. I did verify patient's home and cell phone number as point of contact. He also recommends patient be treated with pain medication and muscle relaxant but does not recommend an increase in prednisone at this time due to risk of worsening osteoporosis induced by prednisone. Patient's daughter at the bedside and states that she lives with her son and they can assist with her care. Dr. Khoury also suspects that symptoms should improve with LSO brace and recommends follow-up in the office in tomorrow ED Medical Decision Making - Lab Data Result diagrams: 08/10/21 11:25 08/10/21 11:25 Lab Results 08/10/21 08/10/21 08/10/21 Range/Units 11:25 11:25 Unknown WBC 11.5 H (4.5-11.0) K/mm3 RBC 3.75 (3.65-5.03) M/mm3 Hgb 11.2 (10.1-14.3) gm/dl Hct 34.3 (30.3-42.9) % MCV 91 (79-97) fl MCH 30 (28-32) pg MCHC 33 (30-34) % RDW 16.4 H (13.2-15.2) % Plt Count 309 (140-440) K/mm3 Sodium 132 L (137-145) mmol/L Potassium 4.1 (3.6-5.0) mmol/L Chloride 95.0 L (98-107) mmol/L Carbon Dioxide 25 (22-30) mmol/L Anion Gap 16 mmol/L BUN 15 (7-17) mg/dL Creatinine 0.8 (0.6-1.2) mg/dL Estimated GFR > 60 ml/min BUN/Creatinine Ratio 19 % Glucose 121 H (65-100) mg/dL Calcium 9.1 (8.4-10.2) mg/dL Total Bilirubin 0.40 (0.1-1.2) mg/dL AST 22 (5-40) units/L ALT 22 (7-56) units/L Alkaline Phosphatase 66 (35-129) units/L Total Protein 7.0 (6.3-8.2) g/dL Albumin 3.8 L (3.9-5) g/dL Albumin/Globulin Ratio 1.2 % Urine Color Yellow (Yellow) Urine Turbidity Clear (Clear) Urine pH 7.0 (5.0-7.0) Ur Specific Baker 1.011 (1.003-1.030) Urine Protein 100 mg/dl (Negative) mg/dL Urine Glucose (UA) 50 (Negative) mg/dL Urine Ketones Neg (Negative) mg/dL Urine Blood Sm (Negative) Urine Nitrite Neg (Negative) Urine Bilirubin Neg (Negative) Urine Urobilinogen < 2.0 (<2.0) mg/dL Ur Leukocyte Esterase Tr (Negative) Urine WBC (Auto) 2.0 (0.0-6.0) /HPF Urine RBC (Auto) 4.0 (0.0-6.0) /HPF U Epithel Cells (Auto) 9.0 (0-13.0) /HPF Urine Bacteria (Auto) 2+ (Negative) /HPF - Radiology Data Radiology results: report reviewed CT ABDOMEN AND PELVIS WITHOUT CONTRAST INDICATION: right flank pain WO CONTRAST. TECHNIQUE: Axial CT images were obtained through the abdomen and pelvis without IV contrast. All CT scans at this location are performed using CT dose reduction for ALARA by means of automated exposure control. COMPARISON: CT abdomen pelvis 03/21/2021 FINDINGS: LOWER CHEST: No significant abnormality. LIVER: No significant abnormality. GALLBLADDER: No significant abnormality. BILE DUCTS: No significant abnormality. PANCREAS: 4.5 x 4.1 cm cystic pancreatic head mass image 56, previously measured 4.0 x 4.3 cm image 77. Large multi lobulated pancreatic cystic mass arising from the body/tail of pancreas currently measures 11.3 x 8.0 cm image 55, previously measuring 10.6 x 8.5 cm image 78. SPLEEN: No significant abnormality. ADRENALS: No significant abnormality. RIGHT KIDNEY and URETER: Single nonobstructing 3 mm right intrarenal stone. No ureteral stone or LEFT KIDNEY and URETER: No significant abnormality. STOMACH and SMALL BOWEL: No significant abnormality. COLON: Moderate sigmoid diverticulosis without diverticulitis APPENDIX: No significant abnormality. PERITONEUM: No free fluid. No free air. No fluid collection. LYMPH NODES: No significant adenopathy. AORTA and ARTERIES: Extensive vascular calcifications nonaneurysmal aorta IVC and VEINS: No significant abnormality. URINARY BLADDER: No significant abnormality. REPRODUCTIVE ORGANS: Previous hysterectomy. Vaginal pessary device, new since previous studies ADDITIONAL FINDINGS: None. SKELETAL SYSTEM: Acute L2 vertebral body burst fracture, new since prior study with 70% loss of vertebral body height. No significant osseous retropulsion. Mildly displaced fractures involving tips of left 2 and L3 transverse processes, new since prior IMPRESSION: 1. 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 2. Right nephrolithiasis. No ureteral stone or hydronephrosis 3. New L2 burst fracture and fractures involving the tips of left L2 and L3 transverse processes - Medical Decision Making 89-year-old female presents to the hospital with nontraumatic back pain. ED work-up reveals L2 compression fracture. Patient has history of chronic steroid use therefore at risk of worsening osteoporosis and nontraumatic compression fractures. Patient does not endorse any neurologic symptoms and has no neuro findings on exam. Also denies urinary incontinence. Case discussed with neurosurgery and arrangements have been made (see consult) vent. Family at the bedside who assist with care and follow-up. Patient's PMD Dr. Puente contacted and informed of patient's ER visit, work-up, and outpatient plan. Patient informed to complete her Levaquin prescription Critical Care Time: No Critical care attestation.: If time is entered above; I have spent that time in minutes in the direct care of this critically ill patient, excluding procedure time. ED Disposition Clinical Impression: Compression fracture of L2 lumbar vertebra, Acute back pain Disposition: HOME / SELF CARE / HOMELESS Is pt being admited?: No Does the pt Need Aspirin: No Condition: Stable Additional Instructions: Take the medication as prescribed. You should expect a call from [facility] Shepard regarding LSO back brace fitting today. Follow-up with the neurosurgeon Dr. Lalit Puente tomorrow as discussed. Return if symptoms worsen as indicated by your discharge instructions. Prescriptions: Docusate Sodium [Colace] 100 mg PO BID PRN #20 capsule PRN Reason: Constipation Cyclobenzaprine HCl [Flexeril 5 MG TAB] 5 mg PO TID PRN #20 tab PRN Reason: Muscle Spasm oxyCODONE /ACETAMINOPHEN [Percocet 5/325] 1 tab PO Q6HR PRN #15 tablet PRN Reason: Pain Ondansetron [Zofran Odt] 4 mg PO Q8HR PRN #15 tab.rapdis PRN Reason: Nausea And Vomiting Referrals: PRIMARY CARE,MD [Primary Care Provider] - 3-5 Days
[2021-08-10 12:58] LABS: Bacteria,Urine 2+ /HPF (Negative); Bilirubin,Urine NEG (Negative); Blood,Urine SM (Negative); Color,Urine Yellow (Yellow); Urobilinogen,Urine < 2.0 mg/dL (<2.0)
[2021-08-10] MEDS ORDERED: oxyCODONE /ACETAMINOPHEN 5-325MG TAB PO ONE (13:25)
[2021-08-10] MEDS ORDERED: CYCLOBENZAPRINE 10 MG TAB PO ONE (13:28)
[2021-08-10 16:23] VITALS: BP 125/65
== END 2021-08-10 15:30 | disposition home or self-care (01) ==
LOC: ED 10:24
DX: S32.029A Unspecified fracture of second lumbar vertebra, initial encounter for closed fracture (principal); M54.9 Dorsalgia, unspecified; I11.0 Hypertensive heart disease with heart failure; I50.9 Heart failure, unspecified; E11.9 Type 2 diabetes mellitus without complications; M19.90 Unspecified osteoarthritis, unspecified site; Z98.890 Other specified postprocedural states; Z79.899 Other long term (current) drug therapy; X58.XXXA Exposure to other specified factors, initial encounter; Y93.89 Activity, other specified; Y92.89 Other specified places as the place of occurrence of the external cause; Y99.8 Other external cause status
CPT/HCPCS: 36415; 74176; 80053; 81001; 85027; 96374; 96375; 96376; 99284; J2270; J2405; J7040